=== PATIENT | female | born 1950 | race Caucasian/White ===

== ENCOUNTER 2018-11-08 13:06 | Inpatient (IN) | payer MEDICARE, BC ==
[~2018-11-08] VITALS: Ht 167.6 cm; Wt 84.8 kg
[2018-11-08] MEDS ORDERED: ZYPREXA2.5 MG ORAL (13:25)
[2018-11-08] MEDS ORDERED: IRON325 M1 PO (13:25)
[2018-11-08] MEDS ORDERED: ceftin PO (13:25)
[2018-11-08] MEDS ORDERED: FAMOTIDINE20 MG ORAL (13:25)
[2018-11-08] MEDS ORDERED: hydrocortisone PO (13:25)
[2018-11-08] MEDS ORDERED: NAMENDA5 MG ORAL (13:25)
[2018-11-08] MEDS ORDERED: ELIQUIS5 MG PO (13:25)
[2018-11-08] MEDS ORDERED: LEVOTHYROXINE75 MCG ORAL (13:25)
--- NOTE | 2018-11-08 13:36 | Emergency Room Report ---
History of Present Illness General Chief Complaint: Generalized Weakness Source: Patient, EMS Present Illness HPI Patient presents with reports of confusion and lightheadedness Patient herself is not able to provide any history paramedics reported the patient was contacted he is to the paramedics secondary to low blood pressure There was no reports of vomiting or diarrhea Patient reports recent hospitalization however is not able to provide the name Denies any fevers patient appears confused history of present illness is significantly limited Allergies: Coded Allergies: PENICILLINS (Verified Allergy, Unknown, 11/08/18) Patient History Past Medical History: see triage record Pertinent Family History: none Reviewed Nursing Documentation: PMH: Agreed; PSxH: Agreed Nursing Documentation-PMH Past Medical History: No History, Except For Hx Cancer: Yes - breast History Of Psychiatric Problem: Yes - Alzheimers anxiety depression Review of Systems All Other Systems: limited - Other than the ones mentioned in the history of present illness all others are reviewed however they do stay limited due to the patient's mental status Physical Exam Vital Signs Date Time Temp Pulse Resp B/P (MAP) Pulse Ox O2 Delivery O2 Flow Rate FiO2 11/08/18 12:58 98.1 88 18 105/68 93 Nasal Cannula 4.0 Sp02 EP Interpretation: reviewed, normal General Appearance: no apparent distress Head: normocephalic, atraumatic Eyes: bilateral eye PERRL, bilateral eye EOMI ENT: hearing grossly normal, TMs + canals normal, uvula midline, dry mucus membranes Neck: full range of motion, supple, no meningismus, no bony tend Respiratory: lungs clear, normal breath sounds, no rhonchi, no respiratory distress, no retraction, no accessory muscle use Cardiovascular #1: normal peripheral pulses, regular rate, rhythm, no edema, no gallop, no JVD, no murmur Gastrointestinal: normal bowel sounds, non tender, soft, no mass, no organomegaly, non-distended, no guarding, no hernia, no pulsatile mass, no rebound Genitourinary: no CVA tenderness Musculoskeletal: other - No obvious focal weakness Neurologic: responsive, motor strength/tone normal, sensory intact, other - Confused Psychiatric: mood/affect normal Skin: normal color, no rash, warm/dry, palpation normal Lymphatic: normal inspection, no adenopathy Medical Decision Making Diagnostic Impression: Primary Impression: Episode of generalized weakness Additional Impressions: UTI (urinary tract infection) Sepsis ER Course Patient is a fairly complex patient with multiple differential to consideration including but not limited to cardiac cardiopulmonary and vascular emergencies Also infectious pathology neurological ideology considered Patient's CBC shows a left fourth shift urine sample shows bacteria Patient initiated on IV hydration and antibiotics Sepsis reexamination Time: Reevaluation VS refer to nursing note cvs: RRR respiratory: improved respiration peripheral pulses: 2+radial cap refill:<2 seconds skin exam: warm, dry, not mottled Patient has not meet severe sepsis criteria Given her age and presentation CHF is attempted to be avoided and therefore patient does not reach full 30 mL/kg saline coverage however has improved significantly with blood pressure and admitted for further care Labs Test 11/08/18 13:45 White Blood Count 8.0 K/UL (4.8-10.8) Red Blood Count 3.88 M/UL (4.20-5.40) Hemoglobin 11.2 G/DL (12.0-16.0) Hematocrit 35.4 % (37.0-47.0) Mean Corpuscular Volume 91 FL (80-99) Mean Corpuscular Hemoglobin 28.9 PG (27.0-31.0) Mean Corpuscular Hemoglobin Concent 31.6 G/DL (32.0-36.0) Red Cell Distribution Width 13.6 % (11.6-14.8) Platelet Count 358 K/UL (150-450) Mean Platelet Volume 5.3 FL (6.5-10.1) Neutrophils (%) (Auto) % (45.0-75.0) Lymphocytes (%) (Auto) % (20.0-45.0) Monocytes (%) (Auto) % (1.0-10.0) Eosinophils (%) (Auto) % (0.0-3.0) Basophils (%) (Auto) % (0.0-2.0) Differential Total Cells Counted 100 Neutrophils % (Manual) 84 % (45-75) Lymphocytes % (Manual) 11 % (20-45) Monocytes % (Manual) 5 % (1-10) Eosinophils % (Manual) 0 % (0-3) Basophils % (Manual) 0 % (0-2) Band Neutrophils 0 % (0-8) Platelet Estimate Adequate Platelet Morphology Normal Red Blood Cell Morphology Normal Urine Color Yellow Urine Appearance Slightly cloudy Urine pH 5 (4.5-8.0) Urine Specific [place] 1.015 (1.005-1.035) Urine Protein 1+ (NEGATIVE) Urine Glucose (UA) Negative (NEGATIVE) Urine Ketones Negative (NEGATIVE) Urine Blood Negative (NEGATIVE) Urine Nitrite Negative (NEGATIVE) Urine Bilirubin Negative (NEGATIVE) Urine Urobilinogen Normal MG/DL (0.0-1.0) Urine Leukocyte Esterase 3+ (NEGATIVE) Urine RBC 0 /HPF (0 - 2) Urine WBC Tntc /HPF (0 - 2) Urine Squamous Epithelial Cells Occasional /LPF Urine Bacteria Few /HPF (NONE) Sodium Level 142 MMOL/L (136-145) Potassium Level 3.5 MMOL/L (3.5-5.1) Chloride Level 107 MMOL/L (98-107) Carbon Dioxide Level 27 MMOL/L (21-32) Anion Gap 8 mmol/L (5-15) Blood Urea Nitrogen 20 mg/dL (7-18) Creatinine 1.6 MG/DL (0.55-1.30) Estimat Glomerular Filtration Rate 32.0 mL/min (>60) Glucose Level 71 MG/DL (74-106) Lactic Acid Level 1.70 mmol/L (0.4-2.0) Calcium Level 8.6 MG/DL (8.5-10.1) Total Bilirubin 0.3 MG/DL (0.2-1.0) Aspartate Amino Transf (AST/SGOT) 24 U/L (15-37) Alanine Aminotransferase (ALT/SGPT) 13 U/L (12-78) Alkaline Phosphatase 99 U/L (46-116) Total Creatine Kinase 102 U/L (26-308) Creatine Kinase MB 3.5 NG/ML (0.0-3.6) Creatine Kinase MB Relative Index 3.4 Troponin I 0.000 ng/mL (0.000-0.056) Pro-B-Type Natriuretic Peptide 577 pg/mL (0-125) Total Protein 6.5 G/DL (6.4-8.2) Albumin 2.9 G/DL (3.4-5.0) Globulin 3.6 g/dL Albumin/Globulin Ratio 0.8 (1.0-2.7) Lipase 65 U/L (73-393) Rhythm Strip Diag. Results EP Interpretation: yes Rate: 65 Rhythm: NSR, no PVC's, no ectopy Chest X-Ray Diagnostic Results Chest X-Ray Diagnostic Results : Chest X-Ray Ordered: Yes # of Views/Limited/Complete: 1 View Indication: Chest Pain EP Interpretation: Yes Interpretation: no effusion, no pneumothorax, other - Bilateral atelectasis Impression: Other - Bilateral atelectasis Electronically Signed by: Jamison Moctezuma DO Last Vital Signs Date Time Temp Pulse Resp B/P (MAP) Pulse Ox O2 Delivery O2 Flow Rate FiO2 11/08/18 12:58 98.1 88 18 105/68 93 Nasal Cannula 4.0 Status: improved Disposition: ADMITTED INPATIENT Condition: Serious Jamison Moctezuma DO Nov 08, 2018 13:36
[2018-11-08] MEDS ORDERED: ACETAMINOPHEN325 M1 ORAL (13:39)
[2018-11-08] MEDS ORDERED: PHOS-NAK PACKE1 EAC1 PO (13:39)
[2018-11-08] MEDS ORDERED: VENLAFAXINE HC150 MG ORAL (13:39)
[2018-11-08] MEDS ORDERED: VITAMIN B-1100 MG ORAL (13:39)
[2018-11-08] MEDS ORDERED: OMEPRAZOLE20 M2 ORAL (13:39)
--- NOTE | 2018-11-08 14:09 | NUR ---
ED Nurse Note: Pt came from assisted living due to hypotension. A + O x3. Hx of dementia. Bolus fluids started. IV site noted on the right back on hand. Blood and urine collected. Redness noted on the sacrum.
[2018-11-08 14:10] VITALS: BP 111/69
[2018-11-08 14:29] LABS: APPEARANCE,URINE SLIGHTLY CLOUDY; BILIRUBIN, URINE NEGATIVE (NEGATIVE); GLUCOSE, URINE (UA) NEGATIVE (NEGATIVE); KETONES,URINE NEGATIVE (NEGATIVE); LEUKOCYTE ESTERASE ,URINE 3+ (NEGATIVE); NITRITE,URINE NEGATIVE (NEGATIVE); PH,URINE 5 (4.5-8.0); PROTEIN,URINE 1+ (NEGATIVE); UROBILINOGEN,URINE NORMAL MG/DL (0.0-1.0)
[2018-11-08 14:32] LABS: COLOR,URINE YELLOW; HEMATOCRIT 35.4 % (37.0-47.0); HEMOGLOBIN 11.2 G/DL (12.0-16.0); MEAN CORPUSCULAR VOLUME 91 FL (80-99); PLATELET COUNT 358 K/UL (150-450); RED BLOOD COUNT 3.88 M/UL (4.20-5.40); RED CELL DISTRIBUTION WIDTH 13.6 % (11.6-14.8)
[2018-11-08 14:34] LABS: ANION GAP 8 mmol/L (5-15); BLOOD UREA NITROGEN 20 mg/dL (7-18); CALCIUM 8.6 MG/DL (8.5-10.1); CARBON DIOXIDE 27 MMOL/L (21-32); CHLORIDE 107 MMOL/L (98-107); CREATININE 1.6 MG/DL (0.55-1.30); POTASSIUM 3.5 MMOL/L (3.5-5.1); SODIUM 142 MMOL/L (136-145)
[2018-11-08 14:48] LABS: ALANINE AMINOTRANSFERASE 13 U/L (12-78); ALBUMIN 2.9 G/DL (3.4-5.0); ALBUMIN/GLOBULIN RATIO 0.8 (1.0-2.7); ALKALINE PHOSPHATASE 99 U/L (46-116); ASPARTATE AMINO TRANSFERASE 24 U/L (15-37); BILIRUBIN,TOTAL 0.3 MG/DL (0.2-1.0); CKMB 3.5 NG/ML (0.0-3.6); CREATINE KINASE 102 U/L (26-308)
--- NOTE | 2018-11-08 14:48 | Diagnostic Imaging Report ---
EXAM: XR Chest, 1 View CLINICAL HISTORY: Chest pain TECHNIQUE: Frontal view of the chest. COMPARISON: No relevant prior studies available. FINDINGS: Lungs: Mild consolidation in the medial lung bases. Pleural space: Unremarkable. The costophrenic angles are sharp. No visible pneumothorax. Heart: Unremarkable. No cardiomegaly. Mediastinum: Unremarkable. Bones/joints: Unremarkable. Vasculature: Atherosclerotic calcifications are noted within the aortic arch. Mildly tortuous thoracic aorta. Tubes, lines and devices: EKG leads overlie the thorax. Right arm PICC with catheter tip in the region of the right atrium. IMPRESSION: Mild consolidation in the medial lung bases, which may represent subsegmental atelectasis versus infiltrates.
--- NOTE | 2018-11-08 16:32 | NUR ---
ED Nurse Note: Telephone report given to MEGHAN Molina.
--- NOTE | 2018-11-08 16:35 | NUR ---
NURSE NOTES: RECEIVED REPORT FROM JAY STATISTICAL MODELER. SBAR USED. BOLUS 2LNS GIVEN EKG IN CHART, CXR COMPLETE. PT GOING TO ROOM 244-2. AWAITNG PT ARRIVAL.
--- NOTE | 2018-11-08 16:49 | NUR ---
ED Nurse Note: Transferred pt to SDU w/ pulmonary function technologist. No acute distress or pain noted.
--- NOTE | 2018-11-08 17:00 | NUR ---
NURSE NOTES: PT ON GURNEY, LYING ON SIDE. C/O BEING COLD. ON CARDIAC TELE BOX, BP 144/90 RR13 HR 107 95% 02SAT , ON 2LNC, A/0X3. SPEECH DELAYED, PT APPEARS FATIGUED AND ANXIOUS, FORGETFUL AND CONFUSED. ABDOMEN NON TENDER, NO BM, PURE WICK PLACED. SKIN INTACT, 20G RT HAND AND 20G LT WRIST. FALL PRECAUTIONS IN PLACE. MD CALDWELL HERE TO SEE PT. WILL PLACE OWN ORDERS.
--- NOTE | 2018-11-08 17:12 | History & Physical ---
History and Physical History & Physicial HP dictated # [id number] Ilir Rios MD Nov 08, 2018 17:12
[2018-11-08] MEDS ORDERED: Miralax 17gm pkt ORAL PRN (17:30)
[2018-11-08] MEDS: Venlafaxine XR 150mg cap ORAL SCH (18:00)
[2018-11-08] MEDS: Memantine 5 MG TAB ORAL SCH (18:23)
[2018-11-08] MEDS: OLANZapine 2.5mg tab ORAL SCH (18:23)
[2018-11-08] MEDS: Thiamine 100mg tab ORAL SCH (18:25)
[2018-11-08 20:00] VITALS: BP 99/67
--- NOTE | 2018-11-08 20:03 | NUR ---
NURSE NOTES: Received report from MEGHAN Mack. Patient resting in bed. Caregiver at bedside. Hooked to waiter/waitress counter. On 2L NC. No apparent respiratory distress at moment. Regular diet in place. Purewick in place. Skin intact. 20G IV sites on left an right hand. running NS @ 75 cc/hr. Bed in lowest position. Bed alarm on. Will continue to monitor.
[2018-11-08] MEDS: Heparin 5000 units/ml inj SUBQ SCH (21:38)
[2018-11-08] MEDS ORDERED: Cefepime HCl 2 GM in D5W 55 ML IVPB SCH (23:00)
[2018-11-09] VITALS (22 sets, daily range): BP systolic 60–149; BP diastolic 40–105
[2018-11-09] MEDS ORDERED: Vancomycin 1250mg/D5W 250ml IVPB SCH
--- NOTE | 2018-11-09 00:45 | History and Physical Report ---
DATE OF ADMISSION: 11/08/2018 CHIEF COMPLAINT: The patient was found to have low blood pressure and generalized weakness. HISTORY OF PRESENT ILLNESS: This is a 68-year-old female, who is a resident of a [facility] facility. The patient was feeling weak. Paramedics were called. The patient was brought into the emergency room. She was diagnosed with urinary tract infection, also somewhat hypotensive with blood pressure in 90s and 100s systolic. The patient has history of Alzheimer disease and unable to provide any history. PAST MEDICAL HISTORY: Unobtainable at this point. The patient has history of breast cancer per records, also history of anxiety, depression, and Alzheimer disease. MEDICATIONS: Reviewed in the EMR. SOCIAL HISTORY: Unobtainable. ALLERGIES: Penicillin. REVIEW OF SYSTEMS: Unobtainable. PHYSICAL EXAMINATION: GENERAL: The patient is a 68-year-old female, in no acute distress. VITAL SIGNS: Blood pressure is 135/74, pulse 97, temperature 97.8, and respiratory rate is 13. HEENT: Somewhat pale conjunctivae. Anicteric sclerae. NECK: Supple. LUNGS: Clear to auscultation. HEART: S1, S2 without murmurs or rubs. ABDOMEN: Soft, nontender. EXTREMITIES: No cyanosis or edema. The patient has contractures in both upper as well as lower extremities. LABORATORY FINDINGS: The CBC shows WBC of 8000, hematocrit 35.4, hemoglobin is 11.2, and platelets 358,000. The chemistry panel shows serum sodium of , potassium 3.5, chloride 107, BUN is 20, creatinine 1.6, and glucose is 71. Troponin was negative. Lipase 65. Albumin 3.9. Lactic acid is 1.7. The UA shows 1+ protein, zero rbc, and too many to count wbc's per high-power field. ASSESSMENT: This is a 68-year-old female, who was admitted with weakness. She has confusion at baseline because of Alzheimer's disease. It is unclear if confusion is now worse because of her urinary tract infection. She has renal failure with serum creatinine of 1.6. She may have prerenal azotemia or she may have underlying CKD. Her baseline serum creatinine is not known at this point. Acute tubular necrosis is another possibility. PLAN: The patient will be hydrated with IV fluids. She is going to be on antibiotics. The patient was diagnosed with pneumonia from the ER that I looked at the chest x-ray and there may be some atelectasis only, however, I will get ID reporting consultant to help with antibiotics. Laboratories will be followed and further adjustment will be made in the patient's regimen. Ilir Rios M.D. DR: DUNG JOB#: [id number] CC: MATT
--- NOTE | 2018-11-09 07:34 | NUR ---
HAND-OFF: Report given to Kourtney Bowles RN. Patient sleeping.
--- NOTE | 2018-11-09 07:35 | NUR ---
NURSE NOTES: Received patient from MEGHAN Burk. Patient sleeping at this time. Patient reported to be alert to name only. Patient lethargic. Patient showing SR on the monitor. Patient on 2L NC at this time with stable saturation. Patient has a low BP during the night. Will notify MD. Patient on soft/easy chew at this time. Patient refused dinner last night. Patient on purewick at this time. Patient skin intact with scrape visible on the right knee at this time. Patient has a right hand 20G PIV ant left hand 20G PIV. Patient running NS at 75mL/hr at this time. PIV's both patent and asymptomatic at this time. Patient bed in low position with bed alarm on and call light in reach at this time. Caregiver at the bedside.
[2018-11-09] MEDS: Memantine 5 MG TAB ORAL SCH (08:33)
[2018-11-09] MEDS: OLANZapine 2.5mg tab ORAL SCH (08:33)
[2018-11-09] MEDS: Thiamine 100mg tab ORAL SCH (08:33)
[2018-11-09] MEDS: Venlafaxine XR 150mg cap ORAL SCH (08:33)
[2018-11-09] MEDS: Heparin 5000 units/ml inj SUBQ SCH ×2 (08:34→20:45)
--- NOTE | 2018-11-09 09:32 | General Progress Note ---
Assessment/Plan Problem List: (1) UTI (urinary tract infection) ICD Codes: N39.0 - Urinary tract infection, site not specified SNOMED: 97003732 (2) Sepsis ICD Codes: A41.9 - Sepsis, unspecified organism SNOMED: 87144338 (3) ARF (acute renal failure) ICD Codes: N17.9 - Acute kidney failure, unspecified SNOMED: 92314763 Assessment/Plan abxs IVF check cultures follow labs Subjective Allergies: Coded Allergies: PENICILLINS (Verified Allergy, Unknown, 11/08/18) Subjective In NAD Objective Last 24 Hour Vital Signs Date Time Temp Pulse Resp B/P (MAP) Pulse Ox O2 Delivery O2 Flow Rate FiO2 11/09/18 08:00 98.2 102 20 129/75 (93) 92 11/09/18 04:00 Nasal Cannula 2.0 11/09/18 04:00 94 11/09/18 04:00 97.9 96 20 87/42 (57) 94 11/09/18 00:00 101 11/09/18 00:00 Nasal Cannula 2.0 11/09/18 00:00 99.3 102 20 93/61 (72) 94 11/08/18 22:11 100.3 11/08/18 20:00 101.8 104 20 99/67 (78) 92 11/08/18 20:00 Nasal Cannula 2.0 11/08/18 20:00 106 11/08/18 18:40 Nasal Cannula 2.0 11/08/18 17:11 Nasal Cannula 2.0 11/08/18 16:50 97.8 97 13 135/74 100 Room Air 2.0 11/08/18 14:10 97.6 92 16 111/69 99 Room Air 2.0 11/08/18 14:10 92 16 Room Air 99 11/08/18 12:58 98.1 88 18 105/68 93 Nasal Cannula 4.0 Intake and Output 11/08/18 11/09/18 18:59 06:59 Intake Total 75 ml Balance 75 ml Intake IV Total 75 ml # Voids 1 Laboratory Tests 11/08/18 13:45: White Blood Count 8.0, Red Blood Count 3.88L, Hemoglobin 11.2L, Hematocrit 35.4L , Mean Corpuscular Volume 91, Mean Corpuscular Hemoglobin 28.9, Mean Corpuscular Hemoglobin Concent 31.6L, Red Cell Distribution Width 13.6, Platelet Count 358, Mean Platelet Volume 5.3L, Neutrophils (%) (Auto) , Lymphocytes (%) (Auto) , Monocytes (%) (Auto) , Eosinophils (%) (Auto) , Basophils (%) (Auto) , Differential Total Cells Counted 100, Neutrophils % ( Manual) 84H, Lymphocytes % (Manual) 11L, Monocytes % (Manual) 5, Eosinophils % ( Manual) 0, Basophils % (Manual) 0, Band Neutrophils 0, Platelet Estimate Adequate, Platelet Morphology Normal, Red Blood Cell Morphology Normal, Urine Color Yellow, Urine Appearance Slightly cloudy, Urine pH 5, Urine Specific [place] 1.015, Urine Protein 1+H, Urine Glucose (UA) Negative, Urine Ketones Negative, Urine Blood Negative, Urine Nitrite Negative, Urine Bilirubin Negative , Urine Urobilinogen Normal, Urine Leukocyte Esterase 3+H, Urine RBC 0, Urine WBC TntcH, Urine Squamous Epithelial Cells Occasional, Urine Bacteria Few, Sodium Level 142, Potassium Level 3.5, Chloride Level 107, Carbon Dioxide Level 27, Anion Gap 8, Blood Urea Nitrogen 20H, Creatinine 1.6H, Estimat Glomerular Filtration Rate 32.0, Glucose Level 71L, Lactic Acid Level 1.70, Calcium Level 8.6, Total Bilirubin 0.3, Aspartate Amino Transf (AST/SGOT) 24, Alanine Aminotransferase (ALT/SGPT) 13, Alkaline Phosphatase 99, Total Creatine Kinase 102, Creatine Kinase MB 3.5, Creatine Kinase MB Relative Index 3.4, Troponin I 0.000, Pro-B-Type Natriuretic Peptide 577H, Total Protein 6.5, Albumin 2.9L, Globulin 3.6, Albumin/Globulin Ratio 0.8L, Lipase 65L Height (Feet): 5 Height (Inches): 8.00 Weight (Pounds): 150 Cardiovascular: normal rate Respiratory/Chest: lungs clear Edema: 3+ Generalized Ilir Rios MD Nov 09, 2018 09:32
--- NOTE | 2018-11-09 10:53 | NUR ---
NURSE NOTES: Spoke with [facility] at this time. They called for an update. Notified them that patient will not be discharged today. No discharge planning noted in doctors note at this time.
[2018-11-09] MEDS ORDERED: Cefepime HCl 2 GM in D5W 55 ML IVPB SCH (11:00)
--- NOTE | 2018-11-09 14:11 | Cardiology Report ---
APPROVED REPORT EKG Measurement Heart [id number] ID [id number] Normal sinus rhythm Low voltage QRS Cannot rule out Anterior infarct, age undetermined Abnormal ECG
--- NOTE | 2018-11-09 14:43 | NUR ---
RESPIRATORY NOTE: Attempted sputum inducement with RN at bedside however patient refused. Patient alert and awake. RN aware.
--- NOTE | 2018-11-09 15:28 | NUR ---
NURSE NOTES: Patient refused to produce sputum for sputum culture. RT attempted to nasal suction patient, but patient refused to cooperate. Sputum cannot be collected at this time.
--- NOTE | 2018-11-09 15:46 | NUR ---
PT Note PT eval completed, treatment initiated. Patient is noted to have rigidity mostly on the RUE/LE and is severely retropulsive at the EOB. Patient needs skilled PT services to increase her muscle strength and balance to improve her functional mobility. Recommend for patient to be DC'd to a SNF to maximize her functional mobility. Addendum: 11/09/18 at 1546 by KAYLA WEBER PT Amended: Links added.
--- NOTE | 2018-11-09 16:52 | NUR ---
NURSE NOTES: Patient blood pressure low at this time. Patient also has a fever. Patient just given tylenol. Patient fever went from 101.3 to 100.3 at this time. blanket removed. Cooling measures performed. Patient bp is 76/44 at this time. paged at this time. Awaiting call back.
--- NOTE | 2018-11-09 17:45 | Consultation ---
DATE OF CONSULTATION: 11/09/2018 INFECTIOUS DISEASES CONSULTATION REFERRING PHYSICIAN: Ilir Rios M.D. REASON FOR CONSULTATION: Pneumonia and urinary tract infection. HISTORY OF PRESENTING ILLNESS: This is a 68-year-old lady with history of breast cancer, anxiety, depression, and dementia, who comes in with hypotension. She was found to have urinary tract infection and an Infectious Disease's consultation has been obtained for antibiotics. PAST MEDICAL HISTORY: 1. History of breast cancer. 2. Anxiety. 3. Depression. 4. Dementia. MEDICATIONS: As an inpatient, she is on IV vancomycin, cefepime, Tylenol, subcutaneous heparin, venlafaxine, MiraLax, famotidine, ferrous sulfate, levothyroxine, Namenda, olanzapine, thiamine. ALLERGIES: She is allergic to penicillin, but she is tolerating cephalosporins. SOCIAL HISTORY: Unknown. FAMILY HISTORY: Unknown. REVIEW OF SYSTEMS: RESPIRATORY: No fever, chills, cough, shortness of breath, or chest pain. CARDIAC: No chest pain. No palpitations. No dizziness. No syncope. GI: No nausea. No vomiting. No abdominal pain or diarrhea. PHYSICAL EXAMINATION: VITAL SIGNS: Temperature of 98.2 degrees, T-max of 101.8 degrees, pulse of 102, respiratory rate 20, blood pressure 129/75, O2 saturation of 92%. HEENT: Pupils equally reactive to light and accommodation. Mouth appears clean without thrush. NECK: Supple. No adenopathy. No JVD. CARDIOVASCULAR: Regular rate and rhythm. No murmurs. LUNGS: Clear to auscultation bilaterally. No crackles. No wheezes. ABDOMEN: Soft and nontender. No organomegaly. EXTREMITIES: No cyanosis, no clubbing, no edema. LABORATORY AND DIAGNOSTIC DATA: On 11/08/2018, white count of 8, hemoglobin 11.2, hematocrit 35.4, MCV 91, platelet count of 358,000, and neutrophils of 84%. Sodium 142, potassium 3.5, chloride 107, bicarb 27, BUN 20, creatinine 1.6, glucose 71, and calcium 8.6. Total bilirubin 0.3. AST 24, ALT 13, and alkaline phosphatase 99. CK of 102, CK-MB 3.5. Troponin 0. Beta-natriuretic peptide 577. Total protein 6.5. Albumin 2.9. Lipase of 65. UA showing too numerous to count white cells. Urine cultures are negative. Chest x-ray showing mild consolidation in the medial lung bases, which may represent atelectasis versus infiltrates. ASSESSMENT: This is a 68-year-old lady with history of dementia as well as breast cancer, who comes in with hypotension and is found to have: 1. Urinary tract infection. Cultures are negative so far. 2. She also probably has pneumonia. 3. Breast cancer. PLAN: 1. Continue IV vancomycin and cefepime. 2. We will order sputum for Gram stain and culture. 3. We will follow up cultures and adjust antibiotics accordingly. I would like to thank, Dr. Ilir Rios, for this consultation. Marcial Haque M.D. DR: Isa JOB#: [id number] CC: Ilir Rios M.D.; Fax#: [phone]
--- NOTE | 2018-11-09 18:39 | NUR ---
NURSE NOTES: Patient has been moved to ICU per MD request at this time. Patient started on Levophed drip at this time. Patient on 20mcg/kg/hr at this time. Patient VS unstable. Patient has temp 99.3 and BP 81/61 at this time. Patient's BP when moved to ICU was 60/40. Patient needs central line. Order is in and consent is signed. Patient's family (, step-daughter and daughter) have been notified regarding patient's condition at this time.
[2018-11-09] MEDS ORDERED: Miralax 17gm pkt ORAL PRN (19:00)
--- NOTE | 2018-11-09 20:10 | Emergency Room Report ---
History of Present Illness General Chief Complaint: Generalized Weakness Source: Significant Other, Medical Record Present Illness Allergies: Coded Allergies: PENICILLINS (Verified Allergy, Unknown, 11/08/18) Nursing Documentation-[facility] Past Medical History Deferred: Pt Cognitively Impaired Past Medical History: No History, Except For Hx Cardiac Problems: No Hx Cancer: Yes - breast Hx Gastrointestinal Problems: No History Of Psychiatric Problem: Yes - Alzheimers anxiety depression Hx Neurological Problems: Yes Hx Cerebrovascular Accident: No Hx Transient Ischemic Attacks: No Hx Dementia: Yes Hx Alzheimer's Disease: Yes Hx Parkinson's Disease: No Hx Meningitis: No Hx Encephalitis: No Hx Seizures: No Hx Epilepsy: No Hx Multiple Sclerosis: No Hx Cerebral Palsy: No Hx Amyotrophic Lat Sclerosis: No Hx Guillian-Butler Syndrome: No Hx Paralysis: No Hx Peripheral Neuropathy: No Hx Spinal Cord Injury: No Hx Head Trauma: No Hx Traumatic Brain Injury: No Hx Memory Loss: No Hx Concentration Difficulty: Yes Hx Speech Problem: No Hx Tremors: No Hx Vertigo: No Hx Dizziness: No Hx Syncope: No Hx Headaches: No Hx Aphasia: No Hx Dysphasia: No Hx Numbness: No Hx Weakness: Yes Hx Fatigue: Yes Hx Neurologic Surgery: No Hx Brain Shunt: No Physical Exam Vital Signs Date Time Temp Pulse Resp B/P (MAP) Pulse Ox O2 Delivery O2 Flow Rate FiO2 11/08/18 12:58 98.1 88 18 105/68 93 Nasal Cannula 4.0 11/08/18 14:10 99 Procedures Central Line Central Line : Consent: Written Central Line Lumen: triple Maximal Sterile Barrier Tech: yes cap, yes mask, yes sterile gown, yes sterile gloves, yes large sterile sheet, yes hand hygiene, yes chlorhexidine prep Central Line Postion: internal jugular (R) Anesthesia: local cc's of anesthesia: 8 Complications: none Central Line Post Position: sutured, good blood return Attempts: Other - three Patient Tolerated: Well Medical Decision Making Diagnostic Impression: Primary Impression: Episode of generalized weakness Additional Impressions: Sepsis UTI (urinary tract infection) Last Vital Signs Date Time Temp Pulse Resp B/P (MAP) Pulse Ox O2 Delivery O2 Flow Rate FiO2 11/09/18 19:04 85/65 11/09/18 16:55 103 11/09/18 16:19 100.3 11/09/18 16:00 Nasal Cannula 2.0 11/09/18 12:00 19 95 11/08/18 14:10 99 Disposition: ADMITTED INPATIENT Condition: Serious Referrals: NON PHYSICIAN (PCP) Haroon Truong MD Nov 09, 2018 20:10
--- NOTE | 2018-11-09 20:30 | NUR ---
HAND-OFF: Report given to MEGHAN Mccoy. Patient running levophed drip at 25 mcg/kg/min. Patient blood pressure not yet stable. temperature 99 at this time. ER doctor placed central line in right internal jugular at this time. Stat x-ray to be taken. Endorsed to follow up.
--- NOTE | 2018-11-09 20:40 | NUR ---
NURSE NOTES: PATIENT OPEN EYES, PT'S CAREGIVER AT BEDSIDE, TLC TO RIGHT IJ, INTACT, RESPIRATION REGULAR, ON O2 2LPM VIA NC, O2 SATURATION 98% NOTED, ABDOMEN SOFT, NO BOWEL MOVEMENT, PERIPHERAL LINE TO BOTH FORE ARM AND HAND, ONGOING LEVOPHED 25MCG/MIN AND NS AT 75ML/HR, WILL CONTINUE TO MONITOR.
--- NOTE | 2018-11-09 21:09 | NUR ---
NURSE NOTES: CALLED BACK FROM DR. GIVENS THAT OK TO USE CENTRAL LINE.
--- NOTE | 2018-11-09 22:29 | NUR ---
HAND-OFF: Report given to KIARA/RN.
--- NOTE | 2018-11-09 22:30 | NUR ---
NURSE NOTES: Endorsement received from MEGHAN Mccoy. Patient lethargic. on 2 liters oxygen per nasal cannula. No SOB. With external female catheter purewick connected to low suction. With right IJ TLC, left forearm g22, left hand g20, right hand g20. Ongoing levophed 23mcg/min and NS 75ml/hr. Bed locked and in low position. Daughter and caregiver at bedside.
[2018-11-09 22:34] LABS: HEMATOCRIT 35.1 % (37.0-47.0); HEMOGLOBIN 11.1 G/DL (12.0-16.0); MEAN CORPUSCULAR VOLUME 90 FL (80-99); PLATELET COUNT 302 K/UL (150-450); RED BLOOD COUNT 3.88 M/UL (4.20-5.40); RED CELL DISTRIBUTION WIDTH 13.6 % (11.6-14.8); WHITE BLOOD COUNT 13.6 K/UL (4.8-10.8)
[2018-11-09 22:36] LABS: BASOPHILS % (AUTO) 0.3 % (0.0-2.0); EOSINOPHILS % (AUTO) 2.2 % (0.0-3.0); LYMPHOCYTES % (AUTO) 8.7 % (20.0-45.0); MONOCYTES % (AUTO) 3.4 % (1.0-10.0); NEUTROPHILS % (AUTO) 85.4 % (45.0-75.0)
[2018-11-09] MEDS: Vancomycin 750mg/NS 250ml 250 ML IVPB SCH (23:57)
[2018-11-10] VITALS (48 sets, daily range): BP systolic 58–148; BP diastolic 41–112
[2018-11-10] MEDS ORDERED: Vancomycin 750mg/NS 250ml IVPB SCH
--- NOTE | 2018-11-10 | NUR ---
NURSE NOTES: Patient asleep. No shortness of breath. Afebrile. Bed alarm on. Personal sitter at bedside
--- NOTE | 2018-11-10 02:00 | NUR ---
NURSE NOTES: Patient with eyes closed, opens eyes by name. Levophed drip titrated accordingly.
--- NOTE | 2018-11-10 04:00 | NUR ---
NURSE NOTES: Patient passed large amount of soft brown stool. Bed bath, oral care, change of linens done.
--- NOTE | 2018-11-10 05:00 | NUR ---
NURSE NOTES: 12 L EKG done per Dr Mallory's order. shows sinus rhythm
[2018-11-10 05:43] LABS: BASOPHILS % (AUTO) 0.2 % (0.0-2.0); EOSINOPHILS % (AUTO) 2.7 % (0.0-3.0); HEMATOCRIT 29.5 % (37.0-47.0); HEMOGLOBIN 9.7 G/DL (12.0-16.0); LYMPHOCYTES % (AUTO) 11.2 % (20.0-45.0); MEAN CORPUSCULAR VOLUME 90 FL (80-99); MONOCYTES % (AUTO) 3.3 % (1.0-10.0); NEUTROPHILS % (AUTO) 82.6 % (45.0-75.0); PLATELET COUNT 258 K/UL (150-450); RED BLOOD COUNT 3.29 M/UL (4.20-5.40); RED CELL DISTRIBUTION WIDTH 13.3 % (11.6-14.8); WHITE BLOOD COUNT 10.4 K/UL (4.8-10.8)
[2018-11-10 06:06] LABS: ANION GAP 10 mmol/L (5-15); BLOOD UREA NITROGEN 17 mg/dL (7-18); CALCIUM 8.2 MG/DL (8.5-10.1); CARBON DIOXIDE 21 MMOL/L (21-32); CHLORIDE 108 MMOL/L (98-107); CREATININE 1.2 MG/DL (0.55-1.30); POTASSIUM 3.6 MMOL/L (3.5-5.1); SODIUM 139 MMOL/L (136-145)
--- NOTE | 2018-11-10 06:30 | NUR ---
NURSE NOTES: Blood sugar from the CMP is 63. Rechecked with bedside glucometer: 50mg/dl. Patient for swallow eval, D50 50 ml given and synthroid withheld.
--- NOTE | 2018-11-10 07:00 | NUR ---
HAND-OFF: Blood sugar rechecked: 65mg/dl. D50 25 ml given. Report given to MEGHAN Barrera
--- NOTE | 2018-11-10 08:33 | NUR ---
RADIOLOGY DEPT CHEST X-RAY DONE.-P.DYE
--- NOTE | 2018-11-10 08:40 | NUR ---
NURSE NOTES: DIET CHANGED TO PUREE NECTAR THICK
--- NOTE | 2018-11-10 08:50 | NUR ---
ST NOTE: BEDSIDE SWALLOW EVAL RECEIVED BEDSIDE SWALLOW EVAL ORDER CHART REVIEWED PRIOR THE EVALUATION. PT IS A 68-YEAR-OLD FEMALE WHO WAS ADMITTED DUE TO GENERALIZED WEAKNESS. DYSPHAGIA RISK FACTORS: ALZHEIMER'S DEMENTIA, SEPSIS AND UTI, ANXIETY AND BREAST CA. PER CXR: Mild consolidation in the medial lung bases, which may represent subsegmental atelectasis versus infiltrates. PLOF: PT RESIDES AT SNF. PER CG, PT WAS EATING REGULAR FOOD. NO POLST WAS NOTED IN THE CHART, ALSO REGARDING THE TUBE FEEDING IF NEEDED. CURRENT STATUS: PT SEEN AT BEDSIDE IN AM. AWAKE WITH MAX CUES. PT WITH NC(2L), PT'S CAREGIVER IS AT BEDSIDE. PER CG, PT REFUSED ALL THE MEALS SINCE ADMISSION. PT DID NOT FOLLOW ANY DIRECTIONS. GIVEN PO TRIALS: NECTAR THICK(TSP) ONLY. INITIAL IMPRESSION: PROBABLE MILD TO MODERATE OR WORSENED OROPHARYNGEAL DYSPHAGIA MILD INCREASED ORAL TRANSIT TIME AND OROPHARYNGEAL TRANSIT TIME FAIR LARYNGEAL ELEVATION, NO OVERT S/S OF ASPIRATION. NO FURTHER PO TRIAL WAS GIVEN AT THIS TIME DUE TO PT REDUCED ALERTNESS. DUE TO PT HAS H/O ALZHEIMER'S DEMENTIA, PT HAS HIGH RISK FOR (SILENT) ASPIRATION. RECOMMENDATIONS: 1. DUE TO PT REDUCED ALERTNESS AND HAS REFUSED PO INTAKE, TEMPORARILY NONORAL FEEDING MEANS(PLEASE USE THE SMALL BORE NGT-12 FR) IS RECOMMENDED TO MEET NUTRITION AND HYDRATION NEEDS IF PT'S FAMILY AGREES. 2. IF FAMILY REFUSES, PO SHOULD BE GIVEN FOR QUALITY OF LIFE, DIET IS RECOMMENDED LIQUIFIED PUREED, LIKE NECTAR THICK SOUP CONSISTENCY WITH NECTAR THICK LIQUIDS WITH STRICT ASPIRATION PRECAUTIONS WITH 1TO1 FEEDING. 3. VIDEOSWALLOW STUDY IF NEEDED POSTED NPO SIGN AND ASPIRATION PRECAUTIONS SIGN. D/W CAREGIVER AND RNORTIZ.
[2018-11-10] MEDS: Venlafaxine XR 150mg cap ORAL SCH (08:59)
[2018-11-10] MEDS: Thiamine 100mg tab ORAL SCH (08:59)
[2018-11-10] MEDS: Memantine 5 MG TAB ORAL SCH (08:59)
[2018-11-10] MEDS: OLANZapine 2.5mg tab ORAL SCH (08:59)
--- NOTE | 2018-11-10 09:01 | Nephrology Progress Note ---
Assessment/Plan Assessment/Plan A/P 1) Septic Shock- UTI/PNA - Abx per ID - levophed and IVFs - NS bolus 2) GABRIELLA- prerenal. Cr down to 1.2 3) Nutrition- NG and start TFs 4) Dementia- chronic Subjective Date patient seen: Nov 10, 2018 Time patient seen: 08:53 ROS Limited/Unobtainable: Yes Constitutional: Reports: weakness Allergies: Coded Allergies: PENICILLINS (Verified Allergy, Unknown, 11/08/18) Subjective Patient fatigued, nonverbal and has not eaten Objective Last 24 Hour Vital Signs Date Time Temp Pulse Resp B/P (MAP) Pulse Ox O2 Delivery O2 Flow Rate FiO2 11/10/18 07:00 84 17 107/57 (74) 97 11/10/18 06:30 84 17 111/49 (69) 97 11/10/18 06:00 98/69 11/10/18 06:00 84 17 98/69 (79) 97 11/10/18 05:45 83 17 107/81 (90) 97 11/10/18 05:30 84 17 101/75 (84) 95 11/10/18 05:15 83 16 94/60 (71) 95 11/10/18 05:00 82 16 92/61 (71) 95 11/10/18 05:00 92/61 11/10/18 04:45 85 20 125/95 (105) 95 11/10/18 04:30 87 17 130/112 (118) 95 11/10/18 04:15 81 13 113/85 (94) 96 11/10/18 04:00 79 11/10/18 04:00 107/83 11/10/18 04:00 Nasal Cannula 2.0 11/10/18 04:00 98.7 79 12 107/83 (91) 96 11/10/18 03:45 80 12 126/82 (97) 96 11/10/18 03:30 80 12 124/61 (82) 98 11/10/18 03:15 79 12 129/57 (81) 98 11/10/18 03:00 80 12 118/68 (85) 98 11/10/18 03:00 116/61 11/10/18 02:45 75 12 116/61 (79) 98 11/10/18 02:30 75 12 137/63 (87) 98 11/10/18 02:15 74 12 131/66 (87) 98 11/10/18 02:00 72 12 135/63 (87) 98 18 02:00 135/63 11/10/18 01:45 70 12 145/74 (97) 98 18 01:30 67 12 148/64 (92) 97 11/10/18 01:15 69 12 126/60 (82) 97 11/10/18 01:00 103/50 11/10/18 01:00 73 12 103/50 (67) 98 18 00:48 100/62 11/10/18 00:45 77 12 100/62 (75) 98 11/10/18 00:30 87 12 74/41 (52) 97 11/10/18 00:15 84 12 58/44 (49) 97 11/10/18 00:00 74 11/10/18 00:00 Nasal Cannula 2.0 11/10/18 00:00 98.7 70 12 135/61 (85) 99 11/10/18 00:00 135/61 18 23:45 71 12 115/61 (79) 99 18 23:30 73 12 121/92 (102) 93 11/09/18 23:15 73 12 140/75 (96) 99 18 23:00 146/65 18 23:00 69 12 146/65 (92) 99 18 22:45 68 12 149/62 (91) 99 18 22:30 71 12 136/63 (87) 99 18 22:00 78 16 135/67 (89) 98 18 22:00 135/67 18 21:30 88 16 74/47 (56) 97 11/09/18 21:00 81 12 134/58 (83) 98 18 21:00 134/58 11/09/18 20:30 74 19 148/48 (81) 99 11/09/18 20:00 99.0 82 18 143/105 (118) 97 11/09/18 20:00 Nasal Cannula 2.0 18 20:00 143/105 11/09/18 19:30 59 13 144/88 (106) 99 11/09/18 19:18 73 11/09/18 19:04 85/65 11/09/18 19:00 82 14 141/64 (89) 98 11/09/18 18:45 80 15 85/55 (65) 98 11/09/18 18:45 81/61 11/09/18 18:30 79 14 81/61 (68) 99 11/09/18 18:30 81/61 18 18:30 81/61 11/09/18 18:15 81 12 81/47 (58) 99 11/09/18 18:10 60/40 11/09/18 18:10 67/42 11/09/18 18:00 95 15 67/42 (50) 99 11/09/18 17:40 99.3 96 15 60/40 (47) 98 11/09/18 16:55 103 11/09/18 16:19 100.3 11/09/18 16:00 Nasal Cannula 2.0 11/09/18 12:00 102 11/09/18 12:00 100.7 109 19 102/49 (66) 95 11/09/18 11:53 Nasal Cannula 2.0 Intake and Output 11/09/18 11/10/18 18:59 06:59 Intake Total 905.60 ml 1832.230 ml Output Total 500 ml 600 ml Balance 405.60 ml 1232.230 ml Intake Oral 100 ml 0 ml IV Total 805.60 ml 1832.230 ml Output Urine Total 500 ml 600 ml # Bowel Movements 1 2 Laboratory Tests 11/09/18 21:33: Arterial Blood pH 7.384, Arterial Blood Partial Pressure CO2 31.8L, Arterial Blood Partial Pressure O2 103.2H, Arterial Blood HCO3 18.6L, Arterial Blood Oxygen Saturation 96.0, Arterial Blood Base Excess -5.6L, Leo Test Positive 11/09/18 22:10: White Blood Count 13.6#H, Red Blood Count 3.88L, Hemoglobin 11.1L, Hematocrit 35.1L, Mean Corpuscular Volume 90, Mean Corpuscular Hemoglobin 28.7, Mean Corpuscular Hemoglobin Concent 31.7L, Red Cell Distribution Width 13.6, Platelet Count 302, Mean Platelet Volume 5.2L, Neutrophils (%) (Auto) 85.4H, Lymphocytes (%) (Auto) 8.7L, Monocytes (%) (Auto) 3.4, Eosinophils (%) (Auto) 2.2, Basophils (%) (Auto) 0.3, D-Dimer 2.01H, Lactic Acid Level 1.20, Troponin I 0.007, Thyroid Stimulating Hormone (TSH) 0.086L, Cortisol [Pending] 11/10/18 04:50: White Blood Count 10.4, Red Blood Count 3.29L, Hemoglobin 9.7L, Hematocrit 29.5L , Mean Corpuscular Volume 90, Mean Corpuscular Hemoglobin 29.5, Mean Corpuscular Hemoglobin Concent 32.9, Red Cell Distribution Width 13.3, Platelet Count 258, Mean Platelet Volume 5.3L, Neutrophils (%) (Auto) 82.6H, Lymphocytes (%) (Auto) 11.2L, Monocytes (%) (Auto) 3.3, Eosinophils (%) (Auto) 2.7, Basophils (%) (Auto) 0.2, Sodium Level 139, Potassium Level 3.6, Chloride Level 108H, Carbon Dioxide Level 21, Anion Gap 10, Blood Urea Nitrogen 17, Creatinine 1.2, Estimat Glomerular Filtration Rate 44.5, Glucose Level 63L, Calcium Level 8.2L Height (Feet): 5 Height (Inches): 8.00 Weight (Pounds): 150 General Appearance: lethargic, confused Neck: normal alignment, supple Cardiovascular: normal rate, regular rhythm Respiratory/Chest: lungs clear, normal breath sounds Abdomen: non tender, soft Edema: no edema noted Arm (L), no edema noted Arm (R), no edema noted Leg (L), no edema noted Leg (R), no edema noted Pedal (L), no edema noted Pedal (R), no edema noted Generalized Boni Fournier MD Nov 10, 2018 09:01
[2018-11-10] MEDS: Heparin 5000 units/ml inj SUBQ SCH ×2 (09:06→20:31)
--- NOTE | 2018-11-10 09:13 | NUR ---
ST NOTE: DISCUSSED WITH RNLINK RE:PT'S CONDITIONS. PER RN, RN ATTEMPTED TO INSERT NG-TUBE YESTERDAY; AND PT REFUSED. NGT WAS UNABLE TO INSERT. DISCUSSED WITH MD, DR. DE LA CRUZ, APPROVED NECTAR THICK SOUP DIET. WILL FOLLOW UP.
--- NOTE | 2018-11-10 09:22 | Pulmonolgy Critical Care Note ---
Critical Care - Asmt/Plan Problems: (1) Hypoxemia (2) Elevated d-dimer (3) Dehydration (4) Sepsis (5) Episode of generalized weakness (6) UTI (urinary tract infection) (7) ARF (acute renal failure) Respiratory: adjust tidal volume, adjust FIO2, other - FU CT-A Cardiac: continue pressors - Titrate NE to keep MAP > 60, continue to monitor HR/BP, other - F/U TTE Renal: F/U I&O, keep IV fluid - per renal, check electrolytes Infectious Disease: check cultures, continue antibiotics - Vanco and Cefepime Gastrointestinal: start feedings - PO per COURT ADVOCATE with STRICT aspiration precautions Endocrine: monitor blood sugar Hematologic: other - Hep SQ for PPx, F/U DUPLEX and CT-A Neurologic: other - Monit MS Prophylaxis: Heparin, other - Pepcid Disposition: keep in ICU Time Spent (Minutes): 50 Notes Reviewed: nutrition partner, renal, ID Discussed with: nurses, consultants Critical Care - Objective Last 24 Hour Vital Signs Date Time Temp Pulse Resp B/P (MAP) Pulse Ox O2 Delivery O2 Flow Rate FiO2 11/10/18 07:00 84 17 107/57 (74) 97 11/10/18 06:30 84 17 111/49 (69) 97 11/10/18 06:00 98/69 11/10/18 06:00 84 17 98/69 (79) 97 11/10/18 05:45 83 17 107/81 (90) 97 11/10/18 05:30 84 17 101/75 (84) 95 11/10/18 05:15 83 16 94/60 (71) 95 11/10/18 05:00 82 16 92/61 (71) 95 11/10/18 05:00 92/61 11/10/18 04:45 85 20 125/95 (105) 95 11/10/18 04:30 87 17 130/112 (118) 95 11/10/18 04:15 81 13 113/85 (94) 96 11/10/18 04:00 79 11/10/18 04:00 107/83 11/10/18 04:00 Nasal Cannula 2.0 11/10/18 04:00 98.7 79 12 107/83 (91) 96 11/10/18 03:45 80 12 126/82 (97) 96 11/10/18 03:30 80 12 124/61 (82) 98 11/10/18 03:15 79 12 129/57 (81) 98 11/10/18 03:00 80 12 118/68 (85) 98 11/10/18 03:00 116/61 11/10/18 02:45 75 12 116/61 (79) 98 11/10/18 02:30 75 12 137/63 (87) 98 11/10/18 02:15 74 12 131/66 (87) 98 11/10/18 02:00 72 12 135/63 (87) 98 18 02:00 135/63 11/10/18 01:45 70 12 145/74 (97) 98 11/10/18 01:30 67 12 148/64 (92) 97 11/10/18 01:15 69 12 126/60 (82) 97 11/10/18 01:00 103/50 11/10/18 01:00 73 12 103/50 (67) 98 11/10/18 00:48 100/62 11/10/18 00:45 77 12 100/62 (75) 98 11/10/18 00:30 87 12 74/41 (52) 97 11/10/18 00:15 84 12 58/44 (49) 97 11/10/18 00:00 74 11/10/18 00:00 Nasal Cannula 2.0 11/10/18 00:00 98.7 70 12 135/61 (85) 99 11/10/18 00:00 135/61 18 23:45 71 12 115/61 (79) 99 11/09/18 23:30 73 12 121/92 (102) 93 11/09/18 23:15 73 12 140/75 (96) 99 18 23:00 146/65 18 23:00 69 12 146/65 (92) 99 18 22:45 68 12 149/62 (91) 99 18 22:30 71 12 136/63 (87) 99 18 22:00 78 16 135/67 (89) 98 18 22:00 135/67 11/09/18 21:30 88 16 74/47 (56) 97 11/09/18 21:00 81 12 134/58 (83) 98 18 21:00 134/58 11/09/18 20:30 74 19 148/48 (81) 99 11/09/18 20:00 99.0 82 18 143/105 (118) 97 11/09/18 20:00 Nasal Cannula 2.0 11/09/18 20:00 143/105 18 19:30 59 13 144/88 (106) 99 11/09/18 19:18 73 11/09/18 19:04 85/65 11/09/18 19:00 82 14 141/64 (89) 98 11/09/18 18:45 80 15 85/55 (65) 98 11/09/18 18:45 81/61 11/09/18 18:30 79 14 81/61 (68) 99 18 18:30 81/61 18 18:30 81/61 18 18:15 81 12 81/47 (58) 99 11/09/18 18:10 60/40 11/09/18 18:10 67/42 11/09/18 18:00 95 15 67/42 (50) 99 11/09/18 17:40 99.3 96 15 60/40 (47) 98 11/09/18 16:55 103 11/09/18 16:19 100.3 11/09/18 16:00 Nasal Cannula 2.0 11/09/18 12:00 102 11/09/18 12:00 100.7 109 19 102/49 (66) 95 11/09/18 11:53 Nasal Cannula 2.0 Status: awake, other - confused Condition: critical HEENT: atraumatic Neck: full ROM Lungs: clear Heart: HR/BP unstable Abdomen: soft Extremities: no C/C/E Micro: Microbiology Date/Time Source Procedure Growth Status 11/08/18 13:30 Blood Blood Culture - Preliminary NO GROWTH AFTER 24 HOURS Resulted 11/08/18 13:30 Blood Blood Culture - Preliminary NO GROWTH AFTER 24 HOURS Resulted 11/08/18 13:45 Urine,Clean Catch Urine Culture - Preliminary NO GROWTH Resulted Accucheck: 65 Blood Sugars: BS controlled Critical Care - Subjective ROS Limited/Unobtainable: Yes ICU Day: 2 Interval Events: Tx'd to the ICU with hyoTN Condition: critical IV Access: central - R IJ, peripheral EKG Rhythm: Sinus Rhythm FI02: 99 Sputum Amount: None Fluids: NS bolus 1L, then D5NS Drips: NE@14 I&O: Intake and Output 11/09/18 11/10/18 18:59 06:59 Intake Total 905.60 ml 1832.230 ml Output Total 500 ml 600 ml Balance 405.60 ml 1232.230 ml Intake Oral 100 ml 0 ml IV Total 805.60 ml 1832.230 ml Output Urine Total 500 ml 600 ml # Bowel Movements 1 2 Subjective: AVINASH given dementia CXR: Mild atx L base Labs: Laboratory Tests Test 11/09/18 21:33 11/09/18 22:10 11/10/18 04:50 Arterial Blood pH 7.384 (7.350-7.450) Arterial Blood Partial Pressure CO2 31.8 mmHg (35.0-45.0) L Arterial Blood Partial Pressure O2 103.2 mmHg (75.0-100.0) H Arterial Blood HCO3 18.6 mmol/L (22.0-26.0) L Arterial Blood Oxygen Saturation 96.0 % (95-100) Arterial Blood Base Excess -5.6 (-2-2) L Leo Test Positive White Blood Count 13.6 K/UL (4.8-10.8) #H 10.4 K/UL (4.8-10.8) Red Blood Count 3.88 M/UL (4.20-5.40) L 3.29 M/UL (4.20-5.40) L Hemoglobin 11.1 G/DL (12.0-16.0) L 9.7 G/DL (12.0-16.0) L Hematocrit 35.1 % (37.0-47.0) L 29.5 % (37.0-47.0) L Mean Corpuscular Volume 90 FL (80-99) 90 FL (80-99) Mean Corpuscular Hemoglobin 28.7 PG (27.0-31.0) 29.5 PG (27.0-31.0) Mean Corpuscular Hemoglobin Concent 31.7 G/DL (32.0-36.0) L 32.9 G/DL (32.0-36.0) Red Cell Distribution Width 13.6 % (11.6-14.8) 13.3 % (11.6-14.8) Platelet Count 302 K/UL (150-450) 258 K/UL (150-450) Mean Platelet Volume 5.2 FL (6.5-10.1) L 5.3 FL (6.5-10.1) L Neutrophils (%) (Auto) 85.4 % (45.0-75.0) H 82.6 % (45.0-75.0) H Lymphocytes (%) (Auto) 8.7 % (20.0-45.0) L 11.2 % (20.0-45.0) L Monocytes (%) (Auto) 3.4 % (1.0-10.0) 3.3 % (1.0-10.0) Eosinophils (%) (Auto) 2.2 % (0.0-3.0) 2.7 % (0.0-3.0) Basophils (%) (Auto) 0.3 % (0.0-2.0) 0.2 % (0.0-2.0) D-Dimer 2.01 mg/L FEU (0.00-0.49) H Lactic Acid Level 1.20 mmol/L (0.4-2.0) Troponin I 0.007 ng/mL (0.000-0.056) Thyroid Stimulating Hormone (TSH) 0.086 uiU/mL (0.358-3.740) Cortisol Pending Sodium Level 139 MMOL/L (136-145) Potassium Level 3.6 MMOL/L (3.5-5.1) Chloride Level 108 MMOL/L (98-107) H Carbon Dioxide Level 21 MMOL/L (21-32) Anion Gap 10 mmol/L (5-15) Blood Urea Nitrogen 17 mg/dL (7-18) Creatinine 1.2 MG/DL (0.55-1.30) Estimat Glomerular Filtration Rate 44.5 mL/min (>60) Glucose Level 63 MG/DL (74-106) L Calcium Level 8.2 MG/DL (8.5-10.1) L Ahmet Mallory MD Nov 10, 2018 09:22
--- NOTE | 2018-11-10 09:27 | NUR ---
REHAB MED PT NOTE PATIENT TRANSFERRED TO ICU FOR HIGHER LEVEL OF CARE. PATIENT NOT MEDICALLY APPROPRIATE FOR OOB ACTIVITY AT THIS TIME. PATIENT WILL BE DC FROM [facility].
[2018-11-10] MEDS: D5NS 1,000 ML IV SCH ×2 (09:28→20:30)
[2018-11-10] MEDS ORDERED: Isovue-370 150ml vial INJ PRN (09:30)
--- NOTE | 2018-11-10 09:30 | NUR ---
NURSE NOTES: Patient turned and repositioned.Kept clean , dry and comfortable.
--- NOTE | 2018-11-10 10:11 | NUR ---
NURSE NOTES: Patient asleep, turned and repositioned. Kept clean and dry. HOB elevated to prevent aspiration.Kept on close monitoring.
--- NOTE | 2018-11-10 10:32 | Diagnostic Imaging Report ---
Indication: Shortness of breath Technique: One view of the chest Comparison: 11/09/2018 Findings: Linear and hazy peripheral opacity and perihilar atelectasis persists on the left. Right lung is basically clear. Right jugular central venous catheter, right arm PICC remain. Impression: Unchanged, over one day, findings as above.
[2018-11-10] MEDS ORDERED: Tubing IV Secondary IV ONE (10:37)
[2018-11-10] MEDS ORDERED: D5 1/2NS 1000ml IV ONE (10:37)
--- NOTE | 2018-11-10 10:56 | NUR ---
CASE MANAGEMENT: REVIEW / BIBA FROM [facility] CC: GENERALIZED WEAKNESS SI: DEHYDRATION . HYPOTENSION T 98.1 HR 88 RR 18 BP 105/68 SAT 93% NC/4L H/H 11.2/35.4 IS: NS IVF BOLUS X1 LEVOFLOXACIN IV X1 CEFEPIME IV X1 VANCO IV X1 INTERQUAL CRITERIA MET: PATIENT ADMITTED TO ICU 11/08/2018 DCP: PATIENT IS FROM [facility] Addendum: 11/10/18 at 1126 by ERIBERTO CARTAGENA CASE MANAGEMENT: REVIEW SI: DEHYDRATION . HYPOTENSION T 98.7 HR 82 RR 14 BP 76/50 SAT 96% NC/2L H/H 9.7/29.5 IS: CEFEPIME IV Q24HR LEVOPHED IV Q24HR ICU STATUS DCP: PATIENT IS FROM [facility]
[2018-11-10] MEDS: Cefepime HCl 2 GM in D5W 55 ML IVPB SCH (11:31)
--- NOTE | 2018-11-10 12:30 | NUR ---
NURSE NOTES: Patient turned and repositioned.golf ball trimmer at bedside, slow eater, 1:1 feeding assist. Consumed 25% at lunch. Kept clean and dry.
--- NOTE | 2018-11-10 12:31 | NUR ---
Social Service Note SW spoke with patient's Amanda Aquino [phone] to obtain history. Patient is a resident of [facility]. Patient has been a resident for about 3 months. Placement at facility was due to patient's Alzheimer. also has hired caregivers to assist patient as needed. Patient has had previous stays at SNF's. is hoping that patient can return to [place] upon discharge. Patient is a full code and doesn't have an advance directive. Will monitor and assist as needed.
--- NOTE | 2018-11-10 13:02 | NUR ---
NURSE NOTES: Taken down for CT chest. Awaiting result Addendum: 11/10/18 at 1842 by Holly Galvan RN NOTED WITH REDNESS BUTTOCKS, PROTOCOL TREATMENT INITIATED.PICTURE TAKEN
--- NOTE | 2018-11-10 14:08 | Cardiology Report ---
APPROVED REPORT EKG Measurement Heart [id number] Normal sinus rhythm Low voltage QRS Possible Anterolateral infarct, age undetermined Abnormal ECG
--- NOTE | 2018-11-10 14:10 | NUR ---
NURSE NOTES: Patient turned and repositioned. kept clean and dry.Will continue to monitor
--- NOTE | 2018-11-10 16:13 | NUR ---
NURSE NOTES: Patient turned and repositioned, Dr Torres made aware CT chest result. Kept clean and dry.
--- NOTE | 2018-11-10 16:21 | Infectious Diseases Prog Note ---
Assessment/Plan Assessment/Plan antibiotics : vancomycin iv, cefepime A 1. Urinary tract infection. 2. She also probably has pneumonia. 3. Breast cancer P 1. continue vancomycin iv, cefepime 2. will follow up cultures Subjective Constitutional: Denies: fever, chills Respiratory: Reports: dry cough; Denies: shortness of breath Gastrointestinal/Abdominal: Denies: nausea, vomiting, diarrhea Musculoskeletal: Denies: pain Allergies: Coded Allergies: PENICILLINS (Verified Allergy, Unknown, 11/08/18) Objective Vital Signs Last 24 Hour Vital Signs Date Time Temp Pulse Resp B/P (MAP) Pulse Ox O2 Delivery O2 Flow Rate FiO2 11/10/18 13:40 95/59 11/10/18 13:00 68 13 118/62 (80) 99 11/10/18 12:00 Nasal Cannula 2.0 11/10/18 12:00 80 11/10/18 12:00 98.6 80 14 115/96 (102) 96 11/10/18 11:00 75 13 115/97 (103) 100 11/10/18 10:00 68 13 110/89 (96) 100 11/10/18 09:00 66 13 93/57 (69) 100 11/10/18 08:00 98.7 82 14 76/50 (59) 96 11/10/18 08:00 81 11/10/18 08:00 Nasal Cannula 2.0 11/10/18 07:00 84 17 107/57 (74) 97 11/10/18 06:30 84 17 111/49 (69) 97 11/10/18 06:00 98/69 11/10/18 06:00 84 17 98/69 (79) 97 11/10/18 05:45 83 17 107/81 (90) 97 11/10/18 05:30 84 17 101/75 (84) 95 11/10/18 05:15 83 16 94/60 (71) 95 11/10/18 05:00 82 16 92/61 (71) 95 11/10/18 05:00 92/61 11/10/18 04:45 85 20 125/95 (105) 95 11/10/18 04:30 87 17 130/112 (118) 95 11/10/18 04:15 81 13 113/85 (94) 96 11/10/18 04:00 79 11/10/18 04:00 107/83 11/10/18 04:00 Nasal Cannula 2.0 11/10/18 04:00 98.7 79 12 107/83 (91) 96 11/10/18 03:45 80 12 126/82 (97) 96 11/10/18 03:30 80 12 124/61 (82) 98 11/10/18 03:15 79 12 129/57 (81) 98 11/10/18 03:00 80 12 118/68 (85) 98 11/10/18 03:00 116/61 11/10/18 02:45 75 12 116/61 (79) 98 11/10/18 02:30 75 12 137/63 (87) 98 11/10/18 02:15 74 12 131/66 (87) 98 11/10/18 02:00 72 12 135/63 (87) 98 11/10/18 02:00 135/63 11/10/18 01:45 70 12 145/74 (97) 98 11/10/18 01:30 67 12 148/64 (92) 97 11/10/18 01:15 69 12 126/60 (82) 97 11/10/18 01:00 103/50 11/10/18 01:00 73 12 103/50 (67) 98 11/10/18 00:48 100/62 11/10/18 00:45 77 12 100/62 (75) 98 11/10/18 00:30 87 12 74/41 (52) 97 11/10/18 00:15 84 12 58/44 (49) 97 11/10/18 00:00 74 11/10/18 00:00 Nasal Cannula 2.0 11/10/18 00:00 98.7 70 12 135/61 (85) 99 18 00:00 135/61 18 23:45 71 12 115/61 (79) 99 18 23:30 73 12 121/92 (102) 93 11/09/18 23:15 73 12 140/75 (96) 99 11/09/18 23:00 146/65 18 23:00 69 12 146/65 (92) 99 18 22:45 68 12 149/62 (91) 99 12/23/18 22:30 71 12 136/63 (87) 99 11/09/18 22:00 78 16 135/67 (89) 98 18 22:00 135/67 11/09/18 21:30 88 16 74/47 (56) 97 11/09/18 21:00 81 12 134/58 (83) 98 11/09/18 21:00 134/58 11/09/18 20:30 74 19 148/48 (81) 99 11/09/18 20:00 99.0 82 18 143/105 (118) 97 11/09/18 20:00 Nasal Cannula 2.0 11/09/18 20:00 143/105 11/09/18 19:30 59 13 144/88 (106) 99 11/09/18 19:18 73 11/09/18 19:04 85/65 11/09/18 19:00 82 14 141/64 (89) 98 11/09/18 18:45 80 15 85/55 (65) 98 11/09/18 18:45 81/61 11/09/18 18:30 79 14 81/61 (68) 99 18 18:30 81/61 18 18:30 81/61 18 18:15 81 12 81/47 (58) 99 11/09/18 18:10 60/40 11/09/18 18:10 67/42 11/09/18 18:00 95 15 67/42 (50) 99 11/09/18 17:40 99.3 96 15 60/40 (47) 98 11/09/18 16:55 103 11/09/18 16:19 100.3 Height (Feet): 5 Height (Inches): 8.00 Weight (Pounds): 150 Respiratory/Chest: lungs clear Cardiovascular: normal rate, regular rhythm, no gallop/murmur Abdomen: soft, non tender Extremities: no edema, other - right IJ catheter Microbiology Date/Time Source Procedure Growth Status 11/08/18 13:30 Blood Blood Culture - Preliminary NO GROWTH AFTER 24 HOURS Resulted 11/08/18 13:30 Blood Blood Culture - Preliminary NO GROWTH AFTER 24 HOURS Resulted 11/08/18 13:40 Nasal Nares MRSA Culture - Final Staphylococcus Aureus - Mrsa Complete 11/08/18 13:45 Urine,Clean Catch Urine Culture - Preliminary NO GROWTH AFTER 24 HOURS Resulted 11/08/18 13:40 Rectum VRE Culture - Final Enterococcus Faecalis - Vre Complete 11/08/18 13:40 Rectum - Final NO CARBAPENEM-RESISTANT ENTEROBACTERI... Complete Laboratory Tests Test 11/09/18 21:33 11/09/18 22:10 11/10/18 04:50 Arterial Blood pH 7.384 (7.350-7.450) Arterial Blood Partial Pressure CO2 31.8 mmHg (35.0-45.0) L Arterial Blood Partial Pressure O2 103.2 mmHg (75.0-100.0) H Arterial Blood HCO3 18.6 mmol/L (22.0-26.0) L Arterial Blood Oxygen Saturation 96.0 % (95-100) Arterial Blood Base Excess -5.6 (-2-2) L Leo Test Positive White Blood Count 13.6 K/UL (4.8-10.8) #H 10.4 K/UL (4.8-10.8) Red Blood Count 3.88 M/UL (4.20-5.40) L 3.29 M/UL (4.20-5.40) L Hemoglobin 11.1 G/DL (12.0-16.0) L 9.7 G/DL (12.0-16.0) L Hematocrit 35.1 % (37.0-47.0) L 29.5 % (37.0-47.0) L Mean Corpuscular Volume 90 FL (80-99) 90 FL (80-99) Mean Corpuscular Hemoglobin 28.7 PG (27.0-31.0) 29.5 PG (27.0-31.0) Mean Corpuscular Hemoglobin Concent 31.7 G/DL (32.0-36.0) L 32.9 G/DL (32.0-36.0) Red Cell Distribution Width 13.6 % (11.6-14.8) 13.3 % (11.6-14.8) Platelet Count 302 K/UL (150-450) 258 K/UL (150-450) Mean Platelet Volume 5.2 FL (6.5-10.1) L 5.3 FL (6.5-10.1) L Neutrophils (%) (Auto) 85.4 % (45.0-75.0) H 82.6 % (45.0-75.0) H Lymphocytes (%) (Auto) 8.7 % (20.0-45.0) L 11.2 % (20.0-45.0) L Monocytes (%) (Auto) 3.4 % (1.0-10.0) 3.3 % (1.0-10.0) Eosinophils (%) (Auto) 2.2 % (0.0-3.0) 2.7 % (0.0-3.0) Basophils (%) (Auto) 0.3 % (0.0-2.0) 0.2 % (0.0-2.0) D-Dimer 2.01 mg/L FEU (0.00-0.49) H Lactic Acid Level 1.20 mmol/L (0.4-2.0) Troponin I 0.007 ng/mL (0.000-0.056) Thyroid Stimulating Hormone (TSH) 0.086 uiU/mL (0.358-3.740) Cortisol Pending Sodium Level 139 MMOL/L (136-145) Potassium Level 3.6 MMOL/L (3.5-5.1) Chloride Level 108 MMOL/L (98-107) H Carbon Dioxide Level 21 MMOL/L (21-32) Anion Gap 10 mmol/L (5-15) Blood Urea Nitrogen 17 mg/dL (7-18) Creatinine 1.2 MG/DL (0.55-1.30) Estimat Glomerular Filtration Rate 44.5 mL/min (>60) Glucose Level 63 MG/DL (74-106) L Calcium Level 8.2 MG/DL (8.5-10.1) L Current Medications Medications (Trade) Dose Ordered Sig/Inocente Route PRN Reason Start Time Stop Time Status Last Admin Dose Admin Acetaminophen (Tylenol) 650 mg Q4H PRN ORAL Mild Pain/Temp > 100.5 11/09/18 22:30 12/08/18 22:29 Cefepime HCl 2 gm/ Dextrose 55 ml @ 110 mls/hr Q24H IVPB 11/10/18 11:00 11/16/18 10:59 11/10/18 11:31 Dextrose (Dextrose 50%) 25 ml Q30M PRN IV Hypoglycemia 11/09/18 19:00 12/08/18 17:29 11/10/18 07:33 Dextrose (Dextrose 50%) 50 ml Q30M PRN IV Hypoglycemia 11/09/18 19:00 12/08/18 17:29 11/10/18 06:31 Dextrose/Sodium Chloride 1,000 ml @ 100 mls/hr Q10H IV 11/10/18 09:30 12/10/18 09:29 11/10/18 09:28 Famotidine (Pepcid) 20 mg DAILY ORAL 11/10/18 09:00 12/08/18 17:14 11/10/18 08:59 Ferrous Sulfate (Feosol) 325 mg DAILY ORAL 11/10/18 09:00 12/08/18 17:14 11/10/18 08:59 Heparin Sodium (Porcine) (Heparin 5000 units/ml) 5,000 units EVERY 12 HOURS SUBQ 11/09/18 21:00 12/08/18 20:59 11/10/18 09:06 Iopamidol (Isovue-370 150ml) 150 ml NOW PRN INJ Radiology Procedure 11/10/18 09:30 11/12/18 09:19 Levothyroxine Sodium (Synthroid) 75 mcg ACBREAKFAST ORAL 11/10/18 06:30 12/10/18 06:29 Memantine (Namenda) 5 mg DAILY ORAL 11/10/18 09:00 12/08/18 17:14 11/10/18 08:59 Norepinephrine Bitartrate 8 mg/ Dextrose 508 ml @ 0 mls/hr Q24H IV 11/09/18 19:00 12/09/18 18:59 11/10/18 13:40 Olanzapine (ZyPREXA) 2.5 mg DAILY ORAL 11/10/18 09:00 12/08/18 17:14 11/10/18 08:59 Polyethylene Glycol (Miralax) 17 gm DAILYPRN PRN ORAL Constipation 11/09/18 19:00 12/09/18 18:59 Thiamine HCl (Vitamin B1) 100 mg DAILY ORAL 11/10/18 09:00 12/08/18 17:14 11/10/18 08:59 Vancomycin HCl (Vanco rx to dose) 1 ea DAILY PRN MISC Per rx protocol 11/10/18 09:00 12/08/18 21:59 Vancomycin/Sodium Chloride 250 ml @ 166.667 mls/hr Q24H IVPB 11/10/18 00:00 11/15/18 00:00 11/09/18 23:57 Venlafaxine HCl (Effexor-XR) 150 mg DAILY ORAL 11/10/18 09:00 12/08/18 17:59 11/10/18 08:59 Marcial Haque MD Nov 10, 2018 16:21
--- NOTE | 2018-11-10 17:10 | Diagnostic Imaging Report ---
ndication: Chest pain Technique: IV administration nonionic contrast. Spiral acquisitions obtained from the lung bases to the lung apices. Multiplanar and 3-D reconstructions were generated. Total dose length product 1108.5 mGycm. CTDIvol(s) 34.76 mGy. Dose reduction achieved using automated exposure control Comparison: none Findings: Pulmonary arteries are well opacified. No intraluminal filling defects or other findings to suggest acute pulmonary embolus demonstrated. The ascending thoracic aorta is slightly ectatic, but no evidence of thoracic aortic aneurysm or dissection. There is common origin of the right brachiocephalic, left common carotid arteries, otherwise normal classic branching anatomy of the great neck vessels. Normal caliber pulmonary arteries. No evidence of isolated right ventricular dilatation. The heart is upper limits of normal in size. There are small bilateral pleural effusions. There is considerable atelectasis and consolidation of both lower lobes, more so on the left than on the right The heart is borderline enlarged. No pericardial effusion. No mediastinal or hilar mass or adenopathy. The esophagus is unremarkable. There is a right arm PICC in place. No axillary or chest wall mass or adenopathy. The thyroid is atrophic. There is a compression fracture deformity of the T8 vertebral body The included upper abdominal anatomy demonstrates fluid-filled colon. The gallbladder is distended. Impression: Negative for evidence of acute pulmonary embolus or other acute thoracic vascular pathology Considerable atelectasis and consolidation of both lower lobes, left greater than right Small bilateral pleural effusions Borderline cardiomegaly Age-indeterminate T8 vertebral body compression fracture. Consider MRI if this is considered clinically relevant Fluid-filled colon, nonspecific, incompletely visualized Other findings as noted, including atrophic thyroid, PICC The CT scanner at [facility] is accredited by the [employer] and the scans are performed using protocols designed to limit radiation exposure to as low as reasonably achievable to attain images of sufficient resolution adequate for diagnostic evaluation.
--- NOTE | 2018-11-10 17:35 | Diagnostic Imaging Report ---
Indication: Post line placement Technique: One view of the chest Comparison: 11/08/2018 Findings: Interim placement right jugular central venous catheter, tip which projects at the level of the right innominate vein. Right arm PICC remains. The heart size is normal. There is suboptimal inspiration with compressive atelectatic changes at both lung bases again demonstrated. No pneumothorax. Impression: Satisfactory right jugular central venous catheter placement, as described. No radiographically evident complication
--- NOTE | 2018-11-10 18:33 | NUR ---
NURSE NOTES: ADLS DONE, KEPT CLEAN AND DRY.TURNED AND REPOSITIONED.HOB ELEVATED TO PREVENT ASPIRATION
--- NOTE | 2018-11-10 19:40 | NUR ---
NURSE NOTES: PATIENT OPEN EYES, DISORIENTED, PT'S CAREGIVER AT BEDSIDE, TLC TO RIGHT IJ, INTACT, RESPIRATION REGULAR, ON O2 4LPM VIA NC, O2 SATURATION 98% NOTED, ABDOMEN SOFT, NO BOWEL MOVEMENT, PERIPHERAL LINE TO BOTH FORE ARM, ONGOING LEVOPHED 2MCG/MIN AND D5W NS AT 100ML/HR VIA TLC, MADE LOWER BED POSITION, WILL CONTINUE TO MONITOR.
--- NOTE | 2018-11-10 19:50 | NUR ---
HAND-OFF: Report given to TishaRN
--- NOTE | 2018-11-10 22:20 | NUR ---
NURSE NOTES: NO PAIN OR DISTRESS NOTED AT THIS TIME.
[2018-11-10] MEDS: Vancomycin 750mg/NS 250ml 250 ML IVPB SCH (23:51)
[2018-11-11] VITALS (26 sets, daily range): BP systolic 94–137; BP diastolic 30–104
--- NOTE | 2018-11-11 01:00 | NUR ---
NURSE NOTES: ASLEEP STATUS, PT'S CARE STAYED AT BEDSIDE.
--- NOTE | 2018-11-11 03:08 | NUR ---
NURSE NOTES: PATIENT AWOKE, TRIED TO REMOVE OXIMETER, PT'S CAREGIVER AT BEDSIDE, GIVEN ORIENTATION BUT DID NOT FOLLOWED COMMANDS, WILL CONTINUE TO MONITOR.
--- NOTE | 2018-11-11 05:00 | NUR ---
NURSE NOTES: MORNING CARE WAS DONE, NO BOWEL MOVEMENT.
[2018-11-11 05:15] LABS: BASOPHILS % (AUTO) 0.6 % (0.0-2.0); EOSINOPHILS % (AUTO) 5.2 % (0.0-3.0); HEMATOCRIT 29.5 % (37.0-47.0); HEMOGLOBIN 9.7 G/DL (12.0-16.0); LYMPHOCYTES % (AUTO) 17.9 % (20.0-45.0); MEAN CORPUSCULAR VOLUME 91 FL (80-99); MONOCYTES % (AUTO) 5.4 % (1.0-10.0); NEUTROPHILS % (AUTO) 70.9 % (45.0-75.0); PLATELET COUNT 211 K/UL (150-450); RED BLOOD COUNT 3.24 M/UL (4.20-5.40); WHITE BLOOD COUNT 6.9 K/UL (4.8-10.8)
[2018-11-11 05:42] LABS: ANION GAP 11 mmol/L (5-15); BLOOD UREA NITROGEN 9 mg/dL (7-18); CARBON DIOXIDE 20 MMOL/L (21-32); CHLORIDE 107 MMOL/L (98-107); CREATININE 0.9 MG/DL (0.55-1.30); POTASSIUM 3.6 MMOL/L (3.5-5.1); SODIUM 138 MMOL/L (136-145)
[2018-11-11] MEDS: D5NS 1,000 ML IV SCH ×2 (06:00→16:11)
--- NOTE | 2018-11-11 06:40 | NUR ---
NURSE NOTES: NO ACUTE DISTRESS NOTED AT THIS SHIFT.
--- NOTE | 2018-11-11 07:08 | NUR ---
HAND-OFF: Report given to HARSHIL/MEGHAN.
--- NOTE | 2018-11-11 08:00 | NUR ---
NURSE NOTES: RECEIVED PATIENT FROM MEGHAN BILLY. PATIENT OPEN EYES, DISORIENTED, PT'S CAREGIVER AT BEDSIDE, TLC TO RIGHT IJ, INTACT, RESPIRATION REGULAR, ON O2 4LPM VIA NC, O2 SATURATION 98% NOTED, ABDOMEN SOFT, NO BOWEL MOVEMENT, PERIPHERAL LINE TO BOTH FORE ARM, ONGOING LEVOPHED 2MCG/MIN AND D5W NS AT 100ML/HR VIA TLC, MADE LOWER BED POSITION, WILL CONTINUE TO MONITOR.
--- NOTE | 2018-11-11 08:26 | Nephrology Progress Note ---
Assessment/Plan Assessment/Plan A/P 1) Septic Shock- UTI/PNA - Abx per ID. Stable, w/u by pulmonary - IVFs 2) GABRIELLA- resolved 3) Nutrition- NG and start TFs if patient does not start to eat 4) Dementia- chronic Subjective Date patient seen: Nov 11, 2018 Time patient seen: 08:24 ROS Limited/Unobtainable: Yes Allergies: Coded Allergies: PENICILLINS (Verified Allergy, Unknown, 11/08/18) Subjective Patient with caregiver. In no distress and more awake and alert today Objective Last 24 Hour Vital Signs Date Time Temp Pulse Resp B/P (MAP) Pulse Ox O2 Delivery O2 Flow Rate FiO2 11/11/18 07:00 83 16 123/56 (78) 97 11/11/18 07:00 123/56 11/11/18 06:30 81 13 131/76 (94) 97 11/11/18 06:00 123/70 11/11/18 06:00 82 13 123/70 (87) 98 11/11/18 05:30 80 13 115/64 (81) 98 11/11/18 05:00 122/66 11/11/18 05:00 81 14 122/66 (84) 99 11/11/18 04:30 81 15 106/30 (55) 100 11/11/18 04:07 83 11/11/18 04:00 97.6 84 16 117/67 (84) 94 11/11/18 04:00 Nasal Cannula 4.0 11/11/18 03:30 83 15 124/70 (88) 91 11/11/18 03:00 83 17 125/81 (96) 92 11/11/18 03:00 126/97 11/11/18 02:30 83 18 105/59 (74) 96 11/11/18 02:00 118/63 11/11/18 02:00 83 16 118/63 (81) 96 11/11/18 01:30 87 17 112/89 (97) 97 11/11/18 01:00 112/89 11/11/18 01:00 83 14 113/73 (86) 100 11/11/18 00:30 83 14 108/62 (77) 100 11/11/18 00:00 Nasal Cannula 2.0 11/11/18 00:00 87 11/11/18 00:00 97.9 84 18 95/56 (69) 99 11/11/18 00:00 95/56 11/10/18 23:30 85 13 103/64 (77) 99 11/10/18 23:00 86 13 100/62 (75) 99 11/10/18 23:00 100/62 11/10/18 22:30 85 16 110/61 (77) 97 11/10/18 22:00 83 16 98/54 (69) 97 11/10/18 22:00 98/54 11/10/18 21:30 83 16 98/65 (76) 97 11/10/18 21:00 100/65 11/10/18 21:00 85 16 100/65 (77) 96 11/10/18 20:30 86 16 73/52 (59) 99 11/10/18 20:00 97.8 86 16 116/96 (103) 94 11/10/18 20:00 Nasal Cannula 2.0 11/10/18 20:00 116/96 11/10/18 20:00 116 11/10/18 19:30 82 16 116/96 (103) 97 11/10/18 19:00 84 18 133/106 (115) 94 11/10/18 18:00 81 14 84/46 (59) 99 11/10/18 17:00 82 14 121/69 (86) 99 11/10/18 16:00 98.4 76 14 97/77 (84) 100 11/10/18 16:00 Nasal Cannula 2.0 11/10/18 16:00 76 11/10/18 15:00 82 14 111/63 (79) 99 11/10/18 14:00 68 17 118/87 (97) 100 11/10/18 13:40 95/59 11/10/18 13:00 68 13 118/62 (80) 99 11/10/18 12:00 Nasal Cannula 2.0 11/10/18 12:00 80 11/10/18 12:00 98.6 80 14 115/96 (102) 96 11/10/18 11:00 75 13 115/97 (103) 100 11/10/18 10:00 68 13 110/89 (96) 100 11/10/18 09:00 66 13 93/57 (69) 100 Intake and Output 11/10/18 11/11/18 19:00 07:00 Intake Total 2796.48 ml 1591.44 ml Output Total 550 ml 320 ml Balance 2246.48 ml 1271.44 ml Intake Oral 238 ml 0 ml IV Total 2558.48 ml 1541.44 ml Other 50 ml Output Urine Total 550 ml 320 ml # Voids 1 # Bowel Movements 4 2 Laboratory Tests 11/11/18 04:15: White Blood Count 6.9, Red Blood Count 3.24L, Hemoglobin 9.7L, Hematocrit 29.5L , Mean Corpuscular Volume 91, Mean Corpuscular Hemoglobin 30.0, Mean Corpuscular Hemoglobin Concent 32.9, Red Cell Distribution Width 14.0, Platelet Count 211, Mean Platelet Volume 5.1L, Neutrophils (%) (Auto) 70.9, Lymphocytes ( %) (Auto) 17.9L, Monocytes (%) (Auto) 5.4, Eosinophils (%) (Auto) 5.2H, Basophils (%) (Auto) 0.6, Sodium Level 138, Potassium Level 3.6, Chloride Level 107, Carbon Dioxide Level 20L, Anion Gap 11, Blood Urea Nitrogen 9, Creatinine 0.9, Estimat Glomerular Filtration Rate > 60, Glucose Level 61L, Calcium Level 8.0L Height (Feet): 5 Height (Inches): 8.00 Weight (Pounds): 150 General Appearance: no apparent distress, alert EENT: normal ENT inspection Neck: normal alignment, supple Cardiovascular: normal rate, regular rhythm Respiratory/Chest: lungs clear, normal breath sounds Abdomen: non tender, soft Edema: no edema noted Arm (L), no edema noted Arm (R), no edema noted Leg (L), no edema noted Leg (R), no edema noted Pedal (L), no edema noted Pedal (R), no edema noted Generalized Boni Fournier MD Nov 11, 2018 08:26
[2018-11-11] MEDS: Thiamine 100mg tab ORAL SCH (09:00)
[2018-11-11] MEDS: Heparin 5000 units/ml inj SUBQ SCH ×2 (09:00→21:00)
[2018-11-11] MEDS: Venlafaxine XR 150mg cap ORAL SCH (09:00)
[2018-11-11] MEDS: OLANZapine 2.5mg tab ORAL SCH (09:00)
[2018-11-11] MEDS: Memantine 5 MG TAB ORAL SCH (09:00)
--- NOTE | 2018-11-11 09:58 | Infectious Diseases Prog Note ---
Assessment/Plan Assessment/Plan A 1. Sepsis 2. Atelectasis/ pneumonia. 3. 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 Acute renal failure improved P 1. discontinue vancomycin iv, continue cefepime 2. will follow up cultures Subjective ROS Limited/Unobtainable: Yes Respiratory: Reports: no symptoms Cardiovascular: Reports: no symptoms Gastrointestinal/Abdominal: Reports: no symptoms Genitourinary: Reports: no symptoms Allergies: Coded Allergies: PENICILLINS (Verified Allergy, Unknown, 11/08/18) Objective Vital Signs Last 24 Hour Vital Signs Date Time Temp Pulse Resp B/P (MAP) Pulse Ox O2 Delivery O2 Flow Rate FiO2 11/11/18 07:00 83 16 123/56 (78) 97 11/11/18 07:00 123/56 11/11/18 06:30 81 13 131/76 (94) 97 11/11/18 06:00 123/70 11/11/18 06:00 82 13 123/70 (87) 98 11/11/18 05:30 80 13 115/64 (81) 98 11/11/18 05:00 122/66 11/11/18 05:00 81 14 122/66 (84) 99 11/11/18 04:30 81 15 106/30 (55) 100 11/11/18 04:07 83 11/11/18 04:00 97.6 84 16 117/67 (84) 94 11/11/18 04:00 Nasal Cannula 4.0 11/11/18 03:30 83 15 124/70 (88) 91 11/11/18 03:00 83 17 125/81 (96) 92 11/11/18 03:00 126/97 11/11/18 02:30 83 18 105/59 (74) 96 11/11/18 02:00 118/63 11/11/18 02:00 83 16 118/63 (81) 96 11/11/18 01:30 87 17 112/89 (97) 97 11/11/18 01:00 112/89 11/11/18 01:00 83 14 113/73 (86) 100 11/11/18 00:30 83 14 108/62 (77) 100 11/11/18 00:00 Nasal Cannula 2.0 11/11/18 00:00 87 11/11/18 00:00 97.9 84 18 95/56 (69) 99 11/11/18 00:00 95/56 11/10/18 23:30 85 13 103/64 (77) 99 11/10/18 23:00 86 13 100/62 (75) 99 18 23:00 100/62 18 22:30 85 16 110/61 (77) 97 11/10/18 22:00 83 16 98/54 (69) 97 11/10/18 22:00 98/54 11/10/18 21:30 83 16 98/65 (76) 97 18 21:00 100/65 11/10/18 21:00 85 16 100/65 (77) 96 11/10/18 20:30 86 16 73/52 (59) 99 11/10/18 20:00 97.8 86 16 116/96 (103) 94 11/10/18 20:00 Nasal Cannula 2.0 11/10/18 20:00 116/96 11/10/18 20:00 116 11/10/18 19:30 82 16 116/96 (103) 97 11/10/18 19:00 84 18 133/106 (115) 94 11/10/18 18:00 81 14 84/46 (59) 99 11/10/18 17:00 82 14 121/69 (86) 99 11/10/18 16:00 98.4 76 14 97/77 (84) 100 11/10/18 16:00 Nasal Cannula 2.0 11/10/18 16:00 76 11/10/18 15:00 82 14 111/63 (79) 99 11/10/18 14:00 68 17 118/87 (97) 100 11/10/18 13:40 95/59 11/10/18 13:00 68 13 118/62 (80) 99 11/10/18 12:00 Nasal Cannula 2.0 11/10/18 12:00 80 11/10/18 12:00 98.6 80 14 115/96 (102) 96 11/10/18 11:00 75 13 115/97 (103) 100 11/10/18 10:00 68 13 110/89 (96) 100 Height (Feet): 5 Height (Inches): 8.00 Weight (Pounds): 150 General Appearance: no acute distress HEENT: mucous membranes moist Respiratory/Chest: lungs clear Cardiovascular: normal rate, other - RIJ central line Abdomen: soft, non tender Extremities: no edema Neurologic/Psychiatric: alert, responsive Microbiology Date/Time Source Procedure Growth Status 11/08/18 13:30 Blood Blood Culture - Preliminary NO GROWTH AFTER 48 HOURS Resulted 11/08/18 13:30 Blood Blood Culture - Preliminary NO GROWTH AFTER 48 HOURS Resulted 11/08/18 13:40 Nasal Nares MRSA Culture - Final Staphylococcus Aureus - Mrsa Complete 11/08/18 13:45 Urine,Clean Catch Urine Culture - Final NO GROWTH AFTER 48 HOURS Complete 11/08/18 13:40 Rectum VRE Culture - Final Enterococcus Faecalis - Vre Complete 11/08/18 13:40 Rectum - Final NO CARBAPENEM-RESISTANT ENTEROBACTERI... Complete Laboratory Tests Test 11/11/18 04:15 White Blood Count 6.9 K/UL (4.8-10.8) Red Blood Count 3.24 M/UL (4.20-5.40) L Hemoglobin 9.7 G/DL (12.0-16.0) L Hematocrit 29.5 % (37.0-47.0) L Mean Corpuscular Volume 91 FL (80-99) Mean Corpuscular Hemoglobin 30.0 PG (27.0-31.0) Mean Corpuscular Hemoglobin Concent 32.9 G/DL (32.0-36.0) Red Cell Distribution Width 14.0 % (11.6-14.8) Platelet Count 211 K/UL (150-450) Mean Platelet Volume 5.1 FL (6.5-10.1) L Neutrophils (%) (Auto) 70.9 % (45.0-75.0) Lymphocytes (%) (Auto) 17.9 % (20.0-45.0) L Monocytes (%) (Auto) 5.4 % (1.0-10.0) Eosinophils (%) (Auto) 5.2 % (0.0-3.0) H Basophils (%) (Auto) 0.6 % (0.0-2.0) Sodium Level 138 MMOL/L (136-145) Potassium Level 3.6 MMOL/L (3.5-5.1) Chloride Level 107 MMOL/L (98-107) Carbon Dioxide Level 20 MMOL/L (21-32) L Anion Gap 11 mmol/L (5-15) Blood Urea Nitrogen 9 mg/dL (7-18) Creatinine 0.9 MG/DL (0.55-1.30) Estimat Glomerular Filtration Rate > 60 mL/min (>60) Glucose Level 61 MG/DL (74-106) L Calcium Level 8.0 MG/DL (8.5-10.1) L Current Medications Medications (Trade) Dose Ordered Sig/Inocente Route PRN Reason Start Time Stop Time Status Last Admin Dose Admin Acetaminophen (Tylenol) 650 mg Q4H PRN ORAL Mild Pain/Temp > 100.5 11/09/18 22:30 12/08/18 22:29 Cefepime HCl 2 gm/ Dextrose 55 ml @ 110 mls/hr Q24H IVPB 11/10/18 11:00 11/16/18 10:59 11/10/18 11:31 Chlorhexidine Gluconate (Marga-Hex 2%) 1 applic DAILY@2000 TOPIC 11/11/18 20:00 12/11/18 19:59 Dextrose (Dextrose 50%) 25 ml Q30M PRN IV Hypoglycemia 11/09/18 19:00 12/08/18 17:29 11/10/18 07:33 Dextrose (Dextrose 50%) 50 ml Q30M PRN IV Hypoglycemia 11/09/18 19:00 12/08/18 17:29 11/10/18 06:31 Dextrose/Sodium Chloride 1,000 ml @ 100 mls/hr Q10H IV 11/10/18 09:30 12/10/18 09:29 11/11/18 06:00 Famotidine (Pepcid) 20 mg DAILY ORAL 11/10/18 09:00 12/08/18 17:14 11/11/18 09:00 Ferrous Sulfate (Feosol) 325 mg DAILY ORAL 11/10/18 09:00 12/08/18 17:14 11/11/18 09:00 Heparin Sodium (Porcine) (Heparin 5000 units/ml) 5,000 units EVERY 12 HOURS SUBQ 11/09/18 21:00 12/08/18 20:59 11/11/18 09:00 Iopamidol (Isovue-370 150ml) 150 ml NOW PRN INJ Radiology Procedure 11/10/18 09:30 12/26/18 09:19 Levothyroxine Sodium (Synthroid) 75 mcg ACBREAKFAST ORAL 11/10/18 06:30 12/10/18 06:29 11/11/18 05:59 Memantine (Namenda) 5 mg DAILY ORAL 11/10/18 09:00 12/08/18 17:14 11/11/18 09:00 Norepinephrine Bitartrate 8 mg/ Dextrose 508 ml @ 0 mls/hr Q24H IV 11/09/18 19:00 12/09/18 18:59 11/10/18 13:40 Olanzapine (ZyPREXA) 2.5 mg DAILY ORAL 11/10/18 09:00 12/08/18 17:14 11/11/18 09:00 Polyethylene Glycol (Miralax) 17 gm DAILYPRN PRN ORAL Constipation 11/09/18 19:00 12/09/18 18:59 Thiamine HCl (Vitamin B1) 100 mg DAILY ORAL 11/10/18 09:00 12/08/18 17:14 11/11/18 09:00 Vancomycin HCl (Vanco rx to dose) 1 ea DAILY PRN MISC Per rx protocol 11/10/18 09:00 12/08/18 21:59 Vancomycin/Sodium Chloride 250 ml @ 166.667 mls/hr Q24H IVPB 11/10/18 00:00 11/15/18 00:00 11/10/18 23:51 Venlafaxine HCl (Effexor-XR) 150 mg DAILY ORAL 11/10/18 09:00 12/08/18 17:59 11/11/18 09:00 Jimy Rios MD Nov 11, 2018 09:58
--- NOTE | 2018-11-11 10:00 | NUR ---
NURSE NOTES: Levo off since 829. VSS. primary care physician at bedside. will continue to monitor.
[2018-11-11] MEDS: Cefepime HCl 2 GM in D5W 55 ML IVPB SCH (11:12)
--- NOTE | 2018-11-11 12:00 | NUR ---
NURSE NOTES: Transfer order in, contacted mold cleaning and storage supervisor for room. will continue plan of care.
--- NOTE | 2018-11-11 12:10 | Pulmonolgy Critical Care Note ---
Critical Care - Asmt/Plan Problems: (1) Hypoxemia Assessment & Plan: RESOLVED, neg CT-A, BiB atx (2) Elevated d-dimer Assessment & Plan: S/P neg duplex and CT-A (3) Dehydration Assessment & Plan: Improved (4) Sepsis (5) Episode of generalized weakness (6) UTI (urinary tract infection) (7) ARF (acute renal failure) Assessment & Plan: RESOLVED Respiratory: monitor respiratory rate, adjust FIO2 Cardiac: stop pressors, continue to monitor HR/BP Renal: F/U I&O, keep IV fluid, check electrolytes Infectious Disease: check cultures, continue antibiotics - per ID Gastrointestinal: other - PO per COMMERCIAL PROPERTY MANAGER Endocrine: monitor blood sugar, oral thyroid meds Hematologic: monitor H/H Neurologic: keep patient comfortable Prophylaxis: Heparin Disposition: transfer to - [facility] Time Spent (Minutes): 30 Notes Reviewed: mold operator, renal, ID Discussed with: nurses, consultants Critical Care - Objective Last 24 Hour Vital Signs Date Time Temp Pulse Resp B/P (MAP) Pulse Ox O2 Delivery O2 Flow Rate FiO2 11/11/18 10:00 79 16 137/104 (115) 97 11/11/18 09:00 82 16 120/60 (80) 97 11/11/18 08:00 Nasal Cannula 2.0 11/11/18 08:00 79 11/11/18 08:00 98.2 84 16 115/67 (83) 95 11/11/18 07:30 80 16 119/62 (81) 98 11/11/18 07:00 83 16 123/56 (78) 97 11/11/18 07:00 123/56 11/11/18 06:30 81 13 131/76 (94) 97 11/11/18 06:00 123/70 11/11/18 06:00 82 13 123/70 (87) 98 11/11/18 05:30 80 13 115/64 (81) 98 11/11/18 05:00 122/66 11/11/18 05:00 81 14 122/66 (84) 99 11/11/18 04:30 81 15 106/30 (55) 100 11/11/18 04:07 83 11/11/18 04:00 97.6 84 16 117/67 (84) 94 11/11/18 04:00 Nasal Cannula 4.0 11/11/18 03:30 83 15 124/70 (88) 91 11/11/18 03:00 83 17 125/81 (96) 92 11/11/18 03:00 126/97 11/11/18 02:30 83 18 105/59 (74) 96 11/11/18 02:00 118/63 11/11/18 02:00 83 16 118/63 (81) 96 11/11/18 01:30 87 17 112/89 (97) 97 11/11/18 01:00 112/89 11/11/18 01:00 83 14 113/73 (86) 100 11/11/18 00:30 83 14 108/62 (77) 100 11/11/18 00:00 Nasal Cannula 2.0 11/11/18 00:00 87 11/11/18 00:00 97.9 84 18 95/56 (69) 99 11/11/18 00:00 95/56 11/10/18 23:30 85 13 103/64 (77) 99 11/10/18 23:00 86 13 100/62 (75) 99 11/10/18 23:00 100/62 11/10/18 22:30 85 16 110/61 (77) 97 11/10/18 22:00 83 16 98/54 (69) 97 11/10/18 22:00 98/54 11/10/18 21:30 83 16 98/65 (76) 97 11/10/18 21:00 100/65 11/10/18 21:00 85 16 100/65 (77) 96 11/10/18 20:30 86 16 73/52 (59) 99 11/10/18 20:00 97.8 86 16 116/96 (103) 94 11/10/18 20:00 Nasal Cannula 2.0 11/10/18 20:00 116/96 11/10/18 20:00 116 11/10/18 19:30 82 16 116/96 (103) 97 11/10/18 19:00 84 18 133/106 (115) 94 11/10/18 18:00 81 14 84/46 (59) 99 11/10/18 17:00 82 14 121/69 (86) 99 11/10/18 16:00 98.4 76 14 97/77 (84) 100 11/10/18 16:00 Nasal Cannula 2.0 11/10/18 16:00 76 11/10/18 15:00 82 14 111/63 (79) 99 11/10/18 14:00 68 17 118/87 (97) 100 11/10/18 13:40 95/59 11/10/18 13:00 68 13 118/62 (80) 99 Status: awake, other - confused Condition: improving HEENT: atraumatic Neck: full ROM, other - R EJ Lungs: clear Heart: HR/BP stable Abdomen: soft, non-tender, active bowel sounds Extremities: no C/C/E Micro: Microbiology Date/Time Source Procedure Growth Status 11/08/18 13:30 Blood Blood Culture - Preliminary NO GROWTH AFTER 48 HOURS Resulted 11/08/18 13:30 Blood Blood Culture - Preliminary NO GROWTH AFTER 48 HOURS Resulted 11/08/18 13:40 Nasal Nares MRSA Culture - Final Staphylococcus Aureus - Mrsa Complete 11/08/18 13:45 Urine,Clean Catch Urine Culture - Final NO GROWTH AFTER 48 HOURS Complete 11/08/18 13:40 Rectum VRE Culture - Final Enterococcus Faecalis - Vre Complete 11/08/18 13:40 Rectum - Final NO CARBAPENEM-RESISTANT ENTEROBACTERI... Complete Accucheck: 65 Blood Sugars: BS controlled Critical Care - Subjective ROS Limited/Unobtainable: Yes ICU Day: 3 Intubation Day: N/A Interval Events: Off pressors CT-A neg for PE + BIB atx + comp Fx AFVSS stable on 2L No cough, no SOB, no F/C, no CP Condition: improving IV Access: peripheral EKG Rhythm: Sinus Rhythm FI02: 99 Sputum Amount: None Fluids: D5NS@100 I&O: Intake and Output 11/10/18 11/11/18 19:00 07:00 Intake Total 2796.48 ml 1591.44 ml Output Total 550 ml 320 ml Balance 2246.48 ml 1271.44 ml Intake Oral 238 ml 0 ml IV Total 2558.48 ml 1541.44 ml Other 50 ml Output Urine Total 550 ml 320 ml # Voids 1 # Bowel Movements 4 2 Subjective: Denies F/C/CP/SOB/cough/wheezing/F/C Labs: Laboratory Tests Test 11/11/18 04:15 White Blood Count 6.9 K/UL (4.8-10.8) Red Blood Count 3.24 M/UL (4.20-5.40) L Hemoglobin 9.7 G/DL (12.0-16.0) L Hematocrit 29.5 % (37.0-47.0) L Mean Corpuscular Volume 91 FL (80-99) Mean Corpuscular Hemoglobin 30.0 PG (27.0-31.0) Mean Corpuscular Hemoglobin Concent 32.9 G/DL (32.0-36.0) Red Cell Distribution Width 14.0 % (11.6-14.8) Platelet Count 211 K/UL (150-450) Mean Platelet Volume 5.1 FL (6.5-10.1) L Neutrophils (%) (Auto) 70.9 % (45.0-75.0) Lymphocytes (%) (Auto) 17.9 % (20.0-45.0) L Monocytes (%) (Auto) 5.4 % (1.0-10.0) Eosinophils (%) (Auto) 5.2 % (0.0-3.0) H Basophils (%) (Auto) 0.6 % (0.0-2.0) Sodium Level 138 MMOL/L (136-145) Potassium Level 3.6 MMOL/L (3.5-5.1) Chloride Level 107 MMOL/L (98-107) Carbon Dioxide Level 20 MMOL/L (21-32) L Anion Gap 11 mmol/L (5-15) Blood Urea Nitrogen 9 mg/dL (7-18) Creatinine 0.9 MG/DL (0.55-1.30) Estimat Glomerular Filtration Rate > 60 mL/min (>60) Glucose Level 61 MG/DL (74-106) L Calcium Level 8.0 MG/DL (8.5-10.1) L Ahmet Mallory MD Nov 11, 2018 12:10
[2018-11-11] MEDS ORDERED: 1/2 NS 1000ml IV ONE (13:18)
[2018-11-11] MEDS ORDERED: D5NS 1000ml IV ONE (13:18)
--- NOTE | 2018-11-11 14:00 | NUR ---
NURSE NOTES: Cleaned and repositioned pt. order takers supervisor at bedside. VSS. will continue to monitor.
--- NOTE | 2018-11-11 15:30 | NUR ---
NURSE NOTES: Patient arrived to unit via hospital bed accompanied with RN. Patient is confused but verbally responsive. No s/s of pain at this time. IV site intact and patent. Receiving 4L of oxygen via N/C with no distress noted. Belongings checked with RN. Missing belongings noted. athletic monitor applied to the patient. Caregiver at bedside. Bed in lowest position. Call light within reach. Will continue to monitor.
--- NOTE | 2018-11-11 15:30 | NUR ---
HAND-OFF: Report given to MEGHAN Newell. VSS. Patient with health care marketing manager at bedside.
[2018-11-11] MEDS ORDERED: Miralax 17gm pkt ORAL PRN (15:48)
--- NOTE | 2018-11-11 19:14 | NUR ---
HAND-OFF: Report given to MEGHAN Bryant. Caregiver at bedside. Stable condition.
--- NOTE | 2018-11-11 19:15 | NUR ---
NURSE NOTES: Received bedside report from MEGHAN Newell.Patient stable,confused,forgetful,rn progressive care unit at bedside 10/06,tolerated N/C 2 L/min 98-99% BS active in all quadrants,suprapubic cath is in place,IV asymptomatic,intact,bed secured in a low safety position,call light within a reach,will continue to monitor and follow POC. Addendum: 11/11/18 at 1956 by Annette De La Garza RN disregard this note,wrong pt.
--- NOTE | 2018-11-11 19:58 | NUR ---
NURSE NOTES: pt confused,disoriented,SR on monitor,4 L/min N/c,saturated well,pure wick in place,skin intact,TLC on R IJ running with D5 NS @ 100 ml/hr
[2018-11-11] MEDS ORDERED: Dyna-Hex 2% Top Sol 2oz TOPIC SCH (20:00)
[2018-11-11] MEDS: Dyna-Hex 2% Top Sol 2oz TOPIC SCH (21:29)
[2018-11-12] VITALS: BP 118/72
[2018-11-12] MEDS: D5NS 1,000 ML IV SCH ×3 (02:00→20:19)
[2018-11-12 04:00] VITALS: BP 137/86
[2018-11-12 05:09] LABS: BASOPHILS % (AUTO) 0.7 % (0.0-2.0); EOSINOPHILS % (AUTO) 6.1 % (0.0-3.0); HEMATOCRIT 27.5 % (37.0-47.0); LYMPHOCYTES % (AUTO) 25.9 % (20.0-45.0); MEAN CORPUSCULAR VOLUME 89 FL (80-99); MONOCYTES % (AUTO) 7.1 % (1.0-10.0); NEUTROPHILS % (AUTO) 60.2 % (45.0-75.0); PLATELET COUNT 201 K/UL (150-450); RED BLOOD COUNT 3.09 M/UL (4.20-5.40); RED CELL DISTRIBUTION WIDTH 13.4 % (11.6-14.8); WHITE BLOOD COUNT 5.2 K/UL (4.8-10.8)
[2018-11-12 05:27] LABS: ANION GAP 8 mmol/L (5-15); BLOOD UREA NITROGEN 4 mg/dL (7-18); CALCIUM 7.7 MG/DL (8.5-10.1); CARBON DIOXIDE 24 MMOL/L (21-32); CHLORIDE 106 MMOL/L (98-107); CREATININE 0.8 MG/DL (0.55-1.30); SODIUM 138 MMOL/L (136-145)
--- NOTE | 2018-11-12 07:25 | NUR ---
HAND-OFF: Report given to MEGHAN Patel.Patient stable.
--- NOTE | 2018-11-12 07:30 | NUR ---
NURSE NOTES: Received patient from MEGHAN Bryant. Patient asleep in bed, easily arousable. on 4L O2 via NC. No acute distress noted. SR on desk monitor. Right IJ TLC intact and patent, running D5NS at 100ml/hr. Caregiver at bedside. Bed in lowest position, locked, side rails upx3. Call light within reach. will continue to monitor.
[2018-11-12 08:00] VITALS: BP 136/78
[2018-11-12] MEDS: Memantine 5 MG TAB ORAL SCH (08:42)
[2018-11-12] MEDS: OLANZapine 2.5mg tab ORAL SCH (08:43)
[2018-11-12] MEDS: Thiamine 100mg tab ORAL SCH (08:43)
[2018-11-12] MEDS: Venlafaxine XR 150mg cap ORAL SCH (08:44)
[2018-11-12] MEDS: Heparin 5000 units/ml inj SUBQ SCH ×2 (08:50→20:19)
[2018-11-12] MEDS ORDERED: Isovue-370 150ml vial INJ PRN (09:30)
--- NOTE | 2018-11-12 09:44 | NUR ---
CASE MANAGEMENT: REVIEW SI: DEHYDRATION . UTI T 97.7 HR 88 RR 20 BP 136/78 SAT 96% NC/4L H/H 9.0/27.5 K 3.0 IS: CEFEPIME IV Q24HR KCl 10mEq IVF @100ML/HR STEP DOWN UNIT STATUS DCP: PATIENT IS FROM [facility]
[2018-11-12] MEDS ORDERED: Cefepime HCl 2 GM in D5W 55 ML IVPB SCH (11:00)
[2018-11-12 12:00] VITALS: BP 126/76
--- NOTE | 2018-11-12 12:00 | NUR ---
NURSE NOTES: Patient is awake, confused, resting in bed. Patient on 3L O2 via NC, saturating 96%. No acute distress. Patient was kept clean and dry. caregiver at bedside.
--- NOTE | 2018-11-12 13:18 | General Progress Note ---
Assessment/Plan Problem List: (1) Elevated d-dimer ICD Codes: R79.89 - Other specified abnormal findings of blood chemistry SNOMED: 373467223 (2) Hypoxemia ICD Codes: R09.02 - Hypoxemia SNOMED: 715453862 (3) Dehydration ICD Codes: E86.0 - Dehydration SNOMED: 51610867 (4) ARF (acute renal failure) ICD Codes: N17.9 - Acute kidney failure, unspecified SNOMED: 13112513 (5) UTI (urinary tract infection) ICD Codes: N39.0 - Urinary tract infection, site not specified SNOMED: 45460848 (6) Episode of generalized weakness ICD Codes: R53.1 - Weakness SNOMED: 67585945 (7) Sepsis ICD Codes: A41.9 - Sepsis, unspecified organism SNOMED: 47494505 Assessment/Plan Optimize pulmonary hygiene/mobilize as tolerated Titrate down FiO2 to keep SaO2 > 90% Abx per ID Monitor volumes and renal function, mIVF Aspiration precautions DVT Px: Hep SQ Monitor MS FC Subjective Allergies: Coded Allergies: PENICILLINS (Verified Allergy, Unknown, 11/08/18) Subjective Tx'd to TU, AFVSS, on 4L, awake and confused, + cough denies SOB selin PO, no F/C Objective Last 24 Hour Vital Signs Date Time Temp Pulse Resp B/P (MAP) Pulse Ox O2 Delivery O2 Flow Rate FiO2 11/12/18 13:06 86 11/12/18 12:00 Nasal Cannula 4.0 11/12/18 12:00 97.3 77 18 126/76 (93) 96 11/12/18 08:21 78 11/12/18 08:00 97.7 80 16 136/78 (97) 99 11/12/18 08:00 Nasal Cannula 4.0 11/12/18 04:00 Nasal Cannula 4.0 11/12/18 04:00 97.7 79 18 137/86 (103) 96 11/12/18 03:24 75 11/12/18 00:00 97.8 88 20 118/72 (87) 98 11/12/18 00:00 Nasal Cannula 4.0 11/11/18 23:55 83 11/11/18 20:00 98.1 82 16 112/63 (79) 96 11/11/18 20:00 Nasal Cannula 4.0 11/11/18 19:07 84 11/11/18 18:00 84 11/11/18 16:00 98.4 92 19 94/59 (71) 95 11/11/18 16:00 Nasal Cannula 4.0 11/11/18 15:00 82 16 110/90 (97) 97 11/11/18 14:00 79 16 105/69 (81) 97 Intake and Output 11/11/18 11/12/18 19:00 07:00 Intake Total 1558.81 ml 1000 ml Output Total 0 ml 500 ml Balance 1558.81 ml 500 ml Intake Oral 400 ml 0 ml IV Total 1158.81 ml 1000 ml Output Urine Total 0 ml 500 ml # Voids 2 Laboratory Tests 11/12/18 03:30: White Blood Count 5.2, Red Blood Count 3.09L, Hemoglobin 9.0L, Hematocrit 27.5L , Mean Corpuscular Volume 89, Mean Corpuscular Hemoglobin 29.1, Mean Corpuscular Hemoglobin Concent 32.7, Red Cell Distribution Width 13.4, Platelet Count 201, Mean Platelet Volume 4.8L, Neutrophils (%) (Auto) 60.2, Lymphocytes ( %) (Auto) 25.9, Monocytes (%) (Auto) 7.1, Eosinophils (%) (Auto) 6.1H, Basophils (%) (Auto) 0.7, Sodium Level 138, Potassium Level 3.0L, Chloride Level 106, Carbon Dioxide Level 24, Anion Gap 8, Blood Urea Nitrogen 4L, Creatinine 0.8, Estimat Glomerular Filtration Rate > 60, Glucose Level 82, Calcium Level 7.7L Height (Feet): 5 Height (Inches): 8.00 Weight (Pounds): 173 General Appearance: no apparent distress, confused, cachetic EENT: PERRL/EOMI, normal ENT inspection, TMs normal Neck: non-tender, normal alignment, supple Cardiovascular: normal peripheral pulses, normal rate, regular rhythm Respiratory/Chest: chest wall non-tender, lungs clear, normal breath sounds, no respiratory distress, no accessory muscle use Abdomen: normal bowel sounds, non tender, soft, no organomegaly, no mass Edema: no edema noted Arm (L), no edema noted Arm (R), no edema noted Leg (L), no edema noted Leg (R), no edema noted Pedal (L), no edema noted Pedal (R), no edema noted Generalized Ahmet Mallory MD Nov 12, 2018 13:18
--- NOTE | 2018-11-12 13:47 | Infectious Diseases Prog Note ---
Assessment/Plan Assessment/Plan A 1. Sepsis 2. Atelectasis/ pneumonia. 3. 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 Acute renal failure improved P 1. continue cefepime 2. will follow up cultures Subjective ROS Limited/Unobtainable: Yes Constitutional: Reports: other - doing better, transferred out of ICU Allergies: Coded Allergies: PENICILLINS (Verified Allergy, Unknown, 11/08/18) Objective Vital Signs Last 24 Hour Vital Signs Date Time Temp Pulse Resp B/P (MAP) Pulse Ox O2 Delivery O2 Flow Rate FiO2 11/12/18 13:06 86 11/12/18 12:00 Nasal Cannula 4.0 11/12/18 12:00 97.3 77 18 126/76 (93) 96 11/12/18 08:21 78 11/12/18 08:00 97.7 80 16 136/78 (97) 99 11/12/18 08:00 Nasal Cannula 4.0 11/12/18 04:00 Nasal Cannula 4.0 11/12/18 04:00 97.7 79 18 137/86 (103) 96 11/12/18 03:24 75 11/12/18 00:00 97.8 88 20 118/72 (87) 98 11/12/18 00:00 Nasal Cannula 4.0 11/11/18 23:55 83 11/11/18 20:00 98.1 82 16 112/63 (79) 96 11/11/18 20:00 Nasal Cannula 4.0 11/11/18 19:07 84 11/11/18 18:00 84 11/11/18 16:00 98.4 92 19 94/59 (71) 95 11/11/18 16:00 Nasal Cannula 4.0 11/11/18 15:00 82 16 110/90 (97) 97 11/11/18 14:00 79 16 105/69 (81) 97 Height (Feet): 5 Height (Inches): 8.00 Weight (Pounds): 173 General Appearance: no acute distress HEENT: mucous membranes moist Respiratory/Chest: lungs clear Cardiovascular: normal rate, other - RIJ central line Abdomen: soft, non tender Extremities: no edema Neurologic/Psychiatric: other - sleeping Laboratory Tests Test 11/12/18 03:30 White Blood Count 5.2 K/UL (4.8-10.8) Red Blood Count 3.09 M/UL (4.20-5.40) L Hemoglobin 9.0 G/DL (12.0-16.0) L Hematocrit 27.5 % (37.0-47.0) L Mean Corpuscular Volume 89 FL (80-99) Mean Corpuscular Hemoglobin 29.1 PG (27.0-31.0) Mean Corpuscular Hemoglobin Concent 32.7 G/DL (32.0-36.0) Red Cell Distribution Width 13.4 % (11.6-14.8) Platelet Count 201 K/UL (150-450) Mean Platelet Volume 4.8 FL (6.5-10.1) L Neutrophils (%) (Auto) 60.2 % (45.0-75.0) Lymphocytes (%) (Auto) 25.9 % (20.0-45.0) Monocytes (%) (Auto) 7.1 % (1.0-10.0) Eosinophils (%) (Auto) 6.1 % (0.0-3.0) H Basophils (%) (Auto) 0.7 % (0.0-2.0) Sodium Level 138 MMOL/L (136-145) Potassium Level 3.0 MMOL/L (3.5-5.1) L Chloride Level 106 MMOL/L (98-107) Carbon Dioxide Level 24 MMOL/L (21-32) Anion Gap 8 mmol/L (5-15) Blood Urea Nitrogen 4 mg/dL (7-18) L Creatinine 0.8 MG/DL (0.55-1.30) Estimat Glomerular Filtration Rate > 60 mL/min (>60) Glucose Level 82 MG/DL (74-106) Calcium Level 7.7 MG/DL (8.5-10.1) L Current Medications Medications (Trade) Dose Ordered Sig/Inocente Route PRN Reason Start Time Stop Time Status Last Admin Dose Admin Acetaminophen (Tylenol) 650 mg Q4H PRN ORAL Mild Pain/Temp > 100.5 11/11/18 15:47 12/08/18 15:46 Cefepime HCl 2 gm/ Dextrose 55 ml @ 110 mls/hr Q12HR IVPB 11/12/18 21:00 11/16/18 23:59 Chlorhexidine Gluconate (Marga-Hex 2%) 1 applic DAILY@2000 TOPIC 12/25/18 20:00 12/11/18 19:59 11/11/18 21:29 Dextrose (Dextrose 50%) 25 ml Q30M PRN IV Hypoglycemia 11/11/18 15:47 12/08/18 15:46 Dextrose (Dextrose 50%) 50 ml Q30M PRN IV Hypoglycemia 11/11/18 16:00 12/08/18 17:29 Dextrose/Sodium Chloride 1,000 ml @ 100 mls/hr Q10H IV 11/11/18 15:47 12/10/18 15:46 11/12/18 12:20 Famotidine (Pepcid) 20 mg DAILY ORAL 11/12/18 09:00 12/08/18 17:14 11/12/18 08:42 Ferrous Sulfate (Feosol) 325 mg DAILY ORAL 11/12/18 09:00 12/08/18 17:14 Heparin Sodium (Porcine) (Heparin 5000 units/ml) 5,000 units EVERY 12 HOURS SUBQ 11/11/18 21:00 12/08/18 20:59 11/12/18 08:50 Levothyroxine Sodium (Synthroid) 75 mcg ACBREAKFAST ORAL 11/12/18 06:30 12/10/18 06:29 11/12/18 05:43 Memantine (Namenda) 5 mg DAILY ORAL 11/12/18 09:00 12/08/18 17:14 11/12/18 08:42 Olanzapine (ZyPREXA) 2.5 mg DAILY ORAL 11/12/18 09:00 12/08/18 17:14 11/12/18 08:43 Polyethylene Glycol (Miralax) 17 gm DAILYPRN PRN ORAL Constipation 11/11/18 15:48 12/09/18 15:47 Thiamine HCl (Vitamin B1) 100 mg DAILY ORAL 11/12/18 09:00 12/08/18 17:14 11/12/18 08:43 Venlafaxine HCl (Effexor-XR) 150 mg DAILY ORAL 11/12/18 09:00 12/08/18 17:59 11/12/18 08:44 Jimy Rios MD Nov 12, 2018 13:47
[2018-11-12] MEDS ORDERED: D5NS 1000ml IV ONE (14:37)
[2018-11-12 16:00] VITALS: BP 119/78
--- NOTE | 2018-11-12 16:15 | NUR ---
NURSE NOTES: Dr. Rios here to see the patient. Informed MD that patient's family reported that pt seemed to be more altered than her baseline. Neurologist to see the patient per PMD. PMD also made aware that patient had 10-15% of meals today and was unable to take ferrous sulfate. No new orders at this time.
--- NOTE | 2018-11-12 16:16 | General Progress Note ---
Assessment/Plan Problem List: (1) UTI (urinary tract infection) ICD Codes: N39.0 - Urinary tract infection, site not specified SNOMED: 98671318 (2) Sepsis ICD Codes: A41.9 - Sepsis, unspecified organism SNOMED: 82140308 (3) ARF (acute renal failure) ICD Codes: N17.9 - Acute kidney failure, unspecified SNOMED: 18601762 Assessment/Plan abxs IVF Discussed with RN follow labs transfer to floor if stable tomorrow Subjective Allergies: Coded Allergies: PENICILLINS (Verified Allergy, Unknown, 11/08/18) Subjective pt is more alert but family is concerned about patient's MS Objective Last 24 Hour Vital Signs Date Time Temp Pulse Resp B/P (MAP) Pulse Ox O2 Delivery O2 Flow Rate FiO2 11/12/18 16:00 Nasal Cannula 3.0 11/12/18 13:06 86 11/12/18 12:00 Nasal Cannula 3.0 11/12/18 12:00 97.3 77 18 126/76 (93) 96 11/12/18 08:21 78 11/12/18 08:00 97.7 80 16 136/78 (97) 99 11/12/18 08:00 Nasal Cannula 4.0 11/12/18 04:00 Nasal Cannula 4.0 11/12/18 04:00 97.7 79 18 137/86 (103) 96 11/12/18 03:24 75 11/12/18 00:00 97.8 88 20 118/72 (87) 98 11/12/18 00:00 Nasal Cannula 4.0 11/11/18 23:55 83 11/11/18 20:00 98.1 82 16 112/63 (79) 96 11/11/18 20:00 Nasal Cannula 4.0 11/11/18 19:07 84 11/11/18 18:00 84 Intake and Output 11/11/18 11/12/18 19:00 07:00 Intake Total 1558.81 ml 1000 ml Output Total 0 ml 500 ml Balance 1558.81 ml 500 ml Intake Oral 400 ml 0 ml IV Total 1158.81 ml 1000 ml Output Urine Total 0 ml 500 ml # Voids 2 Laboratory Tests 11/12/18 03:30: White Blood Count 5.2, Red Blood Count 3.09L, Hemoglobin 9.0L, Hematocrit 27.5L , Mean Corpuscular Volume 89, Mean Corpuscular Hemoglobin 29.1, Mean Corpuscular Hemoglobin Concent 32.7, Red Cell Distribution Width 13.4, Platelet Count 201, Mean Platelet Volume 4.8L, Neutrophils (%) (Auto) 60.2, Lymphocytes ( %) (Auto) 25.9, Monocytes (%) (Auto) 7.1, Eosinophils (%) (Auto) 6.1H, Basophils (%) (Auto) 0.7, Sodium Level 138, Potassium Level 3.0L, Chloride Level 106, Carbon Dioxide Level 24, Anion Gap 8, Blood Urea Nitrogen 4L, Creatinine 0.8, Estimat Glomerular Filtration Rate > 60, Glucose Level 82, Calcium Level 7.7L Height (Feet): 5 Height (Inches): 8.00 Weight (Pounds): 173 Cardiovascular: normal rate Respiratory/Chest: lungs clear Edema: no edema noted Generalized Ilir Rios MD Nov 12, 2018 16:16
--- NOTE | 2018-11-12 18:00 | NUR ---
NURSE NOTES: Changed right IJ TLC dressing. No signs of infection. Patient tolerated well.
--- NOTE | 2018-11-12 19:10 | NUR ---
HAND-OFF: Report given to MEGHAN Bryant. Patient in stable condition.
--- NOTE | 2018-11-12 19:11 | NUR ---
NURSE NOTES: Received bedside report from MEGHAN Patel.Patient stable,confused,forgetful,care navigator at bedside 10/06,no c/o pain,no respiratory distress noted,tolerated N/C 2 L/min 95-98%,BS active in all quadrants,IV asymptomatic,intact,TLC on R IJ inserted 11/09,dressing changed 11/12,D5 NS running @100 ml/hr,bed secured in a low safety position,call light within a reach,will continue to monitor and follow POC.
--- NOTE | 2018-11-12 19:54 | Consultation ---
Consult Note Consult Note NEUROLOGY CONSULTATION: Full note dictated #[id number] 68 y/o, CF of ?H who has a PH of AD, anxiety, depression, and breast cancer who lives in a NH. She was hospitalized for increased weakness and a change in behavior on 11/08/18. On being evaluated she had a UTI, hypotension and dehydration. ON EXAM: Severe aphasia making further MS testing impossible. No focal or lateralizing findings. Bilateral spasticity and ankle cord contractures. Brisk DTRs with flexor plantars. IMPRESSION: Advanced dementia with superimposed encephalopathy. REC: w/u for other treatable encephalopathy. Brain CT EEG Observe Harley Reeves M.D., M.S.P.H. Harley Reeves MD Nov 12, 2018 19:54
[2018-11-12 20:00] VITALS: BP 109/75
[2018-11-12] MEDS: Dyna-Hex 2% Top Sol 2oz TOPIC SCH (20:17)
[2018-11-12] MEDS: Cefepime HCl 2 GM in D5W 55 ML IVPB SCH (20:17)
--- NOTE | 2018-11-12 22:30 | Consultation ---
DATE OF CONSULTATION: 11/12/2018 NEUROLOGY CONSULTATION CONSULTING PHYSICIAN: Harley Reeves M.D. REQUESTING PHYSICIAN: Ilir Rios M.D. HISTORY: Ms. Stacy Aquino is a 68-year-old lady of unknown handedness, who does have a past history of breast cancer, anxiety, depression, and Alzheimer's disease for an unknown period of time. She apparently lives in the halfway. She was hospitalized on 11/08/2018 for increased weakness and change in behavior at her halfway. On being evaluated, she had urinary tract infection, hypotension, and possible dehydration. She has been treated for all these problems, but she continues to have significant alteration in her mental state and thus this consultation was requested. The patient herself is severely aphasic and cannot give any history. PAST MEDICAL HISTORY: Significant for Alzheimer disease, anxiety, depression, and breast cancer. FAMILY HISTORY: Unavailable. PERSONAL HISTORY: Home: She lives in a halfway. Work: She is unemployed at this point in time. Habits: None at this point in time. MEDICATIONS: Cefepime, Pepcid, ferrous sulfate, Namenda 5 mg daily, Zyprexa 2.5 mg daily, thiamin, Effexor 150 mg daily, Synthroid, heparin for DVT prophylaxis, MiraLAX, and Tylenol p.r.n. PHYSICAL EXAMINATION: GENERAL: She is a well-developed, relatively well-nourished lady, lying in bed, in no acute distress. VITAL SIGNS: Pulse 81 per minute, blood pressure 119/78 mmHg, respirations 18 per minute, and temperature 97.6 degrees Fahrenheit. HEAD: Normocephalic and atraumatic. EENT: Examination benign. NECK: No neck rigidity was observed. NEUROLOGIC EXAMINATION: MENTAL STATUS EXAMINATION: She was awake and alert. She was severely aphasic making further mental status testing impossible. SPEECH: She had no dysarthria. LANGUAGE: She had problems with comprehension, repetition, naming, and expression of language. She talked in a nonsensical manner. CRANIAL NERVE EXAMINATION: II: She blink to threat on both sides. III, IV & : External ocular movements were present on oculocephalic maneuvers. The pupils were 3 mm in diameter, equal, round, regular, and reactive sluggishly to light. V & VII: The corneal reflexes were equally brisk and she had no facial asymmetry. VIII: She did respond to sounds and had no nystagmus. IX: The palate moved symmetrically on phonation. X: She had no hoarseness of voice. XI: The sternocleidomastoids and trapezii functioned normally. XII: The tongue was in the midline without any fasciculations or atrophy. MOTOR SYSTEM: The tone was increased in all four extremities with a significant degree of spasticity. Examination of muscle mass revealed bilateral ankle cord contractures. Examination of power was impossible to perform on individual muscle groups. She however moved all four extremities relatively well on applying deep painful stimuli and in addition had fair hand channel manager bilaterally. SENSORY EXAMINATION: She responded appropriately to deep pain. She was unable to cooperate for other sensory modalities. REFLEXES: 2++ and bilaterally symmetrical at the biceps, triceps, brachioradialis, and knees, 0 at both ankles. The plantar responses were flexor bilaterally. COORDINATION, STANCE & GAIT: Could not be tested. DIAGNOSTIC IMPRESSION: 1. Ms. Stacy Aquino is a 68-year-old lady of unknown handedness, who does have a past history of anxiety, depression, breast cancer, and Alzheimer's disease. She was hospitalized on 11/08/2018 for increased weakness and change in behavior. She was discovered to have urinary tract infection, dehydration, and hypotension all of which have been treated, but she continues to have an altered mental state, which her family feels is worse than her baseline. 2. On neurological examination at this time, she does demonstrate significant problems with communication due to a significant aphasia. She however does not demonstrate any focal or lateralizing neurological findings. She does have bilateral ankle cord contractures and spasticity. 3. Laboratory data obtained thus far have revealed that she is anemic with a hemoglobin of 9.0 G. Her blood gases revealed that her pCO2 was down to 31.8 and her pO2 was 103.2. Her chemistry panel on admission revealed her BUN was elevated to 20 and creatinine was elevated at 1.6. Her BNP was elevated to 577, her albumin was low at 2.9, her TSH was low at 0.086. The urinalysis on admission revealed 3+ leukocyte esterase, too numerous to count white blood cells, but 0 red blood cells per high power field. 4. The patient's history and neurological examination are most compatible with an advanced dementia with a superimposed encephalopathy most probably related to her recent urinary tract infection, hypotension, and fluid and electrolyte imbalance. RECOMMENDATIONS: 1. Agree with management thus far. 2. The patient will be worked up thoroughly for other treatable causes of encephalopathy. 3. An EEG will be obtained to evaluate the patient for the degree and type of encephalopathy. 4. The CT scan of the brain without contrast will be ordered to evaluate the patient for acute intracranial pathology. 5. The patient will be observed closely and depending on how she fares over the next day or so, further recommendations will be given. Thank you for entrusting me with the care of this patient. I shall follow her with you. Harley Reeves M.D., M.S.P.H. DR: CHELLY JOB#: [id number] MTDD
[2018-11-13] VITALS (10 sets, daily range): BP systolic 45–136; BP diastolic 31–87
[2018-11-13 05:17] LABS: BASOPHILS % (AUTO) 0.9 % (0.0-2.0); EOSINOPHILS % (AUTO) 5.2 % (0.0-3.0); LYMPHOCYTES % (AUTO) 28.2 % (20.0-45.0); MEAN CORPUSCULAR VOLUME 89 FL (80-99); MONOCYTES % (AUTO) 9.4 % (1.0-10.0); NEUTROPHILS % (AUTO) 56.2 % (45.0-75.0); PLATELET COUNT 209 K/UL (150-450); RED BLOOD COUNT 3.02 M/UL (4.20-5.40); RED CELL DISTRIBUTION WIDTH 13.3 % (11.6-14.8); WHITE BLOOD COUNT 5.1 K/UL (4.8-10.8)
[2018-11-13 05:29] LABS: ANION GAP 8 mmol/L (5-15); BLOOD UREA NITROGEN 2 mg/dL (7-18); CALCIUM 7.8 MG/DL (8.5-10.1); CARBON DIOXIDE 24 MMOL/L (21-32); CHLORIDE 105 MMOL/L (98-107); CREATININE 0.8 MG/DL (0.55-1.30); POTASSIUM 3.1 MMOL/L (3.5-5.1); SODIUM 137 MMOL/L (136-145)
[2018-11-13] MEDS: D5NS 1,000 ML IV SCH (06:05)
--- NOTE | 2018-11-13 06:41 | NUR ---
NURSE NOTES: Called and left massage regarding K level 3.1.Will endorse to the next shift.
--- NOTE | 2018-11-13 07:05 | NUR ---
HAND-OFF: Report given to MEGHAN Patel.Patient stable.
--- NOTE | 2018-11-13 07:15 | NUR ---
NURSE NOTES: Received patient from MEGHAN Bryant. Patient asleep in bed, easily arousable. on 2L O2 via NC. No acute distress noted. No s/sx of pain at this time. SR on conveyor monitor. Right IJ TLC intact and patent, running D5NS at 100ml/hr, dressing i/c/d. Bed in lowest position, locked, side rails upx3. Call light within reach. will continue to monitor.
[2018-11-13] MEDS: OLANZapine 2.5mg tab ORAL SCH (08:20)
[2018-11-13] MEDS: Cefepime HCl 2 GM in D5W 55 ML IVPB SCH ×2 (08:20→20:18)
[2018-11-13] MEDS: Venlafaxine XR 150mg cap ORAL SCH (08:21)
[2018-11-13] MEDS: Thiamine 100mg tab ORAL SCH (08:21)
[2018-11-13] MEDS: Memantine 5 MG TAB ORAL SCH (08:21)
[2018-11-13] MEDS: Heparin 5000 units/ml inj SUBQ SCH ×2 (08:29→20:20)
--- NOTE | 2018-11-13 09:40 | NUR ---
NURSE NOTES: Patient back to the room from CT. Patient tolerated well.
--- NOTE | 2018-11-13 09:56 | Pulmonology Progress Note ---
Assessment/Plan Problems: (1) Elevated d-dimer (2) Hypoxemia (3) Dehydration (4) ARF (acute renal failure) (5) UTI (urinary tract infection) (6) Episode of generalized weakness (7) Sepsis Assessment/Plan Optimize pulmonary hygiene/mobilize as tolerated Titrate down FiO2 to keep SaO2 > 90% Abx per ID Monitor volumes and renal function, mIVF Aspiration precautions DVT Px: Hep SQ Monitor MS, neuro w/u underway FC Subjective Allergies: Coded Allergies: PENICILLINS (Verified Allergy, Unknown, 11/08/18) Subjective Stable in TU AFVSS on 2L Neuro w/u underway Less cough denies SOB Confused Objective Last 24 Hour Vital Signs Date Time Temp Pulse Resp B/P (MAP) Pulse Ox O2 Delivery O2 Flow Rate FiO2 11/13/18 08:00 97.2 82 18 131/87 (102) 94 11/13/18 08:00 Nasal Cannula 1.0 11/13/18 04:00 98.2 89 16 110/58 (75) 98 11/13/18 04:00 Nasal Cannula 2.0 11/13/18 03:32 78 11/13/18 00:00 97.5 83 16 119/64 (82) 98 11/13/18 00:00 Nasal Cannula 2.0 11/12/18 23:47 80 11/12/18 20:39 73 11/12/18 20:00 97.7 79 20 109/75 (86) 97 11/12/18 20:00 Nasal Cannula 2.0 11/12/18 16:00 97.6 81 18 119/78 (92) 96 11/12/18 16:00 82 11/12/18 16:00 Nasal Cannula 2.0 11/12/18 13:06 86 11/12/18 12:00 Nasal Cannula 3.0 11/12/18 12:00 97.3 77 18 126/76 (93) 96 Intake and Output 11/12/18 11/13/18 19:00 07:00 Intake Total 1575 ml 1123.3 ml Output Total 500 ml 650 ml Balance 1075 ml 473.3 ml Intake Oral 220 ml IV Total 1355 ml 1123.3 ml Output Urine Total 500 ml 650 ml # Bowel Movements 2 General Appearance: no acute distress, cachetic HEENT: normocephalic, atraumatic, anicteric, mucous membranes moist Respiratory/Chest: chest wall non-tender, lungs clear, normal breath sounds, no respiratory distress, no accessory muscle use Cardiovascular: normal peripheral pulses, normal rate, regular rhythm Abdomen: normal bowel sounds, soft, non tender, no organomegaly, non distended , no mass Extremities: no cyanosis, no clubbing, no edema Laboratory Tests 11/13/18 03:40: White Blood Count 5.1, Red Blood Count 3.02L, Hemoglobin 9.0L, Hematocrit 27.0L , Mean Corpuscular Volume 89, Mean Corpuscular Hemoglobin 29.7, Mean Corpuscular Hemoglobin Concent 33.3, Red Cell Distribution Width 13.3, Platelet Count 209, Mean Platelet Volume 4.6L, Neutrophils (%) (Auto) 56.2, Lymphocytes ( %) (Auto) 28.2, Monocytes (%) (Auto) 9.4, Eosinophils (%) (Auto) 5.2H, Basophils (%) (Auto) 0.9, Sodium Level 137, Potassium Level 3.1L, Chloride Level 105, Carbon Dioxide Level 24, Anion Gap 8, Blood Urea Nitrogen 2L, Creatinine 0.8, Estimat Glomerular Filtration Rate > 60, Glucose Level 77, Calcium Level 7.8L Current Medications Medications (Trade) Dose Ordered Sig/Inocente Route PRN Reason Start Time Stop Time Status Last Admin Dose Admin Acetaminophen (Tylenol) 650 mg Q4H PRN ORAL Mild Pain/Temp > 100.5 11/11/18 15:47 12/08/18 15:46 Cefepime HCl 2 gm/ Dextrose 55 ml @ 110 mls/hr Q12HR IVPB 11/12/18 21:00 11/16/18 23:59 11/13/18 08:20 Chlorhexidine Gluconate (Marga-Hex 2%) 1 applic DAILY@2000 TOPIC 11/11/18 20:00 12/11/18 19:59 11/12/18 20:17 Dextrose (Dextrose 50%) 25 ml Q30M PRN IV Hypoglycemia 11/11/18 15:47 12/08/18 15:46 Dextrose (Dextrose 50%) 50 ml Q30M PRN IV Hypoglycemia 11/11/18 16:00 12/08/18 17:29 Dextrose/Sodium Chloride 1,000 ml @ 100 mls/hr Q10H IV 11/11/18 15:47 12/10/18 15:46 11/13/18 06:05 Famotidine (Pepcid) 20 mg DAILY ORAL 11/12/18 09:00 12/08/18 17:14 11/13/18 08:21 Ferrous Sulfate (Feosol) 325 mg DAILY ORAL 11/12/18 09:00 12/08/18 17:14 Heparin Sodium (Porcine) (Heparin 5000 units/ml) 5,000 units EVERY 12 HOURS SUBQ 11/11/18 21:00 12/08/18 20:59 11/13/18 08:29 Levothyroxine Sodium (Synthroid) 75 mcg ACBREAKFAST ORAL 11/12/18 06:30 12/10/18 06:29 11/13/18 06:05 Memantine (Namenda) 5 mg DAILY ORAL 11/12/18 09:00 12/08/18 17:14 11/13/18 08:21 Olanzapine (ZyPREXA) 2.5 mg DAILY ORAL 11/12/18 09:00 12/08/18 17:14 11/13/18 08:20 Polyethylene Glycol (Miralax) 17 gm DAILYPRN PRN ORAL Constipation 11/11/18 15:48 12/09/18 15:47 Thiamine HCl (Vitamin B1) 100 mg DAILY ORAL 11/12/18 09:00 12/08/18 17:14 11/13/18 08:21 Venlafaxine HCl (Effexor-XR) 150 mg DAILY ORAL 11/12/18 09:00 12/08/18 17:59 11/13/18 08:21 Ahmet Mallory MD Nov 13, 2018 09:56
--- NOTE | 2018-11-13 10:58 | Diagnostic Imaging Report ---
Indication: Altered mental status Technique: Contiguous 5 mm thick transaxial imaging of the head obtained in a Siemens Sensation [address] scanner. Soft tissue and bone windows generated. Automatic Exposure Control was utilized. Total Dose length Product (DLP): [address] Dose Index Volume (CTDIvol): 0.15, 70.38 mGy Comparison: none Findings: There is evidence of mild generalized atrophy of the brain with prominence of the sulci ventricles and basal cisterns. The ventricles appear disproportionately enlarged suggesting possibility of communicating hydrocephalus. Correlate clinically. Periventricular patchy low-attenuation noted. There is no evidence of acute hemorrhage, mass effect or midline shift. There is evidence of radical sinus surgery with resection of bilateral nasal turbinates as well as portions of the [place] of the maxillary sinuses and frontal and lateral aspects of the sphenoid sinus. There is severe mucosal thickening/opacification of the remaining ethmoid air cells. There is mucosal thickening versus polyp partially visualized adjacent to the remaining aspects of the left maxillary sinus (series 3 image #2). Imaged mastoid air cells appear clear. No acute calvarial fracture identified. IMPRESSION: No acute intracranial hemorrhage, mass effect or midline shift. Disproportionate ventriculomegaly to the degree of atrophy raising question for possible normal pressure hydrocephalus or communicating hydrocephalus. Nonspecific periventricular hypoattenuation which may be related to chronic small vessel ischemia. Evidence of radical sinus surgery as above with severe sinus disease involving the residual ethmoid air cells. Small probable polyp involving the residual aspects of the left maxillary sinus, partially visualized. Correlation with surgical history is recommended. The CT scanner at [facility] is accredited by the [employer] and the scans are performed using dose optimization techniques as appropriate to a performed exam including Automatic Exposure control.
--- NOTE | 2018-11-13 11:51 | Infectious Diseases Prog Note ---
Assessment/Plan Assessment/Plan A 1. Sepsis resolving 2. Atelectasis/ pneumonia. 3. 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 Acute renal failure improved P 1. continue cefepime 2. will follow up cultures Subjective ROS Limited/Unobtainable: Yes Constitutional: Reports: no symptoms Allergies: Coded Allergies: PENICILLINS (Verified Allergy, Unknown, 11/08/18) Objective Vital Signs Last 24 Hour Vital Signs Date Time Temp Pulse Resp B/P (MAP) Pulse Ox O2 Delivery O2 Flow Rate FiO2 11/13/18 08:00 79 11/13/18 08:00 97.2 82 18 131/87 (102) 94 11/13/18 08:00 Nasal Cannula 1.0 11/13/18 04:00 98.2 89 16 110/58 (75) 98 11/13/18 04:00 Nasal Cannula 2.0 11/13/18 03:32 78 11/13/18 00:00 97.5 83 16 119/64 (82) 98 11/13/18 00:00 Nasal Cannula 2.0 11/12/18 23:47 80 11/12/18 20:39 73 11/12/18 20:00 97.7 79 20 109/75 (86) 97 11/12/18 20:00 Nasal Cannula 2.0 11/12/18 16:00 97.6 81 18 119/78 (92) 96 11/12/18 16:00 82 11/12/18 16:00 Nasal Cannula 2.0 11/12/18 13:06 86 11/12/18 12:00 Nasal Cannula 3.0 11/12/18 12:00 97.3 77 18 126/76 (93) 96 Height (Feet): 5 Height (Inches): 8.00 Weight (Pounds): 173 General Appearance: no acute distress HEENT: mucous membranes moist Respiratory/Chest: lungs clear Cardiovascular: normal rate Abdomen: soft, non tender Extremities: no edema Neurologic/Psychiatric: alert, responsive Laboratory Tests Test 11/13/18 03:40 White Blood Count 5.1 K/UL (4.8-10.8) Red Blood Count 3.02 M/UL (4.20-5.40) L Hemoglobin 9.0 G/DL (12.0-16.0) L Hematocrit 27.0 % (37.0-47.0) L Mean Corpuscular Volume 89 FL (80-99) Mean Corpuscular Hemoglobin 29.7 PG (27.0-31.0) Mean Corpuscular Hemoglobin Concent 33.3 G/DL (32.0-36.0) Red Cell Distribution Width 13.3 % (11.6-14.8) Platelet Count 209 K/UL (150-450) Mean Platelet Volume 4.6 FL (6.5-10.1) L Neutrophils (%) (Auto) 56.2 % (45.0-75.0) Lymphocytes (%) (Auto) 28.2 % (20.0-45.0) Monocytes (%) (Auto) 9.4 % (1.0-10.0) Eosinophils (%) (Auto) 5.2 % (0.0-3.0) H Basophils (%) (Auto) 0.9 % (0.0-2.0) Sodium Level 137 MMOL/L (136-145) Potassium Level 3.1 MMOL/L (3.5-5.1) L Chloride Level 105 MMOL/L (98-107) Carbon Dioxide Level 24 MMOL/L (21-32) Anion Gap 8 mmol/L (5-15) Blood Urea Nitrogen 2 mg/dL (7-18) L Creatinine 0.8 MG/DL (0.55-1.30) Estimat Glomerular Filtration Rate > 60 mL/min (>60) Glucose Level 77 MG/DL (74-106) Calcium Level 7.8 MG/DL (8.5-10.1) L Current Medications Medications (Trade) Dose Ordered Sig/Inocente Route PRN Reason Start Time Stop Time Status Last Admin Dose Admin Acetaminophen (Tylenol) 650 mg Q4H PRN ORAL Mild Pain/Temp > 100.5 11/11/18 15:47 12/08/18 15:46 Cefepime HCl 2 gm/ Dextrose 55 ml @ 110 mls/hr Q12HR IVPB 11/12/18 21:00 11/16/18 23:59 11/13/18 08:20 Chlorhexidine Gluconate (Marga-Hex 2%) 1 applic DAILY@2000 TOPIC 11/11/18 20:00 12/11/18 19:59 11/12/18 20:17 Dextrose (Dextrose 50%) 25 ml Q30M PRN IV Hypoglycemia 12/25/18 15:47 12/08/18 15:46 Dextrose (Dextrose 50%) 50 ml Q30M PRN IV Hypoglycemia 11/11/18 16:00 12/08/18 17:29 Dextrose/Sodium Chloride 1,000 ml @ 100 mls/hr Q10H IV 11/11/18 15:47 12/10/18 15:46 11/13/18 06:05 Famotidine (Pepcid) 20 mg DAILY ORAL 11/12/18 09:00 12/08/18 17:14 11/13/18 08:21 Ferrous Sulfate (Feosol) 325 mg DAILY ORAL 11/12/18 09:00 12/08/18 17:14 Heparin Sodium (Porcine) (Heparin 5000 units/ml) 5,000 units EVERY 12 HOURS SUBQ 11/11/18 21:00 12/08/18 20:59 11/13/18 08:29 Levothyroxine Sodium (Synthroid) 75 mcg ACBREAKFAST ORAL 11/12/18 06:30 12/10/18 06:29 11/13/18 06:05 Memantine (Namenda) 5 mg DAILY ORAL 11/12/18 09:00 12/08/18 17:14 11/13/18 08:21 Olanzapine (ZyPREXA) 2.5 mg DAILY ORAL 11/12/18 09:00 12/08/18 17:14 11/13/18 08:20 Polyethylene Glycol (Miralax) 17 gm DAILYPRN PRN ORAL Constipation 11/11/18 15:48 12/09/18 15:47 Thiamine HCl (Vitamin B1) 100 mg DAILY ORAL 11/12/18 09:00 12/08/18 17:14 11/13/18 08:21 Venlafaxine HCl (Effexor-XR) 150 mg DAILY ORAL 11/12/18 09:00 12/08/18 17:59 11/13/18 08:21 Jimy Rios MD Nov 13, 2018 11:51
--- NOTE | 2018-11-13 12:46 | General Progress Note ---
Assessment/Plan Problem List: (1) UTI (urinary tract infection) ICD Codes: N39.0 - Urinary tract infection, site not specified SNOMED: 34262035 (2) Sepsis ICD Codes: A41.9 - Sepsis, unspecified organism SNOMED: 74851221 (3) ARF (acute renal failure) Assessment & Plan: better ICD Codes: N17.9 - Acute kidney failure, unspecified SNOMED: 61971265 (4) Encephalopathy acute ICD Codes: G93.40 - Encephalopathy, unspecified SNOMED: 71058478, 647864849 Assessment/Plan abxs DC IVF Discussed with transfer pumper to floor DC in AM if cleared by Dr Reeves Subjective Allergies: Coded Allergies: PENICILLINS (Verified Allergy, Unknown, 11/08/18) Subjective alert In NAD Objective Last 24 Hour Vital Signs Date Time Temp Pulse Resp B/P (MAP) Pulse Ox O2 Delivery O2 Flow Rate FiO2 11/13/18 12:00 97.7 79 18 136/86 (103) 97 11/13/18 12:00 Nasal Cannula 1.0 11/13/18 08:00 79 11/13/18 08:00 97.2 82 18 131/87 (102) 94 11/13/18 08:00 Nasal Cannula 1.0 11/13/18 04:00 98.2 89 16 110/58 (75) 98 11/13/18 04:00 Nasal Cannula 2.0 11/13/18 03:32 78 11/13/18 00:00 97.5 83 16 119/64 (82) 98 11/13/18 00:00 Nasal Cannula 2.0 11/12/18 23:47 80 11/12/18 20:39 73 11/12/18 20:00 97.7 79 20 109/75 (86) 97 11/12/18 20:00 Nasal Cannula 2.0 11/12/18 16:00 97.6 81 18 119/78 (92) 96 11/12/18 16:00 82 11/12/18 16:00 Nasal Cannula 2.0 11/12/18 13:06 86 Intake and Output 11/12/18 11/13/18 19:00 07:00 Intake Total 1575 ml 1123.3 ml Output Total 500 ml 650 ml Balance 1075 ml 473.3 ml Intake Oral 220 ml IV Total 1355 ml 1123.3 ml Output Urine Total 500 ml 650 ml # Bowel Movements 2 Laboratory Tests 11/13/18 03:40: White Blood Count 5.1, Red Blood Count 3.02L, Hemoglobin 9.0L, Hematocrit 27.0L , Mean Corpuscular Volume 89, Mean Corpuscular Hemoglobin 29.7, Mean Corpuscular Hemoglobin Concent 33.3, Red Cell Distribution Width 13.3, Platelet Count 209, Mean Platelet Volume 4.6L, Neutrophils (%) (Auto) 56.2, Lymphocytes ( %) (Auto) 28.2, Monocytes (%) (Auto) 9.4, Eosinophils (%) (Auto) 5.2H, Basophils (%) (Auto) 0.9, Sodium Level 137, Potassium Level 3.1L, Chloride Level 105, Carbon Dioxide Level 24, Anion Gap 8, Blood Urea Nitrogen 2L, Creatinine 0.8, Estimat Glomerular Filtration Rate > 60, Glucose Level 77, Calcium Level 7.8L Height (Feet): 5 Height (Inches): 8.00 Weight (Pounds): 173 Cardiovascular: normal rate Respiratory/Chest: lungs clear Edema: 2+ Generalized Ilir Rios MD Nov 13, 2018 12:46
--- NOTE | 2018-11-13 13:00 | NUR ---
NURSE NOTES: Dr. Rios at bedside to assess the patient. updated him on pt's status. okay to transfer to Med surg and DC planning for tomorrow per PMD.
--- NOTE | 2018-11-13 14:29 | NUR ---
CASE MANAGEMENT: REVIEW SI: DEHYDRATION . UTI T 97.2 HR 82 RR 16 BP 110/58 SAT 94% NC/2L H/H 9.0/27.0 K 3.1 IS: CEFEPIME IV Q12HR PEPCID PO QD STEP DOWN UNIT STATUS DCP: PATIENT IS FROM [facility]
--- NOTE | 2018-11-13 16:00 | NUR ---
NURSE NOTES: Patient was repositioned q2hrs. pt kept clean and dry. VSS. on room air. Denies SOB. No acute distress noted.
[2018-11-13] MEDS ORDERED: D5NS 1000ml IV ONE (16:09)
--- NOTE | 2018-11-13 17:07 | Diagnostic Imaging Report ---
APPROVED REPORT CPT Code: 35621 Present Symptoms Shortness of breath BILATERAL: Imaging reveals a patent deep venous system bilaterally. There is no evidence of thrombus within the femoral, popliteal or tibial segments. The greater saphenous veins are also within normal limits. Doppler indicates normal spontaneous flow within these segments.
--- NOTE | 2018-11-13 19:15 | NUR ---
NURSE NOTES: Received report from Nehal Canchola RN, pt. in bed asleep. caregiver at bedside, no sign or symptoms of acute cardiac or respiratory distress noted, bed in lowest position and call light within easy reach, bed alarm on, side rails up x's3- safety brakes engaged, cardiac monitoring on, pt. is sating well on room air at 96%- no respiratory distress noted Pure wick intact, pt. is clean and dry, Rt. IJ TLC intact and patent, pt. appears to be resting comfortably, safety measures continued, will continue with plan of care. Addendum: 11/13/18 at 213 by DHARMESH STEIN RN RN correction to message above- pt. not on cardiac rehabilitation program director.
--- NOTE | 2018-11-13 19:17 | Neurology Progress Note ---
Interim History Interim History Interim History Ms. Aquino looks about the same. She is still severely aphasic. She is unable to express herself. She continues to be able to follow a few simple commands. She is cognitively impoverished. She is motorically challenged. Review of Systems Neuro Review of Systems Unable to obtain. Objective Physical Exam Last Vital Signs Date Time Temp Pulse Resp B/P (MAP) Pulse Ox O2 Delivery O2 Flow Rate FiO2 11/13/18 16:00 97.9 80 16 125/56 (79) 94 11/13/18 16:00 Room Air 11/08/18 14:10 99 Laboratory Tests Test 11/13/18 03:40 White Blood Count 5.1 K/UL (4.8-10.8) Red Blood Count 3.02 M/UL (4.20-5.40) L Hemoglobin 9.0 G/DL (12.0-16.0) L Hematocrit 27.0 % (37.0-47.0) L Mean Corpuscular Volume 89 FL (80-99) Mean Corpuscular Hemoglobin 29.7 PG (27.0-31.0) Mean Corpuscular Hemoglobin Concent 33.3 G/DL (32.0-36.0) Red Cell Distribution Width 13.3 % (11.6-14.8) Platelet Count 209 K/UL (150-450) Mean Platelet Volume 4.6 FL (6.5-10.1) L Neutrophils (%) (Auto) 56.2 % (45.0-75.0) Lymphocytes (%) (Auto) 28.2 % (20.0-45.0) Monocytes (%) (Auto) 9.4 % (1.0-10.0) Eosinophils (%) (Auto) 5.2 % (0.0-3.0) H Basophils (%) (Auto) 0.9 % (0.0-2.0) Sodium Level 137 MMOL/L (136-145) Potassium Level 3.1 MMOL/L (3.5-5.1) L Chloride Level 105 MMOL/L (98-107) Carbon Dioxide Level 24 MMOL/L (21-32) Anion Gap 8 mmol/L (5-15) Blood Urea Nitrogen 2 mg/dL (7-18) L Creatinine 0.8 MG/DL (0.55-1.30) Estimat Glomerular Filtration Rate > 60 mL/min (>60) Glucose Level 77 MG/DL (74-106) Calcium Level 7.8 MG/DL (8.5-10.1) L Neurologic Exam Objective PHYSICAL EXAMINATION: GENERAL: She is a well-developed, relatively well-nourished lady, lying in bed, in no acute distress. HEAD: Normocephalic and atraumatic. EENT: Examination benign. NECK: No neck rigidity was observed. NEUROLOGIC EXAMINATION: MENTAL STATUS EXAMINATION: She was awake and alert. She was severely aphasic making further mental status testing impossible. SPEECH: She had no dysarthria. LANGUAGE: She had problems with comprehension, repetition,naming, and expression of language. She talked in a nonsensical manner. CRANIAL NERVE EXAMINATION: II: She blink to threat on both sides. III, IV & : External ocular movements were present on oculocephalic maneuvers. The pupils were 3 mm in diameter, equal, round, regular, and reactive sluggishly to light. V & VII: The corneal reflexes were equally brisk and she had no facial asymmetry. VIII: She did respond to sounds and had no nystagmus. IX: The palate moved symmetrically on phonation. X: She had no hoarseness of voice. XI: The sternocleidomastoids and trapezii functioned normally. XII: The tongue was in the midline without any fasciculations or atrophy. MOTOR SYSTEM: The tone was increased in all four extremities with a significant degree of spasticity. Examination of muscle mass revealed bilateral ankle cord contractures. Examination of power was impossible to perform on individual muscle groups. She however moved all four extremities relatively well on applying deep painful stimuli and in addition had fair hand fishing worker bilaterally. SENSORY EXAMINATION: She responded appropriately to deep pain. She was unable to cooperate for other sensory modalities. REFLEXES: 2++ and bilaterally symmetrical at the biceps, triceps, brachioradialis, and knees, 0 at both ankles. The plantar responses were flexor bilaterally. COORDINATION, STANCE & GAIT: Could not be tested. Impression/Recommendations Diagnostic Impression 1. Ms. Stacy Aquino is a 68-year-old lady of unknown handedness, who does have a past history of anxiety, depression, breast cancer, and Alzheimer's disease. She was hospitalized on 11/08/2018 for increased weakness and change in behavior. She was discovered to have urinary tract infection, dehydration, and hypotension all of which have been treated, but she continues to have an altered mental state, which her family feels is worse than her baseline. 2. She looks about the same. She is still severely aphasic. She is unable to express herself. She continues to be able to follow a few simple commands. She is cognitively impoverished. She is motorically challenged. 3. On neurological examination at this time, she does demonstrate significant problems with communication due to a significant aphasia. She however does not demonstrate any focal or lateralizing neurological findings. She does have bilateral ankle cord contractures and spasticity. 4. Laboratory data obtained thus far have revealed that she is anemic with a hemoglobin of 9.0 G. Her blood gases revealed that her pCO2 was down to 31.8 and her pO2 was 103.2. Her chemistry panel on admission revealed her BUN was elevated to 20 and creatinine was elevated at 1.6. Her BNP was elevated to 577, her albumin was low at 2.9, her TSH was low at 0.086. The urinalysis on admission revealed 3+ leukocyte esterase, too numerous to count white blood cells, but 0 red blood cells per high power field. 5. The CT of the brain done on 11/12/18 revealed atrophy and hydrocephalus ex- vacuo. 6. The patient's history, neurological examination and imaging are most compatible with an advanced dementia with a superimposed encephalopathy most probably related to her recent urinary tract infection, hypotension, and fluid and electrolyte imbalance. Recommendations 1. Agree with management thus far. 2. Await EEG to evaluate the patient for the degree and type of encephalopathy. 3. Observe closely. Harley Reeves M.D., M.S.P.H. Harley Reeves MD Nov 13, 2018 19:17
--- NOTE | 2018-11-13 19:18 | NUR ---
HAND-OFF: Report given to MEGHAN French. Patient in stable condition. Caregiver at bedside.
[2018-11-13] MEDS: Dyna-Hex 2% Top Sol 2oz TOPIC SCH (20:18)
--- NOTE | 2018-11-13 20:29 | NUR ---
NURSE NOTES: Left msg for DR. Viviana Tejada- regarding pts b/p of - pt. is very lethargic and hard to arouse- waiting for call back from doctor.
--- NOTE | 2018-11-13 20:30 | NUR ---
NURSE NOTES: pt. placed in reverse Trendelenburg- will continue to monitor patient.
--- NOTE | 2018-11-13 20:42 | NUR ---
NURSE NOTES: EEG not done due to patient being unstable- charge nurse aware.
--- NOTE | 2018-11-13 20:48 | NUR ---
NURSE NOTES: Left msg to call back for Doctor again regarding pts decreased b/p- waiting for call back from doctor.
--- NOTE | 2018-11-13 21:00 | NUR ---
NURSE NOTES: pts b/p after placed in reverse Trendelenburg is 114/69- waiting for call back from doctor.
--- NOTE | 2018-11-13 21:24 | NUR ---
NURSE NOTES: notified DR. Mallory- regarding pts b/p at 1999 was 48/31- msg left for DR. Michelle- no answer after couple of messages left. Doctor aware pts b/p is now 114/69 after placing patient in reverse Trendelenburg. Per. DR. Mallory to keep pt. in [facility] and not transfer pt. to [facility]. Also notified doctor pt. is eating 10-20% of food and maintenance fluids d/c- per doctor to continue to monitor pts b/p and no new orders given.
--- NOTE | 2018-11-13 21:39 | NUR ---
NURSE NOTES: pt. placed on panel monitor. Will continue to monitor patient.
--- NOTE | 2018-11-13 23:15 | NUR ---
NURSE NOTES: left msg for DR. Mallory, regarding pts. b/p now 60/42- waiting for call back from doctor.n pt. placed in reverse Trendelenburg- will continue to monitor pts b/p.
--- NOTE | 2018-11-13 23:52 | NUR ---
NURSE NOTES: pt.s b/p now 106/60 after placing in reverse Trendelenburg- will continue to monitor pts. b/p and with plan of care.
[2018-11-14 04:00] VITALS: BP 113/64
[2018-11-14 05:39] VITALS: BP 124/76
--- NOTE | 2018-11-14 07:09 | NUR ---
HAND-OFF: Report given to Wilbur RN, pt. stable and no signs and symptoms of distress noted- aware to f/u with doctor regarding decreased b/p and EEG.
--- NOTE | 2018-11-14 07:10 | NUR ---
NURSE NOTES: received patient from MEGHAN French. Patient blood pressure systolic is 140 at this time. Patient had episodes of low blood pressure during the night. Patient's legs are elevated at this time. Doctor has been notified regarding blood pressure changes during the night. Patient showing SR on the laboratory monitor at this time. Patient on RA with saturation of 98% at this time. patient consuming about 10-15% of meals at this time with no IV fluids running. Patient has a low glucose level this morning. Patient has a purewick that is patent and draining with good urine output at this time. Patient has sacral redness at this time that is suspected to be fungus. Patient skin otherwise intact at this time. patient has a R IJ with dressing change completed on 11/12. Will change dressing again later today as the dressing is no longer intact on all sides. Patient bed in low position with bed alarm on and call light in reach at this time. Will call doctor regarding lab values this morning.
[2018-11-14 07:16] LABS: ANION GAP 12 mmol/L (5-15); BLOOD UREA NITROGEN 4 mg/dL (7-18); CARBON DIOXIDE 20 MMOL/L (21-32); CHLORIDE 107 MMOL/L (98-107); POTASSIUM 3.3 MMOL/L (3.5-5.1); SODIUM 139 MMOL/L (136-145)
--- NOTE | 2018-11-14 07:48 | NUR ---
NURSE NOTES: Left message for Dr Ilir Rios regarding abnormal lab values - K 3.3, Mg 1.1, and glucose 62. Awaiting call back at this time.
[2018-11-14 08:00] VITALS: BP 134/71
[2018-11-14] MEDS: Cefepime HCl 2 GM in D5W 55 ML IVPB SCH (08:44)
[2018-11-14] MEDS: Thiamine 100mg tab ORAL SCH (08:45)
[2018-11-14] MEDS: Magnesium Oxide 400mg tab ORAL SCH ×3 (08:45→18:21)
[2018-11-14] MEDS: OLANZapine 2.5mg tab ORAL SCH (08:45)
[2018-11-14] MEDS: Venlafaxine XR 150mg cap ORAL SCH (08:47)
[2018-11-14] MEDS: Memantine 5 MG TAB ORAL SCH (08:48)
[2018-11-14] MEDS: Heparin 5000 units/ml inj SUBQ SCH ×2 (08:51→20:16)
--- NOTE | 2018-11-14 10:46 | NUR ---
NURSE NOTES: Patient had low glucose this morning. Patient blood sugar checked at this time. Patient blood sugar is 71 at this time.
--- NOTE | 2018-11-14 10:54 | NUR ---
RD ASSESSMENT & RECOMMENDATIONS SEE CARE ACTIVITY FOR COMPLETE ASSESSMENT DAILY ESTIMATED NEEDS: Needs based on Sepsis 60.5kg adj 25-30 kcals/kg 1453-1480 total kcals 1-2 g protein/kg 61-121 g total protein 25-30 mL/kg 3661-0833 total fluid mLs NUTRITION DIAGNOSIS: 1) Swallowing difficulty r/t dysphagia, ams as evidenced by pt sen by PAGE TECHNICIAN recs for liquify puree/ nectar thickened texture. 2) Altered nutrition related lab values r/t clinical status as evidenced by low K (3.3), low Mg (1.1), and hypoglycemia (62 77) CURRENT DIET: Regular liquify puree NTL PO DIET RECOMMENDATIONS: Sigel Regular diet (texture per PAGE TECHNICIAN) ENTERAL NUTRITION RECOMMENDATIONS: CONSULT RD IF NON ORAL FEEDS ARE PART OF POC W/ POOR PO to provide ADDITIONAL RECOMMENDATIONS: 1) Check lytes daily/ replete as needed 2) RE-calibrate bed scale for accurate CBW 3) Consider non oral feeds w/ con't poor po intake 4) TWIN BID to maintain skin integrity 5) Monitor for hypoglycemia- rec D5 6) Add ENSURE TID w/ all meals
[2018-11-14 12:00] VITALS: BP 138/86
--- NOTE | 2018-11-14 13:46 | Infectious Diseases Prog Note ---
Assessment/Plan Assessment/Plan A 1. Sepsis resolving 2. Atelectasis/ pneumonia. 3. 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 Acute renal failure improved 6. Alzheimer dementia P 1. Discontinue cefepime 2. Agree with discharge Subjective ROS Limited/Unobtainable: Yes Constitutional: Reports: other - poor appetite Allergies: Coded Allergies: PENICILLINS (Verified Allergy, Unknown, 11/08/18) Objective Vital Signs Last 24 Hour Vital Signs Date Time Temp Pulse Resp B/P (MAP) Pulse Ox O2 Delivery O2 Flow Rate FiO2 11/14/18 12:00 96 11/14/18 12:00 98.2 91 16 138/86 (103) 96 11/14/18 08:00 Nasal Cannula 2.0 11/14/18 08:00 85 11/14/18 08:00 97.3 84 16 134/71 (92) 95 11/14/18 05:39 90 16 124/76 (92) 96 11/14/18 04:00 98.0 75 16 113/64 (80) 99 11/14/18 04:00 Room Air 11/14/18 04:00 84 11/14/18 00:00 Room Air 11/14/18 00:00 89 11/13/18 23:54 98.2 81 16 106/60 (75) 98 11/13/18 23:15 60/42 (48) 11/13/18 22:00 96 11/13/18 21:13 98.0 86 16 116/69 (85) 98 11/13/18 21:01 114/69 (84) 11/13/18 20:00 Room Air 11/13/18 20:00 98.1 84 16 45/31 (36) 89 11/13/18 16:00 97.9 80 16 125/56 (79) 94 11/13/18 16:00 Room Air Height (Feet): 5 Height (Inches): 8.00 Weight (Pounds): 173 General Appearance: no acute distress HEENT: mucous membranes moist Respiratory/Chest: lungs clear Cardiovascular: normal rate, other - RIJ central line Abdomen: soft, non tender Extremities: no edema Neurologic/Psychiatric: other - sleeping Laboratory Tests Test 11/14/18 04:00 Sodium Level 139 MMOL/L (136-145) Potassium Level 3.3 MMOL/L (3.5-5.1) L Chloride Level 107 MMOL/L (98-107) Carbon Dioxide Level 20 MMOL/L (21-32) L Anion Gap 12 mmol/L (5-15) Blood Urea Nitrogen 4 mg/dL (7-18) L Creatinine 1.0 MG/DL (0.55-1.30) Estimat Glomerular Filtration Rate 55.0 mL/min (>60) Glucose Level 62 MG/DL (74-106) L Calcium Level 8.0 MG/DL (8.5-10.1) L Magnesium Level 1.1 MG/DL (1.8-2.4) L Current Medications Medications (Trade) Dose Ordered Sig/Inocente Route PRN Reason Start Time Stop Time Status Last Admin Dose Admin Acetaminophen (Tylenol) 650 mg Q4H PRN ORAL Mild Pain/Temp > 100.5 11/11/18 15:47 12/08/18 15:46 Cefepime HCl 2 gm/ Dextrose 55 ml @ 110 mls/hr Q12HR IVPB 11/12/18 21:00 11/16/18 23:59 11/14/18 08:44 Chlorhexidine Gluconate (Marga-Hex 2%) 1 applic DAILY@2000 TOPIC 11/11/18 20:00 12/11/18 19:59 11/13/18 20:18 Dextrose (Dextrose 50%) 25 ml Q30M PRN IV Hypoglycemia 11/11/18 15:47 12/08/18 15:46 Dextrose (Dextrose 50%) 50 ml Q30M PRN IV Hypoglycemia 11/11/18 16:00 12/08/18 17:29 Famotidine (Pepcid) 20 mg DAILY ORAL 11/12/18 09:00 12/08/18 17:14 11/14/18 08:45 Ferrous Sulfate (Feosol) 325 mg DAILY ORAL 11/12/18 09:00 12/08/18 17:14 11/14/18 08:47 Heparin Sodium (Porcine) (Heparin 5000 units/ml) 5,000 units EVERY 12 HOURS SUBQ 11/11/18 21:00 12/08/18 20:59 11/14/18 08:51 Levothyroxine Sodium (Synthroid) 75 mcg ACBREAKFAST ORAL 11/12/18 06:30 12/10/18 06:29 11/14/18 05:48 Magnesium Oxide (Mag-Ox 400mg) 400 mg THREE TIMES A DAY ORAL 11/14/18 09:00 12/14/18 08:59 11/14/18 12:52 Magnesium Sulfate 100 ml @ 100 mls/hr Q1H IVPB 11/14/18 09:00 11/14/18 13:59 11/14/18 12:52 Memantine (Namenda) 5 mg DAILY ORAL 11/12/18 09:00 12/08/18 17:14 11/14/18 08:48 Olanzapine (ZyPREXA) 2.5 mg DAILY ORAL 11/12/18 09:00 12/08/18 17:14 11/14/18 08:45 Polyethylene Glycol (Miralax) 17 gm DAILYPRN PRN ORAL Constipation 11/11/18 15:48 12/09/18 15:47 Thiamine HCl (Vitamin B1) 100 mg DAILY ORAL 11/12/18 09:00 12/08/18 17:14 11/14/18 08:45 Venlafaxine HCl (Effexor-XR) 150 mg DAILY ORAL 11/12/18 09:00 12/08/18 17:59 11/14/18 08:47 Jimy Rios MD Nov 14, 2018 13:46
--- NOTE | 2018-11-14 15:09 | General Progress Note ---
Assessment/Plan Problem List: (1) UTI (urinary tract infection) ICD Codes: N39.0 - Urinary tract infection, site not specified SNOMED: 39849862 (2) Sepsis ICD Codes: A41.9 - Sepsis, unspecified organism SNOMED: 40375345 (3) ARF (acute renal failure) Assessment & Plan: better ICD Codes: N17.9 - Acute kidney failure, unspecified SNOMED: 08902678 (4) Encephalopathy acute ICD Codes: G93.40 - Encephalopathy, unspecified SNOMED: 71785576, 742120349 Assessment/Plan abxs Discussed with taxonomist to floor DC when cleared by Dr Reeves Subjective Allergies: Coded Allergies: PENICILLINS (Verified Allergy, Unknown, 11/08/18) Subjective alert In NAD Objective Last 24 Hour Vital Signs Date Time Temp Pulse Resp B/P (MAP) Pulse Ox O2 Delivery O2 Flow Rate FiO2 11/14/18 12:00 96 11/14/18 12:00 98.2 91 16 138/86 (103) 96 11/14/18 08:00 Nasal Cannula 2.0 11/14/18 08:00 85 11/14/18 08:00 97.3 84 16 134/71 (92) 95 11/14/18 05:39 90 16 124/76 (92) 96 11/14/18 04:00 98.0 75 16 113/64 (80) 99 11/14/18 04:00 Room Air 11/14/18 04:00 84 11/14/18 00:00 Room Air 11/14/18 00:00 89 11/13/18 23:54 98.2 81 16 106/60 (75) 98 11/13/18 23:15 60/42 (48) 11/13/18 22:00 96 11/13/18 21:13 98.0 86 16 116/69 (85) 98 11/13/18 21:01 114/69 (84) 11/13/18 20:00 Room Air 11/13/18 20:00 98.1 84 16 45/31 (36) 89 11/13/18 16:00 97.9 80 16 125/56 (79) 94 11/13/18 16:00 Room Air Intake and Output 11/13/18 11/14/18 19:00 07:00 Intake Total 735 ml 55 ml Output Total 700 ml 600 ml Balance 35 ml -545 ml Intake Oral 80 ml IV Total 655 ml 55 ml Output Urine Total 700 ml 600 ml # Voids 1 # Bowel Movements 2 Laboratory Tests 11/14/18 04:00: Sodium Level 139, Potassium Level 3.3L, Chloride Level 107, Carbon Dioxide Level 20L, Anion Gap 12, Blood Urea Nitrogen 4L, Creatinine 1.0, Estimat Glomerular Filtration Rate 55.0, Glucose Level 62L, Calcium Level 8.0L, Magnesium Level 1.1L Height (Feet): 5 Height (Inches): 8.00 Weight (Pounds): 173 Cardiovascular: normal rate Respiratory/Chest: lungs clear Edema: 2+ Generalized Ilir Rios MD Nov 14, 2018 15:09
--- NOTE | 2018-11-14 15:11 | Neurology Progress Note ---
Interim History Interim History Interim History Ms. Aquino is non-verbal today. She is awake but not alert. She is poorly responsive. She is unable to follow any commands. She had a period where she was hypotensive last night. Her blood pressures are better today. Review of Systems Neuro Review of Systems Unable to obtain. Objective Physical Exam Last Vital Signs Date Time Temp Pulse Resp B/P (MAP) Pulse Ox O2 Delivery O2 Flow Rate FiO2 11/14/18 12:00 96 11/14/18 12:00 98.2 16 138/86 (103) 96 11/14/18 08:00 Nasal Cannula 2.0 11/08/18 14:10 99 Laboratory Tests Test 11/14/18 04:00 Sodium Level 139 MMOL/L (136-145) Potassium Level 3.3 MMOL/L (3.5-5.1) L Chloride Level 107 MMOL/L (98-107) Carbon Dioxide Level 20 MMOL/L (21-32) L Anion Gap 12 mmol/L (5-15) Blood Urea Nitrogen 4 mg/dL (7-18) L Creatinine 1.0 MG/DL (0.55-1.30) Estimat Glomerular Filtration Rate 55.0 mL/min (>60) Glucose Level 62 MG/DL (74-106) L Calcium Level 8.0 MG/DL (8.5-10.1) L Magnesium Level 1.1 MG/DL (1.8-2.4) L Neurologic Exam Objective PHYSICAL EXAMINATION: GENERAL: She is a well-developed, relatively well-nourished lady, lying in bed, in no acute distress. HEAD: Normocephalic and atraumatic. EENT: Examination benign. NECK: No neck rigidity was observed. NEUROLOGIC EXAMINATION: MENTAL STATUS EXAMINATION: She was awake but not alert. She was non-verbal. She did not follow any commands. She was significantly more encephalopathic. SPEECH: She was mute. LANGUAGE: She was unable to comprehend or express herself and was mute. CRANIAL NERVE EXAMINATION: II: She blinked to threat on both sides. III, IV & : External ocular movements were present on oculocephalic maneuvers. The pupils were 3 mm in diameter, equal, round, regular, and reactive sluggishly to light. V & VII: The corneal reflexes were equally brisk and she had no facial asymmetry. VIII: She did respond to sounds and had no nystagmus. IX-X: The gag reflex was diminished. XI: The sternocleidomastoids and trapezii functioned minimally. XII: The tongue was in the midline without any fasciculations or atrophy. MOTOR SYSTEM: The tone was increased in all four extremities with a significant degree of spasticity. Examination of muscle mass revealed bilateral ankle cord contractures. Examination of power was impossible to perform on individual muscle groups. She however moved all four extremities minimally on applying deep painful stimuli. Her hand count team member were poor bilaterally. SENSORY EXAMINATION: She responded appropriately to deep pain. She was unable to cooperate for other sensory modalities. REFLEXES: 2++ and bilaterally symmetrical at the biceps, triceps, brachioradialis, and knees, 0 at both ankles. The plantar responses were flexor bilaterally. COORDINATION, STANCE & GAIT: Could not be tested. Impression/Recommendations Diagnostic Impression 1. Ms. Stacy Aquino is a 68-year-old lady of unknown handedness, who does have a past history of anxiety, depression, breast cancer, and Alzheimer's disease. She was hospitalized on 11/08/2018 for increased weakness and change in behavior. She was discovered to have urinary tract infection, dehydration, and hypotension all of which have been treated, but she continues to have an altered mental state, which her family feels is worse than her baseline. 2. She is non-verbal today. She is awake but not alert. She is poorly responsive. She is unable to follow any commands. She had a period where she was hypotensive last night. 3. On neurological examination at this time, she is mute and does not follow any commands. She however does not demonstrate any focal or lateralizing neurological findings. She is generally weak, has bilateral ankle cord contractures and exhibits spasticity. 4. Laboratory data obtained thus far have revealed that she is anemic with a hemoglobin of 9.0 G. Her blood gases revealed that her pCO2 was down to 31.8 and her pO2 was 103.2. Her chemistry panel on admission revealed her BUN was elevated to 20 and creatinine was elevated at 1.6. Her BNP was elevated to 577, her albumin was low at 2.9, her TSH was low at 0.086. The urinalysis on admission revealed 3+ leukocyte esterase, too numerous to count white blood cells, but 0 red blood cells per high power field. 5. Further laboratory tests have revealed a low T3 at 0.8 and a low T4 at 0.68. The B12 is normal but the folate is low at 7.2. 6. The CT of the brain done on 11/12/18 revealed atrophy and hydrocephalus ex- vacuo. 7. The patient's history, neurological examination and imaging are most compatible with an advanced dementia with a superimposed encephalopathy most probably related to her recent urinary tract infection, hypotension, and fluid and electrolyte imbalance. The episode of hypotension yesterday could have compounded the problem. Recommendations 1. Agree with management thus far. 2. Await EEG to evaluate the patient for the degree and type of encephalopathy. 3. Try to keep BP > 110 at all times. 4. Treatment of hypothyroidism. 5. Folic acid 1 mg PO daily. 6. Observe closely. Harley Reeves M.D., M.S.P.[facility]. Harley Reeves MD Nov 14, 2018 15:11
[2018-11-14 16:00] VITALS: BP 122/66
--- NOTE | 2018-11-14 16:09 | Pulmonology Progress Note ---
Assessment/Plan Problems: (1) Elevated d-dimer (2) Hypoxemia (3) Dehydration (4) ARF (acute renal failure) (5) UTI (urinary tract infection) (6) Episode of generalized weakness (7) Sepsis Assessment/Plan Optimize pulmonary hygiene/mobilize as tolerated PRN O2 Observe off Abx per ID Monitor volumes and renal function Aspiration precautions DVT Px: Hep SQ Monitor MS, F/U neuro recs and w/u FC Subjective Allergies: Coded Allergies: PENICILLINS (Verified Allergy, Unknown, 11/08/18) Subjective Stable in TU AFVSS on RA-2L Less verbal today Neuro w/u and CT noted No sig cough denies SOB Objective Last 24 Hour Vital Signs Date Time Temp Pulse Resp B/P (MAP) Pulse Ox O2 Delivery O2 Flow Rate FiO2 11/14/18 12:00 96 11/14/18 12:00 98.2 91 16 138/86 (103) 96 11/14/18 08:00 Nasal Cannula 2.0 11/14/18 08:00 85 11/14/18 08:00 97.3 84 16 134/71 (92) 95 11/14/18 05:39 90 16 124/76 (92) 96 11/14/18 04:00 98.0 75 16 113/64 (80) 99 11/14/18 04:00 Room Air 11/14/18 04:00 84 11/14/18 00:00 Room Air 11/14/18 00:00 89 11/13/18 23:54 98.2 81 16 106/60 (75) 98 11/13/18 23:15 60/42 (48) 11/13/18 22:00 96 11/13/18 21:13 98.0 86 16 116/69 (85) 98 11/13/18 21:01 114/69 (84) 11/13/18 20:00 Room Air 11/13/18 20:00 98.1 84 16 45/31 (36) 89 Intake and Output 11/13/18 11/14/18 19:00 07:00 Intake Total 735 ml 55 ml Output Total 700 ml 600 ml Balance 35 ml -545 ml Intake Oral 80 ml IV Total 655 ml 55 ml Output Urine Total 700 ml 600 ml # Voids 1 # Bowel Movements 2 General Appearance: no acute distress, other - minimally verbal HEENT: normocephalic, atraumatic, anicteric, mucous membranes moist Respiratory/Chest: rhonchi Cardiovascular: normal peripheral pulses, normal rate, regular rhythm Abdomen: normal bowel sounds, soft, non tender, no organomegaly, non distended , no mass Extremities: no cyanosis, no clubbing, no edema Laboratory Tests 11/14/18 04:00: Sodium Level 139, Potassium Level 3.3L, Chloride Level 107, Carbon Dioxide Level 20L, Anion Gap 12, Blood Urea Nitrogen 4L, Creatinine 1.0, Estimat Glomerular Filtration Rate 55.0, Glucose Level 62L, Calcium Level 8.0L, Magnesium Level 1.1L Current Medications Medications (Trade) Dose Ordered Sig/Inocente Route PRN Reason Start Time Stop Time Status Last Admin Dose Admin Acetaminophen (Tylenol) 650 mg Q4H PRN ORAL Mild Pain/Temp > 100.5 11/11/18 15:47 12/08/18 15:46 Chlorhexidine Gluconate (Marga-Hex 2%) 1 applic DAILY@2000 TOPIC 11/11/18 20:00 12/11/18 19:59 11/13/18 20:18 Dextrose (Dextrose 50%) 25 ml Q30M PRN IV Hypoglycemia 11/11/18 15:47 12/08/18 15:46 Dextrose (Dextrose 50%) 50 ml Q30M PRN IV Hypoglycemia 11/11/18 16:00 12/08/18 17:29 Famotidine (Pepcid) 20 mg DAILY ORAL 11/12/18 09:00 12/08/18 17:14 11/14/18 08:45 Ferrous Sulfate (Feosol) 325 mg DAILY ORAL 11/12/18 09:00 12/08/18 17:14 11/14/18 08:47 Folic Acid (Folate) 1 mg DAILY ORAL 11/14/18 15:16 12/14/18 15:15 Heparin Sodium (Porcine) (Heparin 5000 units/ml) 5,000 units EVERY 12 HOURS SUBQ 11/11/18 21:00 12/08/18 20:59 11/14/18 08:51 Levothyroxine Sodium (Synthroid) 75 mcg ACBREAKFAST ORAL 11/12/18 06:30 12/10/18 06:29 11/14/18 05:48 Magnesium Oxide (Mag-Ox 400mg) 400 mg THREE TIMES A DAY ORAL 11/14/18 09:00 12/14/18 08:59 11/14/18 12:52 Memantine (Namenda) 5 mg DAILY ORAL 11/12/18 09:00 12/08/18 17:14 11/14/18 08:48 Olanzapine (ZyPREXA) 2.5 mg DAILY ORAL 11/12/18 09:00 12/08/18 17:14 11/14/18 08:45 Polyethylene Glycol (Miralax) 17 gm DAILYPRN PRN ORAL Constipation 11/11/18 15:48 12/09/18 15:47 Thiamine HCl (Vitamin B1) 100 mg DAILY ORAL 11/12/18 09:00 12/08/18 17:14 11/14/18 08:45 Venlafaxine HCl (Effexor-XR) 150 mg DAILY ORAL 11/12/18 09:00 12/08/18 17:59 11/14/18 08:47 Ahmet Mallory MD Nov 14, 2018 16:09
--- NOTE | 2018-11-14 16:33 | NUR ---
CASE MANAGEMENT: REVIEW SI: DEHYDRATION . UTI T 97.3 HR 84 RR 16 BP 138/86 SAT 96% NC/2L MAG 1.1 IS: MAG OS 400 MG PO TID HEPARIN SQ Q12HR STEP DOWN UNIT STATUS DCP: PATIENT IS FROM [facility]
--- NOTE | 2018-11-14 18:13 | NUR ---
NURSE NOTES: Patient's central line dressing changed at this time.
--- NOTE | 2018-11-14 19:09 | NUR ---
HAND-OFF: Report given to MEGHAN French. Patient VS stable at this time with no sign of acute distress. patient to have EEG tonight. Endorsed to follow up.
--- NOTE | 2018-11-14 19:10 | NUR ---
NURSE NOTES: Received report from Wilbur RN, pt. in bed awake. caregiver at bedside, no signs or symptoms of acute cardiac or respiratory distress noted, bed in lowest position and call light within easy reach, bed alarm on, side rails up x's3- safety brakes engaged, cardiac monitoring on, pt. is sating well on room air at8%- no respiratory distress noted Pure wick intact and set to suction, pt. is clean and dry, Rt. IJ TLC intact and patent, pt. appears to be resting comfortably, safety measures continued, will continue with plan of care.
[2018-11-14 20:00] VITALS: BP 125/70
[2018-11-14] MEDS: Dyna-Hex 2% Top Sol 2oz TOPIC SCH (20:15)
[2018-11-15] VITALS (7 sets, daily range): BP systolic 98–123; BP diastolic 56–77
--- NOTE | 2018-11-15 07:05 | NUR ---
HAND-OFF: Report given to Aleta RN, pt. remains stable and no signs and symptoms of distress noted.
--- NOTE | 2018-11-15 07:06 | NUR ---
NURSE NOTES: Received patient from MEGHAN French. Patient VS stable at this time with no sign of acute distress. Patient on 2L NC at this time with oxygen saturation of 98% at this time. Patient sleeping at this time. Patient opens eyes to name but does not respond at this time. Patient has a purewick that is patent and draining at this time. Patient has Addendum: 11/15/18 at 0829 by Aleta Bowles RN Bilateral lower legs tight and contracted at this time. Patient has a right IJ TLC that is patent, asymptomatic, intact with dressing change done yesterday. Patient bed in low position with bed alarm on and call light in reach at this time. Patient showing no sign of acute distress at this time.
[2018-11-15] MEDS: Memantine 5 MG TAB ORAL SCH (09:27)
[2018-11-15] MEDS: OLANZapine 2.5mg tab ORAL SCH (09:27)
[2018-11-15] MEDS: Magnesium Oxide 400mg tab ORAL SCH ×5 (09:27→18:00)
[2018-11-15] MEDS: Thiamine 100mg tab ORAL SCH (09:27)
[2018-11-15] MEDS: Venlafaxine XR 150mg cap ORAL SCH (09:27)
[2018-11-15] MEDS: Heparin 5000 units/ml inj SUBQ SCH ×2 (09:29→20:55)
[2018-11-15] MEDS ORDERED: NS 275ml ONE (10:04)
[2018-11-15] MEDS ORDERED: Tubing IV Secondary IV ONE (10:04)
--- NOTE | 2018-11-15 10:04 | NUR ---
NURSE NOTES: Patient no longer taking PO medication at this time. Patient previously has been taking small bites of applesauce with her medications mixed in. At this time, the medications were mixed in a small amount of applesauce, but the patient only took about half of the medication. At this time the patient is taking the applesauce mixed with medication in her mouth but not swallowing. Patient was told many times to swallow the medication but she does not seem to understand. She swallowed about half of the medication in applesauce but is unable to swallow the rest of it at this time. Patient is just letting the medication sit in here mouth. The applesauce/medication mixture that remained in the patient's mouth has been removed via suction and oral care at this time to prevent aspiration.
--- NOTE | 2018-11-15 10:24 | NUR ---
NURSE NOTES: Notified Dr Rios regarding patient's inability to take PO medications at this time. Awaiting call back. Continuing with transfer at this time.
--- NOTE | 2018-11-15 10:59 | NUR ---
HAND-OFF: Report given to MEGHAN Kapoor in [facility]. Patient VS stable at this time with no sign of acute distress. Patient unable to take oral medications at this time. MD made aware. Endorsed to follow up. Family notifed of transfer at this time.
[2018-11-15] MEDS ORDERED: Miralax 17gm pkt ORAL PRN (11:00)
--- NOTE | 2018-11-15 11:00 | NUR ---
HAND-OFF: Report received from MEGHAN River. Pt transfered from [facility]. Pt in bed, nonverbal, awake, no apparent distress, bed in lowest position, call light within reach. Vitals obtain, see flowsheet. Pt transfered with all belongings, documentation done. Caregiver at bedside.
--- NOTE | 2018-11-15 11:55 | Neurology Progress Note ---
Interim History Interim History Interim History Ms. Aquino continues to be non-verbal. She is awake but not alert. She is poorly responsive. She is unable to follow any commands. She has had no further episodes of hypotension. Her blood pressures have been reasonable. Review of Systems Neuro Review of Systems Unable to obtain. Objective Physical Exam Last Vital Signs Date Time Temp Pulse Resp B/P (MAP) Pulse Ox O2 Delivery O2 Flow Rate FiO2 11/15/18 11:10 97.7 106 20 114/77 (89) 100 106 11/15/18 04:00 Nasal Cannula 2.0 11/08/18 14:10 99 Neurologic Exam Objective PHYSICAL EXAMINATION: GENERAL: She is a well-developed, relatively well-nourished lady, lying in bed, in no acute distress, in a position. HEAD: Normocephalic and atraumatic. EENT: Examination benign. NECK: No neck rigidity was observed. NEUROLOGIC EXAMINATION: MENTAL STATUS EXAMINATION: She was awake but not alert. She was non-verbal. She did not follow any commands. She was significantly encephalopathic. SPEECH: She was mute. LANGUAGE: She was unable to comprehend or express herself and was mute. CRANIAL NERVE EXAMINATION: II: She blinked to threat on both sides. III, IV & : External ocular movements were present on oculocephalic maneuvers. The pupils were 3 mm in diameter, equal, round, regular, and reactive sluggishly to light. V & VII: The corneal reflexes were equally brisk and she had no facial asymmetry. VIII: She did respond to sounds and had no nystagmus. IX-X: The gag reflex was not tested. XI: The sternocleidomastoids and trapezii functioned minimally. XII: The tongue was in the midline without any fasciculations or atrophy. MOTOR SYSTEM: The tone was increased in all four extremities with a significant degree of spasticity. Examination of muscle mass revealed bilateral knee and ankle cord contractures. Examination of power was impossible to perform on individual muscle groups. She however moved all four extremities minimally on applying deep painful stimuli. Her hand slumber room attendant were poor bilaterally. SENSORY EXAMINATION: She responded appropriately to deep pain. She was unable to cooperate for other sensory modalities. REFLEXES: 2++ and bilaterally symmetrical at the biceps, triceps, brachioradialis, and knees, 0 at both ankles. The plantar responses were flexor bilaterally. COORDINATION, STANCE & GAIT: Could not be tested. Impression/Recommendations Diagnostic Impression 1. Ms. Stacy Aquino is a 68-year-old lady of unknown handedness, who does have a past history of anxiety, depression, breast cancer, and Alzheimer's disease. She was hospitalized on 11/08/2018 for increased weakness and change in behavior. She was discovered to have urinary tract infection, dehydration, and hypotension all of which have been treated, but she continues to have an altered mental state, which her family feels is worse than her baseline. 2. She continues to be non-verbal. She is awake but not alert. She is poorly responsive. She is unable to follow any commands. She has had no further episodes of hypotension. Her blood pressures have been reasonable. 3. On neurological examination at this time, she is mute and does not follow any commands. She however does not demonstrate any focal or lateralizing neurological findings. She is generally weak, has bilateral ankle cord contractures and exhibits spasticity. 4. Laboratory data obtained thus far have revealed that she is anemic with a hemoglobin of 9.0 G. Her blood gases revealed that her pCO2 was down to 31.8 and her pO2 was 103.2. Her chemistry panel on admission revealed her BUN was elevated to 20 and creatinine was elevated at 1.6. Her BNP was elevated to 577, her albumin was low at 2.9, her TSH was low at 0.086. The urinalysis on admission revealed 3+ leukocyte esterase, too numerous to count white blood cells, but 0 red blood cells per high power field. 5. Further laboratory tests have revealed a low T3 at 0.8 and a low T4 at 0.68. The B12 is normal but the folate is low at 7.2. 6. The CT of the brain done on 11/12/18 revealed atrophy and hydrocephalus ex- vacuo. 7. The EEG done on 11/14/18 revealed a moderately severe metabolic encephalopathy. In addition T3 and T4 sharp discharges were seen which could be indicative of either brain irritability or inter-ictal discharges. 8. The patient's history, neurological examination and imaging are most compatible with an advanced dementia with a superimposed encephalopathy most probably related to her recent urinary tract infection, hypotension, and fluid and electrolyte imbalance. 9. The episode of hypotension on 11/13/18 could have worsened the encephalopathy. Recommendations 1. Continue present management. 2. Try to keep BP > 110 at all times. 3. Treatment of hypothyroidism. 4. Folic acid 1 mg PO daily. 5. Check ammonia level and repeat ABG. 6. Keppra 1 G now and then 500 q 12 H IV. 7. Observe closely. Harley Reeves M.D., M.S.P.H. Harley Reeves MD Nov 15, 2018 11:55
[2018-11-15] MEDS ORDERED: levETIRAcetam 1,000mg/NS100ml 100 ML IVPB ONE (12:30)
--- NOTE | 2018-11-15 12:45 | Electroencephalogram ---
DATE OF TRACIN11/14/2018. REQUESTING PHYSICIAN: Ilir Rios M.D. HISTORY: This EEG was performed on a 68-year-old lady with a history of Alzheimer's disease, breast cancer, and a relatively sudden decline in both cognitive and motor function related to a urinary tract infection and hypotension. The patient then had another episode of significant hypotension and has had a significant further decline in her mental state. The purpose of this EEG was to evaluate the patient for the degree and type of cerebral dysfunction. TECHNICAL NOTE: This EEG was performed on a [employer] with electrodes placed on the scalp according to the International 10-20 system. Aelip-ed-fcjda and tdccl-[id number] montages were used. The EEG was technically satisfactory and was performed while the patient was in the awake, but poorly responsive state. OBSERVATIONS: In the awake, but poorly responsive state, the background activity consisted of 4-5 Hz theta with intermixed delta frequencies. Abundant triphasic waveforms with an anterior to posterior gradient were seen. In addition, interspersed T3 and T4 sharp discharges were also noted. IMPRESSION: This is an abnormal EEG characterized by: 1. Slowing of the background in the 4-5 Hz theta range with intermixed delta frequencies. 2. The presence of abundant triphasic waveforms seen throughout the tracing. 3. Interspersed T3 and T4 sharp discharges. COMMENT: This study is consistent with: 1. An encephalopathy of a moderately severe degree, most probably with a toxic metabolic component as evidenced by the triphasic waveforms. 2. The T3 and T4 sharp discharges may either be indicative of brain irritability or may indicate interictal phenomena. Harley Reeves M.D., M.S.P.H. DR: STEPHANIE JOB#: [id number] MATT
--- NOTE | 2018-11-15 15:02 | General Progress Note ---
Assessment/Plan Problem List: (1) UTI (urinary tract infection) ICD Codes: N39.0 - Urinary tract infection, site not specified SNOMED: 92183533 (2) Sepsis ICD Codes: A41.9 - Sepsis, unspecified organism SNOMED: 28170309 (3) ARF (acute renal failure) Assessment & Plan: better ICD Codes: N17.9 - Acute kidney failure, unspecified SNOMED: 46794472 (4) Encephalopathy acute ICD Codes: G93.40 - Encephalopathy, unspecified SNOMED: 39926805, 446942820 Assessment/Plan abxs Discussed with field identification specialist to floor started on Depakote for seizures Discussed with dr Reeves Subjective Allergies: Coded Allergies: PENICILLINS (Verified Allergy, Unknown, 11/08/18) Subjective lethargic Objective Last 24 Hour Vital Signs Date Time Temp Pulse Resp B/P (MAP) Pulse Ox O2 Delivery O2 Flow Rate FiO2 11/15/18 12:14 98.1 94 20 110/67 (81) 96 11/15/18 11:10 97.7 106 20 114/77 (89) 100 106 11/15/18 08:00 95 11/15/18 08:00 98.2 94 22 98/67 (77) 93 11/15/18 08:00 Nasal Cannula 2.0 11/15/18 04:00 Nasal Cannula 2.0 11/15/18 04:00 98.2 85 20 106/56 (73) 94 11/15/18 04:00 95 11/15/18 00:00 98.2 100 18 122/73 (89) 100 11/15/18 00:00 99 11/15/18 00:00 Nasal Cannula 2.0 11/14/18 20:00 Nasal Cannula 2.0 11/14/18 20:00 98.1 99 16 125/70 (88) 95 11/14/18 20:00 100 11/14/18 16:00 98.1 99 16 122/66 (84) 96 11/14/18 16:00 Nasal Cannula 2.0 11/14/18 16:00 90 Intake and Output 11/14/18 11/15/18 19:00 07:00 Intake Total 740 ml Output Total 700 ml 475 ml Balance 40 ml -475 ml Intake Oral 240 ml IV Total 500 ml Output Urine Total 700 ml 475 ml # Bowel Movements 1 3 Laboratory Tests 11/15/18 12:17: Ammonia 19 11/15/18 12:40: Arterial Blood pH 7.464H, Arterial Blood Partial Pressure CO2 29.1L, Arterial Blood Partial Pressure O2 87.5, Arterial Blood HCO3 20.4L, Arterial Blood Oxygen Saturation 95.7, Arterial Blood Base Excess -2.4L, Leo Test Positive Height (Feet): 5 Height (Inches): 8.00 Weight (Pounds): 173 Cardiovascular: normal rate Respiratory/Chest: lungs clear Ilir Rios MD Nov 15, 2018 15:02
--- NOTE | 2018-11-15 15:11 | NUR ---
NURSE NOTES: Left message for Dr. Terrell Rios, asking for IV fluids, if sputum specimen can be induced as pt is unable to follow commands and if speech eval is needed in anyway.
--- NOTE | 2018-11-15 15:24 | NUR ---
NURSE NOTES: Called Dr. Reeves regarding him speaking to pt's , Dr. Reeves stated he will call Ruben 11/16 and has the number. Notified Ruben () that Dr. Reeves will call 11/16 to discuss pt status and EEG results
--- NOTE | 2018-11-15 16:08 | NUR ---
NURSE NOTES: Left message for Dr. Fuller regarding pending sputum culture specimen. Pt is unable to cough and does not allow for oral suctioning and is too dry. Asked for induced sputum
--- NOTE | 2018-11-15 17:04 | Diagnostic Imaging Report ---
EXAM: XR Abdomen, 1 View CLINICAL HISTORY: NGT TECHNIQUE: Frontal supine view of the abdomen/pelvis. COMPARISON: No relevant prior studies available. FINDINGS: Gastrointestinal tract: Nonspecific bowel gas pattern. Bones/joints: No acute fracture. Tubes, lines and devices: Enteric tube coiled in the distal esophagus. IMPRESSION: Enteric tube coiled in the distal esophagus. Critical Value Communications 11/15/18 17:23 Verify Receipt with Nurse Verified receipt with MEGHAN Harris on 11/15 17:22 (-08:00)
--- NOTE | 2018-11-15 19:02 | Diagnostic Imaging Report ---
EXAM: XR Abdomen, 2 Views CLINICAL HISTORY: NGT TECHNIQUE: Frontal view of the abdomen/pelvis with upright view of the abdomen. COMPARISON: No relevant prior studies available. FINDINGS: Intraperitoneal space: No free air. Gastrointestinal tract: Dilated small and large bowel loops could represent ileus or obstruction in the proper clinical context. Bones/joints: Osteopenia. Tubes, lines and devices: Placement of nasogastric tube with proximal side port and tip in the gastric body and fundus respectively. Tube position appropriate. IMPRESSION: 1. Placement of nasogastric tube with proximal side port and tip in the gastric body and fundus respectively. Tube position appropriate. 2. Dilated small and large bowel loops could represent ileus or obstruction in the proper clinical context.
--- NOTE | 2018-11-15 19:20 | NUR ---
NURSE NOTES: Received a report from MEGHAN Kapoor. Pt is in stable condition. Nonverbal. Uses nasal cannula 3L/min. No pain/discomfort noted. She has NGT. Still waiting for the result of the abdominal xray. R IJ 3 lumen intact and patent. Caregiver at the bedside. Bed in lowest position. Bed alarm is on. Call light within reach. Will continue to monitor.
--- NOTE | 2018-11-15 19:25 | NUR ---
HAND-OFF: Report given to MEGHAN Calvin.
--- NOTE | 2018-11-15 20:02 | Pulmonology Progress Note ---
Assessment/Plan Assessment/Plan (1) Elevated d-dimer (2) Hypoxemia (3) Dehydration (4) ARF (5) UTI (6) Episode of generalized weakness (7) Sepsis Assessment/Plan Optimize pulmonary hygiene/mobilize as tolerated PRN O2 Observe off Abx per ID Monitor volumes and renal function IVF for now Aspiration precautions DVT Px: Hep SQ Monitor MS, F/U neuro recs and w/u FC CXR saturday prn abg GT feeds Subjective ROS Limited/Unobtainable: Yes Allergies: Coded Allergies: PENICILLINS (Verified Allergy, Unknown, 11/08/18) Subjective lethargic to start GT feeds no cp nv or bleeding does nto get oob on o2 Objective Last 24 Hour Vital Signs Date Time Temp Pulse Resp B/P (MAP) Pulse Ox O2 Delivery O2 Flow Rate FiO2 11/15/18 16:15 98.1 107 20 121/60 (80) 92 11/15/18 12:14 98.1 94 20 110/67 (81) 96 11/15/18 11:10 97.7 106 20 114/77 (89) 100 106 11/15/18 10:45 Nasal Cannula 2.0 11/15/18 08:00 95 11/15/18 08:00 98.2 94 22 98/67 (77) 93 11/15/18 08:00 Nasal Cannula 2.0 11/15/18 04:00 Nasal Cannula 2.0 11/15/18 04:00 98.2 85 20 106/56 (73) 94 11/15/18 04:00 95 11/15/18 00:00 98.2 100 18 122/73 (89) 100 11/15/18 00:00 99 11/15/18 00:00 Nasal Cannula 2.0 Intake and Output 11/14/18 11/15/18 19:00 07:00 Intake Total 740 ml Output Total 700 ml 475 ml Balance 40 ml -475 ml Intake Oral 240 ml IV Total 500 ml Output Urine Total 700 ml 475 ml # Bowel Movements 1 3 General Appearance: cachetic Respiratory/Chest: rhonchi Cardiovascular: normal rate, edema Abdomen: soft, non tender Neurologic/Psychiatric: disoriented Laboratory Tests 11/15/18 12:17: Ammonia 19 11/15/18 12:40: Arterial Blood pH 7.464H, Arterial Blood Partial Pressure CO2 29.1L, Arterial Blood Partial Pressure O2 87.5, Arterial Blood HCO3 20.4L, Arterial Blood Oxygen Saturation 95.7, Arterial Blood Base Excess -2.4L, Leo Test Positive Current Medications Medications (Trade) Dose Ordered Sig/Inocente Route PRN Reason Start Time Stop Time Status Last Admin Dose Admin Acetaminophen (Tylenol) 650 mg Q4H PRN ORAL Mild Pain/Temp > 100.5 11/15/18 12:00 12/08/18 15:46 Chlorhexidine Gluconate (Marga-Hex 2%) 1 applic DAILY@2000 TOPIC 11/15/18 20:00 12/11/18 19:59 Dextrose (Dextrose 50%) 25 ml Q30M PRN IV Hypoglycemia 11/15/18 11:00 12/08/18 15:46 Dextrose (Dextrose 50%) 50 ml Q30M PRN IV Hypoglycemia 11/15/18 11:00 12/08/18 17:29 Famotidine (Pepcid) 20 mg DAILY ORAL 11/16/18 09:00 12/08/18 17:14 Ferrous Sulfate (Feosol) 325 mg DAILY ORAL 11/16/18 09:00 12/08/18 17:14 Folic Acid (Folate) 1 mg DAILY ORAL 11/16/18 09:00 12/14/18 15:15 Heparin Sodium (Porcine) (Heparin 5000 units/ml) 5,000 units EVERY 12 HOURS SUBQ 11/15/18 21:00 12/08/18 20:59 Levetiracetam 100 ml @ 400 mls/hr Q12HR IVPB 11/15/18 21:00 12/15/18 20:59 Levothyroxine Sodium (Synthroid) 75 mcg ACBREAKFAST ORAL 11/16/18 06:30 12/10/18 06:29 Magnesium Oxide (Mag-Ox 400mg) 400 mg THREE TIMES A DAY ORAL 11/15/18 13:00 12/14/18 08:59 Memantine (Namenda) 5 mg DAILY ORAL 11/16/18 09:00 12/08/18 17:14 Olanzapine (ZyPREXA) 2.5 mg DAILY ORAL 11/16/18 09:00 12/08/18 17:14 Polyethylene Glycol (Miralax) 17 gm DAILYPRN PRN ORAL Constipation 11/15/18 11:00 12/09/18 10:59 Thiamine HCl (Vitamin B1) 100 mg DAILY ORAL 11/16/18 09:00 12/08/18 17:14 Venlafaxine HCl (Effexor-XR) 150 mg DAILY ORAL 11/16/18 09:00 12/08/18 17:59 Magdalena Summers DO Nov 15, 2018 20:02
[2018-11-15] MEDS: Dyna-Hex 2% Top Sol 2oz TOPIC SCH (20:53)
[2018-11-15] MEDS: levETIRAcetam 500mg/NS100ml 100 ML IVPB SCH (20:54)
[2018-11-16] VITALS: BP 112/77
[2018-11-16 04:00] VITALS: BP 122/84
--- NOTE | 2018-11-16 06:30 | NUR ---
NURSE NOTES: NGT roque is at 53cm and not at 60cm anymore. Charge Nurse Britni is aware. Will call Dr. Ilir Rios for an order of abdominal xray to verify the placement.
--- NOTE | 2018-11-16 06:32 | NUR ---
NURSE NOTES: Pt's residual is over 100cc. Charge Nurse Britni is aware. Will call Dr. Rios to inform him.
--- NOTE | 2018-11-16 07:05 | NUR ---
HAND-OFF: Report given to MEGHAN Kapoor. Called Dr. Ilir Rios for an order of abdominal xray to confirm the placement of NGT. Still waiting for the response. MEGHAN Kapoor, will follow up with Dr. Rios about the order.
--- NOTE | 2018-11-16 07:06 | NUR ---
NURSE NOTES: Endorsed to MEGHAN Kapoor to follow up and contact Dr. Rios for an abdominal xray to confirm the placement of NGT and residual of over 100cc.
--- NOTE | 2018-11-16 07:11 | NUR ---
HAND-OFF: Report received from MEGHAN Calvin. Pt in bed, asleep, respiration unlabored, NGT not at 60 cm placement, advanced from 53cm to 60cm and re-taped for securement. MEGHAN Calvin will order abdominal xray to verify placement. Bed in lowest position, call light within reach.
--- NOTE | 2018-11-16 07:35 | NUR ---
NURSE NOTES: MEGHAN Calvin endorsed that she left a message from Dr. Terrell Rios to asked for Abdominal xray order to verify placement of NGT at 60 cm
--- NOTE | 2018-11-16 07:54 | NUR ---
NURSE NOTES: 0750: Spoke with Dr. Terrell Rios, ordered abdominal xray to verify placement of NGT. Notified Dr. Rios of residuals more than 100ml and that feeds were stopped. No new orders given regarding residuals. Entered abdominal xray order and call radiology.
[2018-11-16 08:00] VITALS: BP 116/97
[2018-11-16] MEDS ORDERED: Tubing IV Secondary IV ONE (08:57)
[2018-11-16] MEDS: Venlafaxine XR 150mg cap ORAL SCH (09:00)
[2018-11-16 09:10] LABS: ANION GAP 11 mmol/L (5-15); BLOOD UREA NITROGEN 11 mg/dL (7-18); CALCIUM 8.6 MG/DL (8.5-10.1); CARBON DIOXIDE 22 MMOL/L (21-32); CHLORIDE 106 MMOL/L (98-107); CREATININE 1.3 MG/DL (0.55-1.30); PHOSPHORUS 4.5 MG/DL (2.5-4.9); POTASSIUM 4.8 MMOL/L (3.5-5.1); SODIUM 139 MMOL/L (136-145)
--- NOTE | 2018-11-16 09:50 | Diagnostic Imaging Report ---
EXAM: XR Abdomen, 1 View CLINICAL HISTORY: NGT TECHNIQUE: Frontal supine view of the abdomen/pelvis. COMPARISON: No relevant prior studies available. FINDINGS: Gastrointestinal tract: Nonspecific bowel gas pattern. Bones/joints: No acute fracture. Tubes, lines and devices: Enteric tube in the stomach. IMPRESSION: Enteric tube in the stomach.
[2018-11-16] MEDS: OLANZapine 2.5mg tab ORAL SCH (10:10)
[2018-11-16] MEDS: Memantine 5 MG TAB ORAL SCH (10:10)
[2018-11-16] MEDS: Thiamine 100mg tab ORAL SCH (10:10)
[2018-11-16] MEDS: Magnesium Oxide 400mg tab ORAL SCH ×3 (10:10→17:46)
[2018-11-16] MEDS: levETIRAcetam 500mg/NS100ml 100 ML IVPB SCH ×2 (10:11→20:03)
[2018-11-16] MEDS: Heparin 5000 units/ml inj SUBQ SCH ×2 (10:12→20:10)
[2018-11-16 12:00] VITALS: BP 136/74
--- NOTE | 2018-11-16 12:00 | NUR ---
NURSE NOTES: non-admin Effexor XR as medication cannot be crushed. Notified Dr. Terrell Rios. Dr. Rios said to "talk to Dr. Wells about it." I notified him that Dr. Wells is not on the case. Dr. Rios messaged Dr. Wells to see pt and notified her about Effexor XR medication, not administered because it cannot be crushed. No new orders given
--- NOTE | 2018-11-16 12:43 | Infectious Diseases Prog Note ---
Assessment/Plan Assessment/Plan A 1. Sepsis resolving 2. Atelectasis/ pneumonia. 3. 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 Acute renal failure improved 6. Alzheimer dementia P 1. Observe off antibiotic Subjective ROS Limited/Unobtainable: Yes Constitutional: Reports: no symptoms Allergies: Coded Allergies: PENICILLINS (Verified Allergy, Unknown, 11/08/18) Objective Vital Signs Last 24 Hour Vital Signs Date Time Temp Pulse Resp B/P (MAP) Pulse Ox O2 Delivery O2 Flow Rate FiO2 11/16/18 09:00 Nasal Cannula 3.0 11/16/18 08:00 97.0 93 17 116/97 (103) 91 11/16/18 04:00 97.9 100 18 122/84 (97) 96 11/16/18 00:00 98.0 100 19 112/77 (89) 96 100 11/15/18 21:00 Nasal Cannula 3.0 11/15/18 20:00 97.7 88 19 123/74 (90) 98 88 11/15/18 16:15 98.1 107 20 121/60 (80) 92 Height (Feet): 5 Height (Inches): 8.00 Weight (Pounds): 173 General Appearance: no acute distress HEENT: mucous membranes moist Respiratory/Chest: lungs clear Cardiovascular: normal rate Abdomen: soft, non tender, other - NG tube feeding Extremities: no edema Neurologic/Psychiatric: other - sleeping Laboratory Tests Test 11/16/18 05:00 Sodium Level 139 MMOL/L (136-145) Potassium Level 4.8 MMOL/L (3.5-5.1) Chloride Level 106 MMOL/L (98-107) Carbon Dioxide Level 22 MMOL/L (21-32) Anion Gap 11 mmol/L (5-15) Blood Urea Nitrogen 11 mg/dL (7-18) Creatinine 1.3 MG/DL (0.55-1.30) Estimat Glomerular Filtration Rate 40.6 mL/min (>60) Glucose Level 72 MG/DL (74-106) L Calcium Level 8.6 MG/DL (8.5-10.1) Phosphorus Level 4.5 MG/DL (2.5-4.9) Magnesium Level 2.1 MG/DL (1.8-2.4) Current Medications Medications (Trade) Dose Ordered Sig/Inocente Route PRN Reason Start Time Stop Time Status Last Admin Dose Admin Acetaminophen (Tylenol) 650 mg Q4H PRN ORAL Mild Pain/Temp > 100.5 11/15/18 12:00 12/08/18 15:46 Chlorhexidine Gluconate (Marga-Hex 2%) 1 applic DAILY@2000 TOPIC 11/15/18 20:00 12/11/18 19:59 11/15/18 20:53 Dextrose (Dextrose 50%) 25 ml Q30M PRN IV Hypoglycemia 11/15/18 11:00 12/08/18 15:46 Dextrose (Dextrose 50%) 50 ml Q30M PRN IV Hypoglycemia 11/15/18 11:00 12/08/18 17:29 Famotidine (Pepcid) 20 mg DAILY ORAL 11/16/18 09:00 12/08/18 17:14 11/16/18 09:00 Ferrous Sulfate (Feosol) 325 mg DAILY ORAL 11/16/18 09:00 12/08/18 17:14 11/16/18 10:10 Folic Acid (Folate) 1 mg DAILY ORAL 11/16/18 09:00 12/14/18 15:15 11/16/18 10:10 Heparin Sodium (Porcine) (Heparin 5000 units/ml) 5,000 units EVERY 12 HOURS SUBQ 11/15/18 21:00 12/08/18 20:59 11/16/18 10:12 Levetiracetam 100 ml @ 400 mls/hr Q12HR IVPB 11/15/18 21:00 12/15/18 20:59 11/16/18 10:11 Levothyroxine Sodium (Synthroid) 75 mcg ACBREAKFAST ORAL 11/16/18 06:30 12/10/18 06:29 11/16/18 05:56 Magnesium Oxide (Mag-Ox 400mg) 400 mg THREE TIMES A DAY ORAL 11/15/18 13:00 12/14/18 08:59 11/16/18 10:10 Memantine (Namenda) 5 mg DAILY ORAL 11/16/18 09:00 12/08/18 17:14 11/16/18 10:10 Olanzapine (ZyPREXA) 2.5 mg DAILY ORAL 11/16/18 09:00 12/08/18 17:14 11/16/18 10:10 Polyethylene Glycol (Miralax) 17 gm DAILYPRN PRN ORAL Constipation 11/15/18 11:00 12/09/18 10:59 Thiamine HCl (Vitamin B1) 100 mg DAILY ORAL 11/16/18 09:00 12/08/18 17:14 11/16/18 10:10 Venlafaxine HCl (Effexor-XR) 150 mg DAILY ORAL 11/16/18 09:00 12/08/18 17:59 Jimy Rios MD Nov 16, 2018 12:43
--- NOTE | 2018-11-16 13:01 | General Progress Note ---
Assessment/Plan Problem List: (1) UTI (urinary tract infection) ICD Codes: N39.0 - Urinary tract infection, site not specified SNOMED: 61501546 (2) Sepsis ICD Codes: A41.9 - Sepsis, unspecified organism SNOMED: 47497405 (3) ARF (acute renal failure) Assessment & Plan: better ICD Codes: N17.9 - Acute kidney failure, unspecified SNOMED: 40058053 (4) Encephalopathy acute ICD Codes: G93.40 - Encephalopathy, unspecified SNOMED: 19669393, 091818060 Assessment/Plan abxs TF follow labs Subjective Allergies: Coded Allergies: PENICILLINS (Verified Allergy, Unknown, 11/08/18) Subjective lethargic Objective Last 24 Hour Vital Signs Date Time Temp Pulse Resp B/P (MAP) Pulse Ox O2 Delivery O2 Flow Rate FiO2 11/16/18 09:00 Nasal Cannula 3.0 11/16/18 08:00 97.0 93 17 116/97 (103) 91 11/16/18 04:00 97.9 100 18 122/84 (97) 96 11/16/18 00:00 98.0 100 19 112/77 (89) 96 100 11/15/18 21:00 Nasal Cannula 3.0 11/15/18 20:00 97.7 88 19 123/74 (90) 98 88 11/15/18 16:15 98.1 107 20 121/60 (80) 92 Intake and Output 11/15/18 11/16/18 19:00 07:00 Intake Total 660 ml Output Total 200 ml 400 ml Balance -200 ml 260 ml Free Water 260 ml IV Total 100 ml Tube Feeding 300 ml Output Urine Total 200 ml 400 ml # Bowel Movements 1 Laboratory Tests 11/16/18 05:00: Sodium Level 139, Potassium Level 4.8, Chloride Level 106, Carbon Dioxide Level 22, Anion Gap 11, Blood Urea Nitrogen 11, Creatinine 1.3, Estimat Glomerular Filtration Rate 40.6, Glucose Level 72L, Calcium Level 8.6, Phosphorus Level 4.5 , Magnesium Level 2.1 Height (Feet): 5 Height (Inches): 8.00 Weight (Pounds): 173 Cardiovascular: normal rate Respiratory/Chest: lungs clear Edema: no edema noted Generalized Ilir Rios MD Nov 16, 2018 13:01
--- NOTE | 2018-11-16 13:11 | Neurology Progress Note ---
Interim History Interim History Interim History Ms. Aquino is mumbling today and exhibits some automatic speech. When aroused, she is still awake but not alert. She is poorly responsive. She is unable to follow any commands. She has had no further episodes of hypotension. Her blood pressures have been reasonable. Review of Systems Neuro Review of Systems Unable to obtain. Objective Physical Exam Last Vital Signs Date Time Temp Pulse Resp B/P (MAP) Pulse Ox O2 Delivery O2 Flow Rate FiO2 11/16/18 12:00 97.7 98 18 136/74 (94) 94 11/16/18 09:00 Nasal Cannula 3.0 11/08/18 14:10 99 Laboratory Tests Test 11/16/18 05:00 Sodium Level 139 MMOL/L (136-145) Potassium Level 4.8 MMOL/L (3.5-5.1) Chloride Level 106 MMOL/L (98-107) Carbon Dioxide Level 22 MMOL/L (21-32) Anion Gap 11 mmol/L (5-15) Blood Urea Nitrogen 11 mg/dL (7-18) Creatinine 1.3 MG/DL (0.55-1.30) Estimat Glomerular Filtration Rate 40.6 mL/min (>60) Glucose Level 72 MG/DL (74-106) L Calcium Level 8.6 MG/DL (8.5-10.1) Phosphorus Level 4.5 MG/DL (2.5-4.9) Magnesium Level 2.1 MG/DL (1.8-2.4) Neurologic Exam Objective PHYSICAL EXAMINATION: GENERAL: She is a well-developed, relatively well-nourished lady, lying in bed, in no acute distress, in a position. HEAD: Normocephalic and atraumatic. EENT: Examination benign. NECK: No neck rigidity was observed. NEUROLOGIC EXAMINATION: MENTAL STATUS EXAMINATION: When aroused, she was awake but not alert. She was mumbling and exhibited some automatic speech. She did not follow any commands. She was significantly encephalopathic. SPEECH: She was mumbling. LANGUAGE: She was unable to comprehend or express herself except for some automatic speech. CRANIAL NERVE EXAMINATION: II: She blinked to threat on both sides. III, IV & : External ocular movements were present on oculocephalic maneuvers. The pupils were 3 mm in diameter, equal, round, regular, and reactive sluggishly to light. V & VII: The corneal reflexes were equally brisk and she had no facial asymmetry. VIII: She did respond to sounds and had no nystagmus. IX-X: The gag reflex was not tested. XI: The sternocleidomastoids and trapezii functioned minimally. XII: The tongue was in the midline without any fasciculations or atrophy. MOTOR SYSTEM: The tone was increased in all four extremities with a significant degree of spasticity. Examination of muscle mass revealed bilateral knee and ankle cord contractures. Examination of power was impossible to perform on individual muscle groups. She however moved all four extremities minimally on applying deep painful stimuli. 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 SENSORY EXAMINATION: She responded appropriately to deep pain. She was unable to cooperate for other sensory modalities. REFLEXES: 2++ and bilaterally symmetrical at the biceps, triceps, brachioradialis, and knees, 0 at both ankles. The plantar responses were flexor bilaterally. COORDINATION, STANCE & GAIT: Could not be tested. Impression/Recommendations Diagnostic Impression 1. Ms. Stacy Aquino is a 68-year-old lady of unknown handedness, who does have a past history of anxiety, depression, breast cancer, and Alzheimer's disease. She was hospitalized on 11/08/2018 for increased weakness and change in behavior. She was discovered to have urinary tract infection, dehydration, and hypotension all of which have been treated, but she continues to have an altered mental state, which her family feels is worse than her baseline. 2. She is mumbling today and exhibits some automatic speech. When aroused, she is still awake but not alert. She is poorly responsive. She is unable to follow any commands. She has had no further episodes of hypotension. Her blood pressures have been reasonable. 3. On neurological examination at this time, when aroused she is awake but not alert. She is mumbling and exhibits some automatic speech. She does not follow any commands. She is significantly encephalopathic. She however does not demonstrate any focal or lateralizing neurological findings. She is generally weak, has bilateral ankle cord contractures and exhibits spasticity. 4. Laboratory data obtained thus far have revealed that she is anemic with a hemoglobin of 9.0 G. Her blood gases revealed that her pCO2 was down to 31.8 and her pO2 was 103.2. Her chemistry panel on admission revealed her BUN was elevated to 20 and creatinine was elevated at 1.6. Her BNP was elevated to 577, her albumin was low at 2.9, her TSH was low at 0.086. The urinalysis on admission revealed 3+ leukocyte esterase, too numerous to count white blood cells, but 0 red blood cells per high power field. 5. Further laboratory tests have revealed a low T3 at 0.8 and a low T4 at 0.68. The B12 is normal but the folate is low at 7.2. 6. The CT of the brain done on 11/12/18 revealed atrophy and hydrocephalus ex- vacuo. 7. The EEG done on 11/14/18 revealed a moderately severe metabolic encephalopathy. In addition T3 and T4 sharp discharges were seen which could be indicative of either brain irritability or inter-ictal discharges. 8. The patient's history, neurological examination and imaging are most compatible with an advanced dementia with a superimposed encephalopathy most probably related to her recent urinary tract infection, hypotension, and fluid and electrolyte imbalance. 9. The episode of hypotension on 11/13/18 could have worsened the encephalopathy. Recommendations 1. Continue present management. 2. Try to keep BP > 110 at all times. 3. Treatment of hypothyroidism. 4. Folic acid 1 mg PO daily. 5. Continue Keppra 500 q 12 H IV. 6. Observe closely. Spoke with . Harley Reeves M.D., M.S.P.H. Harley Reeves MD Nov 16, 2018 13:11
--- NOTE | 2018-11-16 15:09 | NUR ---
NURSE NOTES: Spoke to pt's , Rubne [phone], updated Ruben on Stacy's status, tolerating NGT feeds, able to give medications, still nonverbal, not responsive. Ruben asked if Dr. Rios could call him and discuss Stacy's case and wants to have her transfered to [facility]. Left message for Dr. Rios, provided Ruben's number.
[2018-11-16 16:00] VITALS: BP 111/78
--- NOTE | 2018-11-16 18:10 | Pulmonology Progress Note ---
Assessment/Plan Assessment/Plan (1) Elevated d-dimer (2) Hypoxemia (3) Dehydration (4) ARF (5) UTI (6) Episode of generalized weakness (7) Sepsis Assessment/Plan Optimize pulmonary hygiene/mobilize as tolerated PRN O2 Observe off Abx per ID Monitor volumes and renal function IVF for now Aspiration precautions DVT Px: Hep SQ Monitor MS, F/U neuro recs and w/u FC CXR saturday prn abg GT feeds Subjective ROS Limited/Unobtainable: Yes Allergies: Coded Allergies: PENICILLINS (Verified Allergy, Unknown, 11/08/18) Subjective remains lethargic tolerating GT feeds no cp nv or bleeding does nto get oob on o2 wounds noted Objective Last 24 Hour Vital Signs Date Time Temp Pulse Resp B/P (MAP) Pulse Ox O2 Delivery O2 Flow Rate FiO2 11/16/18 16:00 96.4 92 18 111/78 (89) 94 11/16/18 12:00 97.7 98 18 136/74 (94) 94 11/16/18 09:00 Nasal Cannula 3.0 11/16/18 08:00 97.0 93 17 116/97 (103) 91 11/16/18 04:00 97.9 100 18 122/84 (97) 96 11/16/18 00:00 98.0 100 19 112/77 (89) 96 100 11/15/18 21:00 Nasal Cannula 3.0 11/15/18 20:00 97.7 88 19 123/74 (90) 98 88 Intake and Output 11/15/18 11/16/18 19:00 07:00 Intake Total 660 ml Output Total 200 ml 400 ml Balance -200 ml 260 ml Free Water 260 ml IV Total 100 ml Tube Feeding 300 ml Output Urine Total 200 ml 400 ml # Bowel Movements 1 General Appearance: cachetic HEENT: atraumatic, anicteric Respiratory/Chest: rhonchi Cardiovascular: normal rate, regular rhythm, edema Abdomen: soft, non tender, no organomegaly Skin: lesions Neurologic/Psychiatric: disoriented no new cxr Laboratory Tests 11/16/18 05:00: Sodium Level 139, Potassium Level 4.8, Chloride Level 106, Carbon Dioxide Level 22, Anion Gap 11, Blood Urea Nitrogen 11, Creatinine 1.3, Estimat Glomerular Filtration Rate 40.6, Glucose Level 72L, Calcium Level 8.6, Phosphorus Level 4.5 , Magnesium Level 2.1 Current Medications Medications (Trade) Dose Ordered Sig/Inocente Route PRN Reason Start Time Stop Time Status Last Admin Dose Admin Acetaminophen (Tylenol) 650 mg Q4H PRN ORAL Mild Pain/Temp > 100.5 11/15/18 12:00 12/08/18 15:46 Chlorhexidine Gluconate (Mraga-Hex 2%) 1 applic DAILY@2000 TOPIC 11/15/18 20:00 12/11/18 19:59 11/15/18 20:53 Dextrose (Dextrose 50%) 25 ml Q30M PRN IV Hypoglycemia 11/15/18 11:00 12/08/18 15:46 Dextrose (Dextrose 50%) 50 ml Q30M PRN IV Hypoglycemia 11/15/18 11:00 12/08/18 17:29 Famotidine (Pepcid) 20 mg DAILY ORAL 11/16/18 09:00 12/08/18 17:14 11/16/18 09:00 Ferrous Sulfate (Feosol) 325 mg DAILY ORAL 11/16/18 09:00 12/08/18 17:14 11/16/18 10:10 Folic Acid (Folate) 1 mg DAILY ORAL 11/16/18 09:00 12/14/18 15:15 11/16/18 10:10 Heparin Sodium (Porcine) (Heparin 5000 units/ml) 5,000 units EVERY 12 HOURS SUBQ 11/15/18 21:00 12/08/18 20:59 11/16/18 10:12 Levetiracetam 100 ml @ 400 mls/hr Q12HR IVPB 11/15/18 21:00 12/15/18 20:59 11/16/18 10:11 Levothyroxine Sodium (Synthroid) 75 mcg ACBREAKFAST ORAL 11/16/18 06:30 12/10/18 06:29 11/16/18 05:56 Magnesium Oxide (Mag-Ox 400mg) 400 mg THREE TIMES A DAY ORAL 11/15/18 13:00 12/14/18 08:59 11/16/18 17:46 Memantine (Namenda) 5 mg DAILY ORAL 11/16/18 09:00 12/08/18 17:14 11/16/18 10:10 Olanzapine (ZyPREXA) 2.5 mg DAILY ORAL 11/16/18 09:00 12/08/18 17:14 11/16/18 10:10 Polyethylene Glycol (Miralax) 17 gm DAILYPRN PRN ORAL Constipation 11/15/18 11:00 12/09/18 10:59 Thiamine HCl (Vitamin B1) 100 mg DAILY ORAL 11/16/18 09:00 12/08/18 17:14 11/16/18 10:10 Venlafaxine HCl (Effexor-XR) 150 mg DAILY ORAL 11/16/18 09:00 12/08/18 17:59 Magdalena Summers DO Nov 16, 2018 18:10
--- NOTE | 2018-11-16 19:32 | NUR ---
HAND-OFF: Report given to MEGHAN Payton.
--- NOTE | 2018-11-16 19:40 | NUR ---
NURSE NOTES: Patient received in bed, asleep, NGT intact secured at 60cm, tolerating feeding at this time. Caregiver at bedside. Rjugular TLC intact. Will continue to monitor.
[2018-11-16 20:00] VITALS: BP 114/73
[2018-11-16] MEDS: Dyna-Hex 2% Top Sol 2oz TOPIC SCH (20:03)
[2018-11-17] VITALS: BP 117/77
[2018-11-17 04:00] VITALS: BP 129/73
--- NOTE | 2018-11-17 07:07 | NUR ---
HAND-OFF: Report given to Emelia CHRISTIANSON.
--- NOTE | 2018-11-17 07:15 | NUR ---
NURSE NOTES: Report received from MEGHAN Payton. Pt in bed, nonverbal, respiration unlabored on 2L O2 NC, Osmolite 1.2 running at 30cc/hr, caregiver at bedside, bed in lowest position, call light within reach.
[2018-11-17 08:00] VITALS: BP 112/72
[2018-11-17] MEDS: Venlafaxine XR 150mg cap ORAL SCH (09:00)
[2018-11-17] MEDS: Thiamine 100mg tab ORAL SCH (09:32)
[2018-11-17] MEDS: Magnesium Oxide 400mg tab ORAL SCH ×3 (09:32→18:16)
[2018-11-17] MEDS: Memantine 5 MG TAB ORAL SCH (09:32)
[2018-11-17] MEDS: OLANZapine 2.5mg tab ORAL SCH (09:32)
[2018-11-17] MEDS: Heparin 5000 units/ml inj SUBQ SCH ×2 (09:33→20:52)
[2018-11-17] MEDS: levETIRAcetam 500mg/NS100ml 100 ML IVPB SCH ×2 (09:33→20:43)
--- NOTE | 2018-11-17 10:55 | Diagnostic Imaging Report ---
Indication: Cough Technique: One view of the chest Comparison: 11/10/2018 Findings: Tube and line positions are stable. Previously demonstrated left basilar opacities have largely cleared, with only minimal residual atelectasis and/or infiltrate. There is minimal right infrahilar atelectasis still present. No new infiltrates. Heart size is normal Impression: Improved parenchymal disease in the left lung, as described, with minimal residual left basilar atelectasis and possibly consolidation Other stable findings as described
--- NOTE | 2018-11-17 11:40 | Pulmonology Progress Note ---
Assessment/Plan Assessment/Plan Pulmonary Progress Note Assessment/Plan Assessment/Plan (1) Elevated d-dimer (2) Hypoxemia (3) Dehydration (4) ARF (5) UTI (6) Episode of generalized weakness (7) Sepsis Assessment/Plan Optimize pulmonary hygiene/mobilize as tolerated PRN O2 Observe off Abx per ID Monitor volumes and renal function IVF for now Aspiration precautions DVT Px: Hep SQ Monitor MS, F/U neuro recs and w/u FC CXR saturday prn abg GT feeds Subjective ROS Limited/Unobtainable: Yes Allergies: Coded Allergies: PENICILLINS (Verified Allergy, Unknown, 11/08/18) Subjective remains lethargic tolerating GT feeds no cp nv or bleeding does nto get oob on o2 wounds noted Objective Vital Signs Noted General Appearance: cachetic HEENT: atraumatic, anicteric Respiratory/Chest: rhonchi Cardiovascular: normal rate, regular rhythm, edema Abdomen: soft, non tender, no organomegaly Skin: lesions Neurologic/Psychiatric: disoriented no new cxr Laboratory Tests 11/16/18 05:00: Sodium Level 139, Potassium Level 4.8, Chloride Level 106, Carbon Dioxide Level 22, Anion Gap 11, Blood Urea Nitrogen 11, Creatinine 1.3, Estimat Glomerular Filtration Rate 40.6, Glucose Level 72L, Calcium Level 8.6, Phosphorus Level 4.5 , Magnesium Level 2.1 Current Medications Medications (Trade) Dose Ordered Sig/Inocente Route PRN Reason Start Time Stop Time Status Last Admin Dose Admin Acetaminophen (Tylenol) 650 mg Q4H PRN ORAL Mild Pain/Temp > 100.5 11/15/18 12:00 12/08/18 15:46 Chlorhexidine Gluconate (Marga-Hex 2%) 1 applic DAILY@1999 TOPIC 11/15/18 20:00 12/11/18 19:59 11/15/18 20:53 Dextrose (Dextrose 50%) 25 ml Q30M PRN IV Hypoglycemia 11/15/18 11:00 12/08/18 15:46 Dextrose (Dextrose 50%) 50 ml Q30M PRN IV Hypoglycemia 11/15/18 11:00 12/08/18 17:29 Famotidine (Pepcid) 20 mg DAILY ORAL 11/16/18 09:00 12/08/18 17:14 11/16/18 09:00 Ferrous Sulfate (Feosol) 325 mg DAILY ORAL 11/16/18 09:00 12/08/18 17:14 11/16/18 10:10 Folic Acid (Folate) 1 mg DAILY ORAL 11/16/18 09:00 12/14/18 15:15 11/16/18 10:10 Heparin Sodium (Porcine) (Heparin 5000 units/ml) 5,000 units EVERY 12 HOURS SUBQ 11/15/18 21:00 12/08/18 20:59 11/16/18 10:12 Levetiracetam 100 ml @ 400 mls/hr Q12HR IVPB 11/15/18 21:00 12/15/18 20:59 11/16/18 10:11 Levothyroxine Sodium (Synthroid) 75 mcg ACBREAKFAST ORAL 11/16/18 06:30 12/10/18 06:29 11/16/18 05:56 Magnesium Oxide (Mag-Ox 400mg) 400 mg THREE TIMES A DAY ORAL 11/15/18 13:00 12/14/18 08:59 11/16/18 17:46 Memantine (Namenda) 5 mg DAILY ORAL 11/16/18 09:00 12/08/18 17:14 11/16/18 10:10 Olanzapine (ZyPREXA) 2.5 mg DAILY ORAL 11/16/18 09:00 12/08/18 17:14 11/16/18 10:10 Polyethylene Glycol (Miralax) 17 gm DAILYPRN PRN ORAL Constipation 11/15/18 11:00 12/09/18 10:59 Thiamine HCl (Vitamin B1) 100 mg DAILY ORAL 11/16/18 09:00 12/08/18 17:14 11/16/18 10:10 Venlafaxine HCl (Effexor-XR) 150 mg DAILY ORAL 11/16/18 09:00 12/08/18 17:59 Subjective ROS Limited/Unobtainable: No Allergies: Coded Allergies: PENICILLINS (Verified Allergy, Unknown, 11/08/18) Objective Last 24 Hour Vital Signs Date Time Temp Pulse Resp B/P (MAP) Pulse Ox O2 Delivery O2 Flow Rate FiO2 11/17/18 09:00 Nasal Cannula 3.0 11/17/18 08:00 98.1 96 16 112/72 (85) 96 11/17/18 04:00 97.7 100 18 129/73 (91) 95 11/17/18 00:00 97.7 95 17 117/77 (90) 94 11/16/18 21:00 Nasal Cannula 3.0 11/16/18 20:00 97.9 101 16 114/73 (87) 92 11/16/18 16:00 96.4 92 18 111/78 (89) 94 11/16/18 12:00 97.7 98 18 136/74 (94) 94 Intake and Output 11/16/18 11/17/18 18:59 06:59 Intake Total 830 ml 830 ml Output Total 300 ml Balance 530 ml 830 ml Free Water 400 ml 400 ml IV Total 400 ml 100 ml Tube Feeding 30 ml 330 ml Output Urine Total 300 ml # Voids 4 1 # Bowel Movements 3 1 Current Medications Medications (Trade) Dose Ordered Sig/Inocente Route PRN Reason Start Time Stop Time Status Last Admin Dose Admin Acetaminophen (Tylenol) 650 mg Q4H PRN ORAL Mild Pain/Temp > 100.5 11/15/18 12:00 12/08/18 15:46 Chlorhexidine Gluconate (Marga-Hex 2%) 1 applic DAILY@2000 TOPIC 11/15/18 20:00 12/11/18 19:59 11/16/18 20:03 Dextrose (Dextrose 50%) 25 ml Q30M PRN IV Hypoglycemia 11/15/18 11:00 12/08/18 15:46 Dextrose (Dextrose 50%) 50 ml Q30M PRN IV Hypoglycemia 11/15/18 11:00 12/08/18 17:29 Famotidine (Pepcid) 20 mg DAILY ORAL 11/16/18 09:00 12/08/18 17:14 11/17/18 09:32 Ferrous Sulfate (Feosol) 325 mg DAILY ORAL 11/16/18 09:00 12/08/18 17:14 11/17/18 09:32 Folic Acid (Folate) 1 mg DAILY ORAL 11/16/18 09:00 12/14/18 15:15 11/17/18 09:32 Heparin Sodium (Porcine) (Heparin 5000 units/ml) 5,000 units EVERY 12 HOURS SUBQ 11/15/18 21:00 12/08/18 20:59 11/17/18 09:33 Levetiracetam 100 ml @ 400 mls/hr Q12HR IVPB 12/29/18 21:00 12/15/18 20:59 11/17/18 09:33 Levothyroxine Sodium (Synthroid) 75 mcg ACBREAKFAST ORAL 11/16/18 06:30 12/10/18 06:29 11/17/18 05:28 Magnesium Oxide (Mag-Ox 400mg) 400 mg THREE TIMES A DAY ORAL 11/15/18 13:00 12/14/18 08:59 11/17/18 09:32 Memantine (Namenda) 5 mg DAILY ORAL 11/16/18 09:00 12/08/18 17:14 11/17/18 09:32 Olanzapine (ZyPREXA) 2.5 mg DAILY ORAL 11/16/18 09:00 12/08/18 17:14 11/17/18 09:32 Polyethylene Glycol (Miralax) 17 gm DAILYPRN PRN ORAL Constipation 11/15/18 11:00 12/09/18 10:59 Thiamine HCl (Vitamin B1) 100 mg DAILY ORAL 11/16/18 09:00 12/08/18 17:14 11/17/18 09:32 Venlafaxine HCl (Effexor-XR) 150 mg DAILY ORAL 11/16/18 09:00 12/08/18 17:59 Cornelius Quintana MD Nov 17, 2018 11:40
[2018-11-17 12:00] VITALS: BP 121/75
--- NOTE | 2018-11-17 13:45 | Infectious Diseases Prog Note ---
Assessment/Plan Assessment/Plan A 1. Sepsis resolving 2. Atelectasis/ pneumonia. 3. 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 Acute renal failure improved 6. Alzheimer dementia P 1. Observe off antibiotic Subjective ROS Limited/Unobtainable: Yes Neurologic: Reports: other - drowsy Musculoskeletal: Reports: other Allergies: Coded Allergies: PENICILLINS (Verified Allergy, Unknown, 11/08/18) Objective Vital Signs Last 24 Hour Vital Signs Date Time Temp Pulse Resp B/P (MAP) Pulse Ox O2 Delivery O2 Flow Rate FiO2 11/17/18 09:00 Nasal Cannula 3.0 11/17/18 08:00 98.1 96 16 112/72 (85) 96 11/17/18 04:00 97.7 100 18 129/73 (91) 95 11/17/18 00:00 97.7 95 17 117/77 (90) 94 11/16/18 21:00 Nasal Cannula 3.0 11/16/18 20:00 97.9 101 16 114/73 (87) 92 11/16/18 16:00 96.4 92 18 111/78 (89) 94 Height (Feet): 5 Height (Inches): 8.00 Weight (Pounds): 173 General Appearance: no acute distress HEENT: mucous membranes moist Respiratory/Chest: lungs clear Cardiovascular: normal rate Abdomen: soft, non tender Extremities: no edema Neurologic/Psychiatric: unresponsiveness Microbiology Date/Time Source Procedure Growth Status 11/16/18 16:00 Sputum Induced Gram Stain - Final Resulted 11/16/18 16:00 Sputum Induced Sputum Culture Pending Resulted Current Medications Medications (Trade) Dose Ordered Sig/Inocente Route PRN Reason Start Time Stop Time Status Last Admin Dose Admin Acetaminophen (Tylenol) 650 mg Q4H PRN ORAL Mild Pain/Temp > 100.5 11/15/18 12:00 12/08/18 15:46 Chlorhexidine Gluconate (Marga-Hex 2%) 1 applic DAILY@1999 TOPIC 11/15/18 20:00 12/11/18 19:59 11/16/18 20:03 Dextrose (Dextrose 50%) 25 ml Q30M PRN IV Hypoglycemia 11/15/18 11:00 12/08/18 15:46 Dextrose (Dextrose 50%) 50 ml Q30M PRN IV Hypoglycemia 11/15/18 11:00 12/08/18 17:29 Famotidine (Pepcid) 20 mg DAILY ORAL 11/16/18 09:00 12/08/18 17:14 11/17/18 09:32 Ferrous Sulfate (Feosol) 325 mg DAILY ORAL 11/16/18 09:00 12/08/18 17:14 11/17/18 09:32 Folic Acid (Folate) 1 mg DAILY ORAL 11/16/18 09:00 12/14/18 15:15 11/17/18 09:32 Heparin Sodium (Porcine) (Heparin 5000 units/ml) 5,000 units EVERY 12 HOURS SUBQ 11/15/18 21:00 12/08/18 20:59 11/17/18 09:33 Levetiracetam 100 ml @ 400 mls/hr Q12HR IVPB 11/15/18 21:00 12/15/18 20:59 11/17/18 09:33 Levothyroxine Sodium (Synthroid) 75 mcg ACBREAKFAST ORAL 11/16/18 06:30 12/10/18 06:29 11/17/18 05:28 Magnesium Oxide (Mag-Ox 400mg) 400 mg THREE TIMES A DAY ORAL 11/15/18 13:00 12/14/18 08:59 11/17/18 13:31 Memantine (Namenda) 5 mg DAILY ORAL 11/16/18 09:00 12/08/18 17:14 11/17/18 09:32 Olanzapine (ZyPREXA) 2.5 mg DAILY ORAL 11/16/18 09:00 12/08/18 17:14 11/17/18 09:32 Polyethylene Glycol (Miralax) 17 gm DAILYPRN PRN ORAL Constipation 11/15/18 11:00 12/09/18 10:59 Thiamine HCl (Vitamin B1) 100 mg DAILY ORAL 11/16/18 09:00 12/08/18 17:14 11/17/18 09:32 Venlafaxine HCl (Effexor-XR) 150 mg DAILY ORAL 11/16/18 09:00 12/08/18 17:59 Jimy Rios MD Nov 17, 2018 13:45
--- NOTE | 2018-11-17 14:15 | General Progress Note ---
Assessment/Plan Problem List: (1) UTI (urinary tract infection) ICD Codes: N39.0 - Urinary tract infection, site not specified SNOMED: 50876016 (2) Sepsis ICD Codes: A41.9 - Sepsis, unspecified organism SNOMED: 08467647 (3) ARF (acute renal failure) Assessment & Plan: better ICD Codes: N17.9 - Acute kidney failure, unspecified SNOMED: 80691797 (4) Encephalopathy acute ICD Codes: G93.40 - Encephalopathy, unspecified SNOMED: 00871387, 985317427 Assessment/Plan off abxs TF follow labs Discussed with dr Reeves and family Subjective Allergies: Coded Allergies: PENICILLINS (Verified Allergy, Unknown, 11/08/18) Subjective lethargic Objective Last 24 Hour Vital Signs Date Time Temp Pulse Resp B/P (MAP) Pulse Ox O2 Delivery O2 Flow Rate FiO2 11/17/18 12:00 97.8 91 16 121/75 (90) 95 11/17/18 09:00 Nasal Cannula 3.0 11/17/18 08:00 98.1 96 16 112/72 (85) 96 11/17/18 04:00 97.7 100 18 129/73 (91) 95 11/17/18 00:00 97.7 95 17 117/77 (90) 94 11/16/18 21:00 Nasal Cannula 3.0 11/16/18 20:00 97.9 101 16 114/73 (87) 92 11/16/18 16:00 96.4 92 18 111/78 (89) 94 Intake and Output 11/16/18 11/17/18 19:00 07:00 Intake Total 860 ml 800 ml Output Total 300 ml Balance 560 ml 800 ml Free Water 400 ml 400 ml IV Total 400 ml 100 ml Tube Feeding 60 ml 300 ml Output Urine Total 300 ml # Voids 4 1 # Bowel Movements 3 1 Height (Feet): 5 Height (Inches): 8.00 Weight (Pounds): 173 Cardiovascular: normal rate Respiratory/Chest: lungs clear Edema: no edema noted Generalized Ilir Rios MD Nov 17, 2018 14:15
[2018-11-17 16:00] VITALS: BP 151/89
--- NOTE | 2018-11-17 16:24 | Neurology Progress Note ---
Interim History Interim History Interim History Ms. Aquino can be aroused minimally on deep pain. She is unable to maintain arousal. She is poorly responsive. She is unable to follow any commands. She has had no further episodes of hypotension. Her blood pressures have been reasonable. Review of Systems Neuro Review of Systems Unable to obtain. Objective Physical Exam Last Vital Signs Date Time Temp Pulse Resp B/P (MAP) Pulse Ox O2 Delivery O2 Flow Rate FiO2 11/17/18 12:00 97.8 91 16 121/75 (90) 95 11/17/18 09:00 Nasal Cannula 3.0 11/08/18 14:10 99 Neurologic Exam Objective PHYSICAL EXAMINATION: GENERAL: She is a well-developed, relatively well-nourished lady, lying in bed, in no acute distress. HEAD: Normocephalic and atraumatic. EENT: Examination benign. NECK: No neck rigidity was observed. NEUROLOGIC EXAMINATION: MENTAL STATUS EXAMINATION: She could only be aroused briefly on deep pain. She only mumbled when aroused. She did not follow any commands. She was significantly encephalopathic. SPEECH: She was mumbling. LANGUAGE: She was unable to comprehend or express herself except for some automatic speech. CRANIAL NERVE EXAMINATION: II: She blinked to threat on both sides. III, IV & : External ocular movements were present on oculocephalic maneuvers. The pupils were 3 mm in diameter, equal, round, regular, and reactive sluggishly to light. V & VII: The corneal reflexes were equally brisk and she had no facial asymmetry. VIII: She did respond to sounds and had no nystagmus. IX-X: The gag reflex was not tested. XI: The sternocleidomastoids and trapezii functioned minimally. XII: The tongue was in the midline without any fasciculations or atrophy. MOTOR SYSTEM: The tone was increased in all four extremities with a significant degree of spasticity. Examination of muscle mass revealed bilateral knee and ankle cord contractures. Examination of power was impossible to perform on individual muscle groups. She however moved all four extremities minimally on applying deep painful stimuli. SENSORY EXAMINATION: She responded appropriately to deep pain. She was unable to cooperate for other sensory modalities. REFLEXES: 2++ and bilaterally symmetrical at the biceps, triceps, brachioradialis, and knees, 0 at both ankles. The plantar responses were flexor bilaterally. COORDINATION, STANCE & GAIT: Could not be tested. Impression/Recommendations Diagnostic Impression 1. Ms. Stacy Aquino is a 68-year-old lady of unknown handedness, who does have a past history of anxiety, depression, breast cancer, and Alzheimer's disease. She was hospitalized on 11/08/2018 for increased weakness and change in behavior. She was discovered to have urinary tract infection, dehydration, and hypotension all of which have been treated, but she continues to have an altered mental state, which her family feels is worse than her baseline. 2. She can be aroused minimally on deep pain. She is unable to maintain arousal. She is poorly responsive. She is unable to follow any commands. She has had no further episodes of hypotension. Her blood pressures have been reasonable. 3. On neurological examination at this time, can be aroused minimally on deep pain. She only mumbles when aroused. She does not follow any commands. She is significantly encephalopathic. She however does not demonstrate any focal or lateralizing neurological findings. She is generally weak, has bilateral ankle cord contractures and exhibits spasticity. 4. Laboratory data obtained thus far have revealed that she is anemic with a hemoglobin of 9.0 G. Her blood gases revealed that her pCO2 was down to 31.8 and her pO2 was 103.2. Her chemistry panel on admission revealed her BUN was elevated to 20 and creatinine was elevated at 1.6. Her BNP was elevated to 577, her albumin was low at 2.9, her TSH was low at 0.086. The urinalysis on admission revealed 3+ leukocyte esterase, too numerous to count white blood cells, but 0 red blood cells per high power field. 5. Further laboratory tests have revealed a low T3 at 0.8 and a low T4 at 0.68. The B12 is normal but the folate is low at 7.2. 6. The CT of the brain done on 11/12/18 revealed atrophy and hydrocephalus ex- vacuo. 7. The EEG done on 11/14/18 revealed a moderately severe metabolic encephalopathy. In addition T3 and T4 sharp discharges were seen which could be indicative of either brain irritability or inter-ictal discharges. 8. The patient's history, neurological examination and imaging are most compatible with an advanced dementia with a superimposed encephalopathy most probably related to her recent urinary tract infection, hypotension, and fluid and electrolyte imbalance. 9. The episode of hypotension on 11/13/18 could have worsened the encephalopathy. Recommendations 1. Continue present management. 2. Try to keep BP > 110 at all times. 3. Treatment of hypothyroidism. 4. Folic acid 1 mg PO daily. 5. Continue Keppra 500 q 12 H IV. 6. MRI of brain without contrast as patient is not improving - to exclude acute infarct. 7. Observe closely. Discussed with Dr. Rios. Harley Reeves M.D., M.S.P.H. Harley Reeves MD Nov 17, 2018 16:24
--- NOTE | 2018-11-17 19:17 | NUR ---
HAND-OFF: Report given to MEGHAN Dunham.
[2018-11-17 20:00] VITALS: BP 127/72
--- NOTE | 2018-11-17 20:00 | NUR ---
NURSE NOTES: Patient in bed, asleep, nonverbal, responsive to painful stimuli. Caregiver at bedside. NG tube in place, no residuals noted, running tube feeding. Right side triple lumen IJ in place, patent. Bed in lowest position, call light within reach, bed alarm on. No s/s distress or pain noted. Will continue to monitor.
[2018-11-17] MEDS: Dyna-Hex 2% Top Sol 2oz TOPIC SCH (20:43)
[2018-11-18] VITALS: BP 140/81
[2018-11-18 04:00] VITALS: BP 109/77
--- NOTE | 2018-11-18 05:00 | NUR ---
NURSE NOTES: Patient tube feeding off before Synthroid administration, no distress noted.
--- NOTE | 2018-11-18 07:20 | NUR ---
HAND-OFF: Report given to ISAIAS EMMANUEL RN.
[2018-11-18] MEDS: Heparin 5000 units/ml inj SUBQ SCH ×2 (08:32→20:46)
[2018-11-18] MEDS: Magnesium Oxide 400mg tab ORAL SCH ×3 (08:36→17:09)
[2018-11-18] MEDS: Thiamine 100mg tab ORAL SCH (08:36)
[2018-11-18] MEDS: Memantine 5 MG TAB ORAL SCH (08:36)
[2018-11-18] MEDS: levETIRAcetam 500mg/NS100ml 100 ML IVPB SCH ×2 (08:36→20:40)
[2018-11-18] MEDS: OLANZapine 2.5mg tab ORAL SCH (08:36)
[2018-11-18 08:37] VITALS: BP 131/72
[2018-11-18] MEDS: Venlafaxine XR 150mg cap ORAL SCH (08:37)
--- NOTE | 2018-11-18 11:00 | NUR ---
NURSE NOTES: pt asleep, arousable to voice and tactile (shaking) stimulation. mostly nonverbal. no s/s distress. tlc on right ij is intact. ngt is intact. caregiver at bedside. will monitor. hob elevated gtf running.
--- NOTE | 2018-11-18 11:42 | Infectious Diseases Prog Note ---
Assessment/Plan Assessment/Plan A 1. Sepsis resolving 2. Atelectasis/ pneumonia. 3. 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 Acute renal failure improved 6. Alzheimer dementia P 1. Observe off antibiotic Subjective ROS Limited/Unobtainable: Yes Neurologic: Reports: other - more alert Allergies: Coded Allergies: PENICILLINS (Verified Allergy, Unknown, 11/08/18) Objective Vital Signs Last 24 Hour Vital Signs Date Time Temp Pulse Resp B/P (MAP) Pulse Ox O2 Delivery O2 Flow Rate FiO2 11/18/18 10:50 Nasal Cannula 3.0 11/18/18 08:37 97.3 91 18 131/72 (91) 97 11/18/18 04:00 98.9 91 18 109/77 (88) 94 11/18/18 00:00 98.7 95 18 140/81 (100) 96 11/17/18 21:47 Nasal Cannula 3.0 11/17/18 20:00 99.0 93 18 127/72 (90) 98 11/17/18 16:00 97.9 92 16 151/89 (109) 97 11/17/18 12:00 97.8 91 16 121/75 (90) 95 Height (Feet): 5 Height (Inches): 8.00 Weight (Pounds): 173 General Appearance: no acute distress HEENT: mucous membranes moist Respiratory/Chest: lungs clear Cardiovascular: normal rate Abdomen: soft, non tender, other - NG tube feeding Extremities: no edema Neurologic/Psychiatric: other - opens eyes Microbiology Date/Time Source Procedure Growth Status 11/16/18 16:00 Sputum Induced Gram Stain - Final Resulted 11/16/18 16:00 Sputum Induced Sputum Culture - Preliminary Resulted Current Medications Medications (Trade) Dose Ordered Sig/Inocente Route PRN Reason Start Time Stop Time Status Last Admin Dose Admin Acetaminophen (Tylenol) 650 mg Q4H PRN ORAL Mild Pain/Temp > 100.5 11/15/18 12:00 12/08/18 15:46 Chlorhexidine Gluconate (Marga-Hex 2%) 1 applic DAILY@1999 TOPIC 11/15/18 20:00 12/11/18 19:59 11/17/18 20:43 Dextrose (Dextrose 50%) 25 ml Q30M PRN IV Hypoglycemia 11/15/18 11:00 12/08/18 15:46 Dextrose (Dextrose 50%) 50 ml Q30M PRN IV Hypoglycemia 11/15/18 11:00 12/08/18 17:29 Famotidine (Pepcid) 20 mg DAILY ORAL 11/16/18 09:00 12/08/18 17:14 11/18/18 08:37 Ferrous Sulfate (Feosol) 325 mg DAILY ORAL 11/16/18 09:00 12/08/18 17:14 11/18/18 08:36 Folic Acid (Folate) 1 mg DAILY ORAL 11/16/18 09:00 12/14/18 15:15 11/18/18 08:37 Heparin Sodium (Porcine) (Heparin 5000 units/ml) 5,000 units EVERY 12 HOURS SUBQ 11/15/18 21:00 12/08/18 20:59 11/18/18 08:32 Levetiracetam 100 ml @ 400 mls/hr Q12HR IVPB 11/15/18 21:00 12/15/18 20:59 11/18/18 08:36 Levothyroxine Sodium (Synthroid) 75 mcg ACBREAKFAST ORAL 11/16/18 06:30 12/10/18 06:29 11/18/18 06:06 Magnesium Oxide (Mag-Ox 400mg) 400 mg THREE TIMES A DAY ORAL 11/15/18 13:00 12/14/18 08:59 11/18/18 08:36 Memantine (Namenda) 5 mg DAILY ORAL 11/16/18 09:00 12/08/18 17:14 11/18/18 08:36 Olanzapine (ZyPREXA) 2.5 mg DAILY ORAL 11/16/18 09:00 12/08/18 17:14 11/18/18 08:36 Polyethylene Glycol (Miralax) 17 gm DAILYPRN PRN ORAL Constipation 11/15/18 11:00 12/09/18 10:59 Thiamine HCl (Vitamin B1) 100 mg DAILY ORAL 11/16/18 09:00 12/08/18 17:14 11/18/18 08:36 Venlafaxine HCl (Effexor-XR) 150 mg DAILY ORAL 11/16/18 09:00 12/08/18 17:59 11/18/18 08:37 Jimy Rios MD Nov 18, 2018 11:42
[2018-11-18 12:00] VITALS: BP 138/82
--- NOTE | 2018-11-18 12:17 | Neurology Progress Note ---
Interim History Interim History Interim History Ms. Aquino can be aroused minimally on loud vocal and painful stimuli. When asked how she felt she said "shitty." She is unable to communicate further. She is able to maintain arousal for a few minutes. She is poorly responsive. She is unable to follow any commands. She has had no further episodes of hypotension. Her blood pressures have been reasonable. Review of Systems Neuro Review of Systems Unable to obtain. Objective Physical Exam Last Vital Signs Date Time Temp Pulse Resp B/P (MAP) Pulse Ox O2 Delivery O2 Flow Rate FiO2 11/18/18 10:50 Nasal Cannula 3.0 11/18/18 08:37 97.3 91 18 131/72 (91) 97 Neurologic Exam Objective PHYSICAL EXAMINATION: GENERAL: She is a well-developed, relatively well-nourished lady, lying in bed, in no acute distress. HEAD: Normocephalic and atraumatic. EENT: Examination benign. NECK: No neck rigidity was observed. NEUROLOGIC EXAMINATION: MENTAL STATUS EXAMINATION: She could only be aroused briefly on deep pain. She said a single word. She did not follow any commands. She was significantly encephalopathic. SPEECH: She was mumbling. LANGUAGE: She was unable to comprehend or express herself except for some automatic speech. CRANIAL NERVE EXAMINATION: II: She blinked to threat on both sides. III, IV & : External ocular movements were present on oculocephalic maneuvers. The pupils were 3 mm in diameter, equal, round, regular, and reactive sluggishly to light. V & VII: The corneal reflexes were equally brisk and she had no facial asymmetry. VIII: She did respond to sounds and had no nystagmus. IX-X: The gag reflex was not tested. XI: The sternocleidomastoids and trapezii functioned minimally. XII: The tongue was in the midline without any fasciculations or atrophy. MOTOR SYSTEM: The tone was increased in all four extremities with a significant degree of spasticity. Examination of muscle mass revealed bilateral knee and ankle cord contractures. Examination of power was impossible to perform on individual muscle groups. She however moved all four extremities minimally on applying deep painful stimuli. SENSORY EXAMINATION: She responded appropriately to deep pain. She was unable to cooperate for other sensory modalities. REFLEXES: 2++ and bilaterally symmetrical at the biceps, triceps, brachioradialis, and knees, 0 at both ankles. The plantar responses were flexor bilaterally. COORDINATION, STANCE & GAIT: Could not be tested. Impression/Recommendations Diagnostic Impression 1. Ms. Stacy Aquino is a 68-year-old lady of unknown handedness, who does have a past history of anxiety, depression, breast cancer, and Alzheimer's disease. She was hospitalized on 11/08/2018 for increased weakness and change in behavior. She was discovered to have urinary tract infection, dehydration, and hypotension all of which have been treated, but she continues to have an altered mental state, which her family feels is worse than her baseline. 2. She can be aroused minimally on loud vocal and painful stimuli. When asked how she felt she said "shitty." She is unable to communicate further. She is able to maintain arousal for a few minutes. She is poorly responsive. She is unable to follow any commands. She has had no further episodes of hypotension. Her blood pressures have been reasonable. 3. On neurological examination at this time, can be aroused minimally on deep pain. She only mumbles when aroused. She does not follow any commands. She is significantly encephalopathic. She however does not demonstrate any focal or lateralizing neurological findings. She is generally weak, has bilateral ankle cord contractures and exhibits spasticity. 4. Laboratory data obtained thus far have revealed that she is anemic with a hemoglobin of 9.0 G. Her blood gases revealed that her pCO2 was down to 31.8 and her pO2 was 103.2. Her chemistry panel on admission revealed her BUN was elevated to 20 and creatinine was elevated at 1.6. Her BNP was elevated to 577, her albumin was low at 2.9, her TSH was low at 0.086. The urinalysis on admission revealed 3+ leukocyte esterase, too numerous to count white blood cells, but 0 red blood cells per high power field. 5. Further laboratory tests have revealed a low T3 at 0.8 and a low T4 at 0.68. The B12 is normal but the folate is low at 7.2. 6. The CT of the brain done on 11/12/18 revealed atrophy and hydrocephalus ex- vacuo. 7. The EEG done on 11/14/18 revealed a moderately severe metabolic encephalopathy. In addition T3 and T4 sharp discharges were seen which could be indicative of either brain irritability or inter-ictal discharges. 8. The patient's history, neurological examination and imaging are most compatible with an advanced dementia with a superimposed encephalopathy most probably related to her recent urinary tract infection, hypotension, and fluid and electrolyte imbalance. 9. The episode of hypotension on 11/13/18 could have worsened the encephalopathy. Recommendations 1. Continue present management. 2. Try to keep BP > 110 at all times. 3. Treatment of hypothyroidism. 4. Folic acid 1 mg PO daily. 5. Continue Keppra 500 q 12 H IV. 6. MRI of brain without contrast as patient is not improving - to exclude acute infarct - still pending. 7. Observe closely. Harley Reeves M.D., M.S.P.[facility]. Harley Reeves MD Nov 18, 2018 12:17
--- NOTE | 2018-11-18 12:59 | General Progress Note ---
Assessment/Plan Problem List: (1) UTI (urinary tract infection) ICD Codes: N39.0 - Urinary tract infection, site not specified SNOMED: 22261077 (2) Sepsis ICD Codes: A41.9 - Sepsis, unspecified organism SNOMED: 63073116 (3) ARF (acute renal failure) Assessment & Plan: better ICD Codes: N17.9 - Acute kidney failure, unspecified SNOMED: 16490421 (4) Encephalopathy acute ICD Codes: G93.40 - Encephalopathy, unspecified SNOMED: 37380384, 610008731 Assessment/Plan TF follow labs Discussed with dr Reeves MRI of brain Subjective Allergies: Coded Allergies: PENICILLINS (Verified Allergy, Unknown, 11/08/18) Subjective lethargic Objective Last 24 Hour Vital Signs Date Time Temp Pulse Resp B/P (MAP) Pulse Ox O2 Delivery O2 Flow Rate FiO2 11/18/18 12:00 97.5 89 18 138/82 (100) 97 11/18/18 10:50 Nasal Cannula 3.0 11/18/18 08:37 97.3 91 18 131/72 (91) 97 11/18/18 04:00 98.9 91 18 109/77 (88) 94 11/18/18 00:00 98.7 95 18 140/81 (100) 96 11/17/18 21:47 Nasal Cannula 3.0 11/17/18 20:00 99.0 93 18 127/72 (90) 98 11/17/18 16:00 97.9 92 16 151/89 (109) 97 Intake and Output 11/17/18 11/18/18 18:59 06:59 Intake Total 630 ml 600 ml Balance 630 ml 600 ml Free Water 600 ml 200 ml IV Total 100 ml Tube Feeding 30 ml 300 ml # Voids 4 1 # Bowel Movements 1 Height (Feet): 5 Height (Inches): 8.00 Weight (Pounds): 173 Cardiovascular: normal rate Respiratory/Chest: lungs clear Edema: no edema noted Ilir Ji MD Nov 18, 2018 12:59
[2018-11-18 16:00] VITALS: BP 114/72
--- NOTE | 2018-11-18 17:37 | Pulmonology Progress Note ---
Assessment/Plan Assessment/Plan Pulmonary Progress Note Assessment/Plan Assessment/Plan (1) Elevated d-dimer (2) Hypoxemia (3) Dehydration (4) ARF (5) UTI (6) Episode of generalized weakness (7) Sepsis Assessment/Plan Optimize pulmonary hygiene/mobilize as tolerated PRN O2 Abx per ID if indicated Monitor volumes and renal function IVF for now Aspiration precautions DVT Px: Hep SQ Monitor MS, F/U neuro recs and w/u FC prn abg GT feeds Subjective ROS Limited/Unobtainable: Yes Allergies: Coded Allergies: PENICILLINS (Verified Allergy, Unknown, 11/08/18) Subjective remains lethargic tolerating GT feeds no cp nv or bleeding does nto get oob on o2 wounds noted Objective Vital Signs Noted General Appearance: cachetic HEENT: atraumatic, anicteric Respiratory/Chest: rhonchi Cardiovascular: normal rate, regular rhythm, edema Abdomen: soft, non tender, no organomegaly Skin: lesions Neurologic/Psychiatric: disoriented no new cxr Laboratory Tests 11/16/18 05:00: Sodium Level 139, Potassium Level 4.8, Chloride Level 106, Carbon Dioxide Level 22, Anion Gap 11, Blood Urea Nitrogen 11, Creatinine 1.3, Estimat Glomerular Filtration Rate 40.6, Glucose Level 72L, Calcium Level 8.6, Phosphorus Level 4.5 , Magnesium Level 2.1 Current Medications Medications (Trade) Dose Ordered Sig/Inocente Route PRN Reason Start Time Stop Time Status Last Admin Dose Admin Acetaminophen (Tylenol) 650 mg Q4H PRN ORAL Mild Pain/Temp > 100.5 11/15/18 12:00 12/08/18 15:46 Chlorhexidine Gluconate (Marga-Hex 2%) 1 applic DAILY@1999 TOPIC 11/15/18 20:00 12/11/18 19:59 11/15/18 20:53 Dextrose (Dextrose 50%) 25 ml Q30M PRN IV Hypoglycemia 11/15/18 11:00 12/08/18 15:46 Dextrose (Dextrose 50%) 50 ml Q30M PRN IV Hypoglycemia 11/15/18 11:00 12/08/18 17:29 Famotidine (Pepcid) 20 mg DAILY ORAL 11/16/18 09:00 12/08/18 17:14 11/16/18 09:00 Ferrous Sulfate (Feosol) 325 mg DAILY ORAL 11/16/18 09:00 12/08/18 17:14 11/16/18 10:10 Folic Acid (Folate) 1 mg DAILY ORAL 11/16/18 09:00 12/14/18 15:15 11/16/18 10:10 Heparin Sodium (Porcine) (Heparin 5000 units/ml) 5,000 units EVERY 12 HOURS SUBQ 11/15/18 21:00 12/08/18 20:59 11/16/18 10:12 Levetiracetam 100 ml @ 400 mls/hr Q12HR IVPB 11/15/18 21:00 12/15/18 20:59 11/16/18 10:11 Levothyroxine Sodium (Synthroid) 75 mcg ACBREAKFAST ORAL 11/16/18 06:30 12/10/18 06:29 11/16/18 05:56 Magnesium Oxide (Mag-Ox 400mg) 400 mg THREE TIMES A DAY ORAL 11/15/18 13:00 12/14/18 08:59 11/16/18 17:46 Memantine (Namenda) 5 mg DAILY ORAL 11/16/18 09:00 12/08/18 17:14 11/16/18 10:10 Olanzapine (ZyPREXA) 2.5 mg DAILY ORAL 11/16/18 09:00 12/08/18 17:14 11/16/18 10:10 Polyethylene Glycol (Miralax) 17 gm DAILYPRN PRN ORAL Constipation 11/15/18 11:00 12/09/18 10:59 Thiamine HCl (Vitamin B1) 100 mg DAILY ORAL 11/16/18 09:00 12/08/18 17:14 11/16/18 10:10 Venlafaxine HCl (Effexor-XR) 150 mg DAILY ORAL 11/16/18 09:00 12/08/18 17:59 Subjective ROS Limited/Unobtainable: No Allergies: Coded Allergies: PENICILLINS (Verified Allergy, Unknown, 11/08/18) Objective Last 24 Hour Vital Signs Date Time Temp Pulse Resp B/P (MAP) Pulse Ox O2 Delivery O2 Flow Rate FiO2 11/18/18 12:00 97.5 89 18 138/82 (100) 97 11/18/18 10:50 Nasal Cannula 3.0 11/18/18 08:37 97.3 91 18 131/72 (91) 97 11/18/18 04:00 98.9 91 18 109/77 (88) 94 11/18/18 00:00 98.7 95 18 140/81 (100) 96 11/17/18 21:47 Nasal Cannula 3.0 11/17/18 20:00 99.0 93 18 127/72 (90) 98 Intake and Output 11/17/18 11/18/18 19:00 07:00 Intake Total 660 ml 570 ml Balance 660 ml 570 ml Free Water 600 ml 200 ml IV Total 100 ml Tube Feeding 60 ml 270 ml # Voids 4 1 # Bowel Movements 1 1 Microbiology Date/Time Source Procedure Growth Status 11/16/18 16:00 Sputum Induced Gram Stain - Final Resulted 11/16/18 16:00 Sputum Induced Sputum Culture - Preliminary Resulted Current Medications Medications (Trade) Dose Ordered Sig/Inocente Route PRN Reason Start Time Stop Time Status Last Admin Dose Admin Acetaminophen (Tylenol) 650 mg Q4H PRN ORAL Mild Pain/Temp > 100.5 11/15/18 12:00 12/08/18 15:46 Chlorhexidine Gluconate (Marga-Hex 2%) 1 applic DAILY@2000 TOPIC 11/15/18 20:00 12/11/18 19:59 11/17/18 20:43 Dextrose (Dextrose 50%) 25 ml Q30M PRN IV Hypoglycemia 11/15/18 11:00 12/08/18 15:46 Dextrose (Dextrose 50%) 50 ml Q30M PRN IV Hypoglycemia 11/15/18 11:00 12/08/18 17:29 Famotidine (Pepcid) 20 mg DAILY ORAL 11/16/18 09:00 12/08/18 17:14 11/18/18 08:37 Ferrous Sulfate (Feosol) 325 mg DAILY ORAL 11/16/18 09:00 12/08/18 17:14 11/18/18 08:36 Folic Acid (Folate) 1 mg DAILY ORAL 11/16/18 09:00 12/14/18 15:15 11/18/18 08:37 Heparin Sodium (Porcine) (Heparin 5000 units/ml) 5,000 units EVERY 12 HOURS SUBQ 11/15/18 21:00 12/08/18 20:59 11/18/18 08:32 Levetiracetam 100 ml @ 400 mls/hr Q12HR IVPB 12/29/18 21:00 12/15/18 20:59 11/18/18 08:36 Levothyroxine Sodium (Synthroid) 75 mcg ACBREAKFAST ORAL 11/16/18 06:30 12/10/18 06:29 11/18/18 06:06 Magnesium Oxide (Mag-Ox 400mg) 400 mg THREE TIMES A DAY ORAL 11/15/18 13:00 12/14/18 08:59 11/18/18 17:09 Memantine (Namenda) 5 mg DAILY ORAL 11/16/18 09:00 12/08/18 17:14 11/18/18 08:36 Olanzapine (ZyPREXA) 2.5 mg DAILY ORAL 11/16/18 09:00 12/08/18 17:14 11/18/18 08:36 Polyethylene Glycol (Miralax) 17 gm DAILYPRN PRN ORAL Constipation 11/15/18 11:00 12/09/18 10:59 Thiamine HCl (Vitamin B1) 100 mg DAILY ORAL 11/16/18 09:00 12/08/18 17:14 11/18/18 08:36 Venlafaxine HCl (Effexor-XR) 150 mg DAILY ORAL 11/16/18 09:00 12/08/18 17:59 11/18/18 08:37 Cornelius Quintana MD Nov 18, 2018 17:36
[2018-11-18] MEDS ORDERED: Sterile Water Irrig 1000ml IRRIG ONE (17:38)
[2018-11-18] MEDS ORDERED: NS 500ML ONE (17:38)
--- NOTE | 2018-11-18 19:10 | NUR ---
HAND-OFF: Report given to JEFFREY CHRISTIANSON.
[2018-11-18 20:00] VITALS: BP 118/75
--- NOTE | 2018-11-18 20:00 | NUR ---
NURSE NOTES: Patient in bed, asleep, responsive to painful stimuli. Caregiver at bedside. NG tube in place, no residuals noted, running tube feeding. Right side triple lumen IJ in place, patent. Bed in lowest position, call light within reach, bed alarm on. No s/s distress or pain noted. Will continue to monitor.
[2018-11-18] MEDS: Dyna-Hex 2% Top Sol 2oz TOPIC SCH (20:40)
[2018-11-19] VITALS: BP 117/72
[2018-11-19 04:39] VITALS: BP 139/72
--- NOTE | 2018-11-19 05:00 | NUR ---
NURSE NOTES: Tube feeding off 1 hour before Synthroid medication.
[2018-11-19 06:38] LABS: EOSINOPHILS % (AUTO) 6.9 % (0.0-3.0); HEMATOCRIT 29.8 % (37.0-47.0); HEMOGLOBIN 9.7 G/DL (12.0-16.0); LYMPHOCYTES % (AUTO) 21.3 % (20.0-45.0); MEAN CORPUSCULAR VOLUME 90 FL (80-99); MONOCYTES % (AUTO) 8.2 % (1.0-10.0); NEUTROPHILS % (AUTO) 62.6 % (45.0-75.0); PLATELET COUNT 377 K/UL (150-450); RED BLOOD COUNT 3.31 M/UL (4.20-5.40); RED CELL DISTRIBUTION WIDTH 13.7 % (11.6-14.8); WHITE BLOOD COUNT 8.2 K/UL (4.8-10.8)
[2018-11-19 06:54] LABS: ANION GAP 7 mmol/L (5-15); BLOOD UREA NITROGEN 13 mg/dL (7-18); CALCIUM 8.7 MG/DL (8.5-10.1); CARBON DIOXIDE 27 MMOL/L (21-32); CHLORIDE 104 MMOL/L (98-107); CREATININE 0.9 MG/DL (0.55-1.30); POTASSIUM 3.9 MMOL/L (3.5-5.1); SODIUM 138 MMOL/L (136-145)
--- NOTE | 2018-11-19 07:19 | NUR ---
HAND-OFF: Report given to Terrell KIRBY RN.
[2018-11-19 08:00] VITALS: BP 135/85
--- NOTE | 2018-11-19 08:22 | NUR ---
CONCERNING MRI...PT UNABLE TO PERFORM MRI EXAM DUE TO THE SEVERE CONTRACTION OF HER HEAD, WHICH MAKES LAYING HER HEAD FLAT IMPOSSIBLE. HER LEGS ARE ALSO CONTRACTED AND WILL POSE AN ADDITIONAL POSITIONING ISSUE WHEN TRYING TO FIT HER THROUGH THE SCANNER BORE. CERTIFIED MORTICIAN KURT JO HAS BEEN INFORMED. ANAM
--- NOTE | 2018-11-19 09:02 | NUR ---
NURSE NOTES:WOUND CARE NOTES:Pt presents with Intertriginous dermatitis present on admission. Bilat groin,perineum and buttocks. Non-blanchable erythema with partial thickness opening gluteal cleft (L)6cm x (W)5cm. scattered satellite lesions mons-pubis. Serous blister noted to medial R heel (L)(L)5cm x(W)4cm. L heel boggy with non-blanchable erythema . Non-blanchable erythema noted to R hallux(L)2.5cm x (W)1.5cm.Pt has contractures . Soft pillow placed between knees for protection. Both heels off-loaded with pillow. Support surface mattress on bed. Tx.Plan:Apply Triad paste to Dermatitis perineal areas and buttocks . Optifoam drsg to Sacrum. Change every 3 days and prn. Cavilon Skin Barrier to R heel .Change every 7 days and prn. Cavilon Skin Barrier to Both heels. Cover with Optifoam drsg .Change every 7 days and prn.Off-load heels with Pillow. Air fluidized mattress. Pillow between knees. Reposition at least every 2hours or as tolerated.
[2018-11-19] MEDS: Thiamine 100mg tab ORAL SCH (09:20)
[2018-11-19] MEDS: levETIRAcetam 500mg/NS100ml 100 ML IVPB SCH ×2 (09:20→20:49)
[2018-11-19] MEDS: OLANZapine 2.5mg tab ORAL SCH (09:20)
[2018-11-19] MEDS: Memantine 5 MG TAB ORAL SCH (09:20)
[2018-11-19] MEDS: Magnesium Oxide 400mg tab ORAL SCH ×3 (09:20→17:40)
[2018-11-19] MEDS: Venlafaxine XR 150mg cap ORAL SCH (09:20)
[2018-11-19] MEDS: Heparin 5000 units/ml inj SUBQ SCH ×2 (09:21→20:49)
--- NOTE | 2018-11-19 09:29 | Pulmonology Progress Note ---
Assessment/Plan Problems: (1) Elevated d-dimer (2) Hypoxemia (3) Dehydration (4) ARF (acute renal failure) (5) UTI (urinary tract infection) (6) Episode of generalized weakness (7) Sepsis Assessment/Plan Optimize pulmonary hygiene/mobilize as tolerated PRN O2 Observe off Abx per ID Monitor volumes and renal function Aspiration precautions DVT Px: Hep SQ Monitor MS, F/U neuro recs and w/u, unable to do MRI Continue NGTF's, CLINICAL INFORMATICS PHYSICIAN therapy, ? GT FC Subjective Allergies: Coded Allergies: PENICILLINS (Verified Allergy, Unknown, 11/08/18) Subjective Events reviewed AFVSS O2 needs stable CXR noted MRI brain not done 2/2 contractures Per CG not speaking, selin TF's No distress, no cough, no SOB Objective Last 24 Hour Vital Signs Date Time Temp Pulse Resp B/P (MAP) Pulse Ox O2 Delivery O2 Flow Rate FiO2 11/19/18 08:00 97.2 94 18 135/85 (102) 96 11/19/18 04:39 97.2 70 18 139/72 (94) 96 11/19/18 00:00 97.5 87 18 117/72 (87) 97 11/18/18 22:15 Nasal Cannula 3.0 11/18/18 20:00 97.3 87 17 118/75 (89) 95 11/18/18 16:00 97.7 88 18 114/72 (86) 97 11/18/18 12:00 97.5 89 18 138/82 (100) 97 11/18/18 10:50 Nasal Cannula 3.0 Intake and Output 11/18/18 11/19/18 19:00 07:00 Intake Total 960 ml 570 ml Balance 960 ml 570 ml Free Water 200 ml 200 ml IV Total 400 ml 100 ml Tube Feeding 360 ml 270 ml # Voids 3 2 General Appearance: cachetic, other - non verbal HEENT: normocephalic, atraumatic, other - NGT Respiratory/Chest: chest wall non-tender, lungs clear, normal breath sounds, no respiratory distress, no accessory muscle use Cardiovascular: normal peripheral pulses, normal rate, regular rhythm Abdomen: normal bowel sounds, soft, non tender, no organomegaly, non distended , no mass Extremities: no cyanosis, no clubbing, no edema, other - contracted Microbiology Date/Time Source Procedure Growth Status 11/16/18 16:00 Sputum Induced Gram Stain - Final Resulted 11/16/18 16:00 Sputum Culture - Preliminary Staphylococcus Aureus Usual Respiratory Faina Resulted Laboratory Tests 11/19/18 05:27: White Blood Count 8.2, Red Blood Count 3.31L, Hemoglobin 9.7L, Hematocrit 29.8L , Mean Corpuscular Volume 90, Mean Corpuscular Hemoglobin 29.3, Mean Corpuscular Hemoglobin Concent 32.5, Red Cell Distribution Width 13.7, Platelet Count 377, Mean Platelet Volume 4.4L, Neutrophils (%) (Auto) 62.6, Lymphocytes ( %) (Auto) 21.3, Monocytes (%) (Auto) 8.2, Eosinophils (%) (Auto) 6.9H, Basophils (%) (Auto) 1.0, Sodium Level 138, Potassium Level 3.9, Chloride Level 104, Carbon Dioxide Level 27, Anion Gap 7, Blood Urea Nitrogen 13, Creatinine 0.9, Estimat Glomerular Filtration Rate > 60, Glucose Level 91, Calcium Level 8.7 Current Medications Medications (Trade) Dose Ordered Sig/Inocente Route PRN Reason Start Time Stop Time Status Last Admin Dose Admin Acetaminophen (Tylenol) 650 mg Q4H PRN ORAL Mild Pain/Temp > 100.5 11/15/18 12:00 12/08/18 15:46 Chlorhexidine Gluconate (Marga-Hex 2%) 1 applic DAILY@1999 TOPIC 11/15/18 20:00 12/11/18 19:59 11/18/18 20:40 Dextrose (Dextrose 50%) 25 ml Q30M PRN IV Hypoglycemia 11/15/18 11:00 12/08/18 15:46 Dextrose (Dextrose 50%) 50 ml Q30M PRN IV Hypoglycemia 11/15/18 11:00 12/08/18 17:29 Famotidine (Pepcid) 20 mg DAILY ORAL 11/16/18 09:00 12/08/18 17:14 11/19/18 09:20 Ferrous Sulfate (Feosol) 325 mg DAILY ORAL 11/16/18 09:00 12/08/18 17:14 11/19/18 09:20 Folic Acid (Folate) 1 mg DAILY ORAL 11/16/18 09:00 12/14/18 15:15 11/19/18 09:20 Heparin Sodium (Porcine) (Heparin 5000 units/ml) 5,000 units EVERY 12 HOURS SUBQ 11/15/18 21:00 12/08/18 20:59 11/19/18 09:21 Levetiracetam 100 ml @ 400 mls/hr Q12HR IVPB 11/15/18 21:00 12/15/18 20:59 11/19/18 09:20 Levothyroxine Sodium (Synthroid) 75 mcg ACBREAKFAST ORAL 11/16/18 06:30 12/10/18 06:29 11/19/18 06:08 Magnesium Oxide (Mag-Ox 400mg) 400 mg THREE TIMES A DAY ORAL 11/15/18 13:00 12/14/18 08:59 11/19/18 09:20 Memantine (Namenda) 5 mg DAILY ORAL 11/16/18 09:00 12/08/18 17:14 11/19/18 09:20 Olanzapine (ZyPREXA) 2.5 mg DAILY ORAL 11/16/18 09:00 12/08/18 17:14 11/19/18 09:20 Polyethylene Glycol (Miralax) 17 gm DAILYPRN PRN ORAL Constipation 11/15/18 11:00 12/09/18 10:59 Thiamine HCl (Vitamin B1) 100 mg DAILY ORAL 11/16/18 09:00 12/08/18 17:14 11/19/18 09:20 Venlafaxine HCl (Effexor-XR) 150 mg DAILY ORAL 11/16/18 09:00 12/08/18 17:59 11/19/18 09:20 Ahmet Mallory MD Nov 19, 2018 09:29
--- NOTE | 2018-11-19 11:39 | NUR ---
ST NOTE: ST WEEKLY AND SWALLOW STATUS ST WEEKLY: PT DID NOT MEET PO INTAKE GOALS. NURSING STAFF MET ASPIRATION PRECAUTIONS. CONTINUE SKILLED ST SERVICE. CURRENT STATUS: PER MD, DR. CONDE, TO RE-ASSESS PT'S SWALLOWING FUNCTION. NGT WAS INSERTED DUE TO PT CHANGED MENTAL STATUS. PT SEEN AT BEDSIDE IN AM. OPENED EYES BUT REDUCED AWAKE WITH MAX CUES. CAREGIVER IS ALSO AT BEDSIDE. PT IS LESS RESPONSIVE. PT WITH NC(3L). PT'S HEAD TENDED TO TILT TO L-SIDED AND UNABLE TO RE-POSITION IN THE MID-LINE. COMPLETED ORAL CARE. GIVEN MOIST SPONGE TO CLEAN PT'S TEETH, PT CLINGED HER TEETH AND DID NOT OPEN HER MOUTH EVEN GIVEN MAX CUES. UNABLE TO GIVE PO TRIAL AT THIS TIME. RECOMMENDATIONS: 1.DUE TO PT IS COGNITIVELY DECLINED, PT IS UNABLE TO RECEIVE ENOUGH NUTRITION AND HYDRATION NEEDS WITHOUT ARTIFICIAL FEEDINGS AT THIS TIME. LONG-TERM NONORAL FEEDING SHOULD BE CONSIDERED TO MEET NUTRITION AND HYDRATION NEEDS IF PT'S FAMILY AGREES. 2. CONTINUE NGT FEEDING. D/W RN, DEYSI. SPOKE TO PT'S AT BEDSIDE RE:PT'S CONDITIONS. PER PT'S FAMILY, REQUEST TO TRANSFER PT TO [facility].
[2018-11-19 12:00] VITALS: BP 129/75
--- NOTE | 2018-11-19 12:15 | NUR ---
RD ASSESSMENT & RECOMMENDATIONS SEE CARE ACTIVITY FOR COMPLETE ASSESSMENT DAILY ESTIMATED NEEDS: Needs based on Sepsis 60.5kg adj 25-30 kcals/kg 9969-8253 total kcals 1-2 g protein/kg 61-121 g total protein 25-30 mL/kg 8965-7328 total fluid mLs NUTRITION DIAGNOSIS: 1) Swallowing difficulty r/t dysphagia, ams as evidenced by pt seen by COMPUTER PROCESSING SCHEDULER recs for non oral feeds, pt currently on NGT feeds. 2) Altered nutrition related lab values r/t clinical status as evidenced by low K (3.3-> wnl), low Mg (1.1), and hypoglycemia (72) CURRENT TF: Osmolite 1.2 @30ml/hr x22 hrs PO DIET RECOMMENDATIONS: [place] Regular diet (texture per COMPUTER PROCESSING SCHEDULER) ENTERAL NUTRITION RECOMMENDATIONS: Osmolite 1.5 @50ml /hr x22 hrs to provide 1100ml, 1650 kcal, 69g prot, 838ml free H2O ---REC TF CHANGE TO BETTER MEET EST NEEDS--- - Start OSMOLITE 1.5 @20ml/hr x6 hrs. Advance as tolerated 10ml every 4-6 hrs to goal. - Flush per MD. HOB over 30 degrees - HOLD TF 1 hr before and after synthroid meds ADDITIONAL RECOMMENDATIONS: 1) Check lytes daily/ replete as needed 2) RE-calibrate bed scale for accurate CBW 3) Consider non oral feeds w/ con't poor po intake- TF recs as above 4) TWIN BID to maintain skin integrity 5) Monitor for hypoglycemia- rec D5 .
--- NOTE | 2018-11-19 12:37 | NUR ---
MAINTENANCE TECHNICIANCOOKIE MIXER HELPER SI: DEHYDRATION, HYPOTENSION T. 97.2 HR 90 RR 18 B/P 129/75 3L NC IS: HEPARIN SUBC KEPPRA ZYPREXA NGT SWALLOW EVAL MED/SURG STATUS
--- NOTE | 2018-11-19 12:37 | Infectious Diseases Prog Note ---
Assessment/Plan Assessment/Plan A 1. Sepsis resolving 2. Atelectasis/ pneumonia. 3. 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 Acute renal failure improved 6. Alzheimer dementia P 1. Observe off antibiotic Subjective ROS Limited/Unobtainable: Yes Constitutional: Reports: no symptoms Allergies: Coded Allergies: PENICILLINS (Verified Allergy, Unknown, 11/08/18) Objective Vital Signs Last 24 Hour Vital Signs Date Time Temp Pulse Resp B/P (MAP) Pulse Ox O2 Delivery O2 Flow Rate FiO2 11/19/18 12:00 97.2 90 18 129/75 (93) 96 11/19/18 09:00 Nasal Cannula 3.0 11/19/18 08:00 97.2 94 18 135/85 (102) 96 11/19/18 04:39 97.2 70 18 139/72 (94) 96 11/19/18 00:00 97.5 87 18 117/72 (87) 97 11/18/18 22:15 Nasal Cannula 3.0 11/18/18 20:00 97.3 87 17 118/75 (89) 95 11/18/18 16:00 97.7 88 18 114/72 (86) 97 Height (Feet): 5 Height (Inches): 8.00 Weight (Pounds): 167 General Appearance: no acute distress HEENT: mucous membranes moist Respiratory/Chest: lungs clear Cardiovascular: normal rate Abdomen: soft, non tender, other - NG tube feeding Extremities: no edema Neurologic/Psychiatric: unresponsiveness Microbiology Date/Time Source Procedure Growth Status 11/16/18 16:00 Sputum Induced Gram Stain - Final Resulted 11/16/18 16:00 Sputum Culture - Preliminary Staphylococcus Aureus Usual Respiratory Faina Resulted Laboratory Tests Test 11/19/18 05:27 White Blood Count 8.2 K/UL (4.8-10.8) Red Blood Count 3.31 M/UL (4.20-5.40) L Hemoglobin 9.7 G/DL (12.0-16.0) L Hematocrit 29.8 % (37.0-47.0) L Mean Corpuscular Volume 90 FL (80-99) Mean Corpuscular Hemoglobin 29.3 PG (27.0-31.0) Mean Corpuscular Hemoglobin Concent 32.5 G/DL (32.0-36.0) Red Cell Distribution Width 13.7 % (11.6-14.8) Platelet Count 377 K/UL (150-450) Mean Platelet Volume 4.4 FL (6.5-10.1) L Neutrophils (%) (Auto) 62.6 % (45.0-75.0) Lymphocytes (%) (Auto) 21.3 % (20.0-45.0) Monocytes (%) (Auto) 8.2 % (1.0-10.0) Eosinophils (%) (Auto) 6.9 % (0.0-3.0) H Basophils (%) (Auto) 1.0 % (0.0-2.0) Sodium Level 138 MMOL/L (136-145) Potassium Level 3.9 MMOL/L (3.5-5.1) Chloride Level 104 MMOL/L (98-107) Carbon Dioxide Level 27 MMOL/L (21-32) Anion Gap 7 mmol/L (5-15) Blood Urea Nitrogen 13 mg/dL (7-18) Creatinine 0.9 MG/DL (0.55-1.30) Estimat Glomerular Filtration Rate > 60 mL/min (>60) Glucose Level 91 MG/DL (74-106) Calcium Level 8.7 MG/DL (8.5-10.1) Current Medications Medications (Trade) Dose Ordered Sig/Inocente Route PRN Reason Start Time Stop Time Status Last Admin Dose Admin Acetaminophen (Tylenol) 650 mg Q4H PRN ORAL Mild Pain/Temp > 100.5 11/15/18 12:00 12/08/18 15:46 Chlorhexidine Gluconate (Marga-Hex 2%) 1 applic DAILY@1999 TOPIC 11/15/18 20:00 12/11/18 19:59 11/18/18 20:40 Dextrose (Dextrose 50%) 25 ml Q30M PRN IV Hypoglycemia 11/15/18 11:00 12/08/18 15:46 Dextrose (Dextrose 50%) 50 ml Q30M PRN IV Hypoglycemia 11/15/18 11:00 12/08/18 17:29 Famotidine (Pepcid) 20 mg DAILY ORAL 11/16/18 09:00 12/08/18 17:14 11/19/18 09:20 Ferrous Sulfate (Feosol) 325 mg DAILY ORAL 11/16/18 09:00 12/08/18 17:14 11/19/18 09:20 Folic Acid (Folate) 1 mg DAILY ORAL 11/16/18 09:00 12/14/18 15:15 11/19/18 09:20 Heparin Sodium (Porcine) (Heparin 5000 units/ml) 5,000 units EVERY 12 HOURS SUBQ 11/15/18 21:00 12/08/18 20:59 11/19/18 09:21 Levetiracetam 100 ml @ 400 mls/hr Q12HR IVPB 11/15/18 21:00 12/15/18 20:59 11/19/18 09:20 Levothyroxine Sodium (Synthroid) 75 mcg ACBREAKFAST ORAL 11/16/18 06:30 12/10/18 06:29 11/19/18 06:08 Magnesium Oxide (Mag-Ox 400mg) 400 mg THREE TIMES A DAY ORAL 11/15/18 13:00 12/14/18 08:59 11/19/18 09:20 Memantine (Namenda) 5 mg DAILY ORAL 11/16/18 09:00 12/08/18 17:14 11/19/18 09:20 Olanzapine (ZyPREXA) 2.5 mg DAILY ORAL 11/16/18 09:00 12/08/18 17:14 11/19/18 09:20 Polyethylene Glycol (Miralax) 17 gm DAILYPRN PRN ORAL Constipation 11/15/18 11:00 12/09/18 10:59 Thiamine HCl (Vitamin B1) 100 mg DAILY ORAL 11/16/18 09:00 12/08/18 17:14 11/19/18 09:20 Venlafaxine HCl (Effexor-XR) 150 mg DAILY ORAL 11/16/18 09:00 12/08/18 17:59 11/19/18 09:20 Jimy Rios MD Nov 19, 2018 12:37
--- NOTE | 2018-11-19 12:40 | NUR ---
COCKTAIL WAITRESS NOTES SPOKE WITH PT'S ANIYA AND DAUGHTER, FAMILY IS IN AGREEMENT WITH PEG PLACEMENT AT THIS TIME. ALSO WANTS PT TO BE REFERRED TO [facility] FOR PLACEMENT.ENCOURAGED FAMILY TO SPEAK WITH MD REGARDING PLAN OF CARE.
--- NOTE | 2018-11-19 15:55 | General Progress Note ---
Assessment/Plan Problem List: (1) UTI (urinary tract infection) ICD Codes: N39.0 - Urinary tract infection, site not specified SNOMED: 44733028 (2) Sepsis ICD Codes: A41.9 - Sepsis, unspecified organism SNOMED: 01270651 (3) ARF (acute renal failure) Assessment & Plan: better ICD Codes: N17.9 - Acute kidney failure, unspecified SNOMED: 35341410 (4) Encephalopathy acute ICD Codes: G93.40 - Encephalopathy, unspecified SNOMED: 21242518, 574858203 Assessment/Plan TF follow labs Discussed with dr Reeves MRI could not be done Dr crowell called for GT Discussed with Subjective Allergies: Coded Allergies: PENICILLINS (Verified Allergy, Unknown, 11/08/18) Subjective lethargic Objective Last 24 Hour Vital Signs Date Time Temp Pulse Resp B/P (MAP) Pulse Ox O2 Delivery O2 Flow Rate FiO2 11/19/18 12:00 97.2 90 18 129/75 (93) 96 11/19/18 09:00 Nasal Cannula 3.0 11/19/18 08:00 97.2 94 18 135/85 (102) 96 11/19/18 04:39 97.2 70 18 139/72 (94) 96 11/19/18 00:00 97.5 87 18 117/72 (87) 97 11/18/18 22:15 Nasal Cannula 3.0 11/18/18 20:00 97.3 87 17 118/75 (89) 95 11/18/18 16:00 97.7 88 18 114/72 (86) 97 Intake and Output 11/18/18 11/19/18 18:59 06:59 Intake Total 930 ml 600 ml Balance 930 ml 600 ml Free Water 200 ml 200 ml IV Total 400 ml 100 ml Tube Feeding 330 ml 300 ml # Voids 3 2 # Bowel Movements 1 Laboratory Tests 11/19/18 05:27: White Blood Count 8.2, Red Blood Count 3.31L, Hemoglobin 9.7L, Hematocrit 29.8L , Mean Corpuscular Volume 90, Mean Corpuscular Hemoglobin 29.3, Mean Corpuscular Hemoglobin Concent 32.5, Red Cell Distribution Width 13.7, Platelet Count 377, Mean Platelet Volume 4.4L, Neutrophils (%) (Auto) 62.6, Lymphocytes ( %) (Auto) 21.3, Monocytes (%) (Auto) 8.2, Eosinophils (%) (Auto) 6.9H, Basophils (%) (Auto) 1.0, Sodium Level 138, Potassium Level 3.9, Chloride Level 104, Carbon Dioxide Level 27, Anion Gap 7, Blood Urea Nitrogen 13, Creatinine 0.9, Estimat Glomerular Filtration Rate > 60, Glucose Level 91, Calcium Level 8.7 Height (Feet): 5 Height (Inches): 8.00 Weight (Pounds): 167 Cardiovascular: normal rate Respiratory/Chest: lungs clear Edema: no edema noted Generalized Ilir Rios MD Nov 19, 2018 15:55
[2018-11-19 16:00] VITALS: BP 123/83
--- NOTE | 2018-11-19 16:58 | Neurology Progress Note ---
Interim History Interim History Interim History Ms. Aquino can be aroused minimally on loud vocal and painful stimuli. She is mumbling but what she is saying cannot be understood. She is unable to communicate further. She is able to maintain arousal for a few minutes. She is poorly responsive. She is unable to follow any commands. She has had no further episodes of hypotension. Her blood pressures have been reasonable. As per the a and p technician the MRI could not be done as she was impossible to position in the scanner. Review of Systems Neuro Review of Systems Unable to obtain. Objective Physical Exam Last Vital Signs Date Time Temp Pulse Resp B/P (MAP) Pulse Ox O2 Delivery O2 Flow Rate FiO2 11/19/18 12:00 97.2 90 18 129/75 (93) 96 11/19/18 09:00 Nasal Cannula 3.0 Laboratory Tests Test 11/19/18 05:27 White Blood Count 8.2 K/UL (4.8-10.8) Red Blood Count 3.31 M/UL (4.20-5.40) L Hemoglobin 9.7 G/DL (12.0-16.0) L Hematocrit 29.8 % (37.0-47.0) L Mean Corpuscular Volume 90 FL (80-99) Mean Corpuscular Hemoglobin 29.3 PG (27.0-31.0) Mean Corpuscular Hemoglobin Concent 32.5 G/DL (32.0-36.0) Red Cell Distribution Width 13.7 % (11.6-14.8) Platelet Count 377 K/UL (150-450) Mean Platelet Volume 4.4 FL (6.5-10.1) L Neutrophils (%) (Auto) 62.6 % (45.0-75.0) Lymphocytes (%) (Auto) 21.3 % (20.0-45.0) Monocytes (%) (Auto) 8.2 % (1.0-10.0) Eosinophils (%) (Auto) 6.9 % (0.0-3.0) H Basophils (%) (Auto) 1.0 % (0.0-2.0) Sodium Level 138 MMOL/L (136-145) Potassium Level 3.9 MMOL/L (3.5-5.1) Chloride Level 104 MMOL/L (98-107) Carbon Dioxide Level 27 MMOL/L (21-32) Anion Gap 7 mmol/L (5-15) Blood Urea Nitrogen 13 mg/dL (7-18) Creatinine 0.9 MG/DL (0.55-1.30) Estimat Glomerular Filtration Rate > 60 mL/min (>60) Glucose Level 91 MG/DL (74-106) Calcium Level 8.7 MG/DL (8.5-10.1) Neurologic Exam Objective PHYSICAL EXAMINATION: GENERAL: She is a well-developed, relatively well-nourished lady, lying in bed, in no acute distress. HEAD: Normocephalic and atraumatic. EENT: Examination benign. NECK: No neck rigidity was observed. NEUROLOGIC EXAMINATION: MENTAL STATUS EXAMINATION: She could only be aroused briefly on deep pain. She was mumbling but what she was saying could not be understood. She did not follow any commands. She was significantly encephalopathic. SPEECH: She was mumbling. LANGUAGE: She was unable to comprehend or express herself. CRANIAL NERVE EXAMINATION: II: She blinked to threat on both sides. III, IV & : External ocular movements were present on oculocephalic maneuvers. The pupils were 3 mm in diameter, equal, round, regular, and reactive sluggishly to light. V & VII: The corneal reflexes were equally brisk and she had no facial asymmetry. VIII: She did respond to sounds and had no nystagmus. IX-X: The gag reflex was not tested. XI: The sternocleidomastoids and trapezii functioned minimally. XII: The tongue was in the midline without any fasciculations or atrophy. MOTOR SYSTEM: The tone was increased in all four extremities with a significant degree of spasticity. Examination of muscle mass revealed bilateral knee and ankle cord contractures. Examination of power was impossible to perform on individual muscle groups. She however moved all four extremities minimally on applying deep painful stimuli. SENSORY EXAMINATION: She responded appropriately to deep pain. She was unable to cooperate for other sensory modalities. REFLEXES: 2++ and bilaterally symmetrical at the biceps, triceps, brachioradialis, and knees, 0 at both ankles. The plantar responses were flexor bilaterally. COORDINATION, STANCE & GAIT: Could not be tested. Impression/Recommendations Diagnostic Impression 1. Ms. Stacy Aquino is a 68-year-old lady of unknown handedness, who does have a past history of anxiety, depression, breast cancer, and Alzheimer's disease. She was hospitalized on 11/08/2018 for increased weakness and change in behavior. She was discovered to have urinary tract infection, dehydration, and hypotension all of which have been treated, but she continues to have an altered mental state, which her family feels is worse than her baseline. 2. She can be aroused minimally on loud vocal and painful stimuli. She is mumbling but what she is saying cannot be understood. She is unable to communicate further. She is able to maintain arousal for a few minutes. She is poorly responsive. She is unable to follow any commands. She has had no further episodes of hypotension. Her blood pressures have been reasonable. As per the a and p technician the MRI could not be done as she was impossible to position in the scanner. 3. On neurological examination at this time, can be aroused minimally on deep pain. She only mumbles when aroused. She does not follow any commands. She is significantly encephalopathic. She however does not demonstrate any focal or lateralizing neurological findings. She is generally weak, has bilateral ankle cord contractures and exhibits spasticity. 4. Laboratory data obtained thus far have revealed that she is anemic with a hemoglobin of 9.0 G. Her blood gases revealed that her pCO2 was down to 31.8 and her pO2 was 103.2. Her chemistry panel on admission revealed her BUN was elevated to 20 and creatinine was elevated at 1.6. Her BNP was elevated to 577, her albumin was low at 2.9, her TSH was low at 0.086. The urinalysis on admission revealed 3+ leukocyte esterase, too numerous to count white blood cells, but 0 red blood cells per high power field. 5. Further laboratory tests have revealed a low T3 at 0.8 and a low T4 at 0.68. The B12 is normal but the folate is low at 7.2. 6. The CT of the brain done on 11/12/18 revealed atrophy and hydrocephalus ex- vacuo. 7. The EEG done on 11/14/18 revealed a moderately severe metabolic encephalopathy. In addition T3 and T4 sharp discharges were seen which could be indicative of either brain irritability or inter-ictal discharges. 8. A brain MRI could not be done as she could not be positioned in the scanner due to her contractures. 9. The patient's history, neurological examination and imaging are most compatible with an advanced dementia with a superimposed encephalopathy most probably related to her recent urinary tract infection, hypotension, and fluid and electrolyte imbalance. 10. The episode of hypotension on 11/13/18 could have worsened the encephalopathy. Recommendations 1. Continue present management. 2. Try to keep BP > 110 at all times. 3. Treatment of hypothyroidism. 4. Folic acid 1 mg PO daily. 5. Continue Keppra 500 q 12 H IV. 6. Observe. Harley Reeves M.D., M.S.P.H. Harley Reeves MD Nov 19, 2018 16:58
--- NOTE | 2018-11-19 17:17 | NUR ---
NURSE NOTES: 0800 Received patient in bed, responsive. non verbal at this time. with no sob. NGT intact, Osmolite feed running at 30cc/hr. Right IJ double lumen intact. Caregiver at bedside. Bed in lowest position. For MRI, apparently unable to be done, d/t contracture. Leandro Marti aware
--- NOTE | 2018-11-19 17:19 | NUR ---
NURSE NOTES: Dr. Rios seen patient. with GI consult with Dr. Hood order for PEG placement. agreed, aware. Dr. Colón notified.
--- NOTE | 2018-11-19 19:28 | NUR ---
HAND-OFF: Report given to MEGHAN Duval.
--- NOTE | 2018-11-19 19:30 | NUR ---
NURSE NOTES: Received patient on bed awake but non verbal, no s/s of any distress, Right IJ triple lumen patent and intact, NG tube patent and intact, Bed in low position and locked, will continue to monitor.
[2018-11-19 20:00] VITALS: BP 131/74
[2018-11-19] MEDS: Dyna-Hex 2% Top Sol 2oz TOPIC SCH (20:49)
--- NOTE | 2018-11-19 21:41 | General Progress Note ---
Assessment/Plan Assessment/Plan GI consult Dictated Will place PEG in am Thank you P MD Sana Subjective Allergies: Coded Allergies: PENICILLINS (Verified Allergy, Unknown, 11/08/18) Objective Last 24 Hour Vital Signs Date Time Temp Pulse Resp B/P (MAP) Pulse Ox O2 Delivery O2 Flow Rate FiO2 11/19/18 16:00 97.9 89 18 123/83 (96) 96 11/19/18 12:00 97.2 90 18 129/75 (93) 96 11/19/18 09:00 Nasal Cannula 3.0 11/19/18 08:00 97.2 94 18 135/85 (102) 96 11/19/18 04:39 97.2 70 18 139/72 (94) 96 11/19/18 00:00 97.5 87 18 117/72 (87) 97 11/18/18 22:15 Nasal Cannula 3.0 Intake and Output 11/18/18 11/19/18 19:00 07:00 Intake Total 960 ml 570 ml Balance 960 ml 570 ml Free Water 200 ml 200 ml IV Total 400 ml 100 ml Tube Feeding 360 ml 270 ml # Voids 3 2 Laboratory Tests 11/19/18 05:27: White Blood Count 8.2, Red Blood Count 3.31L, Hemoglobin 9.7L, Hematocrit 29.8L , Mean Corpuscular Volume 90, Mean Corpuscular Hemoglobin 29.3, Mean Corpuscular Hemoglobin Concent 32.5, Red Cell Distribution Width 13.7, Platelet Count 377, Mean Platelet Volume 4.4L, Neutrophils (%) (Auto) 62.6, Lymphocytes ( %) (Auto) 21.3, Monocytes (%) (Auto) 8.2, Eosinophils (%) (Auto) 6.9H, Basophils (%) (Auto) 1.0, Sodium Level 138, Potassium Level 3.9, Chloride Level 104, Carbon Dioxide Level 27, Anion Gap 7, Blood Urea Nitrogen 13, Creatinine 0.9, Estimat Glomerular Filtration Rate > 60, Glucose Level 91, Calcium Level 8.7 Height (Feet): 5 Height (Inches): 8.00 Weight (Pounds): 167 Darryl Hood MD Nov 19, 2018 21:40
[2018-11-19] MEDS: D5 1/2NS 1,000 ML IV SCH (22:28)
[2018-11-20] VITALS (19 sets, daily range): BP systolic 94–151; BP diastolic 51–78
[2018-11-20] MEDS ORDERED: Vancomycin 500 MG in D5W 110 ML IVPB SCH (06:00)
--- NOTE | 2018-11-20 07:25 | NUR ---
HAND-OFF: Report given to Nat CHRISTIANSON.
[2018-11-20] MEDS ORDERED: DiphenhydrAMINE 50mg/ml Inj IVP PRN (07:45)
[2018-11-20] MEDS ORDERED: Midazolam 2mg/2ml Inj IVP PRN (07:45)
[2018-11-20] MEDS ORDERED: Atropine Inj 1mg/10ml Syr IV PRN (07:45)
[2018-11-20] MEDS ORDERED: fentaNYL 100 mcg/2 mL IV PRN (07:45)
--- NOTE | 2018-11-20 07:46 | Anethesia Preoperative Eval ---
Anesthesia Pre-op PMH/ROS General Date of Evaluation: Nov 20, 2018 Time of Evaluation: 07:36 Anesthesiologist: francoise ASA Score: ASA 3 Mallampati Score Class I : Soft palate, uvula, fauces, pillars visible Class II: Soft palate, uvula, fauces visible Class III: Soft palate, base of uvula visible Class IV: Only hard plate visible Mallampati Classification: Class II Surgeon: mervat Diagnosis: dysphagia Surgical Procedure: peg Anesthesia History: none Social History: smoking - former smoker Family History: no anesthesia problems Allergies: Coded Allergies: PENICILLINS (Verified Allergy, Unknown, 11/08/18) Medications: see eMAR Patient NPO?: Yes Past Medical History Neurologic/Psychiatric: Reports: dementia - alzheimer disease, depression/ anxiety, other - weakness Hematology/Immune: Reports: other - breast cancer Other: obesity Anesthesia Pre-op Phys. Exam Physician Exam Last Vital Signs Date Time Temp Pulse Resp B/P (MAP) Pulse Ox O2 Delivery O2 Flow Rate FiO2 11/20/18 04:00 97.6 92 20 100/65 (77) 96 11/19/18 21:00 Nasal Cannula 3.0 Constitutional: NAD Neurologic: CN 2-12 intact Cardiovascular: RRR Respiratory: CTA Gastrointestinal: S/NT/ND Airway Exam Mallampati Score: Class II MO: limited Neck: flexible right ij line TMD: 2fb ROM: limited Anesthesia Pre-op A/P Labs Labs Test 11/19/18 05:27 White Blood Count 8.2 K/UL (4.8-10.8) Red Blood Count 3.31 M/UL (4.20-5.40) Hemoglobin 9.7 G/DL (12.0-16.0) Hematocrit 29.8 % (37.0-47.0) Mean Corpuscular Volume 90 FL (80-99) Mean Corpuscular Hemoglobin 29.3 PG (27.0-31.0) Mean Corpuscular Hemoglobin Concent 32.5 G/DL (32.0-36.0) Red Cell Distribution Width 13.7 % (11.6-14.8) Platelet Count 377 K/UL (150-450) Mean Platelet Volume 4.4 FL (6.5-10.1) Neutrophils (%) (Auto) 62.6 % (45.0-75.0) Lymphocytes (%) (Auto) 21.3 % (20.0-45.0) Monocytes (%) (Auto) 8.2 % (1.0-10.0) Eosinophils (%) (Auto) 6.9 % (0.0-3.0) Basophils (%) (Auto) 1.0 % (0.0-2.0) Sodium Level 138 MMOL/L (136-145) Potassium Level 3.9 MMOL/L (3.5-5.1) Chloride Level 104 MMOL/L (98-107) Carbon Dioxide Level 27 MMOL/L (21-32) Anion Gap 7 mmol/L (5-15) Blood Urea Nitrogen 13 mg/dL (7-18) Creatinine 0.9 MG/DL (0.55-1.30) Estimat Glomerular Filtration Rate > 60 mL/min (>60) Glucose Level 91 MG/DL (74-106) Calcium Level 8.7 MG/DL (8.5-10.1) Risk Assessment & Plan Assessment: asa3 Plan: mac Status Change Before Surgery: No Pre-Antibiotics Drug: Taylor Parks MD Nov 20, 2018 07:46
[2018-11-20] MEDS ORDERED: Propofol 200mg/20ml IV ONE (08:00)
[2018-11-20] MEDS ORDERED: Lidocaine 1% MPF 10mg/ml 5ml ONE (08:00)
--- NOTE | 2018-11-20 08:00 | NUR ---
NURSE NOTES: Pt in bed a/o x O, pt in nonverbal, in no apparent distress. VS stable. Patent triple lumen to Right IJ, patent, dressing D/C/I. NG tube in place, feeding off. WIC with suction at bedside. Pt on 2L NC. Pt left in bed in low position, bed locked, alarm on, HOB at 30 degrees, caregiver at bedside.
[2018-11-20] MEDS ORDERED: NS 500ML IVPB ONE (08:26)
--- NOTE | 2018-11-20 08:33 | General Progress Note ---
Assessment/Plan Assessment/Plan Assessment - OBS - dysphagia - anemia - UTI Recommendations - Abx completed - Elevate HOB - Check Iron panel - EGD with PEG today Subjective Allergies: Coded Allergies: PENICILLINS (Verified Allergy, Unknown, 11/08/18) Subjective seen in GI lab non verbal NPO for PEG Objective Last 24 Hour Vital Signs Date Time Temp Pulse Resp B/P (MAP) Pulse Ox O2 Delivery O2 Flow Rate FiO2 11/20/18 04:00 97.6 92 20 100/65 (77) 96 11/20/18 00:00 97.8 96 20 114/60 (78) 95 11/19/18 21:00 Nasal Cannula 3.0 11/19/18 20:00 97.5 95 20 131/74 (93) 97 11/19/18 16:00 97.9 89 18 123/83 (96) 96 11/19/18 12:00 97.2 90 18 129/75 (93) 96 11/19/18 09:00 Nasal Cannula 3.0 Intake and Output 11/19/18 11/20/18 19:00 07:00 Intake Total 730 ml 950 ml Balance 730 ml 950 ml Free Water 400 ml 200 ml IV Total 600 ml Tube Feeding 330 ml 150 ml # Voids 2 Height (Feet): 5 Height (Inches): 6.00 Weight (Pounds): 202 Objective Elderly WW NCAT supple CTA RR Soft NT ND no edema, contracted OBS Darryl Hood MD Nov 20, 2018 08:33
--- NOTE | 2018-11-20 08:33 | Pre-Procedure Note/Attestation ---
Pre-Procedure Note/Attestation Complete Prior to Procedure Planned Procedure: not applicable Procedure Narrative: EGD/PEG Indications for Procedure Pre-Operative Diagnosis: Dysphagia Attestation I attest that I discussed the nature of the procedure; its benefits; risks and complications; and alternatives (and the risks and benefits of such alternatives ), prior to the procedure, with the patient (or the patient's legal branch sales and service representative). I attest that, if there was a reasonable possibility of needing a blood transfusion, the patient (or the patient's legal branch sales and service representative) was given the [facility] standardized written summary, pursuant to the [place] Trey Blood Safety Act ([place] Health and Safety Code # 1645, as amended). I attest that I re-evaluated the patient just prior to the surgery and that there has been no change in the patient's H&P, except as documented below: Darryl Hood MD Nov 20, 2018 08:33
[2018-11-20 08:38] LABS: BASOPHILS % (AUTO) 0.9 % (0.0-2.0); EOSINOPHILS % (AUTO) 7.2 % (0.0-3.0); HEMATOCRIT 28.4 % (37.0-47.0); HEMOGLOBIN 9.2 G/DL (12.0-16.0); LYMPHOCYTES % (AUTO) 17.6 % (20.0-45.0); MEAN CORPUSCULAR VOLUME 88 FL (80-99); MONOCYTES % (AUTO) 7.8 % (1.0-10.0); NEUTROPHILS % (AUTO) 66.5 % (45.0-75.0); PLATELET COUNT 392 K/UL (150-450); RED BLOOD COUNT 3.21 M/UL (4.20-5.40); RED CELL DISTRIBUTION WIDTH 13.4 % (11.6-14.8); WHITE BLOOD COUNT 8.9 K/UL (4.8-10.8)
--- NOTE | 2018-11-20 08:48 | NUR ---
NURSE NOTES: Pt down for procedure at 0815 in no acute distress VS stable Blood draw samples taken to lab at 0814
--- NOTE | 2018-11-20 09:31 | Immediate Post-Op Evaluation ---
Immediate Post-Op Evalulation Immediate Post-Op Evalulation Procedure: egd/peg Date of Evaluation: Nov 20, 2018 Time of Evaluation: 09:18 IV Fluids: 75ml 0.9ns Blood Products: none Estimated Blood Loss: negligible Blood Pressure Systolic: 101 Blood Pressure Diastolic: 54 Pulse Rate: 80 Respiratory Rate: 18 O2 Sat by Pulse Oximetry: 93 Temperature (Fahrenheit): 97.0 Pain Score (1-10): 0 Nausea: No Vomiting: No Complications none Patient Status: awake, reacts, patent Hydration Status: adequate Drug: Taylor Parks MD Nov 20, 2018 09:31
--- NOTE | 2018-11-20 09:32 | 48 Hour Post Anesthesia Eval ---
Post Anesthesia Evaluation Procedure: egd/peg Date of Evaluation: Nov 20, 2018 Time of Evaluation: 09:20 Blood Pressure Systolic: 98 0: 55 Pulse Rate: 79 Respiratory Rate: 18 Temperature (Fahrenheit): 97.0 O2 Sat by Pulse Oximetry: 97 Airway: patent Nausea: No Vomiting: No Pain Intensity: 0 Hydration Status: adequate Cardiopulmonary Status: stable Mental Status/LOC: patient returned to baseline Post-Anesthesia Complications: none Follow-up care needed: N/A Taylor John MD Nov 20, 2018 09:32
[2018-11-20 09:40] LABS: ANION GAP 6 mmol/L (5-15); BLOOD UREA NITROGEN 10 mg/dL (7-18); CALCIUM 8.2 MG/DL (8.5-10.1); CARBON DIOXIDE 28 MMOL/L (21-32); CHLORIDE 104 MMOL/L (98-107); CREATININE 0.9 MG/DL (0.55-1.30); POTASSIUM 3.6 MMOL/L (3.5-5.1); SODIUM 138 MMOL/L (136-145)
--- NOTE | 2018-11-20 09:50 | NUR ---
Pt returned form PEG placement at 0950, pt in no acute distress. VS stable. Upper midline dressign D/C/I. Will continue to monitor
--- NOTE | 2018-11-20 10:14 | Endoscopy Procedure Note ---
Endoscopy Procedure Note General Indication for Procedure: dysphagia Procedures Performed: EGD, PEG Operative Findings/Diagnosis: mild erosive gastritis, biopsied, PEG placed - post marking at 5-6 cm Specimen: yes Pt Tolerated Procedure Well: Yes Estimated Blood Loss: none Anesthesia Anesthesiologist: Pardeep mcmahon Anesthesia: MAC Medications Medication Given: see anesthesia record Inserted Devices Implant(s) used?: No GI Core Measures 50 yrs or older w/o bx or poly: Not Applicable 10yrs. F/U not recommended: Not Applicable If not recommended, why?: Darryl Hood MD Nov 20, 2018 10:13
--- NOTE | 2018-11-20 10:15 | Brief Operative Note ---
Immediate Post Operative Note Operative Note Chief Complaint: dysphagia Pre-op Diagnosis: Dysphagia Procedure: esophagogastroduodenoscopy bx, PEG Post-op Diagnosis: mild erosive gastritis Surgeon: mervat Anesthesiologist: rema reid Anesthesia: MAC Specimen: yes Complications: none Condition: stable Fluids: recorded Estimated Blood Loss: none Drains: none Implant(s) used?: No Darryl Hood MD Nov 20, 2018 10:15
[2018-11-20] MEDS ORDERED: Miralax 17gm pkt GT PRN (10:30)
--- NOTE | 2018-11-20 10:38 | NUR ---
DISCHARGE PLANNING ADMISSION CLINICALS HAVE BEEN FAXED TO: KAREEM BLAKE P:[phone] F:[phone] Addendum: 11/20/18 at 1423 by HARPREET AUGUSTE CM SPOKE WITH BEL[facility] OLGUIN THEY ARE HAVING STAFFING ISSUES AND ARE UNABLE TO ADMIT ANY PATIENTS.
[2018-11-20] MEDS ORDERED: Memantine 5 MG TAB PEG SCH (11:00)
[2018-11-20] MEDS ORDERED: OLANZapine 2.5mg tab GT SCH (11:00)
[2018-11-20] MEDS ORDERED: Thiamine 100mg tab GT SCH (11:00)
[2018-11-20] MEDS ORDERED: Venlafaxine HCl 37.5mg Tab GT SCH ×2 (11:15→18:00)
[2018-11-20] MEDS: levETIRAcetam 500mg/NS100ml 100 ML IVPB SCH ×2 (11:41→22:06)
--- NOTE | 2018-11-20 11:41 | NUR ---
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 97.8 HR 83 RR 16 B/P 110/68 IS: ZYPREXA PO EFFEXOR PO IVF D5NS@ 75ML/HR MED/SURG STATUS
[2018-11-20] MEDS: Heparin 5000 units/ml inj SUBQ SCH ×2 (11:46→21:00)
[2018-11-20] MEDS: D5 1/2NS 1,000 ML IV SCH (11:47)
--- NOTE | 2018-11-20 12:28 | Pulmonology Progress Note ---
Assessment/Plan Problems: (1) Elevated d-dimer (2) Hypoxemia (3) Dehydration (4) ARF (acute renal failure) (5) UTI (urinary tract infection) (6) Episode of generalized weakness (7) Sepsis (8) PEG (percutaneous endoscopic gastrostomy) status Assessment/Plan Optimize pulmonary hygiene/mobilize as tolerated PRN O2 Observe off Abx per ID Monitor volumes and renal function Aspiration precautions DVT Px: Hep SQ Monitor MS, F/U neuro recs and w/u, unable to do MRI Start GT feeds when ok with GI F/U CT AP FC Subjective Allergies: Coded Allergies: PENICILLINS (Verified Allergy, Unknown, 11/08/18) Subjective Events reviewed AFVSS O2 needs stable S/P PEG S/p CT AP Per CG not speaking, selin TF's No distress, no cough, no SOB Objective Last 24 Hour Vital Signs Date Time Temp Pulse Resp B/P (MAP) Pulse Ox O2 Delivery O2 Flow Rate FiO2 11/20/18 09:50 97.8 85 16 110/68 (82) 94 11/20/18 09:38 97.8 78 13 103/61 99 Nasal Cannula 3 11/20/18 09:32 79 18 97 11/20/18 09:31 80 18 93 11/20/18 09:25 77 16 107/60 98 Nasal Cannula 3 11/20/18 09:15 78 14 103/55 98 Nasal Cannula 3 11/20/18 09:10 79 15 98/55 97 Nasal Cannula 3 11/20/18 09:06 97.0 80 18 101/54 93 Nasal Cannula 3 11/20/18 09:00 Nasal Cannula 3.0 11/20/18 08:00 97.6 85 19 133/76 (95) 96 11/20/18 04:00 97.6 92 20 100/65 (77) 96 11/20/18 00:00 97.8 96 20 114/60 (78) 95 11/19/18 21:00 Nasal Cannula 3.0 11/19/18 20:00 97.5 95 20 131/74 (93) 97 11/19/18 16:00 97.9 89 18 123/83 (96) 96 Intake and Output 11/19/18 11/20/18 19:00 07:00 Intake Total 730 ml 950 ml Balance 730 ml 950 ml Free Water 400 ml 200 ml IV Total 600 ml Tube Feeding 330 ml 150 ml # Voids 2 General Appearance: no acute distress, cachetic, other - non verbal HEENT: normocephalic, atraumatic, anicteric, mucous membranes moist Respiratory/Chest: chest wall non-tender, lungs clear, normal breath sounds, no respiratory distress, no accessory muscle use Cardiovascular: normal peripheral pulses, normal rate, regular rhythm Abdomen: normal bowel sounds, soft, non tender, no organomegaly, non distended , no mass, other - GT Extremities: no cyanosis, no clubbing, no edema Laboratory Tests 11/20/18 08:15: White Blood Count 8.9, Red Blood Count 3.21L, Hemoglobin 9.2L, Hematocrit 28.4L , Mean Corpuscular Volume 88, Mean Corpuscular Hemoglobin 28.8, Mean Corpuscular Hemoglobin Concent 32.5, Red Cell Distribution Width 13.4, Platelet Count 392, Mean Platelet Volume 4.4L, Neutrophils (%) (Auto) 66.5, Lymphocytes ( %) (Auto) 17.6L, Monocytes (%) (Auto) 7.8, Eosinophils (%) (Auto) 7.2H, Basophils (%) (Auto) 0.9, Prothrombin Time 10.5, Prothromb Time International Ratio 1.0, Activated Partial Thromboplast Time 36H, Sodium Level 138, Potassium Level 3.6, Chloride Level 104, Carbon Dioxide Level 28, Anion Gap 6, Blood Urea Nitrogen 10, Creatinine 0.9, Estimat Glomerular Filtration Rate > 60, Glucose Level 86, Calcium Level 8.2L Current Medications Medications (Trade) Dose Ordered Sig/Inocente Route PRN Reason Start Time Stop Time Status Last Admin Dose Admin Acetaminophen (Tylenol) 650 mg Q4H PRN ORAL Mild Pain/Temp > 100.5 11/15/18 12:00 12/08/18 15:46 Chlorhexidine Gluconate (Marga-Hex 2%) 1 applic DAILY@1999 TOPIC 11/15/18 20:00 12/11/18 19:59 11/19/18 20:49 Dextrose (Dextrose 50%) 25 ml Q30M PRN IV Hypoglycemia 11/15/18 11:00 12/08/18 15:46 Dextrose (Dextrose 50%) 50 ml Q30M PRN IV Hypoglycemia 11/15/18 11:00 12/08/18 17:29 Dextrose/Sodium Chloride 1,000 ml @ 75 mls/hr [id number] IV 11/19/18 21:45 12/19/18 21:44 11/20/18 11:47 Famotidine (Pepcid) 20 mg DAILY GT 11/20/18 11:00 12/20/18 10:59 11/20/18 11:41 Folic Acid (Folate) 1 mg DAILY PEG 11/20/18 11:00 12/20/18 10:59 11/20/18 11:41 Heparin Sodium (Porcine) (Heparin 5000 units/ml) 5,000 units EVERY 12 HOURS SUBQ 11/15/18 21:00 12/08/18 20:59 11/20/18 11:46 Levetiracetam 100 ml @ 400 mls/hr Q12HR IVPB 11/15/18 21:00 12/15/18 20:59 11/20/18 11:41 Levothyroxine Sodium (Synthroid) 75 mcg ACBREAKFAST ORAL 11/16/18 06:30 12/10/18 06:29 11/20/18 06:05 Magnesium Oxide (Mag-Ox 400mg) 400 mg THREE TIMES A DAY PEG 11/20/18 13:00 12/14/18 08:59 Memantine (Namenda) 5 mg DAILY PEG 11/20/18 11:00 12/20/18 10:59 11/20/18 11:40 Olanzapine (ZyPREXA) 2.5 mg DAILY GT 11/20/18 11:00 12/20/18 10:59 11/20/18 11:41 Polyethylene Glycol (Miralax) 17 gm DAILYPRN PRN GT Constipation 11/20/18 10:30 12/09/18 10:59 Thiamine HCl (Vitamin B1) 100 mg DAILY GT 11/20/18 11:00 12/20/18 10:59 11/20/18 11:41 Venlafaxine HCl (Effexor) 75 mg TWICE A DAY GT 11/20/18 18:00 12/20/18 17:59 Ahmet Mallory MD Nov 20, 2018 12:28
[2018-11-20] MEDS: Magnesium Oxide 400mg tab PEG SCH ×2 (12:36→17:19)
--- NOTE | 2018-11-20 12:57 | Diagnostic Imaging Report ---
Indication: Abdominal pain Technique: Continuous helical transaxial imaging of the abdomen was obtained from the lung bases to the iliac crests. No IV contrast given. Coronal 2-D reformats were also obtained. Study obtained in a Siemens sensation [address] Automatic Exposure Control was utilized. Total Dose length Product (DLP): 999.[address] Dose Index Volume (CTDIvol): 18.6 mGy Comparison: None Findings: Gastrostomy tube is in good position within the lumen of the stomach. There is contrast in the stomach. There is no evidence of extra luminal contrast material. Posterior basal consolidation with air bronchograms noted. Consider pneumonia. Gallbladder is distended. There is no hydronephrosis. Aorta is moderately calcified. IMPRESSION: Gastrostomy in good position. No extravasation. Posterior basilar consolidation. Consider pneumonia. Other incidental findings as above The CT scanner at [facility] is accredited by the [employer] and the scans are performed using dose optimization techniques as appropriate to a performed exam including Automatic Exposure control.
--- NOTE | 2018-11-20 13:30 | NUR ---
NURSE NOTES: Per Dr. Rios, all medications now via GT. Please refer to EMAR for changes
--- NOTE | 2018-11-20 13:49 | Infectious Diseases Prog Note ---
Assessment/Plan Assessment/Plan A 1. Sepsis resolved 2. Atelectasis/ pneumonia. 3. 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 Acute renal failure improved 6. Alzheimer dementia 7. Gastrostomy status P 1. Observe off antibiotic Subjective ROS Limited/Unobtainable: Yes Gastrointestinal/Abdominal: Reports: other - had GT placement Allergies: Coded Allergies: PENICILLINS (Verified Allergy, Unknown, 11/08/18) Objective Vital Signs Last 24 Hour Vital Signs Date Time Temp Pulse Resp B/P (MAP) Pulse Ox O2 Delivery O2 Flow Rate FiO2 11/20/18 09:50 97.8 85 16 110/68 (82) 94 11/20/18 09:38 97.8 78 13 103/61 99 Nasal Cannula 3 11/20/18 09:32 79 18 97 11/20/18 09:31 80 18 93 11/20/18 09:25 77 16 107/60 98 Nasal Cannula 3 11/20/18 09:15 78 14 103/55 98 Nasal Cannula 3 11/20/18 09:10 79 15 98/55 97 Nasal Cannula 3 11/20/18 09:06 97.0 80 18 101/54 93 Nasal Cannula 3 11/20/18 09:00 Nasal Cannula 3.0 11/20/18 08:00 97.6 85 19 133/76 (95) 96 11/20/18 04:00 97.6 92 20 100/65 (77) 96 11/20/18 00:00 97.8 96 20 114/60 (78) 95 11/19/18 21:00 Nasal Cannula 3.0 11/19/18 20:00 97.5 95 20 131/74 (93) 97 11/19/18 16:00 97.9 89 18 123/83 (96) 96 Height (Feet): 5 Height (Inches): 6.00 Weight (Pounds): 202 General Appearance: no acute distress HEENT: mucous membranes moist Respiratory/Chest: normal breath sounds Cardiovascular: normal rate Abdomen: soft, non tender, other - GT inplace Extremities: no edema Neurologic/Psychiatric: unresponsiveness Laboratory Tests Test 11/20/18 08:15 White Blood Count 8.9 K/UL (4.8-10.8) Red Blood Count 3.21 M/UL (4.20-5.40) L Hemoglobin 9.2 G/DL (12.0-16.0) L Hematocrit 28.4 % (37.0-47.0) L Mean Corpuscular Volume 88 FL (80-99) Mean Corpuscular Hemoglobin 28.8 PG (27.0-31.0) Mean Corpuscular Hemoglobin Concent 32.5 G/DL (32.0-36.0) Red Cell Distribution Width 13.4 % (11.6-14.8) Platelet Count 392 K/UL (150-450) Mean Platelet Volume 4.4 FL (6.5-10.1) L Neutrophils (%) (Auto) 66.5 % (45.0-75.0) Lymphocytes (%) (Auto) 17.6 % (20.0-45.0) L Monocytes (%) (Auto) 7.8 % (1.0-10.0) Eosinophils (%) (Auto) 7.2 % (0.0-3.0) H Basophils (%) (Auto) 0.9 % (0.0-2.0) Prothrombin Time 10.5 SEC (9.30-11.50) Prothromb Time International Ratio 1.0 (0.9-1.1) Activated Partial Thromboplast Time 36 SEC (23-33) H Sodium Level 138 MMOL/L (136-145) Potassium Level 3.6 MMOL/L (3.5-5.1) Chloride Level 104 MMOL/L (98-107) Carbon Dioxide Level 28 MMOL/L (21-32) Anion Gap 6 mmol/L (5-15) Blood Urea Nitrogen 10 mg/dL (7-18) Creatinine 0.9 MG/DL (0.55-1.30) Estimat Glomerular Filtration Rate > 60 mL/min (>60) Glucose Level 86 MG/DL (74-106) Calcium Level 8.2 MG/DL (8.5-10.1) L Current Medications Medications (Trade) Dose Ordered Sig/Inocente Route PRN Reason Start Time Stop Time Status Last Admin Dose Admin Acetaminophen (Tylenol) 650 mg Q4H PRN ORAL Mild Pain/Temp > 100.5 11/15/18 12:00 12/08/18 15:46 Chlorhexidine Gluconate (Marga-Hex 2%) 1 applic DAILY@1999 TOPIC 11/15/18 20:00 12/11/18 19:59 11/19/18 20:49 Dextrose (Dextrose 50%) 25 ml Q30M PRN IV Hypoglycemia 11/15/18 11:00 12/08/18 15:46 Dextrose (Dextrose 50%) 50 ml Q30M PRN IV Hypoglycemia 11/15/18 11:00 12/08/18 17:29 Dextrose/Sodium Chloride 1,000 ml @ 75 mls/hr [id number] IV 11/19/18 21:45 12/19/18 21:44 11/20/18 11:47 Famotidine (Pepcid) 20 mg DAILY GT 11/20/18 11:00 12/20/18 10:59 11/20/18 11:41 Folic Acid (Folate) 1 mg DAILY PEG 11/20/18 11:00 12/20/18 10:59 11/20/18 11:41 Heparin Sodium (Porcine) (Heparin 5000 units/ml) 5,000 units EVERY 12 HOURS SUBQ 11/15/18 21:00 12/08/18 20:59 11/20/18 11:46 Levetiracetam 100 ml @ 400 mls/hr Q12HR IVPB 11/15/18 21:00 12/15/18 20:59 11/20/18 11:41 Levothyroxine Sodium (Synthroid) 75 mcg ACBREAKFAST ORAL 11/16/18 06:30 12/10/18 06:29 11/20/18 06:05 Magnesium Oxide (Mag-Ox 400mg) 400 mg THREE TIMES A DAY PEG 11/20/18 13:00 12/14/18 08:59 11/20/18 12:36 Memantine (Namenda) 5 mg DAILY PEG 11/20/18 11:00 12/20/18 10:59 11/20/18 11:40 Olanzapine (ZyPREXA) 2.5 mg DAILY GT 11/20/18 11:00 12/20/18 10:59 11/20/18 11:41 Polyethylene Glycol (Miralax) 17 gm DAILYPRN PRN GT Constipation 11/20/18 10:30 12/09/18 10:59 Thiamine HCl (Vitamin B1) 100 mg DAILY GT 11/20/18 11:00 12/20/18 10:59 11/20/18 11:41 Venlafaxine HCl (Effexor) 75 mg TWICE A DAY GT 11/20/18 18:00 12/20/18 17:59 Jimy Rios MD Nov 20, 2018 13:49
[2018-11-20] MEDS ORDERED: Acetaminophen 650mg/20.3ml GT PRN (14:30)
--- NOTE | 2018-11-20 14:48 | General Progress Note ---
Assessment/Plan Problem List: (1) UTI (urinary tract infection) ICD Codes: N39.0 - Urinary tract infection, site not specified SNOMED: 43683498 (2) Sepsis ICD Codes: A41.9 - Sepsis, unspecified organism SNOMED: 47238622 (3) ARF (acute renal failure) Assessment & Plan: better ICD Codes: N17.9 - Acute kidney failure, unspecified SNOMED: 70592679 (4) Encephalopathy acute ICD Codes: G93.40 - Encephalopathy, unspecified SNOMED: 51637855, 682264073 Assessment/Plan DC IVF TF follow labs Discussed with Dr Wells Subjective Allergies: Coded Allergies: PENICILLINS (Verified Allergy, Unknown, 11/08/18) Subjective eyes open nonverbal Objective Last 24 Hour Vital Signs Date Time Temp Pulse Resp B/P (MAP) Pulse Ox O2 Delivery O2 Flow Rate FiO2 11/20/18 14:08 104 20 134/75 (94) 95 11/20/18 12:00 97.7 99 18 151/78 (102) 94 11/20/18 09:50 97.8 85 16 110/68 (82) 94 11/20/18 09:38 97.8 78 13 103/61 99 Nasal Cannula 3 11/20/18 09:32 79 18 97 11/20/18 09:31 80 18 93 11/20/18 09:25 77 16 107/60 98 Nasal Cannula 3 11/20/18 09:15 78 14 103/55 98 Nasal Cannula 3 11/20/18 09:10 79 15 98/55 97 Nasal Cannula 3 11/20/18 09:06 97.0 80 18 101/54 93 Nasal Cannula 3 11/20/18 09:00 Nasal Cannula 3.0 11/20/18 08:00 97.6 85 19 133/76 (95) 96 11/20/18 04:00 97.6 92 20 100/65 (77) 96 11/20/18 00:00 97.8 96 20 114/60 (78) 95 11/19/18 21:00 Nasal Cannula 3.0 11/19/18 20:00 97.5 95 20 131/74 (93) 97 11/19/18 16:00 97.9 89 18 123/83 (96) 96 Intake and Output 11/19/18 11/20/18 19:00 07:00 Intake Total 730 ml 950 ml Balance 730 ml 950 ml Free Water 400 ml 200 ml IV Total 600 ml Tube Feeding 330 ml 150 ml # Voids 2 Laboratory Tests 11/20/18 08:15: White Blood Count 8.9, Red Blood Count 3.21L, Hemoglobin 9.2L, Hematocrit 28.4L , Mean Corpuscular Volume 88, Mean Corpuscular Hemoglobin 28.8, Mean Corpuscular Hemoglobin Concent 32.5, Red Cell Distribution Width 13.4, Platelet Count 392, Mean Platelet Volume 4.4L, Neutrophils (%) (Auto) 66.5, Lymphocytes ( %) (Auto) 17.6L, Monocytes (%) (Auto) 7.8, Eosinophils (%) (Auto) 7.2H, Basophils (%) (Auto) 0.9, Prothrombin Time 10.5, Prothromb Time International Ratio 1.0, Activated Partial Thromboplast Time 36H, Sodium Level 138, Potassium Level 3.6, Chloride Level 104, Carbon Dioxide Level 28, Anion Gap 6, Blood Urea Nitrogen 10, Creatinine 0.9, Estimat Glomerular Filtration Rate > 60, Glucose Level 86, Calcium Level 8.2L Height (Feet): 5 Height (Inches): 6.00 Weight (Pounds): 202 Cardiovascular: normal rate Respiratory/Chest: lungs clear Edema: 3+ Generalized Ilir Rios MD Nov 20, 2018 14:48
--- NOTE | 2018-11-20 16:05 | NUR ---
Came in to assess pt, 02 SAT 91%, HR 115, RR 24. Lung sounds expiratory rhonchi, assessed body, no signs of active bleeding. Peg tube dressing C/I, small brown drainage noted. CR <3 seconds, repositioned the pt. Notified hot metal charger. Per abd ct consider PNA. Pt placed on non rebreather mask at 15L. With non rebreather pt o2 sat 100%, HR 108. Charge nurse Constance CHRISTIANSON notified and asked if we can perform CXR. Awaiting new orders. Will continue to monitor. Pt in room with caregiver at bedside. Addendum: 11/20/18 at 1645 by Nat Francois RN Received orders for STAT CXR and Lasix, Lasix administered. Pt on non rebreather satting at 100% HR 106. Pending CXR. Caregiver at bedside. Will continue to monitor. Addendum: 11/20/18 at 1719 by Nat Francois RN Contacted Dr. Mallory and informed of VS above and orders from Dr. Rios. Per no new orders, assess response to Lasix, monitor off abx. Will continue to monitor. Pt VS O2 SAT 100% on non rebreather mask, HR 102, Will continue to monitor
--- NOTE | 2018-11-20 18:59 | NUR ---
NURSE NOTES: Pt left in bed in low position, with sitter at bedside. Pt remains non verbal, does not obery commands. Open eyes to pain. VS stable, RR 20, O2 SAT 97%, HR 96. Pt remains on non rebreather mask and continous o2 monitoring. Pt left in bed in low position, call light within reach, bed armed, suction at bedside.
--- NOTE | 2018-11-20 19:30 | NUR ---
NURSE NOTES: Patient in bed, on non rebreather mask saturating 100%, no signs of pain. With PEG on upper quadrant. With triple lumen cath on right IJ, saline lock. Legs on pillows. Caregiver at bedside. Instructed the use of call light. Call light in reach. Bed in lowest position, lock engaged and alarm on. Will continue to monitor.
[2018-11-20] MEDS: Dyna-Hex 2% Top Sol 2oz TOPIC SCH (20:00)
--- NOTE | 2018-11-20 20:00 | NUR ---
HAND-OFF: Report given to Ray CHRISTIANSON. Pt left in stable condition. Patent RIJ 3 LUMEN, on non rebreather satting 100% HR 96. Cargegiver at bedside, bed alarm on, on special air fluidized mattress, pillow between legs.
[2018-11-20] MEDS ORDERED: D5 1/2NS 1,000 ML IV SCH (21:15)
[2018-11-20] MEDS ORDERED: D5NS IV SCH ×2 (21:45)
--- NOTE | 2018-11-20 22:23 | Neurology Progress Note ---
Interim History Interim History Interim History Ms. Aquino became severely hypotensive and became poorly responsive earlier. She was given a NS bolus and her pressure improved. However he BP is 85/48 now. She can be aroused on loud vocal and painful stimuli. She is mumbling but what she is saying cannot be understood. She is unable to communicate further. She is able to maintain arousal for a few minutes. She is able to follow a few simple commands. Plans are to move her to the ICU now. Review of Systems Neuro Review of Systems Unable to obtain. Objective Physical Exam Last Vital Signs Date Time Temp Pulse Resp B/P (MAP) Pulse Ox O2 Delivery O2 Flow Rate FiO2 11/20/18 20:20 Non-Rebreather 15.0 100 11/20/18 20:20 100 11/20/18 16:20 97.7 11/20/18 16:00 113 24 128/72 (90) Laboratory Tests Test 11/20/18 08:15 White Blood Count 8.9 K/UL (4.8-10.8) Red Blood Count 3.21 M/UL (4.20-5.40) L Hemoglobin 9.2 G/DL (12.0-16.0) L Hematocrit 28.4 % (37.0-47.0) L Mean Corpuscular Volume 88 FL (80-99) Mean Corpuscular Hemoglobin 28.8 PG (27.0-31.0) Mean Corpuscular Hemoglobin Concent 32.5 G/DL (32.0-36.0) Red Cell Distribution Width 13.4 % (11.6-14.8) Platelet Count 392 K/UL (150-450) Mean Platelet Volume 4.4 FL (6.5-10.1) L Neutrophils (%) (Auto) 66.5 % (45.0-75.0) Lymphocytes (%) (Auto) 17.6 % (20.0-45.0) L Monocytes (%) (Auto) 7.8 % (1.0-10.0) Eosinophils (%) (Auto) 7.2 % (0.0-3.0) H Basophils (%) (Auto) 0.9 % (0.0-2.0) Prothrombin Time 10.5 SEC (9.30-11.50) Prothromb Time International Ratio 1.0 (0.9-1.1) Activated Partial Thromboplast Time 36 SEC (23-33) H Sodium Level 138 MMOL/L (136-145) Potassium Level 3.6 MMOL/L (3.5-5.1) Chloride Level 104 MMOL/L (98-107) Carbon Dioxide Level 28 MMOL/L (21-32) Anion Gap 6 mmol/L (5-15) Blood Urea Nitrogen 10 mg/dL (7-18) Creatinine 0.9 MG/DL (0.55-1.30) Estimat Glomerular Filtration Rate > 60 mL/min (>60) Glucose Level 86 MG/DL (74-106) Calcium Level 8.2 MG/DL (8.5-10.1) L Neurologic Exam Objective PHYSICAL EXAMINATION: GENERAL: She is a well-developed, relatively well-nourished lady, lying in bed, in no acute distress. HEAD: Normocephalic and atraumatic. EENT: Examination benign. NECK: No neck rigidity was observed. NEUROLOGIC EXAMINATION: MENTAL STATUS EXAMINATION: She could only be aroused with loud vocal and painful stimuli. She was mumbling but what she was saying could not be understood. She did follow a few simple commands. She was less encephalopathic than yesterday. SPEECH: She was mumbling. LANGUAGE: She was unable to comprehend or express herself. CRANIAL NERVE EXAMINATION: II: She blinked to threat on both sides. III, IV & : External ocular movements were present on oculocephalic maneuvers. The pupils were 3 mm in diameter, equal, round, regular, and reactive sluggishly to light. V & VII: The corneal reflexes were equally brisk and she had no facial asymmetry. VIII: She did respond to sounds and had no nystagmus. IX-X: The gag reflex was not tested. XI: The sternocleidomastoids and trapezii functioned minimally. XII: The tongue was in the midline without any fasciculations or atrophy. MOTOR SYSTEM: The tone was increased in all four extremities with a significant degree of spasticity. Examination of muscle mass revealed bilateral knee and ankle cord contractures. Examination of power was impossible to perform on individual muscle groups. She however moved all four extremities minimally on applying deep painful stimuli. She also gave me good hand data analysis assistant. SENSORY EXAMINATION: She responded appropriately to deep pain. She was unable to cooperate for other sensory modalities. REFLEXES: 2++ and bilaterally symmetrical at the biceps, triceps, brachioradialis, and knees, 0 at both ankles. The plantar responses were flexor bilaterally. COORDINATION, STANCE & GAIT: Could not be tested. Impression/Recommendations Diagnostic Impression 1. Ms. Stacy Aquino is a 68-year-old lady of unknown handedness, who does have a past history of anxiety, depression, breast cancer, and Alzheimer's disease. She was hospitalized on 11/08/2018 for increased weakness and change in behavior. She was discovered to have urinary tract infection, dehydration, and hypotension all of which have been treated, but she continues to have an altered mental state, which her family feels is worse than her baseline. 2. She became severely hypotensive and became poorly responsive earlier. She was given a NS bolus and her pressure improved. However he BP is 85/48 now. She can be aroused on loud vocal and painful stimuli. She is mumbling but what she is saying cannot be understood. She is unable to communicate further. She is able to maintain arousal for a few minutes. She is able to follow a few simple commands. Plans are to move her to the ICU now. 3. On neurological examination at this time, can be aroused with loud verbal and deep painful stimuli. She only mumbles when aroused. She does follow a few simple commands. She is minimally less encephalopathic than yesterday. She does not demonstrate any focal or lateralizing neurological findings. She is generally weak, has bilateral ankle cord contractures and exhibits spasticity. 4. Laboratory data obtained thus far have revealed that she is anemic with a hemoglobin of 9.0 G. Her blood gases revealed that her pCO2 was down to 31.8 and her pO2 was 103.2. Her chemistry panel on admission revealed her BUN was elevated to 20 and creatinine was elevated at 1.6. Her BNP was elevated to 577, her albumin was low at 2.9, her TSH was low at 0.086. The urinalysis on admission revealed 3+ leukocyte esterase, too numerous to count white blood cells, but 0 red blood cells per high power field. 5. Further laboratory tests have revealed a low T3 at 0.8 and a low T4 at 0.68. The B12 is normal but the folate is low at 7.2. 6. The CT of the brain done on 11/12/18 revealed atrophy and hydrocephalus ex- vacuo. 7. The EEG done on 11/14/18 revealed a moderately severe metabolic encephalopathy. In addition T3 and T4 sharp discharges were seen which could be indicative of either brain irritability or inter-ictal discharges. 8. A brain MRI could not be done as she could not be positioned in the scanner due to her contractures. 9. The patient's history, neurological examination and imaging are most compatible with an advanced dementia with a superimposed encephalopathy most probably related to her recent urinary tract infection, hypotension, and fluid and electrolyte imbalance. 10. The episode of hypotension on 11/13/18 could have worsened the encephalopathy. 11. She continues to have hypotensive episodes. Recommendations 1. Continue present management. 2. Agree with transfer to ICU. 3. Try to keep BP > 110 at all times. 4. Treatment of hypothyroidism. 5. Folic acid 1 mg PO daily. 6. Continue Keppra 500 q 12 H IV. 7. Observe. Harley Reeves M.D., M.S.P.H. Harley Reeves MD Nov 20, 2018 22:23
--- NOTE | 2018-11-20 22:25 | NUR ---
NURSE NOTES: Received report from Ray CHRISTIANSON. pt transferred from [address] [place] [address]. Patient lethargic, bp 105/54 after 10 min bp 94/51. TANGLED YARN WORKER was called at [facility] due to low bp 64/46 Blood glucose 64mg/dl, bolus given NS 250cc and D50% 25ml given blood glucose increase to 272mg/dl.On nonrebreather 100% satting 100%. Patient skin pale, cold and clammy. S/P peg placement today, NPO. Incontinent. Caregiver at bedside. No s/s of cardiac and acute distress noted. Right IJ triple lumen intact. Bed alarm on. Bed locked and in low position. Will continue plan of care.
--- NOTE | 2018-11-20 22:30 | NUR ---
NURSE NOTES: At the time of vital signs monitoring for 1999, 911 OPERATOR called RN to inform pt's low BP. Rapid response team was called. BP was between 64/46 to 77/37. Blood sugar was 64. HR 96, RR 16, Temp 97.7. Dextrose 50% 25ml and 250cc of NS bolus was given. Called Dr. Terrell Rios twice, no response. Dr. Hood made aware and obtained order to continue IVF D5 1/2 NS @75cc/hr. Patient's vital signs after the rapid response was BP 116/76 HR 92 100% O2 sat, blood sugar was 272. BP was checked after 30mins, patient had BP of 80/46 on leg and 82/[address] Hood made aware and obtained order of D5NS 250 bolus and transfer to [facility]. After bolus, bp was 85/48. Spoke to [facility] staff and they said they can't have the patient because of unstable BP. Spoke to Dr. Terrell Rios on the phone, called back and made aware of the situation. Got an order of transfer patient to ICU. Dr. Reeves saw pt before transfer. Nutrition Professor and charge nurse were notified from the start and kept updated. Pt belongings checked. Caregiver went with patient. Report given to Davida ICU nurse.
[2018-11-20] MEDS ORDERED: D5NS 1,000 ML IV SCH (22:45)
[2018-11-20] MEDS: D5NS 1,000 ML IV SCH (23:00)
--- NOTE | 2018-11-20 23:23 | NUR ---
NURSE NOTES: Called Dr. Ilir Rios regarding pt blood pressure 105/54 after 10 min 94/51 MD gave order Levophed keep SBP above 90 noted and carried out. Charge nurse aware. Amanda Aquino made aware of pt change of conditions. Pt verbalizes appreciation of notification. Will continue to monitor pt.
[2018-11-21] VITALS (31 sets, daily range): BP systolic 92–123; BP diastolic 41–65
--- NOTE | 2018-11-21 00:42 | Procedure Note ---
DATE OF PROCEDURE: 11/20/2018 PROCEDURE: Upper gastrointestinal endoscopy with biopsy as well as gastrostomy tube placement. SURGEON: Darryl Hood M.D. ANESTHESIA: Please see the separate anesthesiologist notes for details. PRE-ENDOSCOPIC DIAGNOSIS: Dysphagia. POST-ENDOSCOPIC DIAGNOSES: 1. Mild erosive gastritis in the antrum status post biopsy. 2. Status post gastrostomy tube placement. PROCEDURE: The procedure, its risks, indications, alternatives, and possible complications including, but not limited to bleeding, perforation, , and anesthesia complications were explained to the patient's and informed consent was obtained. The patient was then sedated in the supine position. A diagnostic upper endoscope was introduced through the oropharynx and advanced to the duodenum without difficulty. The endoscope was then gradually withdrawn and the mucosa examined carefully. Examination of the upper gastrointestinal mucosa revealed mild erosive gastritis in the antrum, which was biopsied. Thereafter, location for placement of the gastrostomy tube was identified by palpation and transillumination techniques. The outside skin was sterilely prepared, anesthetized and the trocar needle was used to place the gastrostomy tube using a pull technique. The position of the gastrostomy tip was verified endoscopically. The markings of the gastrostomy tube were approximately 5 to 6 centimeters on the outside. Dressings were applied. The patient was sent to recovery in good condition. COMPLICATIONS: None. ASSESSMENT: This patient has mild erosive gastritis and she can be treated for this. Helicobacter pylori can also be treated if positive. The outside marking of the gastrostomy tube was above 5 to [address] scan will be done to verify the appropriate gastrostomy placement. RECOMMENDATIONS: 1. A CT scan of the abdomen with gastrostomy tube contrast to verify position. 2. Observe overnight. 3. Begin tube feedings tomorrow. 4. Continue IV fluids today. Darryl Hood M.D. DR: Tim JOB#: [id number] CC:
--- NOTE | 2018-11-21 01:30 | NUR ---
NURSE NOTES: Bed bath given. Body assessment done. BP 97/51. No fever. No s/s of acute distress noted.
[2018-11-21] MEDS ORDERED: Acetaminophen 650mg/20.3ml GT PRN ×3 (02:30→18:30)
--- NOTE | 2018-11-21 03:30 | NUR ---
NURSE NOTES: Patient opens eyes spontaneously, with slurred speech. On 3L oxygen via N/C satting 100%. BP 106/61 HR 80. No s/s of acute distress noted. No moaning no facial grimaces. swollen upper and lower extremities elevated with pillow. Repositioned for comfort. Frequent visual checks continued. GT intact no residual.
--- NOTE | 2018-11-21 05:30 | NUR ---
NURSE NOTES: Patient in bed awake,alert able to answer simple question. Skin pale and cool to touch. No s/s of hypo/hyperglycemia. Repositioned for comfort.
--- NOTE | 2018-11-21 06:22 | NUR ---
NURSE NOTES: patient with x1 episode of med black pasty stool, collected stool and send to lab. Charge nurse aware.
[2018-11-21 07:03] LABS: ANION GAP 6 mmol/L (5-15); BLOOD UREA NITROGEN 13 mg/dL (7-18); CARBON DIOXIDE 27 MMOL/L (21-32); CHLORIDE 106 MMOL/L (98-107); CREATININE 1.1 MG/DL (0.55-1.30); POTASSIUM 3.8 MMOL/L (3.5-5.1); SODIUM 139 MMOL/L (136-145)
[2018-11-21 07:10] LABS: BASOPHILS % (AUTO) 0.3 % (0.0-2.0); EOSINOPHILS % (AUTO) 3.7 % (0.0-3.0); HEMATOCRIT 28.4 % (37.0-47.0); HEMOGLOBIN 9.2 G/DL (12.0-16.0); LYMPHOCYTES % (AUTO) 8.7 % (20.0-45.0); MEAN CORPUSCULAR VOLUME 89 FL (80-99); MONOCYTES % (AUTO) 4.8 % (1.0-10.0); NEUTROPHILS % (AUTO) 82.5 % (45.0-75.0); PLATELET COUNT 380 K/UL (150-450); RED BLOOD COUNT 3.19 M/UL (4.20-5.40); RED CELL DISTRIBUTION WIDTH 13.1 % (11.6-14.8); WHITE BLOOD COUNT 13.8 K/UL (4.8-10.8)
--- NOTE | 2018-11-21 07:26 | NUR ---
HAND-OFF: Report given to Fausto CHRISTIANSON.
--- NOTE | 2018-11-21 07:30 | NUR ---
NURSE NOTES: Received report from Davida CHRISTIANSON. Patient non verbal, opens eyes spontaneously. transferred from [facility] due to low BP bolus given NS 250cc. on 3LNC. Patient skin pale,slightly jaundice. S/P peg placement yesterday, dressing dry and intact, NPO. Incontinent. at bedside. 1 BM green. No s/s of cardiac and acute distress noted. Right IJ triple lumen intact. Bed alarm on. Bed locked and in low position. Will continue plan of care.
--- NOTE | 2018-11-21 08:21 | NUR ---
ST NOTE: D/C SUMMARY: PT TRANSFERRED TO HIGHER LEVEL OF CARE. D/C FROM SKILLED ST SERVICE. PLEASE RE-ORDER ST EVAL IF NEEDED.
[2018-11-21] MEDS ORDERED: OLANZapine 2.5mg tab GT SCH (09:00)
[2018-11-21] MEDS ORDERED: Heparin 5000 units/ml inj SUBQ SCH ×2 (09:00→21:00)
[2018-11-21] MEDS ORDERED: Memantine 5 MG TAB PEG SCH (09:00)
[2018-11-21] MEDS ORDERED: levETIRAcetam 500mg/NS100ml 100 ML IVPB SCH ×2 (09:00→21:00)
[2018-11-21] MEDS ORDERED: Thiamine 100mg tab GT SCH (09:00)
[2018-11-21] MEDS ORDERED: Venlafaxine HCl 37.5mg Tab GT SCH ×2 (09:00→18:00)
--- NOTE | 2018-11-21 09:35 | NUR ---
NURSE NOTES: AT BEDSIDE, WAS UPDATED ON LAST NIGHTS EVENTS AND STATUS. WOULD LIKE TO SPEAK WITH MD CALDWELL WHEN HE GETS THE CHANCE. WANTS TO KNOW IF THIS WILL BE A PATIENT WITH BP AND PULP GRINDER TREATMENT OPTIONS. MD WILL BE MADE AWARE.
[2018-11-21] MEDS: Magnesium Oxide 400mg tab PEG SCH ×3 (09:46→18:00)
[2018-11-21] MEDS: D5NS 1,000 ML IV SCH ×2 (09:50→16:30)
[2018-11-21] MEDS ORDERED: Miralax 17gm pkt GT PRN (10:30)
--- NOTE | 2018-11-21 11:08 | NUR ---
RD ASSESSMENT & RECOMMENDATIONS SEE CARE ACTIVITY FOR COMPLETE ASSESSMENT DAILY ESTIMATED NEEDS: Needs based on Sepsis 60.5kg adj 25-30 kcals/kg 1809-1314 total kcals 1-2 g protein/kg 61-121 g total protein 25-30 mL/kg 5915-2800 total fluid mLs NUTRITION DIAGNOSIS: 1) Swallowing difficulty r/t dysphagia, ams as evidenced by pt seen by EXPERIMENTAL PLASTICS FABRICATOR recs for non oral feeds, pt currently on NGT feeds. 2) Altered nutrition related lab values r/t clinical status as evidenced by low K (3.3-> wnl), low Mg (1.1), and hypoglycemia (72) CURRENT TF: Osmolite 1.2 @30ml/hr x22 hrs PO DIET RECOMMENDATIONS: Finley Regular diet (texture per EXPERIMENTAL PLASTICS FABRICATOR) ENTERAL NUTRITION RECOMMENDATIONS: Osmolite 1.5 @50ml /hr x22 hrs to provide 1100ml, 1650 kcal, 69g prot, 838ml free H2O - REC TF CHANGE TO BETTER MEET EST NEEDS - As medically able, start OSMOLITE 1.5 @20ml/hr x6 hrs. Advance as tolerated 10ml every 4-6 hrs to goal. - Flush per MD. HOB over 30 degrees - HOLD TF 1 hr before and after synthroid meds ADDITIONAL RECOMMENDATIONS: 1) Check lytes daily/ replete as needed 2) RE-calibrate bed scale for accurate CBW 3) TF recs as above 4) TWIN BID FOR SKIN INTEGRITY 5) Monitor for hypoglycemia- rec D5 6) TROPHIC feeds w/ HYPOTENSION/ PRESSOR SUPPORT of 5-10ml/hr to maintain gut integrity
--- NOTE | 2018-11-21 11:37 | NUR ---
DISCHARGE PLANNING PATIENT WAS REFERRED TO: [facility] P:[phone] F:[phone] SPOKE TO DEWAYNE AND SHE STATED THAT THE DON HAS BEEN OUT SICK BUT IS WORKING FROM HOME. THEY DO NOT HAVE ANY BED AVAILABLE RIGHT NOW.
--- NOTE | 2018-11-21 11:39 | NUR ---
DISCHARGE PLANNING PATIENT HAS BEEN REFERRED TO: [facility] P:[phone] F:[phone] & [facility] P:[phone] F:[phone]
--- NOTE | 2018-11-21 12:30 | Infectious Diseases Prog Note ---
Assessment/Plan Assessment/Plan A 1. Sepsis 2. Atelectasis/ pneumonia. 3. 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 Acute renal failure improved 6. Alzheimer dementia 7. Gastrostomy status P 1. start on IV Cefepime Subjective ROS Limited/Unobtainable: Yes Constitutional: Reports: other - transferred to ICU because of Hypotension Allergies: Coded Allergies: PENICILLINS (Verified Allergy, Unknown, 11/08/18) Objective Vital Signs Last 24 Hour Vital Signs Date Time Temp Pulse Resp B/P (MAP) Pulse Ox O2 Delivery O2 Flow Rate FiO2 11/21/18 12:00 83 11 108/62 (77) 100 11/21/18 11:00 82 11 117/63 (81) 100 11/21/18 10:00 86 17 117/54 (75) 100 11/21/18 09:00 86 20 113/52 (72) 100 11/21/18 08:00 85 11/21/18 08:00 98.7 85 13 116/57 (76) 100 11/21/18 07:15 84 14 106/54 (71) 100 11/21/18 07:00 84 15 114/64 (81) 100 11/21/18 06:30 84 14 109/57 (74) 100 11/21/18 06:15 82 16 106/58 (74) 99 11/21/18 06:00 86 19 96/41 (59) 93 11/21/18 05:45 82 18 122/65 (84) 98 11/21/18 05:30 81 14 112/58 (76) 99 11/21/18 05:15 81 16 113/61 (78) 100 11/21/18 05:00 81 12 116/61 (79) 100 11/21/18 04:45 78 12 113/59 (77) 100 11/21/18 04:30 79 11 102/54 (70) 100 11/21/18 04:00 98.0 80 12 104/56 (72) 100 11/21/18 04:00 Nasal Cannula 3.0 11/21/18 03:45 78 12 106/61 (76) 100 11/21/18 03:30 79 11 102/57 (72) 100 11/21/18 03:00 79 11 100/54 (69) 100 11/21/18 02:30 79 11 101/53 (69) 100 11/21/18 02:00 80 10 100/55 (70) 100 11/21/18 01:30 81 13 100/52 (68) 100 11/21/18 01:10 Nasal Cannula 3.0 11/21/18 01:00 81 12 94/47 (63) 100 11/21/18 00:45 84 12 92/47 (62) 99 11/21/18 00:30 83 20 100 11/21/18 00:15 80 13 115/53 (73) 100 11/21/18 00:00 97.8 81 13 118/54 (75) 100 11/20/18 23:50 82 12 109/57 (74) 99 11/20/18 23:45 83 14 102/58 (73) 100 11/20/18 23:30 84 14 108/55 (72) 99 11/20/18 23:15 84 12 107/55 (72) 100 11/20/18 23:00 83 11 103/59 (74) 100 11/20/18 22:45 82 12 101/51 (68) 100 11/20/18 22:30 97.7 82 11 94/51 (65) 100 11/20/18 21:00 Nasal Cannula 3.0 11/20/18 20:20 Non-Rebreather 15.0 100 11/20/18 20:20 100 Non-Rebreather 15.0 100 11/20/18 16:20 97.7 11/20/18 16:00 97.1 113 24 128/72 (90) 92 11/20/18 14:08 104 20 134/75 (94) 95 Height (Feet): 5 Height (Inches): 6.00 Weight (Pounds): 180 HEENT: mucous membranes moist Respiratory/Chest: lungs clear Cardiovascular: normal rate Abdomen: soft, non tender, other - GT in place Extremities: no edema Neurologic/Psychiatric: aphasia, other - opens eyes Laboratory Tests Test 11/21/18 05:00 11/21/18 06:00 White Blood Count 13.8 K/UL (4.8-10.8) #H Red Blood Count 3.19 M/UL (4.20-5.40) L Hemoglobin 9.2 G/DL (12.0-16.0) L Hematocrit 28.4 % (37.0-47.0) L Mean Corpuscular Volume 89 FL (80-99) Mean Corpuscular Hemoglobin 28.9 PG (27.0-31.0) Mean Corpuscular Hemoglobin Concent 32.5 G/DL (32.0-36.0) Red Cell Distribution Width 13.1 % (11.6-14.8) Platelet Count 380 K/UL (150-450) Mean Platelet Volume 4.3 FL (6.5-10.1) L Neutrophils (%) (Auto) 82.5 % (45.0-75.0) H Lymphocytes (%) (Auto) 8.7 % (20.0-45.0) L Monocytes (%) (Auto) 4.8 % (1.0-10.0) Eosinophils (%) (Auto) 3.7 % (0.0-3.0) H Basophils (%) (Auto) 0.3 % (0.0-2.0) Sodium Level 139 MMOL/L (136-145) Potassium Level 3.8 MMOL/L (3.5-5.1) Chloride Level 106 MMOL/L (98-107) Carbon Dioxide Level 27 MMOL/L (21-32) Anion Gap 6 mmol/L (5-15) Blood Urea Nitrogen 13 mg/dL (7-18) Creatinine 1.1 MG/DL (0.55-1.30) Estimat Glomerular Filtration Rate 49.3 mL/min (>60) Glucose Level 87 MG/DL (74-106) Calcium Level 8.0 MG/DL (8.5-10.1) L Stool Occult Blood Negative (NEGATIVE) Current Medications Medications (Trade) Dose Ordered Sig/Inocente Route PRN Reason Start Time Stop Time Status Last Admin Dose Admin Acetaminophen (Tylenol) 650 mg Q4H PRN GT Mild Pain/Temp > 100.5 11/21/18 02:30 12/20/18 14:29 Chlorhexidine Gluconate (Marga-Hex 2%) 1 applic DAILY@1999 TOPIC 11/21/18 20:00 12/11/18 19:59 Dextrose (Dextrose 50%) 25 ml Q30M PRN IV Hypoglycemia 11/20/18 23:00 12/08/18 15:46 Dextrose (Dextrose 50%) 50 ml Q30M PRN IV Hypoglycemia 11/20/18 23:00 12/08/18 17:29 Dextrose/Sodium Chloride 1,000 ml @ 100 mls/hr Q10H IV 11/20/18 23:00 12/20/18 22:44 11/21/18 09:50 Famotidine (Pepcid) 20 mg DAILY GT 11/21/18 09:00 12/20/18 10:59 11/21/18 09:00 Folic Acid (Folate) 1 mg DAILY PEG 11/21/18 09:00 12/20/18 10:59 11/21/18 09:05 Heparin Sodium (Porcine) (Heparin 5000 units/ml) 5,000 units EVERY 12 HOURS SUBQ 11/21/18 09:00 12/08/18 20:59 11/21/18 09:50 Levetiracetam 100 ml @ 400 mls/hr Q12HR IVPB 11/21/18 09:00 12/15/18 20:59 11/21/18 09:41 Levothyroxine Sodium (Synthroid) 75 mcg ACBREAKFAST GT 11/21/18 06:30 12/10/18 06:29 11/21/18 05:51 Magnesium Oxide (Mag-Ox 400mg) 400 mg THREE TIMES A DAY PEG 11/21/18 09:00 12/14/18 08:59 11/21/18 09:46 Memantine (Namenda) 5 mg DAILY PEG 11/21/18 09:00 12/20/18 10:59 11/21/18 09:00 Norepinephrine Bitartrate 4 mg/ Dextrose 250 ml @ 0 mls/hr Q24H PRN IV For hypotension 11/20/18 23:30 12/20/18 23:29 Olanzapine (ZyPREXA) 2.5 mg DAILY GT 11/21/18 09:00 12/20/18 10:59 11/21/18 09:01 Polyethylene Glycol (Miralax) 17 gm DAILYPRN PRN GT Constipation 11/21/18 10:30 12/09/18 10:59 Thiamine HCl (Vitamin B1) 100 mg DAILY GT 11/21/18 09:00 12/20/18 10:59 11/21/18 09:00 Venlafaxine HCl (Effexor) 75 mg TWICE A DAY GT 11/21/18 09:00 12/20/18 17:59 11/21/18 09:01 Jimy Rios MD Nov 21, 2018 12:30
--- NOTE | 2018-11-21 12:59 | NUR ---
NURSE NOTES: SPOKE WITH MD CALDWELL WILL GIVE CONTACT INFO. RECEIVED ORDER TO INPUT TRANSFER TO [facility] AND RESTART T.F SAME PARAMETER.
[2018-11-21] MEDS ORDERED: Cefepime HCl 1 GM in D5W 55 ML IVPB SCH (14:00)
--- NOTE | 2018-11-21 14:05 | NUR ---
NURSE NOTES: Patient in bed awake,alert able to answer simple question. Skin pale and cool to touch. No s/s of hypo/hyperglycemia. Repositioned for comfort.
[2018-11-21] MEDS ORDERED: NS 275ml ONE (14:56)
[2018-11-21] MEDS ORDERED: D5NS 1000ml IV ONE (14:56)
--- NOTE | 2018-11-21 15:03 | General Progress Note ---
Assessment/Plan Problem List: (1) UTI (urinary tract infection) ICD Codes: N39.0 - Urinary tract infection, site not specified SNOMED: 40605822 (2) Sepsis ICD Codes: A41.9 - Sepsis, unspecified organism SNOMED: 31717210 (3) ARF (acute renal failure) Assessment & Plan: better ICD Codes: N17.9 - Acute kidney failure, unspecified SNOMED: 02361675 (4) Encephalopathy acute ICD Codes: G93.40 - Encephalopathy, unspecified SNOMED: 80985627, 328856537 Assessment/Plan Abxs TF follow labs Discussed with Dr Emiliano Rios and RN to [facility] today Subjective Allergies: Coded Allergies: PENICILLINS (Verified Allergy, Unknown, 11/08/18) Subjective eyes open nonverbal was transferred to ICU for hypotension Objective Last 24 Hour Vital Signs Date Time Temp Pulse Resp B/P (MAP) Pulse Ox O2 Delivery O2 Flow Rate FiO2 11/21/18 14:00 83 13 111/59 (76) 98 11/21/18 13:00 99.0 82 11 111/54 (73) 98 11/21/18 12:00 83 11 108/62 (77) 100 11/21/18 12:00 83 11/21/18 11:00 82 11 117/63 (81) 100 11/21/18 10:00 86 17 117/54 (75) 100 11/21/18 09:00 Nasal Cannula 3.0 11/21/18 09:00 86 20 113/52 (72) 100 11/21/18 08:00 85 11/21/18 08:00 98.7 85 13 116/57 (76) 100 11/21/18 07:15 84 14 106/54 (71) 100 11/21/18 07:00 84 15 114/64 (81) 100 11/21/18 06:30 84 14 109/57 (74) 100 11/21/18 06:15 82 16 106/58 (74) 99 11/21/18 06:00 86 19 96/41 (59) 93 11/21/18 05:45 82 18 122/65 (84) 98 11/21/18 05:30 81 14 112/58 (76) 99 11/21/18 05:15 81 16 113/61 (78) 100 11/21/18 05:00 81 12 116/61 (79) 100 11/21/18 04:45 78 12 113/59 (77) 100 11/21/18 04:30 79 11 102/54 (70) 100 11/21/18 04:00 98.0 80 12 104/56 (72) 100 11/21/18 04:00 Nasal Cannula 3.0 11/21/18 03:45 78 12 106/61 (76) 100 11/21/18 03:30 79 11 102/57 (72) 100 11/21/18 03:00 79 11 100/54 (69) 100 11/21/18 02:30 79 11 101/53 (69) 100 11/21/18 02:00 80 10 100/55 (70) 100 11/21/18 01:30 81 13 100/52 (68) 100 11/21/18 01:10 Nasal Cannula 3.0 11/21/18 01:00 81 12 94/47 (63) 100 11/21/18 00:45 84 12 92/47 (62) 99 11/21/18 00:30 83 20 100 11/21/18 00:15 80 13 115/53 (73) 100 11/21/18 00:00 97.8 81 13 118/54 (75) 100 11/20/18 23:50 82 12 109/57 (74) 99 11/20/18 23:45 83 14 102/58 (73) 100 11/20/18 23:30 84 14 108/55 (72) 99 11/20/18 23:15 84 12 107/55 (72) 100 11/20/18 23:00 83 11 103/59 (74) 100 11/20/18 22:45 82 12 101/51 (68) 100 11/20/18 22:30 97.7 82 11 94/51 (65) 100 11/20/18 21:00 Nasal Cannula 3.0 11/20/18 20:20 Non-Rebreather 15.0 100 11/20/18 20:20 100 Non-Rebreather 15.0 100 11/20/18 16:20 97.7 11/20/18 16:00 97.1 113 24 128/72 (90) 92 Intake and Output 11/20/18 11/21/18 19:00 07:00 Intake Total 650 ml 800 ml Output Total 100 ml 335 ml Balance 550 ml 465 ml IV Total 650 ml 800 ml Output Urine Total 100 ml 335 ml # Bowel Movements 2 Laboratory Tests 11/21/18 05:00: White Blood Count 13.8#H, Red Blood Count 3.19L, Hemoglobin 9.2L, Hematocrit 28.4L, Mean Corpuscular Volume 89, Mean Corpuscular Hemoglobin 28.9, Mean Corpuscular Hemoglobin Concent 32.5, Red Cell Distribution Width 13.1, Platelet Count 380, Mean Platelet Volume 4.3L, Neutrophils (%) (Auto) 82.5H, Lymphocytes (%) (Auto) 8.7L, Monocytes (%) (Auto) 4.8, Eosinophils (%) (Auto) 3.7H, Basophils (%) (Auto) 0.3, Sodium Level 139, Potassium Level 3.8, Chloride Level 106, Carbon Dioxide Level 27, Anion Gap 6, Blood Urea Nitrogen 13, Creatinine 1.1, Estimat Glomerular Filtration Rate 49.3, Glucose Level 87, Calcium Level 8.0L 11/21/18 06:00: Stool Occult Blood Negative Height (Feet): 5 Height (Inches): 6.00 Weight (Pounds): 180 Respiratory/Chest: lungs clear Abdomen: non tender Edema: 2+ Generalized Ilir Rios MD Nov 21, 2018 15:03
--- NOTE | 2018-11-21 15:20 | NUR ---
TRANSFER TO FLOOR: Patient transferred to [facility], per . Report given to tammi. Belongings and medications given to tammi . Family and or S/O informed of transfer yes.
[2018-11-21] MEDS ORDERED: D5NS 1,000 ML IV SCH (16:00)
--- NOTE | 2018-11-21 16:12 | Neurology Progress Note ---
Interim History Interim History Interim History Ms. Aquino was moved in and then out of the ICU since I saw her yesterday Her BPs have been better controlled. She can be aroused on loud vocal and painful stimuli. She is mumbling but what she is saying cannot be understood. She is unable to communicate further. She is able to maintain arousal for as long as she is kept occupied. She is able to follow a few simple commands. Review of Systems Neuro Review of Systems Unable to obtain. Objective Physical Exam Last Vital Signs Date Time Temp Pulse Resp B/P (MAP) Pulse Ox O2 Delivery O2 Flow Rate FiO2 11/21/18 15:00 84 12 123/62 (82) 96 11/21/18 13:00 99.0 11/21/18 09:00 Nasal Cannula 3.0 11/20/18 20:20 100 Laboratory Tests Test 11/21/18 05:00 11/21/18 06:00 White Blood Count 13.8 K/UL (4.8-10.8) #H Red Blood Count 3.19 M/UL (4.20-5.40) L Hemoglobin 9.2 G/DL (12.0-16.0) L Hematocrit 28.4 % (37.0-47.0) L Mean Corpuscular Volume 89 FL (80-99) Mean Corpuscular Hemoglobin 28.9 PG (27.0-31.0) Mean Corpuscular Hemoglobin Concent 32.5 G/DL (32.0-36.0) Red Cell Distribution Width 13.1 % (11.6-14.8) Platelet Count 380 K/UL (150-450) Mean Platelet Volume 4.3 FL (6.5-10.1) L Neutrophils (%) (Auto) 82.5 % (45.0-75.0) H Lymphocytes (%) (Auto) 8.7 % (20.0-45.0) L Monocytes (%) (Auto) 4.8 % (1.0-10.0) Eosinophils (%) (Auto) 3.7 % (0.0-3.0) H Basophils (%) (Auto) 0.3 % (0.0-2.0) Sodium Level 139 MMOL/L (136-145) Potassium Level 3.8 MMOL/L (3.5-5.1) Chloride Level 106 MMOL/L (98-107) Carbon Dioxide Level 27 MMOL/L (21-32) Anion Gap 6 mmol/L (5-15) Blood Urea Nitrogen 13 mg/dL (7-18) Creatinine 1.1 MG/DL (0.55-1.30) Estimat Glomerular Filtration Rate 49.3 mL/min (>60) Glucose Level 87 MG/DL (74-106) Calcium Level 8.0 MG/DL (8.5-10.1) L Stool Occult Blood Negative (NEGATIVE) Neurologic Exam Objective PHYSICAL EXAMINATION: GENERAL: She is a well-developed, relatively well-nourished lady, lying in bed, in no acute distress. HEAD: Normocephalic and atraumatic. EENT: Examination benign. NECK: No neck rigidity was observed. NEUROLOGIC EXAMINATION: MENTAL STATUS EXAMINATION: She could be aroused with loud vocal and painful stimuli. She was mumbling but what she was saying could not be understood. She did follow a few simple commands. She was less encephalopathic than yesterday. SPEECH: She was mumbling. LANGUAGE: She was unable to comprehend or express herself. CRANIAL NERVE EXAMINATION: II: She blinked to threat on both sides. III, IV & : External ocular movements were present on oculocephalic maneuvers. The pupils were 3 mm in diameter, equal, round, regular, and reactive sluggishly to light. V & VII: The corneal reflexes were equally brisk and she had no facial asymmetry. VIII: She did respond to sounds and had no nystagmus. IX-X: The gag reflex was not tested. XI: The sternocleidomastoids and trapezii functioned minimally. XII: The tongue was in the midline without any fasciculations or atrophy. MOTOR SYSTEM: The tone was increased in all four extremities with a significant degree of spasticity. Examination of muscle mass revealed bilateral knee and ankle cord contractures. Examination of power was impossible to perform on individual muscle groups. She however moved all four extremities minimally on applying deep painful stimuli. 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 SENSORY EXAMINATION: She responded appropriately to deep pain. She was unable to cooperate for other sensory modalities. REFLEXES: 2++ and bilaterally symmetrical at the biceps, triceps, brachioradialis, and knees, 0 at both ankles. The plantar responses were flexor bilaterally. COORDINATION, STANCE & GAIT: Could not be tested. Impression/Recommendations Diagnostic Impression 1. Ms. Stacy Aquino is a 68-year-old lady of unknown handedness, who does have a past history of anxiety, depression, breast cancer, and Alzheimer's disease. She was hospitalized on 11/08/2018 for increased weakness and change in behavior. She was discovered to have urinary tract infection, dehydration, and hypotension all of which have been treated, but she continues to have an altered mental state, which her family feels is worse than her baseline. 2. She was moved in and then out of the ICU since I saw her yesterday. Her BPs have been better controlled. She can be aroused on loud vocal and painful stimuli. She is mumbling but what she is saying cannot be understood. She is unable to communicate further. She is able to maintain arousal for as long as she is kept occupied. She is able to follow a few simple commands. 3. On neurological examination at this time, can be aroused with loud verbal and deep painful stimuli. She only mumbles when aroused. She does follow a few simple commands. She is minimally less encephalopathic than yesterday. She does not demonstrate any focal or lateralizing neurological findings. She is generally weak, has bilateral ankle cord contractures and exhibits spasticity. 4. Laboratory data obtained thus far have revealed that she is anemic with a hemoglobin of 9.0 G. Her blood gases revealed that her pCO2 was down to 31.8 and her pO2 was 103.2. Her chemistry panel on admission revealed her BUN was elevated to 20 and creatinine was elevated at 1.6. Her BNP was elevated to 577, her albumin was low at 2.9, her TSH was low at 0.086. The urinalysis on admission revealed 3+ leukocyte esterase, too numerous to count white blood cells, but 0 red blood cells per high power field. 5. Further laboratory tests have revealed a low T3 at 0.8 and a low T4 at 0.68. The B12 is normal but the folate is low at 7.2. 6. The CT of the brain done on 11/12/18 revealed atrophy and hydrocephalus ex- vacuo. 7. The EEG done on 11/14/18 revealed a moderately severe metabolic encephalopathy. In addition T3 and T4 sharp discharges were seen which could be indicative of either brain irritability or inter-ictal discharges. 8. A brain MRI could not be done as she could not be positioned in the scanner due to her contractures. 9. The patient's history, neurological examination and imaging are most compatible with an advanced dementia with a superimposed encephalopathy most probably related to her recent urinary tract infection, hypotension, and fluid and electrolyte imbalance. 10. The episode of hypotension on 11/13/18 could have worsened the encephalopathy. 11. She continues to have hypotensive episodes with the last one on 11/20/18. Recommendations 1. Continue present management. 2. Try to keep BP > 110 at all times. 3. Treatment of hypothyroidism. 4. Folic acid 1 mg PO daily. 5. Continue Keppra 500 q 12 H IV. 6. Observe. Harley Reeves M.D., M.S.P.H. Harley Reeves MD Nov 21, 2018 16:12
--- NOTE | 2018-11-21 16:56 | NUR ---
CASE MANAGEMENT: REVIEW SI: ACUTE ENCEPHALOPATHY . ARF T 99.0 HR 83 RR 11 BP 111/54 SAT 96% NC/3L WBC 13.8 H/H 9.2/28.4 IS: MAG OX 400MG GT TID D5 NS IVF @ 100ML/HR CEFEPIME IV Q12HR ICU STATUS DCP: SEEKING PLACEMENT
--- NOTE | 2018-11-21 17:17 | Pulmonolgy Critical Care Note ---
Critical Care - Asmt/Plan Problems: (1) Hypoxemia (2) Elevated d-dimer Assessment & Plan: S/P neg duplex and CT-A (3) Dehydration (4) Sepsis (5) Episode of generalized weakness (6) UTI (urinary tract infection) (7) ARF (acute renal failure) (8) Pneumonia (9) PEG (percutaneous endoscopic gastrostomy) status Assessment/Plan: Optimize pulmonary hygiene/mobilize as tolerated Titrate down FiO2 to keep SaO2 > 90% Cefepime per ID, F/U Cx's CXR Monitor volumes and renal function, mIVF Aspiration precautions Start GT feeds DVT Px: Hep SQ Monitor MS, F/U neuro recs and w/u, unable to do MRI FC Critical Care - Objective Last 24 Hour Vital Signs Date Time Temp Pulse Resp B/P (MAP) Pulse Ox O2 Delivery O2 Flow Rate FiO2 11/21/18 15:00 84 12 123/62 (82) 96 11/21/18 14:00 83 13 111/59 (76) 98 11/21/18 13:00 99.0 82 11 111/54 (73) 98 11/21/18 12:00 83 11 108/62 (77) 100 11/21/18 12:00 83 11/21/18 11:00 82 11 117/63 (81) 100 11/21/18 10:00 86 17 117/54 (75) 100 11/21/18 09:00 Nasal Cannula 3.0 11/21/18 09:00 86 20 113/52 (72) 100 11/21/18 08:00 85 11/21/18 08:00 98.7 85 13 116/57 (76) 100 11/21/18 07:15 84 14 106/54 (71) 100 11/21/18 07:00 84 15 114/64 (81) 100 11/21/18 06:30 84 14 109/57 (74) 100 11/21/18 06:15 82 16 106/58 (74) 99 11/21/18 06:00 86 19 96/41 (59) 93 11/21/18 05:45 82 18 122/65 (84) 98 11/21/18 05:30 81 14 112/58 (76) 99 11/21/18 05:15 81 16 113/61 (78) 100 11/21/18 05:00 81 12 116/61 (79) 100 11/21/18 04:45 78 12 113/59 (77) 100 11/21/18 04:30 79 11 102/54 (70) 100 11/21/18 04:00 98.0 80 12 104/56 (72) 100 11/21/18 04:00 Nasal Cannula 3.0 11/21/18 03:45 78 12 106/61 (76) 100 11/21/18 03:30 79 11 102/57 (72) 100 11/21/18 03:00 79 11 100/54 (69) 100 11/21/18 02:30 79 11 101/53 (69) 100 11/21/18 02:00 80 10 100/55 (70) 100 11/21/18 01:30 81 13 100/52 (68) 100 11/21/18 01:10 Nasal Cannula 3.0 11/21/18 01:00 81 12 94/47 (63) 100 11/21/18 00:45 84 12 92/47 (62) 99 11/21/18 00:30 83 20 100 11/21/18 00:15 80 13 115/53 (73) 100 11/21/18 00:00 97.8 81 13 118/54 (75) 100 11/20/18 23:50 82 12 109/57 (74) 99 11/20/18 23:45 83 14 102/58 (73) 100 11/20/18 23:30 84 14 108/55 (72) 99 11/20/18 23:15 84 12 107/55 (72) 100 11/20/18 23:00 83 11 103/59 (74) 100 11/20/18 22:45 82 12 101/51 (68) 100 11/20/18 22:30 97.7 82 11 94/51 (65) 100 11/20/18 21:00 Nasal Cannula 3.0 11/20/18 20:20 Non-Rebreather 15.0 100 11/20/18 20:20 100 Non-Rebreather 15.0 100 Status: awake Condition: improving HEENT: atraumatic, normocephalic Lungs: rhonchi Heart: HR/BP stable Abdomen: soft, non-tender, active bowel sounds, feeding tube Extremities: no C/C/E Accucheck: 81 Blood Sugars: BS controlled Critical Care - Subjective ROS Limited/Unobtainable: Yes ICU Day: 2 Intubation Day: N/A Interval Events: S/P PEG CT AP with BIB infiltrates Low BP despite IVF Transferred to ICU, improved without pressors Cefepime started by ID Was on 15L now on 3L WCt inc Condition: stable IV Access: central EKG Rhythm: Sinus Rhythm FI02: 100 Sputum Amount: None Tube Feeding Amount: 30 I&O: Intake and Output 11/20/18 11/21/18 19:00 07:00 Intake Total 650 ml 800 ml Output Total 100 ml 335 ml Balance 550 ml 465 ml IV Total 650 ml 800 ml Output Urine Total 100 ml 335 ml # Bowel Movements 2 Subjective: Denies F/C/CP/SOB/cough/wheezing/F/C Labs: Laboratory Tests Test 11/21/18 05:00 11/21/18 06:00 White Blood Count 13.8 K/UL (4.8-10.8) #H Red Blood Count 3.19 M/UL (4.20-5.40) L Hemoglobin 9.2 G/DL (12.0-16.0) L Hematocrit 28.4 % (37.0-47.0) L Mean Corpuscular Volume 89 FL (80-99) Mean Corpuscular Hemoglobin 28.9 PG (27.0-31.0) Mean Corpuscular Hemoglobin Concent 32.5 G/DL (32.0-36.0) Red Cell Distribution Width 13.1 % (11.6-14.8) Platelet Count 380 K/UL (150-450) Mean Platelet Volume 4.3 FL (6.5-10.1) L Neutrophils (%) (Auto) 82.5 % (45.0-75.0) H Lymphocytes (%) (Auto) 8.7 % (20.0-45.0) L Monocytes (%) (Auto) 4.8 % (1.0-10.0) Eosinophils (%) (Auto) 3.7 % (0.0-3.0) H Basophils (%) (Auto) 0.3 % (0.0-2.0) Sodium Level 139 MMOL/L (136-145) Potassium Level 3.8 MMOL/L (3.5-5.1) Chloride Level 106 MMOL/L (98-107) Carbon Dioxide Level 27 MMOL/L (21-32) Anion Gap 6 mmol/L (5-15) Blood Urea Nitrogen 13 mg/dL (7-18) Creatinine 1.1 MG/DL (0.55-1.30) Estimat Glomerular Filtration Rate 49.3 mL/min (>60) Glucose Level 87 MG/DL (74-106) Calcium Level 8.0 MG/DL (8.5-10.1) L Stool Occult Blood Negative (NEGATIVE) Ahmet Mallory MD Nov 21, 2018 17:17
[2018-11-21] MEDS ORDERED: Magnesium Oxide 400mg tab PEG SCH (18:00)
[2018-11-21] MEDS: Venlafaxine HCl 37.5mg Tab GT SCH (18:00)
--- NOTE | 2018-11-21 19:09 | General Progress Note ---
Assessment/Plan Assessment/Plan Assessment - OBS - dysphagia - anemia - UTI - s/p PEG - Hypotension Recommendations - Elevate HOB - monitor vital signs - follow labs - abx - Pepcid - Miralax Subjective Allergies: Coded Allergies: PENICILLINS (Verified Allergy, Unknown, 11/08/18) Subjective in TU now tolerating TF GT in good position per CT Objective Last 24 Hour Vital Signs Date Time Temp Pulse Resp B/P (MAP) Pulse Ox O2 Delivery O2 Flow Rate FiO2 11/21/18 16:00 85 11/21/18 15:00 84 12 123/62 (82) 96 11/21/18 14:00 83 13 111/59 (76) 98 11/21/18 13:00 99.0 82 11 111/54 (73) 98 11/21/18 12:00 83 11 108/62 (77) 100 11/21/18 12:00 83 11/21/18 11:00 82 11 117/63 (81) 100 11/21/18 10:00 86 17 117/54 (75) 100 11/21/18 09:00 Nasal Cannula 3.0 11/21/18 09:00 86 20 113/52 (72) 100 11/21/18 08:00 85 11/21/18 08:00 98.7 85 13 116/57 (76) 100 11/21/18 07:15 84 14 106/54 (71) 100 11/21/18 07:00 84 15 114/64 (81) 100 11/21/18 06:30 84 14 109/57 (74) 100 11/21/18 06:15 82 16 106/58 (74) 99 11/21/18 06:00 86 19 96/41 (59) 93 11/21/18 05:45 82 18 122/65 (84) 98 11/21/18 05:30 81 14 112/58 (76) 99 11/21/18 05:15 81 16 113/61 (78) 100 11/21/18 05:00 81 12 116/61 (79) 100 11/21/18 04:45 78 12 113/59 (77) 100 11/21/18 04:30 79 11 102/54 (70) 100 11/21/18 04:00 98.0 80 12 104/56 (72) 100 11/21/18 04:00 Nasal Cannula 3.0 11/21/18 03:45 78 12 106/61 (76) 100 11/21/18 03:30 79 11 102/57 (72) 100 11/21/18 03:00 79 11 100/54 (69) 100 11/21/18 02:30 79 11 101/53 (69) 100 11/21/18 02:00 80 10 100/55 (70) 100 11/21/18 01:30 81 13 100/52 (68) 100 11/21/18 01:10 Nasal Cannula 3.0 11/21/18 01:00 81 12 94/47 (63) 100 11/21/18 00:45 84 12 92/47 (62) 99 11/21/18 00:30 83 20 100 11/21/18 00:15 80 13 115/53 (73) 100 11/21/18 00:00 97.8 81 13 118/54 (75) 100 11/20/18 23:50 82 12 109/57 (74) 99 11/20/18 23:45 83 14 102/58 (73) 100 11/20/18 23:30 84 14 108/55 (72) 99 11/20/18 23:15 84 12 107/55 (72) 100 11/20/18 23:00 83 11 103/59 (74) 100 11/20/18 22:45 82 12 101/51 (68) 100 11/20/18 22:30 97.7 82 11 94/51 (65) 100 11/20/18 21:00 Nasal Cannula 3.0 11/20/18 20:20 Non-Rebreather 15.0 100 11/20/18 20:20 100 Non-Rebreather 15.0 100 Intake and Output 11/20/18 11/21/18 18:59 06:59 Intake Total 650 ml 700 ml Output Total 100 ml 305 ml Balance 550 ml 395 ml IV Total 650 ml 700 ml Output Urine Total 100 ml 305 ml # Bowel Movements 2 Laboratory Tests 11/21/18 05:00: White Blood Count 13.8#H, Red Blood Count 3.19L, Hemoglobin 9.2L, Hematocrit 28.4L, Mean Corpuscular Volume 89, Mean Corpuscular Hemoglobin 28.9, Mean Corpuscular Hemoglobin Concent 32.5, Red Cell Distribution Width 13.1, Platelet Count 380, Mean Platelet Volume 4.3L, Neutrophils (%) (Auto) 82.5H, Lymphocytes (%) (Auto) 8.7L, Monocytes (%) (Auto) 4.8, Eosinophils (%) (Auto) 3.7H, Basophils (%) (Auto) 0.3, Sodium Level 139, Potassium Level 3.8, Chloride Level 106, Carbon Dioxide Level 27, Anion Gap 6, Blood Urea Nitrogen 13, Creatinine 1.1, Estimat Glomerular Filtration Rate 49.3, Glucose Level 87, Calcium Level 8.0L 11/21/18 06:00: Stool Occult Blood Negative Height (Feet): 5 Height (Inches): 6.00 Weight (Pounds): 180 Objective Elderly WW NCAT supple CTA RR Soft NT ND, (+) PEG no edema, contracted OBS Darryl Hood MD Nov 21, 2018 19:09
--- NOTE | 2018-11-21 19:40 | NUR ---
NURSE NOTES: Received Pt is resting on the bed and no sign of acute distress noted. On O2 3L via nasal cannula and SaO2 97% noted. On G-tube feeding tolerated well. No residual noted. Dressing is clean and dry on wound area. Rt. IJ site dressing is clean and dry but no blood return noted. No sign of pain at this time. Placed fall precaution. Will continue to care plan.
[2018-11-21] MEDS ORDERED: Dyna-Hex 2% Top Sol 2oz TOPIC SCH ×2 (20:00)
[2018-11-21] MEDS: Dyna-Hex 2% Top Sol 2oz TOPIC SCH (20:04)
--- NOTE | 2018-11-21 20:06 | NUR ---
NURSE NOTES: Patient is awake not oriented, non verbal has right side tlc but only blue port is flushable AND draws blood. Skin id very red severe dermatitis and patient contracted in uncomfortable situation.
--- NOTE | 2018-11-21 20:13 | Cardiology Progress Note ---
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 need stress does steroids for nwo should help echo ekg will follow full note dicated Objective Last 24 Hour Vital Signs Date Time Temp Pulse Resp B/P (MAP) Pulse Ox O2 Delivery O2 Flow Rate FiO2 11/21/18 20:00 98.1 90 16 100/55 (70) 98 11/21/18 16:00 85 11/21/18 15:00 84 12 123/62 (82) 96 11/21/18 14:00 83 13 111/59 (76) 98 11/21/18 13:00 99.0 82 11 111/54 (73) 98 11/21/18 12:00 83 11 108/62 (77) 100 11/21/18 12:00 83 11/21/18 11:00 82 11 117/63 (81) 100 11/21/18 10:00 86 17 117/54 (75) 100 11/21/18 09:00 Nasal Cannula 3.0 11/21/18 09:00 86 20 113/52 (72) 100 11/21/18 08:00 85 11/21/18 08:00 98.7 85 13 116/57 (76) 100 11/21/18 07:15 84 14 106/54 (71) 100 11/21/18 07:00 84 15 114/64 (81) 100 11/21/18 06:30 84 14 109/57 (74) 100 11/21/18 06:15 82 16 106/58 (74) 99 11/21/18 06:00 86 19 96/41 (59) 93 11/21/18 05:45 82 18 122/65 (84) 98 11/21/18 05:30 81 14 112/58 (76) 99 11/21/18 05:15 81 16 113/61 (78) 100 11/21/18 05:00 81 12 116/61 (79) 100 11/21/18 04:45 78 12 113/59 (77) 100 11/21/18 04:30 79 11 102/54 (70) 100 11/21/18 04:00 98.0 80 12 104/56 (72) 100 11/21/18 04:00 Nasal Cannula 3.0 11/21/18 03:45 78 12 106/61 (76) 100 11/21/18 03:30 79 11 102/57 (72) 100 11/21/18 03:00 79 11 100/54 (69) 100 11/21/18 02:30 79 11 101/53 (69) 100 11/21/18 02:00 80 10 100/55 (70) 100 11/21/18 01:30 81 13 100/52 (68) 100 11/21/18 01:10 Nasal Cannula 3.0 11/21/18 01:00 81 12 94/47 (63) 100 11/21/18 00:45 84 12 92/47 (62) 99 11/21/18 00:30 83 20 100 11/21/18 00:15 80 13 115/53 (73) 100 11/21/18 00:00 97.8 81 13 118/54 (75) 100 11/20/18 23:50 82 12 109/57 (74) 99 11/20/18 23:45 83 14 102/58 (73) 100 11/20/18 23:30 84 14 108/55 (72) 99 11/20/18 23:15 84 12 107/55 (72) 100 11/20/18 23:00 83 11 103/59 (74) 100 11/20/18 22:45 82 12 101/51 (68) 100 11/20/18 22:30 97.7 82 11 94/51 (65) 100 11/20/18 21:00 Nasal Cannula 3.0 11/20/18 20:20 Non-Rebreather 15.0 100 11/20/18 20:20 100 Non-Rebreather 15.0 100 Intake and Output 11/20/18 11/21/18 18:59 06:59 Intake Total 650 ml 700 ml Output Total 100 ml 305 ml Balance 550 ml 395 ml IV Total 650 ml 700 ml Output Urine Total 100 ml 305 ml # Bowel Movements 2 Laboratory Tests Test 11/21/18 05:00 11/21/18 06:00 White Blood Count 13.8 K/UL (4.8-10.8) #H Red Blood Count 3.19 M/UL (4.20-5.40) L Hemoglobin 9.2 G/DL (12.0-16.0) L Hematocrit 28.4 % (37.0-47.0) L Mean Corpuscular Volume 89 FL (80-99) Mean Corpuscular Hemoglobin 28.9 PG (27.0-31.0) Mean Corpuscular Hemoglobin Concent 32.5 G/DL (32.0-36.0) Red Cell Distribution Width 13.1 % (11.6-14.8) Platelet Count 380 K/UL (150-450) Mean Platelet Volume 4.3 FL (6.5-10.1) L Neutrophils (%) (Auto) 82.5 % (45.0-75.0) H Lymphocytes (%) (Auto) 8.7 % (20.0-45.0) L Monocytes (%) (Auto) 4.8 % (1.0-10.0) Eosinophils (%) (Auto) 3.7 % (0.0-3.0) H Basophils (%) (Auto) 0.3 % (0.0-2.0) Sodium Level 139 MMOL/L (136-145) Potassium Level 3.8 MMOL/L (3.5-5.1) Chloride Level 106 MMOL/L (98-107) Carbon Dioxide Level 27 MMOL/L (21-32) Anion Gap 6 mmol/L (5-15) Blood Urea Nitrogen 13 mg/dL (7-18) Creatinine 1.1 MG/DL (0.55-1.30) Estimat Glomerular Filtration Rate 49.3 mL/min (>60) Glucose Level 87 MG/DL (74-106) Calcium Level 8.0 MG/DL (8.5-10.1) L Stool Occult Blood Negative (NEGATIVE) Jesu Alejandra MD Nov 21, 2018 20:13
[2018-11-21] MEDS: levETIRAcetam 500mg/NS100ml 100 ML IVPB SCH (20:39)
[2018-11-21] MEDS: Heparin 5000 units/ml inj SUBQ SCH (20:43)
--- NOTE | 2018-11-21 21:35 | NUR ---
HAND-OFF: Report given to MEGHAN Sher. Pt is sleeping on the bed and no sign of acute distress noted.
--- NOTE | 2018-11-21 21:37 | NUR ---
NURSE NOTES: Received report from MEGHAN Chiu. Pt is resting in bed. In no acute distress. No s/s of pain or discomfort. Bed in lowest position, call light within reach. Will continue plan of care.
--- NOTE | 2018-11-21 22:15 | Consultation ---
DATE OF CONSULTATION: 11/21/2018 CARDIOLOGY CONSULTATION CONSULTING PHYSICIAN: Jesu Alejandra M.D. REFERRING PHYSICIAN: Ilir Rios M.D. REASON FOR REFERRAL: Intermittent hypotension. HISTORY OF PRESENT ILLNESS: This is an elderly female who has been admitted to the hospital for the past 13 days under direction of Dr. Ilir Rios. I was asked to see the patient because of having supposedly recurrent episodes of hypertension. She is really unable to provide any meaningful history whatsoever information is obtained from review of the patient's chart. She has had a G-tube placed recently and she had some elevated D-dimers, which apparently negative venous duplex study. CT pulmonary angiography was documented. She knows that her blood pressure readings down to 90s and this consultation requested. 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 She also has bronchiectasis, hypoglobulinemia, meningoencephalitis, multiple rib fractures, sinusitis, ulcerative colitis, and Viki granulomatosis. ALLERGIES: The patient reportedly is allergic to penicillin. SOCIAL HISTORY: She is apparently resident of a convalescent facility most recently. Smoking history is really not known based on the information available even from the chart. REVIEW OF SYSTEMS: Unable to obtain. PHYSICAL EXAMINATION: GENERAL: Shows an elderly female, is awake and alert responsive, but really noncommunicative of any sort. She is contracted, very difficult to examine. LUNGS: Appear to be clear to auscultation. CARDIAC: Regular rate and rhythm. No heaves or thrills. ABDOMEN: Soft and nontender. Positive bowel sounds. EXTREMITIES: There is no clubbing or cyanosis. The legs are contracted and there seems to be edema on the lower extremities bilaterally. NEUROLOGICAL: She is awake, alert, responsive, and in no apparent respiratory distress. LABORATORY AND DIAGNOSTIC DATA: White count 13.2, hemoglobin 9.2, and platelet count 380,000. Blood gases shows pH of 7.46, pCO2 29, pO2 88, and bicarbonate of 23. Sodium is 139, potassium 3.8, chloride 106, bicarbonate 27, BUN 13, creatinine 1.1, and glucose of 87. Calcium is 8.0. INR is 1 and PTT of 36 from yesterday. Microbiology, blood cultures have been negative. Imaging has been performed. Venous duplex study of the lower extremities show no evidence of deep venous thrombosis in the femoral popliteal and tibial veins. Telemetry data seems to show some sinus rhythm. No really significant ST-T wave abnormalities. An old EKG is really not found in the chart at this time. ASSESSMENT AND PLAN: 1. Hypotension. 2. Brevard's disease. 3. History of status post G-tube placement. 4. 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 5. History of bronchiectasis. 6. Normal pressure hydrocephalus, CSF fluid leak. 7. History of hypothyroidism. 8. History of ulcerative colitis. 9. History of Viki granulomatosis per [facility] records. Dr. Rios, this patient was seen in cardiac consultation. If the patient does have the series of information from [facility] as indicated is Brevard's disease and should probably on some cortisol. I am looking through her medications. I do not see cortisol as being one of them. I will proceed with administration of some for the time being and eventually she will need to be treated for her Brennan's disease, which should help with her diabetes and blood pressure control long-term. EKG will be ordered as a matter of routine. She has not had an echocardiogram here, which I will proceed to order as well. Jesu Alejandra M.D. DR: GWEN JOB#: [id number] CC:
[2018-11-21] MEDS: Hydrocortisone 100mg Inj IV SCH (22:25)
[2018-11-22] VITALS: BP 129/73
[2018-11-22] MEDS: Cefepime HCl 1 GM in D5W 55 ML IVPB SCH ×2 (01:22→14:40)
[2018-11-22] MEDS: D5NS 1,000 ML IV SCH ×3 (01:23→22:41)
[2018-11-22] MEDS ORDERED: Cefepime HCl 1 GM in D5W 55 ML IVPB SCH (02:00)
[2018-11-22 04:00] VITALS: BP 130/63
[2018-11-22] MEDS: Hydrocortisone 100mg Inj IV SCH ×3 (05:13→22:36)
--- NOTE | 2018-11-22 07:56 | NUR ---
HAND-OFF: Report given to MEGHAN Vargas.
[2018-11-22 08:00] VITALS: BP 138/77
--- NOTE | 2018-11-22 08:00 | NUR ---
NURSE NOTES: received pt in the bed, awake, nonverbal, vital signs stable, no co pain, no SOB, contracted, skin warm and dry to touch, tolerate GT feeding well,abdomen soft, bed in low position, HOB elevated.
[2018-11-22] MEDS ORDERED: OLANZapine 2.5mg tab GT SCH (09:00)
[2018-11-22] MEDS ORDERED: Memantine 5 MG TAB PEG SCH (09:00)
[2018-11-22] MEDS ORDERED: Thiamine 100mg tab GT SCH (09:00)
[2018-11-22] MEDS: Venlafaxine HCl 37.5mg Tab GT SCH ×2 (09:19→17:43)
[2018-11-22] MEDS: Magnesium Oxide 400mg tab PEG SCH ×3 (09:20→17:43)
[2018-11-22] MEDS: Memantine 5 MG TAB PEG SCH (09:20)
[2018-11-22] MEDS: Thiamine 100mg tab GT SCH (09:20)
[2018-11-22] MEDS: OLANZapine 2.5mg tab GT SCH (09:20)
[2018-11-22] MEDS: levETIRAcetam 500mg/NS100ml 100 ML IVPB SCH ×2 (09:21→20:14)
[2018-11-22] MEDS: Heparin 5000 units/ml inj SUBQ SCH ×2 (09:22→20:16)
[2018-11-22] MEDS ORDERED: Miralax 17gm pkt GT PRN ×2 (10:30)
--- NOTE | 2018-11-22 10:37 | Pulmonology Progress Note ---
Assessment/Plan Problems: (1) Elevated d-dimer (2) Hypoxemia (3) Dehydration (4) ARF (acute renal failure) (5) UTI (urinary tract infection) (6) Episode of generalized weakness (7) Sepsis (8) PEG (percutaneous endoscopic gastrostomy) status (9) Pearblossom disease Assessment/Plan CXR Optimize pulmonary hygiene/mobilize as tolerated PRN O2 Abx (CEFEPIME) per ID Monitor volumes and renal function, mIVF Aspiration precautions Started on HC by cards F/U TTE DVT Px: Hep SQ Monitor MS, F/U neuro recs and w/u, unable to do MRI GTF's FC Subjective Allergies: Coded Allergies: PENICILLINS (Verified Allergy, Unknown, 11/08/18) Subjective Transferred to tele Seen by cards, TTE pending, started on HC AFVSS O2 needs stable Not speaking, seiln TF's No distress, no cough, no SOB Objective Last 24 Hour Vital Signs Date Time Temp Pulse Resp B/P (MAP) Pulse Ox O2 Delivery O2 Flow Rate FiO2 11/22/18 08:45 75 11/22/18 08:00 Nasal Cannula 3.0 11/22/18 08:00 97.7 86 18 138/77 (97) 97 11/22/18 04:00 Nasal Cannula 3.0 11/22/18 04:00 96.4 85 20 130/63 (85) 98 11/22/18 04:00 79 11/22/18 00:00 Nasal Cannula 3.0 11/22/18 00:00 97.0 86 20 129/73 (91) 100 11/21/18 20:00 Nasal Cannula 3.0 11/21/18 20:00 98.1 90 16 100/55 (70) 98 11/21/18 20:00 72 11/21/18 16:00 85 11/21/18 15:00 84 12 123/62 (82) 96 11/21/18 14:00 83 13 111/59 (76) 98 11/21/18 13:00 99.0 82 11 111/54 (73) 98 11/21/18 12:00 83 11 108/62 (77) 100 11/21/18 12:00 83 11/21/18 11:00 82 11 117/63 (81) 100 Intake and Output 11/21/18 11/22/18 19:00 07:00 Intake Total 1370 ml 1635 ml Output Total 295 ml Balance 1075 ml 1635 ml Free Water 100 ml IV Total 1310 ml 1205 ml Tube Feeding 60 ml 330 ml Output Urine Total 295 ml # Voids 1 2 # Bowel Movements 2 1 General Appearance: no acute distress, cachetic, other - non-verbal HEENT: normocephalic, atraumatic, anicteric, mucous membranes moist Respiratory/Chest: chest wall non-tender, lungs clear, normal breath sounds, no respiratory distress Cardiovascular: normal peripheral pulses, normal rate, regular rhythm Abdomen: normal bowel sounds, soft, non tender, no organomegaly, non distended , no mass, other - GT Extremities: no cyanosis, no clubbing, no edema Laboratory Tests 11/22/18 06:00: Pro-B-Type Natriuretic Peptide 1013H, Cortisol AM Sample [Pending] Current Medications Medications (Trade) Dose Ordered Sig/Inocente Route PRN Reason Start Time Stop Time Status Last Admin Dose Admin Acetaminophen (Tylenol) 650 mg Q4H PRN GT Mild Pain/Temp > 100.5 11/21/18 18:30 12/20/18 14:29 Cefepime HCl 1 gm/ Dextrose 55 ml @ 110 mls/hr Q12H IVPB 11/22/18 02:00 11/28/18 13:59 11/22/18 01:22 Chlorhexidine Gluconate (Marga-Hex 2%) 1 applic DAILY@2000 TOPIC 11/21/18 20:00 12/11/18 19:59 11/21/18 20:04 Dextrose (Dextrose 50%) 25 ml Q30M PRN IV Hypoglycemia 11/21/18 17:00 12/08/18 15:46 Dextrose (Dextrose 50%) 50 ml Q30M PRN IV Hypoglycemia 11/21/18 17:00 12/08/18 17:29 Dextrose/Sodium Chloride 1,000 ml @ 100 mls/hr Q10H IV 11/21/18 16:30 12/20/18 15:59 11/22/18 01:23 Famotidine (Pepcid) 20 mg DAILY GT 11/22/18 09:00 12/20/18 10:59 11/22/18 09:20 Folic Acid (Folate) 1 mg DAILY PEG 11/22/18 09:00 12/20/18 10:59 11/22/18 09:19 Heparin Sodium (Porcine) (Heparin 5000 units/ml) 5,000 units EVERY 12 HOURS SUBQ 11/21/18 21:00 12/08/18 20:59 11/22/18 09:22 Hydrocortisone (Solu-CORTEF) 50 mg EVERY 8 HOURS IV 11/21/18 22:00 12/21/18 21:59 11/22/18 05:13 Levetiracetam 100 ml @ 400 mls/hr Q12HR IVPB 11/21/18 21:00 12/15/18 20:59 11/22/18 09:21 Levothyroxine Sodium (Synthroid) 75 mcg ACBREAKFAST GT 11/22/18 06:30 12/10/18 06:29 11/22/18 05:31 Magnesium Oxide (Mag-Ox 400mg) 400 mg THREE TIMES A DAY PEG 11/21/18 18:00 12/14/18 08:59 11/22/18 09:20 Memantine (Namenda) 5 mg DAILY PEG 11/22/18 09:00 12/20/18 10:59 11/22/18 09:20 Olanzapine (ZyPREXA) 2.5 mg DAILY GT 11/22/18 09:00 12/20/18 10:59 11/22/18 09:20 Polyethylene Glycol (Miralax) 17 gm DAILYPRN PRN GT Constipation 11/22/18 10:30 12/09/18 10:59 Thiamine HCl (Vitamin B1) 100 mg DAILY GT 11/22/18 09:00 12/20/18 10:59 11/22/18 09:20 Venlafaxine HCl (Effexor) 75 mg TWICE A DAY GT 11/21/18 18:00 12/20/18 17:59 11/22/18 09:19 Ahmet Mallory MD Nov 22, 2018 10:37
--- NOTE | 2018-11-22 11:21 | General Progress Note ---
Assessment/Plan Assessment/Plan Assessment - OBS - dysphagia - anemia - UTI - s/p PEG - Hypotension Recommendations - Elevate HOB - monitor vital signs - follow labs - abx - Pepcid - Miralax Subjective ROS Limited/Unobtainable: No Allergies: Coded Allergies: PENICILLINS (Verified Allergy, Unknown, 11/08/18) Objective Last 24 Hour Vital Signs Date Time Temp Pulse Resp B/P (MAP) Pulse Ox O2 Delivery O2 Flow Rate FiO2 11/22/18 08:45 75 11/22/18 08:00 Nasal Cannula 3.0 11/22/18 08:00 97.7 86 18 138/77 (97) 97 11/22/18 04:00 Nasal Cannula 3.0 11/22/18 04:00 96.4 85 20 130/63 (85) 98 11/22/18 04:00 79 11/22/18 00:00 Nasal Cannula 3.0 11/22/18 00:00 97.0 86 20 129/73 (91) 100 11/21/18 20:00 Nasal Cannula 3.0 11/21/18 20:00 98.1 90 16 100/55 (70) 98 11/21/18 20:00 72 11/21/18 16:00 85 11/21/18 15:00 84 12 123/62 (82) 96 11/21/18 14:00 83 13 111/59 (76) 98 11/21/18 13:00 99.0 82 11 111/54 (73) 98 11/21/18 12:00 83 11 108/62 (77) 100 11/21/18 12:00 83 Intake and Output 11/21/18 11/22/18 19:00 07:00 Intake Total 1370 ml 1635 ml Output Total 295 ml Balance 1075 ml 1635 ml Free Water 100 ml IV Total 1310 ml 1205 ml Tube Feeding 60 ml 330 ml Output Urine Total 295 ml # Voids 1 2 # Bowel Movements 2 1 Laboratory Tests 11/22/18 06:00: Pro-B-Type Natriuretic Peptide 1013H, Cortisol AM Sample [Pending] Height (Feet): 5 Height (Inches): 6.00 Weight (Pounds): 184 General Appearance: no apparent distress EENT: normal ENT inspection Neck: supple Cardiovascular: normal rate Respiratory/Chest: decreased breath sounds Abdomen: normal bowel sounds, non tender, soft Extremities: non-tender Rober Rucker MD Nov 22, 2018 11:21
--- NOTE | 2018-11-22 11:41 | Infectious Diseases Prog Note ---
Assessment/Plan Assessment/Plan antibiotics : cefepime A 1. Urinary tract infection. 2. MRSA pneumonia. 3. Breast cancer 4. leucocytosis P 1. continue cefepime 2. start iv vancomycin 3. will follow up cultures Subjective ROS Limited/Unobtainable: Yes Allergies: Coded Allergies: PENICILLINS (Verified Allergy, Unknown, 11/08/18) Objective Vital Signs Last 24 Hour Vital Signs Date Time Temp Pulse Resp B/P (MAP) Pulse Ox O2 Delivery O2 Flow Rate FiO2 11/22/18 08:45 75 11/22/18 08:00 Nasal Cannula 3.0 11/22/18 08:00 97.7 86 18 138/77 (97) 97 11/22/18 04:00 Nasal Cannula 3.0 11/22/18 04:00 96.4 85 20 130/63 (85) 98 11/22/18 04:00 79 11/22/18 00:00 Nasal Cannula 3.0 11/22/18 00:00 97.0 86 20 129/73 (91) 100 11/21/18 20:00 Nasal Cannula 3.0 11/21/18 20:00 98.1 90 16 100/55 (70) 98 11/21/18 20:00 72 11/21/18 16:00 85 11/21/18 15:00 84 12 123/62 (82) 96 11/21/18 14:00 83 13 111/59 (76) 98 11/21/18 13:00 99.0 82 11 111/54 (73) 98 11/21/18 12:00 83 11 108/62 (77) 100 11/21/18 12:00 83 Height (Feet): 5 Height (Inches): 6.00 Weight (Pounds): 184 Respiratory/Chest: lungs clear Cardiovascular: normal rate, regular rhythm, no gallop/murmur Abdomen: soft, non tender, other - GT Extremities: other - + edema, right IJ catheter Laboratory Tests Test 11/22/18 06:00 Pro-B-Type Natriuretic Peptide 1013 pg/mL (0-125) H Cortisol AM Sample Pending Current Medications Medications (Trade) Dose Ordered Sig/Inocente Route PRN Reason Start Time Stop Time Status Last Admin Dose Admin Acetaminophen (Tylenol) 650 mg Q4H PRN GT Mild Pain/Temp > 100.5 11/21/18 18:30 12/20/18 14:29 Cefepime HCl 1 gm/ Dextrose 55 ml @ 110 mls/hr Q12H IVPB 11/22/18 02:00 11/28/18 13:59 11/22/18 01:22 Chlorhexidine Gluconate (Marga-Hex 2%) 1 applic DAILY@2000 TOPIC 11/21/18 20:00 12/11/18 19:59 11/21/18 20:04 Dextrose (Dextrose 50%) 25 ml Q30M PRN IV Hypoglycemia 11/21/18 17:00 12/08/18 15:46 Dextrose (Dextrose 50%) 50 ml Q30M PRN IV Hypoglycemia 11/21/18 17:00 12/08/18 17:29 Dextrose/Sodium Chloride 1,000 ml @ 100 mls/hr Q10H IV 11/21/18 16:30 12/20/18 15:59 11/22/18 01:23 Famotidine (Pepcid) 20 mg DAILY GT 11/22/18 09:00 12/20/18 10:59 11/22/18 09:20 Folic Acid (Folate) 1 mg DAILY PEG 11/22/18 09:00 12/20/18 10:59 11/22/18 09:19 Heparin Sodium (Porcine) (Heparin 5000 units/ml) 5,000 units EVERY 12 HOURS SUBQ 11/21/18 21:00 12/08/18 20:59 11/22/18 09:22 Hydrocortisone (Solu-CORTEF) 50 mg EVERY 8 HOURS IV 11/21/18 22:00 12/21/18 21:59 11/22/18 05:13 Levetiracetam 100 ml @ 400 mls/hr Q12HR IVPB 11/21/18 21:00 12/15/18 20:59 11/22/18 09:21 Levothyroxine Sodium (Synthroid) 75 mcg ACBREAKFAST GT 11/22/18 06:30 12/10/18 06:29 11/22/18 05:31 Magnesium Oxide (Mag-Ox 400mg) 400 mg THREE TIMES A DAY PEG 11/21/18 18:00 12/14/18 08:59 11/22/18 09:20 Memantine (Namenda) 5 mg DAILY PEG 11/22/18 09:00 12/20/18 10:59 11/22/18 09:20 Olanzapine (ZyPREXA) 2.5 mg DAILY GT 11/22/18 09:00 12/20/18 10:59 11/22/18 09:20 Polyethylene Glycol (Miralax) 17 gm DAILYPRN PRN GT Constipation 11/22/18 10:30 12/09/18 10:59 Thiamine HCl (Vitamin B1) 100 mg DAILY GT 11/22/18 09:00 12/20/18 10:59 11/22/18 09:20 Venlafaxine HCl (Effexor) 75 mg TWICE A DAY GT 11/21/18 18:00 12/20/18 17:59 11/22/18 09:19 Marcial Haque MD Nov 22, 2018 11:41
[2018-11-22 12:00] VITALS: BP 126/76
--- NOTE | 2018-11-22 12:30 | NUR ---
NURSE NOTES: vital signs stable, respiration regular, tolerate feeding well, bed bath given, continue monitoring.
[2018-11-22] MEDS ORDERED: Vancomycin 1250mg/D5W 250ml IVPB SCH (13:00)
--- NOTE | 2018-11-22 14:30 | Neurology Progress Note ---
Interim History Interim History Interim History Ms. Aquino feels "better." She can be aroused with vocal stimuli. When aroused she is able to maintain arousal and respond during the entire visit. Her BPs have been in the 120s and 130s systolic. She is still aphasic and some of her words can be understood. However she does a lot of mumbling and what she is saying cannot be understood. She is able to follow a simple commands much better. Review of Systems Neuro Review of Systems Unable to obtain. Objective Physical Exam Last Vital Signs Date Time Temp Pulse Resp B/P (MAP) Pulse Ox O2 Delivery O2 Flow Rate FiO2 11/22/18 12:00 Nasal Cannula 3.0 11/22/18 12:00 97.6 84 18 126/76 (93) 96 11/20/18 20:20 100 Laboratory Tests Test 11/22/18 06:00 Pro-B-Type Natriuretic Peptide 1013 pg/mL (0-125) H Cortisol AM Sample Pending Neurologic Exam Objective PHYSICAL EXAMINATION: GENERAL: She is a well-developed, relatively well-nourished lady, lying in bed, in no acute distress. HEAD: Normocephalic and atraumatic. EENT: Examination benign. NECK: No neck rigidity was observed. NEUROLOGIC EXAMINATION: MENTAL STATUS EXAMINATION: She could be aroused with vocal stimuli. When aroused she is able to maintain arousal and respond during the entire visit. She was still aphasic and some of her words could be understood. However she did a lot of mumbling and what she was saying could not be understood. She was able to follow a simple commands much better. SPEECH: Her dysarthria was better. LANGUAGE: She was able to comprehend simple commands and express herself better , but not normally. CRANIAL NERVE EXAMINATION: II: She blinked to threat on both sides. III, IV & : External ocular movements were present on oculocephalic maneuvers. The pupils were 3 mm in diameter, equal, round, regular, and reactive sluggishly to light. V & VII: The corneal reflexes were equally brisk and she had no facial asymmetry. VIII: She did respond to sounds and had no nystagmus. IX-X: The gag reflex was not tested. XI: The sternocleidomastoids and trapezii functioned minimally. XII: The tongue was in the midline without any fasciculations or atrophy. MOTOR SYSTEM: The tone was increased in all four extremities with a significant degree of spasticity. Examination of muscle mass revealed bilateral knee and ankle cord contractures. Examination of power was impossible to perform on individual muscle groups. She however moved all four extremities on command. 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 SENSORY EXAMINATION: She responded appropriately to deep pain. She was unable to cooperate for other sensory modalities. REFLEXES: 2++ and bilaterally symmetrical at the biceps, triceps, brachioradialis, and knees, 0 at both ankles. The plantar responses were flexor bilaterally. COORDINATION, STANCE & GAIT: Could not be tested. Impression/Recommendations Diagnostic Impression 1. Ms. Stacy Aquino is a 68-year-old lady of unknown handedness, who does have a past history of anxiety, depression, breast cancer, and Alzheimer's disease. She was hospitalized on 11/08/2018 for increased weakness and change in behavior. She was discovered to have urinary tract infection, dehydration, and hypotension all of which have been treated, but she continues to have an altered mental state, which her family feels is worse than her baseline. 2. She feels "better." She can be aroused with vocal stimuli. When aroused she is able to maintain arousal and respond during the entire visit. Her BPs have been in the 120s and 130s systolic. She is still aphasic and some of her words can be understood. However she does a lot of mumbling and what she is saying cannot be understood. She is able to follow a simple commands much better. 3. On neurological examination, at this time, she can be aroused with vocal stimuli. When aroused she is able to maintain arousal and respond during the entire visit. She is still aphasic and some of her words can be understood. However she does a lot of mumbling and what she is saying cannot be understood. She is able to follow a simple commands much better. Her dysarthria is better. She is able to comprehend simple commands and express herself better, but not normally. She is significantly less encephalopathic. She does not demonstrate any focal or lateralizing neurological findings. She is generally weak, has bilateral ankle cord contractures and exhibits spasticity. 4. Laboratory data obtained thus far have revealed that she is anemic with a hemoglobin of 9.0 G. Her blood gases revealed that her pCO2 was down to 31.8 and her pO2 was 103.2. Her chemistry panel on admission revealed her BUN was elevated to 20 and creatinine was elevated at 1.6. Her BNP was elevated to 577, her albumin was low at 2.9, her TSH was low at 0.086. The urinalysis on admission revealed 3+ leukocyte esterase, too numerous to count white blood cells, but 0 red blood cells per high power field. 5. Further laboratory tests have revealed a low T3 at 0.8 and a low T4 at 0.68. The B12 is normal but the folate is low at 7.2. 6. The CT of the brain done on 11/12/18 revealed atrophy and hydrocephalus ex- vacuo. 7. The EEG done on 11/14/18 revealed a moderately severe metabolic encephalopathy. In addition T3 and T4 sharp discharges were seen which could be indicative of either brain irritability or inter-ictal discharges. 8. A brain MRI could not be done as she could not be positioned in the scanner due to her contractures. 9. The patient's history, neurological examination and imaging are most compatible with an advanced dementia with a superimposed encephalopathy most probably related to her recent urinary tract infection, hypotension, and fluid and electrolyte imbalance. 10. The episode of hypotension on 11/13/18 could have worsened the encephalopathy. 11. She had her last hypotensive episode on 11/20/18. 12. There is a question as to whether she has adrenal insufficency. Recommendations 1. Continue present management. 2. Try to keep BP > 110 at all times. 3. Treatment of hypothyroidism. 4. Folic acid 1 mg PO daily. 5. Continue Keppra 500 q 12 H IV. 6. Treatment of adrenal insufficiency. 7. Observe. Harley Reeves M.D., M.S.P.H. Harley Reeves MD Nov 22, 2018 14:30
--- NOTE | 2018-11-22 14:37 | General Progress Note ---
Assessment/Plan Problem List: (1) UTI (urinary tract infection) ICD Codes: N39.0 - Urinary tract infection, site not specified SNOMED: 98254432 (2) Sepsis ICD Codes: A41.9 - Sepsis, unspecified organism SNOMED: 34855729 (3) ARF (acute renal failure) Assessment & Plan: better ICD Codes: N17.9 - Acute kidney failure, unspecified SNOMED: 65123106 (4) Encephalopathy acute ICD Codes: G93.40 - Encephalopathy, unspecified SNOMED: 99981776, 863870961 Assessment/Plan IV hydrocortisone Abxs TF follow labs Discussed with Dr Alejandra and Dr Reeves Endocrine consult Subjective Allergies: Coded Allergies: PENICILLINS (Verified Allergy, Unknown, 11/08/18) Subjective awake and alert today Objective Last 24 Hour Vital Signs Date Time Temp Pulse Resp B/P (MAP) Pulse Ox O2 Delivery O2 Flow Rate FiO2 11/22/18 12:00 Nasal Cannula 3.0 11/22/18 12:00 97.6 84 18 126/76 (93) 96 11/22/18 12:00 75 11/22/18 08:45 75 11/22/18 08:00 Nasal Cannula 3.0 11/22/18 08:00 97.7 86 18 138/77 (97) 97 11/22/18 04:00 Nasal Cannula 3.0 11/22/18 04:00 96.4 85 20 130/63 (85) 98 11/22/18 04:00 79 11/22/18 00:00 Nasal Cannula 3.0 11/22/18 00:00 97.0 86 20 129/73 (91) 100 11/21/18 20:00 Nasal Cannula 3.0 11/21/18 20:00 98.1 90 16 100/55 (70) 98 11/21/18 20:00 72 11/21/18 16:00 85 11/21/18 15:00 84 12 123/62 (82) 96 Intake and Output 11/21/18 11/22/18 19:00 07:00 Intake Total 1370 ml 1765 ml Output Total 295 ml Balance 1075 ml 1765 ml Free Water 100 ml IV Total 1310 ml 1305 ml Tube Feeding 60 ml 360 ml Output Urine Total 295 ml # Voids 1 2 # Bowel Movements 2 1 Laboratory Tests 11/22/18 06:00: Pro-B-Type Natriuretic Peptide 1013H, Cortisol AM Sample [Pending] Height (Feet): 5 Height (Inches): 6.00 Weight (Pounds): 184 Cardiovascular: normal rate Respiratory/Chest: lungs clear Edema: 2+ Generalized Ilir Rios MD Nov 22, 2018 14:37
--- NOTE | 2018-11-22 15:48 | Cardiology Report ---
APPROVED REPORT EXAM: Two-dimensional and M-mode echocardiogram with Doppler and color Doppler. INDICATION Congestive Heart Failure M-Mode DIMENSIONS IVSd1.2 (0.7-1.1cm)Left Atrium (MM)3.2 (1.6-4.0cm) LVDd3.5 (3.5-5.6cm)Aortic Root3.0 (2.0-3.7cm) PWd1.0 (0.7-1.1cm)Aortic Cusp Exc.1.6 (1.5-2.0cm) LVDs1.7 (2.5-4.0cm) PWs1.5 cm Normal left ventricular chamber size, systolic function and wall motion. Left ventricular ejection fraction estimated to be 55 %. Mild left ventricular hypertrophy. Anterior Echo-free space, may be due to pericardial fat or effusion. All other cardiac chamber sizes are within normal limits. Mild focal aortic valve sclerosis with adequate cusp excursion. Mildly thickened mitral valve leaflets with normal excursion. Mild mitral annulus and aortic root calcification. Pulmonic valve not well visualized. Normal tricuspid valve structure. IVC dilated at 3.1 cm without physiological collapse, estimated RAP is 20 mmHg. A color flow and spectral Doppler study was performed and revealed: No aortic insufficiency. No mitral regurgitation. Mitral diastolic velocities suggest mild left ventricular diastolic dysfunction (Grade I). Mild tricuspid regurgitation. Tricuspid systolic velocities suggests peak right ventricular systolic pressure of 43 mmHg, consistent with mild pulmonary hypertension. No pulmonic regurgitation present.
--- NOTE | 2018-11-22 15:49 | Diagnostic Imaging Report ---
Indication: Dyspnea Comparison: 11/17/2018 A single view chest radiograph was obtained. Findings: Right jugular line and PICC line are stable. Mild cardiomegaly is stable. Basilar atelectasis demonstrated bilaterally. Lung volumes remain low. IMPRESSION: No significant change
[2018-11-22 16:00] VITALS: BP 109/66
--- NOTE | 2018-11-22 19:08 | NUR ---
HAND-OFF: Report given to AYAH CHRISTIANSON.
--- NOTE | 2018-11-22 19:10 | NUR ---
NURSE NOTES: Report received from MEGHAN Vargas. Observed pt lying on bed, awake, non-verbal, open eyes. No signs of distress noted. SR with patient monitor. On NC 3L with no signs of SOB. GT site intact and patent, running Osmolite 1.2 at 30cc/hr. IV site on R IJ, intact and running D5NS 100cc/hr. Bed in the lowest position. Side rails up x2. Call light within reach. Will continue to monitor.
[2018-11-22 20:00] VITALS: BP 136/60
[2018-11-22] MEDS: Dyna-Hex 2% Top Sol 2oz TOPIC SCH (20:14)
--- NOTE | 2018-11-22 21:41 | Cardiology Progress Note ---
Assessment/Plan Assessment/Plan her BP is more stable on steroids Subjective Subjective the patient is non verbal, she opens her eyes but does not communicate Objective Last 24 Hour Vital Signs Date Time Temp Pulse Resp B/P (MAP) Pulse Ox O2 Delivery O2 Flow Rate FiO2 11/22/18 20:00 97.3 88 12 136/60 (85) 96 11/22/18 16:00 Nasal Cannula 3.0 11/22/18 16:00 97.3 80 20 109/66 (80) 96 11/22/18 16:00 80 11/22/18 12:00 Nasal Cannula 3.0 11/22/18 12:00 97.6 84 18 126/76 (93) 96 11/22/18 12:00 75 11/22/18 08:45 75 11/22/18 08:00 Nasal Cannula 3.0 11/22/18 08:00 97.7 86 18 138/77 (97) 97 11/22/18 04:00 Nasal Cannula 3.0 11/22/18 04:00 96.4 85 20 130/63 (85) 98 11/22/18 04:00 79 11/22/18 00:00 Nasal Cannula 3.0 11/22/18 00:00 97.0 86 20 129/73 (91) 100 General Appearance: lethargic EENT: PERRL/EOMI Neck: limited range of motion Rhythm: NSR Cardiovascular: normal rate Respiratory/Chest: decreased breath sounds Abdomen: non tender Extremities: other - contracted Neurologic: aphasia Intake and Output 11/21/18 11/22/18 19:00 07:00 Intake Total 1370 ml 1765 ml Output Total 295 ml Balance 1075 ml 1765 ml Free Water 100 ml IV Total 1310 ml 1305 ml Tube Feeding 60 ml 360 ml Output Urine Total 295 ml # Voids 1 2 # Bowel Movements 2 1 Laboratory Tests Test 11/22/18 06:00 Pro-B-Type Natriuretic Peptide 1013 pg/mL (0-125) H Cortisol AM Sample Pending Imelda Sutton MD Nov 22, 2018 21:41
[2018-11-22] MEDS ORDERED: NS 275ml ONE (22:45)
[2018-11-22] MEDS ORDERED: Tubing IV Secondary IV ONE (22:45)
[2018-11-23] VITALS: BP 109/63
[2018-11-23] MEDS: Vancomycin 750mg/NS 250ml IVPB SCH ×2 (00:42→13:46)
[2018-11-23] MEDS: Cefepime HCl 1 GM in D5W 55 ML IVPB SCH ×2 (02:16→14:02)
--- NOTE | 2018-11-23 03:00 | NUR ---
NURSE NOTES: Observed pt lying on the bed, awake. noticed pt mumbling herself and few words can be understood, but does not follow command. No signs of distress noted. Will continue to monitor.
[2018-11-23 04:00] VITALS: BP 121/64
[2018-11-23] MEDS: Hydrocortisone 100mg Inj IV SCH ×3 (06:23→21:05)
--- NOTE | 2018-11-23 07:01 | General Progress Note ---
Assessment/Plan Assessment/Plan Assessment - OBS - dysphagia - anemia - UTI - s/p PEG - Hypotension Recommendations - Elevate HOB - monitor vital signs - follow labs - abx - Pepcid - Miralax Subjective ROS Limited/Unobtainable: No Allergies: Coded Allergies: PENICILLINS (Verified Allergy, Unknown, 11/08/18) Objective Last 24 Hour Vital Signs Date Time Temp Pulse Resp B/P (MAP) Pulse Ox O2 Delivery O2 Flow Rate FiO2 11/23/18 04:00 Nasal Cannula 3.0 11/23/18 04:00 88 11/23/18 04:00 97.4 85 12 121/64 (83) 96 11/23/18 00:00 97.5 88 12 109/63 (78) 96 11/23/18 00:00 Nasal Cannula 3.0 11/23/18 00:00 84 11/22/18 20:00 83 11/22/18 20:00 Nasal Cannula 3.0 11/22/18 20:00 97.3 88 12 136/60 (85) 96 11/22/18 16:00 Nasal Cannula 3.0 11/22/18 16:00 97.3 80 20 109/66 (80) 96 11/22/18 16:00 80 11/22/18 12:00 Nasal Cannula 3.0 11/22/18 12:00 97.6 84 18 126/76 (93) 96 11/22/18 12:00 75 11/22/18 08:45 75 11/22/18 08:00 Nasal Cannula 3.0 11/22/18 08:00 97.7 86 18 138/77 (97) 97 Intake and Output 11/22/18 11/23/18 19:00 07:00 Intake Total 1665 ml 1755 ml Output Total 850 ml Balance 1665 ml 905 ml Free Water 150 ml 150 ml IV Total 1155 ml 1305 ml Tube Feeding 360 ml 300 ml Output Urine Total 850 ml # Voids 3 # Bowel Movements 2 Height (Feet): 5 Height (Inches): 6.00 Weight (Pounds): 184 General Appearance: no apparent distress EENT: normal ENT inspection Neck: supple Cardiovascular: normal rate Respiratory/Chest: decreased breath sounds Abdomen: normal bowel sounds, non tender, soft Extremities: non-tender Rober Rucker MD Nov 23, 2018 07:01
--- NOTE | 2018-11-23 07:05 | NUR ---
NURSE NOTES: Received patient from MEGHAN Rowe. Patient VS stable at this time with no sign of acute distress. Patient mumbles and says some words at this time. Patient's speech is nonsensical at times. Patient smiling and laughing at this time. Patient does not appear to be in distress. Patient is severely contracted of neck, bilateral upper and lower extremities. Attempted to straighten neck, but patient called out in pain so I stopped. Pillow placed more securely under patient's head at this time. Patient is on 3L NC at this time with stable saturation of 99% at this time. Patient has G tube newly inserted on 11/20 that is running Osmolite 1.2 at 30cc/hr with flush of 200cc Q8H. Patent has a purewick that is patent and draining at this time. Patient has perineal redness, heal redness, and sacral redness at this time. Optifoam placed for protection. Patient has generalized swelling. Patient has R IJ TLC thatis patent and asymptomatic and running D5 0.9% NS at 100cc/hr at this time. Patient bed in low position with bed alarm on and call light in reach at this time. Patient's is asking to speak to the doctor at this time. Will ask Doctor Gabriel to call him when he comes in today.
--- NOTE | 2018-11-23 07:10 | NUR ---
HAND-OFF: Report given to MEGHAN River. No acute distress noted.
[2018-11-23 08:00] VITALS: BP_SYST 102; BP_SYST 130; BP_DIAS 62; BP_DIAS 65
[2018-11-23] MEDS: Thiamine 100mg tab GT SCH (08:34)
[2018-11-23] MEDS: OLANZapine 2.5mg tab GT SCH (08:34)
[2018-11-23] MEDS: Venlafaxine HCl 37.5mg Tab GT SCH ×2 (08:34→17:42)
[2018-11-23] MEDS: Memantine 5 MG TAB PEG SCH (08:34)
[2018-11-23] MEDS: Magnesium Oxide 400mg tab PEG SCH ×3 (08:34→17:42)
[2018-11-23] MEDS: D5NS 1,000 ML IV SCH (08:35)
[2018-11-23] MEDS: levETIRAcetam 500mg/NS100ml 100 ML IVPB SCH ×2 (08:35→20:55)
[2018-11-23] MEDS: Heparin 5000 units/ml inj SUBQ SCH ×2 (08:48→20:56)
[2018-11-23 10:05] LABS: HEMATOCRIT 25.2 % (37.0-47.0); HEMOGLOBIN 8.1 G/DL (12.0-16.0); MEAN CORPUSCULAR VOLUME 88 FL (80-99); PLATELET COUNT 444 K/UL (150-450); RED BLOOD COUNT 2.84 M/UL (4.20-5.40); RED CELL DISTRIBUTION WIDTH 13.5 % (11.6-14.8); WHITE BLOOD COUNT 13.7 K/UL (4.8-10.8)
[2018-11-23 10:14] LABS: ANION GAP 8 mmol/L (5-15); BLOOD UREA NITROGEN 11 mg/dL (7-18); CARBON DIOXIDE 26 MMOL/L (21-32); CHLORIDE 111 MMOL/L (98-107); CREATININE 0.9 MG/DL (0.55-1.30); POTASSIUM 3.6 MMOL/L (3.5-5.1); SODIUM 145 MMOL/L (136-145)
--- NOTE | 2018-11-23 10:34 | Infectious Diseases Prog Note ---
Assessment/Plan Assessment/Plan A 1. Sepsis 2. Atelectasis/ pneumonia. 3. 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 Acute renal failure improved 6. Alzheimer dementia 7. Gastrostomy status P 1. Continue IV Cefepime & Vancomycin Subjective ROS Limited/Unobtainable: Yes Constitutional: Reports: other - doing better, transferred from ICU to [facility] Allergies: Coded Allergies: PENICILLINS (Verified Allergy, Unknown, 11/08/18) Objective Vital Signs Last 24 Hour Vital Signs Date Time Temp Pulse Resp B/P (MAP) Pulse Ox O2 Delivery O2 Flow Rate FiO2 11/23/18 08:00 97.2 93 18 130/62 (84) 97 11/23/18 07:58 86 11/23/18 07:50 Nasal Cannula 3.0 11/23/18 04:00 Nasal Cannula 3.0 11/23/18 04:00 88 11/23/18 04:00 97.4 85 12 121/64 (83) 96 11/23/18 00:00 97.5 88 12 109/63 (78) 96 11/23/18 00:00 Nasal Cannula 3.0 11/23/18 00:00 84 11/22/18 20:00 83 11/22/18 20:00 Nasal Cannula 3.0 11/22/18 20:00 97.3 88 12 136/60 (85) 96 11/22/18 16:00 Nasal Cannula 3.0 11/22/18 16:00 97.3 80 20 109/66 (80) 96 11/22/18 16:00 80 11/22/18 12:00 Nasal Cannula 3.0 11/22/18 12:00 97.6 84 18 126/76 (93) 96 11/22/18 12:00 75 Height (Feet): 5 Height (Inches): 6.00 Weight (Pounds): 185 General Appearance: no acute distress HEENT: mucous membranes moist Respiratory/Chest: lungs clear Cardiovascular: normal rate Abdomen: soft, non tender, other - GT feeding Neurologic/Psychiatric: unresponsiveness Laboratory Tests Test 11/23/18 09:52 White Blood Count 13.7 K/UL (4.8-10.8) H Red Blood Count 2.84 M/UL (4.20-5.40) L Hemoglobin 8.1 G/DL (12.0-16.0) L Hematocrit 25.2 % (37.0-47.0) L Mean Corpuscular Volume 88 FL (80-99) Mean Corpuscular Hemoglobin 28.6 PG (27.0-31.0) Mean Corpuscular Hemoglobin Concent 32.3 G/DL (32.0-36.0) Red Cell Distribution Width 13.5 % (11.6-14.8) Platelet Count 444 K/UL (150-450) Mean Platelet Volume 4.8 FL (6.5-10.1) L Neutrophils (%) (Auto) % (45.0-75.0) Lymphocytes (%) (Auto) % (20.0-45.0) Monocytes (%) (Auto) % (1.0-10.0) Eosinophils (%) (Auto) % (0.0-3.0) Basophils (%) (Auto) % (0.0-2.0) Neutrophils % (Manual) Pending Lymphocytes % (Manual) Pending Platelet Estimate Pending Platelet Morphology Pending Sodium Level 145 MMOL/L (136-145) Potassium Level 3.6 MMOL/L (3.5-5.1) Chloride Level 111 MMOL/L (98-107) H Carbon Dioxide Level 26 MMOL/L (21-32) Anion Gap 8 mmol/L (5-15) Blood Urea Nitrogen 11 mg/dL (7-18) Creatinine 0.9 MG/DL (0.55-1.30) Estimat Glomerular Filtration Rate > 60 mL/min (>60) Glucose Level 107 MG/DL (74-106) H Calcium Level 8.0 MG/DL (8.5-10.1) L Current Medications Medications (Trade) Dose Ordered Sig/Inocente Route PRN Reason Start Time Stop Time Status Last Admin Dose Admin Acetaminophen (Tylenol) 650 mg Q4H PRN GT Mild Pain/Temp > 100.5 11/21/18 18:30 12/20/18 14:29 Cefepime HCl 1 gm/ Dextrose 55 ml @ 110 mls/hr Q12H IVPB 11/22/18 02:00 11/28/18 13:59 11/23/18 02:16 Chlorhexidine Gluconate (Marga-Hex 2%) 1 applic DAILY@1999 TOPIC 11/21/18 20:00 12/11/18 19:59 11/22/18 20:14 Dextrose (Dextrose 50%) 25 ml Q30M PRN IV Hypoglycemia 11/21/18 17:00 12/08/18 15:46 Dextrose (Dextrose 50%) 50 ml Q30M PRN IV Hypoglycemia 11/21/18 17:00 12/08/18 17:29 Dextrose/Sodium Chloride 1,000 ml @ 100 mls/hr Q10H IV 11/21/18 16:30 12/20/18 15:59 11/23/18 08:35 Famotidine (Pepcid) 20 mg DAILY GT 11/22/18 09:00 12/20/18 10:59 11/23/18 08:34 Folic Acid (Folate) 1 mg DAILY PEG 11/22/18 09:00 12/20/18 10:59 11/23/18 08:34 Heparin Sodium (Porcine) (Heparin 5000 units/ml) 5,000 units EVERY 12 HOURS SUBQ 11/21/18 21:00 12/08/18 20:59 11/23/18 08:48 Hydrocortisone (Solu-CORTEF) 50 mg EVERY 8 HOURS IV 11/21/18 22:00 12/21/18 21:59 11/23/18 06:23 Levetiracetam 100 ml @ 400 mls/hr Q12HR IVPB 11/21/18 21:00 12/15/18 20:59 11/23/18 08:35 Levothyroxine Sodium (Synthroid) 75 mcg ACBREAKFAST GT 11/22/18 06:30 12/10/18 06:29 11/23/18 06:23 Magnesium Oxide (Mag-Ox 400mg) 400 mg THREE TIMES A DAY PEG 11/21/18 18:00 12/14/18 08:59 11/23/18 08:34 Memantine (Namenda) 5 mg DAILY PEG 11/22/18 09:00 12/20/18 10:59 11/23/18 08:34 Olanzapine (ZyPREXA) 2.5 mg DAILY GT 11/22/18 09:00 12/20/18 10:59 11/23/18 08:34 Polyethylene Glycol (Miralax) 17 gm DAILYPRN PRN GT Constipation 11/22/18 10:30 12/09/18 10:59 Thiamine HCl (Vitamin B1) 100 mg DAILY GT 11/22/18 09:00 12/20/18 10:59 11/23/18 08:34 Vancomycin HCl (Vanco rx to dose) 1 ea DAILY PRN MISC Per rx protocol 11/22/18 11:45 12/22/18 11:44 Vancomycin/Sodium Chloride 250 ml @ 166.667 mls/hr Q12H IVPB 11/23/18 01:00 11/28/18 00:59 11/23/18 00:42 Venlafaxine HCl (Effexor) 75 mg TWICE A DAY GT 11/21/18 18:00 12/20/18 17:59 11/23/18 08:34 Jimy Rios MD Nov 23, 2018 10:34
[2018-11-23] MEDS ORDERED: Tubing IV Secondary IV ONE (11:09)
[2018-11-23] MEDS ORDERED: NS 275ml ONE (11:09)
[2018-11-23] MEDS ORDERED: D5NS 1000ml IV ONE (11:09)
--- NOTE | 2018-11-23 11:20 | Pulmonology Progress Note ---
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 Assessment/Plan Optimize pulmonary hygiene/mobilize as tolerated PRN O2 Abx (CEFEPIME&VANCO) per ID Monitor volumes and renal function, mIVF Aspiration precautions Titrate HC F/U TTE DVT Px: Hep SQ Monitor MS, F/U neuro recs and w/u, unable to do MRI GTF's FC Subjective Allergies: Coded Allergies: PENICILLINS (Verified Allergy, Unknown, 11/08/18) Subjective ROSANGELA, CXR stable, Vanco added for MRSA in sputum AFVSS O2 needs stable Not speaking, selin TF's No distress, no cough, no SOB Objective Last 24 Hour Vital Signs Date Time Temp Pulse Resp B/P (MAP) Pulse Ox O2 Delivery O2 Flow Rate FiO2 11/23/18 08:00 97.2 93 18 130/62 (84) 97 11/23/18 07:58 86 11/23/18 07:50 Nasal Cannula 3.0 11/23/18 04:00 Nasal Cannula 3.0 11/23/18 04:00 88 11/23/18 04:00 97.4 85 12 121/64 (83) 96 11/23/18 00:00 97.5 88 12 109/63 (78) 96 11/23/18 00:00 Nasal Cannula 3.0 11/23/18 00:00 84 11/22/18 20:00 83 11/22/18 20:00 Nasal Cannula 3.0 11/22/18 20:00 97.3 88 12 136/60 (85) 96 11/22/18 16:00 Nasal Cannula 3.0 11/22/18 16:00 97.3 80 20 109/66 (80) 96 11/22/18 16:00 80 11/22/18 12:00 Nasal Cannula 3.0 11/22/18 12:00 97.6 84 18 126/76 (93) 96 11/22/18 12:00 75 Intake and Output 11/22/18 11/23/18 19:00 07:00 Intake Total 1665 ml 2055 ml Output Total 850 ml Balance 1665 ml 1205 ml Free Water 150 ml 150 ml IV Total 1155 ml 1605 ml Tube Feeding 360 ml 300 ml Output Urine Total 850 ml # Voids 3 # Bowel Movements 2 General Appearance: no acute distress, cachetic HEENT: normocephalic, atraumatic, anicteric, mucous membranes moist Respiratory/Chest: rhonchi Cardiovascular: normal peripheral pulses, normal rate, regular rhythm Abdomen: normal bowel sounds, soft, non tender, no organomegaly, non distended , no mass, other - GT Extremities: no cyanosis, no clubbing, other - 1-2 + edema Laboratory Tests 11/23/18 09:52: White Blood Count 13.7H, Red Blood Count 2.84L, Hemoglobin 8.1L, Hematocrit 25.2L, Mean Corpuscular Volume 88, Mean Corpuscular Hemoglobin 28.6, Mean Corpuscular Hemoglobin Concent 32.3, Red Cell Distribution Width 13.5, Platelet Count 444, Mean Platelet Volume 4.8L, Neutrophils (%) (Auto) , Lymphocytes (%) ( Auto) , Monocytes (%) (Auto) , Eosinophils (%) (Auto) , Basophils (%) (Auto) , Differential Total Cells Counted 100, Neutrophils % (Manual) 85H, Lymphocytes % (Manual) 11L, Monocytes % (Manual) 3, Eosinophils % (Manual) 0, Basophils % ( Manual) 1, Band Neutrophils 0, Platelet Estimate Adequate, Platelet Morphology Normal, Hypochromasia 1+, Sodium Level 145, Potassium Level 3.6, Chloride Level 111H, Carbon Dioxide Level 26, Anion Gap 8, Blood Urea Nitrogen 11, Creatinine 0.9, Estimat Glomerular Filtration Rate > 60, Glucose Level 107H, Calcium Level 8.0L Current Medications Medications (Trade) Dose Ordered Sig/Inocente Route PRN Reason Start Time Stop Time Status Last Admin Dose Admin Acetaminophen (Tylenol) 650 mg Q4H PRN GT Mild Pain/Temp > 100.5 11/21/18 18:30 12/20/18 14:29 Cefepime HCl 1 gm/ Dextrose 55 ml @ 110 mls/hr Q12H IVPB 11/22/18 02:00 11/28/18 13:59 11/23/18 02:16 Chlorhexidine Gluconate (Marga-Hex 2%) 1 applic DAILY@2000 TOPIC 11/21/18 20:00 12/11/18 19:59 11/22/18 20:14 Dextrose (Dextrose 50%) 25 ml Q30M PRN IV Hypoglycemia 11/21/18 17:00 12/08/18 15:46 Dextrose (Dextrose 50%) 50 ml Q30M PRN IV Hypoglycemia 11/21/18 17:00 12/08/18 17:29 Dextrose/Sodium Chloride 1,000 ml @ 100 mls/hr Q10H IV 11/21/18 16:30 12/20/18 15:59 11/23/18 08:35 Famotidine (Pepcid) 20 mg DAILY GT 11/22/18 09:00 12/20/18 10:59 11/23/18 08:34 Folic Acid (Folate) 1 mg DAILY PEG 11/22/18 09:00 12/20/18 10:59 11/23/18 08:34 Heparin Sodium (Porcine) (Heparin 5000 units/ml) 5,000 units EVERY 12 HOURS SUBQ 11/21/18 21:00 12/08/18 20:59 11/23/18 08:48 Hydrocortisone (Solu-CORTEF) 50 mg EVERY 8 HOURS IV 11/21/18 22:00 12/21/18 21:59 11/23/18 06:23 Levetiracetam 100 ml @ 400 mls/hr Q12HR IVPB 11/21/18 21:00 12/15/18 20:59 11/23/18 08:35 Levothyroxine Sodium (Synthroid) 75 mcg ACBREAKFAST GT 11/22/18 06:30 12/10/18 06:29 11/23/18 06:23 Magnesium Oxide (Mag-Ox 400mg) 400 mg THREE TIMES A DAY PEG 11/21/18 18:00 12/14/18 08:59 11/23/18 08:34 Memantine (Namenda) 5 mg DAILY PEG 11/22/18 09:00 12/20/18 10:59 11/23/18 08:34 Olanzapine (ZyPREXA) 2.5 mg DAILY GT 11/22/18 09:00 12/20/18 10:59 11/23/18 08:34 Polyethylene Glycol (Miralax) 17 gm DAILYPRN PRN GT Constipation 11/22/18 10:30 12/09/18 10:59 Thiamine HCl (Vitamin B1) 100 mg DAILY GT 11/22/18 09:00 12/20/18 10:59 11/23/18 08:34 Vancomycin HCl (Vanco rx to dose) 1 ea DAILY PRN MISC Per rx protocol 11/22/18 11:45 12/22/18 11:44 Vancomycin/Sodium Chloride 250 ml @ 166.667 mls/hr Q12H IVPB 11/23/18 01:00 11/28/18 00:59 11/23/18 00:42 Venlafaxine HCl (Effexor) 75 mg TWICE A DAY GT 11/21/18 18:00 12/20/18 17:59 11/23/18 08:34 Ahmet Mallory MD Nov 23, 2018 11:20
[2018-11-23 12:00] VITALS: BP 127/76
[2018-11-23 12:09] LABS: HEMATOCRIT 25.6 % (37.0-47.0); HEMOGLOBIN 8.3 G/DL (12.0-16.0); MEAN CORPUSCULAR VOLUME 89 FL (80-99); PLATELET COUNT 395 K/UL (150-450); RED BLOOD COUNT 2.86 M/UL (4.20-5.40); RED CELL DISTRIBUTION WIDTH 13.8 % (11.6-14.8); WHITE BLOOD COUNT 13.8 K/UL (4.8-10.8)
--- NOTE | 2018-11-23 12:38 | General Progress Note ---
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 SNOMED: 613797765 (3) Sepsis ICD Codes: A41.9 - Sepsis, unspecified organism SNOMED: 66000252 (4) Episode of generalized weakness ICD Codes: R53.1 - Weakness SNOMED: 28246063 (5) UTI (urinary tract infection) ICD Codes: N39.0 - Urinary tract infection, site not specified SNOMED: 69661595 (6) ARF (acute renal failure) ICD Codes: N17.9 - Acute kidney failure, unspecified SNOMED: 77921447 (7) Encephalopathy acute ICD Codes: G93.40 - Encephalopathy, unspecified SNOMED: 91832079, 982030302 (8) Pneumonia ICD Codes: J18.9 - Pneumonia, unspecified organism SNOMED: 951734858 Assessment/Plan reduce IVHC to 25 mg every 8 hours repeat thyroid function continue Levothyroxine 75 mcg daily Subjective ROS Limited/Unobtainable: Yes Allergies: Coded Allergies: PENICILLINS (Verified Allergy, Unknown, 11/08/18) Subjective patient is known to me from multiple previous admissions to [facility] as well as office visits she has known hx of hypothyroidism as well as adrenal insufficiency on replacement as OP Objective Last 24 Hour Vital Signs Date Time Temp Pulse Resp B/P (MAP) Pulse Ox O2 Delivery O2 Flow Rate FiO2 11/23/18 12:00 Nasal Cannula 3.0 11/23/18 12:00 96.1 87 16 127/76 (93) 96 11/23/18 08:00 97.2 93 18 130/62 (84) 97 11/23/18 07:58 86 11/23/18 07:50 Nasal Cannula 3.0 11/23/18 04:00 Nasal Cannula 3.0 11/23/18 04:00 88 11/23/18 04:00 97.4 85 12 121/64 (83) 96 11/23/18 00:00 97.5 88 12 109/63 (78) 96 11/23/18 00:00 Nasal Cannula 3.0 11/23/18 00:00 84 11/22/18 20:00 83 11/22/18 20:00 Nasal Cannula 3.0 11/22/18 20:00 97.3 88 12 136/60 (85) 96 11/22/18 16:00 Nasal Cannula 3.0 11/22/18 16:00 97.3 80 20 109/66 (80) 96 11/22/18 16:00 80 Intake and Output 11/22/18 11/23/18 19:00 07:00 Intake Total 1665 ml 2055 ml Output Total 850 ml Balance 1665 ml 1205 ml Free Water 150 ml 150 ml IV Total 1155 ml 1605 ml Tube Feeding 360 ml 300 ml Output Urine Total 850 ml # Voids 3 # Bowel Movements 2 Laboratory Tests 11/23/18 09:52: White Blood Count 13.7H, Red Blood Count 2.84L, Hemoglobin 8.1L, Hematocrit 25.2L, Mean Corpuscular Volume 88, Mean Corpuscular Hemoglobin 28.6, Mean Corpuscular Hemoglobin Concent 32.3, Red Cell Distribution Width 13.5, Platelet Count 444, Mean Platelet Volume 4.8L, Neutrophils (%) (Auto) , Lymphocytes (%) ( Auto) , Monocytes (%) (Auto) , Eosinophils (%) (Auto) , Basophils (%) (Auto) , Differential Total Cells Counted 100, Neutrophils % (Manual) 85H, Lymphocytes % (Manual) 11L, Monocytes % (Manual) 3, Eosinophils % (Manual) 0, Basophils % ( Manual) 1, Band Neutrophils 0, Platelet Estimate Adequate, Platelet Morphology Normal, Hypochromasia 1+, Sodium Level 145, Potassium Level 3.6, Chloride Level 111H, Carbon Dioxide Level 26, Anion Gap 8, Blood Urea Nitrogen 11, Creatinine 0.9, Estimat Glomerular Filtration Rate > 60, Glucose Level 107H, Calcium Level 8.0L 11/23/18 11:15: White Blood Count 13.8H, Red Blood Count 2.86L, Hemoglobin 8.3L, Hematocrit 25.6L, Mean Corpuscular Volume 89, Mean Corpuscular Hemoglobin 28.9, Mean Corpuscular Hemoglobin Concent 32.3, Red Cell Distribution Width 13.8, Platelet Count 395, Mean Platelet Volume 4.7L, Neutrophils (%) (Auto) , Lymphocytes (%) ( Auto) , Monocytes (%) (Auto) , Eosinophils (%) (Auto) , Basophils (%) (Auto) , Neutrophils % (Manual) [Pending], Lymphocytes % (Manual) [Pending], Platelet Estimate [Pending], Platelet Morphology [Pending] Height (Feet): 5 Height (Inches): 6.00 Weight (Pounds): 185 General Appearance: no apparent distress Neck: normal alignment Cardiovascular: normal rate Respiratory/Chest: decreased breath sounds Abdomen: normal bowel sounds, other - PEG Edema: 1+ Arm (L), 1+ Arm (R), 1+ Leg (L), 1+ Leg (R), 1+ Pedal (L), 1+ Pedal ( R), 1+ Generalized Objective Current Medications Medications (Trade) Dose Ordered Sig/Inocente Route PRN Reason Start Time Stop Time Status Last Admin Dose Admin Acetaminophen (Tylenol) 650 mg Q4H PRN GT Mild Pain/Temp > 100.5 11/21/18 18:30 12/20/18 14:29 Cefepime HCl 1 gm/ Dextrose 55 ml @ 110 mls/hr Q12H IVPB 11/22/18 02:00 11/28/18 13:59 11/23/18 02:16 Chlorhexidine Gluconate (Marga-Hex 2%) 1 applic DAILY@2000 TOPIC 11/21/18 20:00 12/11/18 19:59 11/22/18 20:14 Dextrose (Dextrose 50%) 25 ml Q30M PRN IV Hypoglycemia 11/21/18 17:00 12/08/18 15:46 Dextrose (Dextrose 50%) 50 ml Q30M PRN IV Hypoglycemia 11/21/18 17:00 12/08/18 17:29 Dextrose/Sodium Chloride 1,000 ml @ 100 mls/hr Q10H IV 11/21/18 16:30 12/20/18 15:59 11/23/18 08:35 Famotidine (Pepcid) 20 mg DAILY GT 11/22/18 09:00 12/20/18 10:59 11/23/18 08:34 Folic Acid (Folate) 1 mg DAILY PEG 11/22/18 09:00 12/20/18 10:59 11/23/18 08:34 Heparin Sodium (Porcine) (Heparin 5000 units/ml) 5,000 units EVERY 12 HOURS SUBQ 11/21/18 21:00 12/08/18 20:59 11/23/18 08:48 Hydrocortisone (Solu-CORTEF) 50 mg EVERY 8 HOURS IV 11/21/18 22:00 12/21/18 21:59 11/23/18 06:23 Levetiracetam 100 ml @ 400 mls/hr Q12HR IVPB 11/21/18 21:00 12/15/18 20:59 11/23/18 08:35 Levothyroxine Sodium (Synthroid) 75 mcg ACBREAKFAST GT 11/22/18 06:30 12/10/18 06:29 11/23/18 06:23 Magnesium Oxide (Mag-Ox 400mg) 400 mg THREE TIMES A DAY PEG 11/21/18 18:00 12/14/18 08:59 11/23/18 08:34 Memantine (Namenda) 5 mg DAILY PEG 11/22/18 09:00 12/20/18 10:59 11/23/18 08:34 Olanzapine (ZyPREXA) 2.5 mg DAILY GT 11/22/18 09:00 12/20/18 10:59 11/23/18 08:34 Polyethylene Glycol (Miralax) 17 gm DAILYPRN PRN GT Constipation 11/22/18 10:30 12/09/18 10:59 Thiamine HCl (Vitamin B1) 100 mg DAILY GT 11/22/18 09:00 12/20/18 10:59 11/23/18 08:34 Vancomycin HCl (Vanco rx to dose) 1 ea DAILY PRN MISC Per rx protocol 11/22/18 11:45 12/22/18 11:44 Vancomycin/Sodium Chloride 250 ml @ 166.667 mls/hr Q12H IVPB 11/23/18 01:00 11/28/18 00:59 11/23/18 00:42 Venlafaxine HCl (Effexor) 75 mg TWICE A DAY GT 11/21/18 18:00 12/20/18 17:59 11/23/18 08:34 Item Value Date Time Bedside Blood Glucose 138 mg/dl H 11/23/18 0600 Bedside Blood Glucose 122 mg/dl H 11/23/18 0000 Ken Turner MD Nov 23, 2018 12:38
--- NOTE | 2018-11-23 14:12 | Neurology Progress Note ---
Interim History Interim History Interim History Ms. Aquino feels "better." She was awake when I walked into her room. She was able to produce automatic speech, but when a conversation was started she was severely aphasic. Her BPs have been in the 120s and 130s systolic. She did a lot of mumbling and what she is saying could not be understood. She was able to follow a simple commands much better. She was curled up in a position. Review of Systems Neuro Review of Systems Unable to obtain. Objective Physical Exam Last Vital Signs Date Time Temp Pulse Resp B/P (MAP) Pulse Ox O2 Delivery O2 Flow Rate FiO2 11/23/18 12:00 69 11/23/18 12:00 Nasal Cannula 3.0 11/23/18 12:00 96.1 16 127/76 (93) 96 11/20/18 20:20 100 Laboratory Tests Test 11/23/18 09:52 11/23/18 11:15 White Blood Count 13.7 K/UL (4.8-10.8) H 13.8 K/UL (4.8-10.8) H Red Blood Count 2.84 M/UL (4.20-5.40) L 2.86 M/UL (4.20-5.40) L Hemoglobin 8.1 G/DL (12.0-16.0) L 8.3 G/DL (12.0-16.0) L Hematocrit 25.2 % (37.0-47.0) L 25.6 % (37.0-47.0) L Mean Corpuscular Volume 88 FL (80-99) 89 FL (80-99) Mean Corpuscular Hemoglobin 28.6 PG (27.0-31.0) 28.9 PG (27.0-31.0) Mean Corpuscular Hemoglobin Concent 32.3 G/DL (32.0-36.0) 32.3 G/DL (32.0-36.0) Red Cell Distribution Width 13.5 % (11.6-14.8) 13.8 % (11.6-14.8) Platelet Count 444 K/UL (150-450) 395 K/UL (150-450) Mean Platelet Volume 4.8 FL (6.5-10.1) L 4.7 FL (6.5-10.1) L Neutrophils (%) (Auto) % (45.0-75.0) % (45.0-75.0) Lymphocytes (%) (Auto) % (20.0-45.0) % (20.0-45.0) Monocytes (%) (Auto) % (1.0-10.0) % (1.0-10.0) Eosinophils (%) (Auto) % (0.0-3.0) % (0.0-3.0) Basophils (%) (Auto) % (0.0-2.0) % (0.0-2.0) Differential Total Cells Counted 100 100 Neutrophils % (Manual) 85 % (45-75) H 86 % (45-75) H Lymphocytes % (Manual) 11 % (20-45) L 4 % (20-45) L Monocytes % (Manual) 3 % (1-10) 6 % (1-10) Eosinophils % (Manual) 0 % (0-3) 0 % (0-3) Basophils % (Manual) 1 % (0-2) 0 % (0-2) Band Neutrophils 0 % (0-8) 4 % (0-8) Platelet Estimate Adequate Adequate Platelet Morphology Normal Normal Hypochromasia 1+ 1+ Sodium Level 145 MMOL/L (136-145) Potassium Level 3.6 MMOL/L (3.5-5.1) Chloride Level 111 MMOL/L (98-107) H Carbon Dioxide Level 26 MMOL/L (21-32) Anion Gap 8 mmol/L (5-15) Blood Urea Nitrogen 11 mg/dL (7-18) Creatinine 0.9 MG/DL (0.55-1.30) Estimat Glomerular Filtration Rate > 60 mL/min (>60) Glucose Level 107 MG/DL (74-106) H Calcium Level 8.0 MG/DL (8.5-10.1) L Thyroid Stimulating Hormone (TSH) 0.080 uiU/mL (0.358-3.740) Free Thyroxine 0.80 NG/DL (0.76-1.46) Free Triiodothyronine 0.8 pg/mL (2.3-4.2) L Anisocytosis 1+ Neurologic Exam Objective PHYSICAL EXAMINATION: GENERAL: She is a well-developed, relatively well-nourished lady, lying in bed, in no acute distress. HEAD: Normocephalic and atraumatic. EENT: Examination benign. NECK: No neck rigidity was observed. NEUROLOGIC EXAMINATION: MENTAL STATUS EXAMINATION: She was awake and alert. She was severely aphasic but some of her words could be understood. She did a lot of mumbling and what she was saying could not be understood. She was able to follow a simple commands much better. SPEECH: Her dysarthria was better. LANGUAGE: She was able to comprehend simple commands and express herself better , but not normally. CRANIAL NERVE EXAMINATION: II: She blinked to threat on both sides. III, IV & : External ocular movements were present on oculocephalic maneuvers. The pupils were 3 mm in diameter, equal, round, regular, and reactive sluggishly to light. V & VII: The corneal reflexes were equally brisk and she had no facial asymmetry. VIII: She did respond to sounds and had no nystagmus. IX-X: The gag reflex was not tested. XI: The sternocleidomastoids and trapezii functioned minimally. XII: The tongue was in the midline without any fasciculations or atrophy. MOTOR SYSTEM: The tone was increased in all four extremities with a significant degree of spasticity and gegenhalten. Examination of muscle mass revealed bilateral knee and ankle cord contractures. Examination of power was impossible to perform on individual muscle groups. She however moved all four extremities on command. She also gave me good hand floorperson. SENSORY EXAMINATION: She responded appropriately to deep pain. She was unable to cooperate for other sensory modalities. REFLEXES: 2++ and bilaterally symmetrical at the biceps, triceps, brachioradialis, and knees, 0 at both ankles. The plantar responses were flexor bilaterally. COORDINATION, STANCE & GAIT: Could not be tested. Impression/Recommendations Diagnostic Impression 1. Ms. Stacy Aquino is a 68-year-old lady of unknown handedness, who does have a past history of anxiety, depression, breast cancer, and Alzheimer's disease. She was hospitalized on 11/08/2018 for increased weakness and change in behavior. She was discovered to have urinary tract infection, dehydration, and hypotension all of which have been treated, but she continues to have an altered mental state, which her family feels is worse than her baseline. 2. She feels "better." She was awake when I walked into her room. She was able to produce automatic speech, but when a conversation was started she was severely aphasic. Her BPs have been in the 120s and 130s systolic. She did a lot of mumbling and what she is saying could not be understood. She was able to follow a simple commands much better. She was curled up in a position. 3. On neurological examination, at this time, sheis awake and alert. She is severely aphasic but some of her words can be understood. However she does a lot of mumbling and what she is saying cannot be understood. She is able to follow a simple commands much better. Her dysarthria is better. She is able to comprehend simple commands and express herself better, but not normally. She is significantly less encephalopathic. She does not demonstrate any focal or lateralizing neurological findings. She is generally weak, has bilateral ankle cord contractures and exhibits spasticity. 4. Laboratory data obtained thus far have revealed that she is anemic with a hemoglobin of 9.0 G. Her blood gases revealed that her pCO2 was down to 31.8 and her pO2 was 103.2. Her chemistry panel on admission revealed her BUN was elevated to 20 and creatinine was elevated at 1.6. Her BNP was elevated to 577, her albumin was low at 2.9, her TSH was low at 0.086. The urinalysis on admission revealed 3+ leukocyte esterase, too numerous to count white blood cells, but 0 red blood cells per high power field. 5. Further laboratory tests have revealed a low T3 at 0.8 and a low T4 at 0.68. The B12 is normal but the folate is low at 7.2. 6. The CT of the brain done on 11/12/18 revealed atrophy and hydrocephalus ex- vacuo. 7. The EEG done on 11/14/18 revealed a moderately severe metabolic encephalopathy. In addition T3 and T4 sharp discharges were seen which could be indicative of either brain irritability or inter-ictal discharges. 8. A brain MRI could not be done as she could not be positioned in the scanner due to her contractures. 9. The patient's history, neurological examination and imaging are most compatible with an advanced dementia with a superimposed encephalopathy most probably related to her recent urinary tract infection, hypotension, and fluid and electrolyte imbalance. 10. The episode of hypotension on 11/13/18 could have worsened the encephalopathy. 11. She had her last hypotensive episode on 11/20/18. 12. There is a question as to whether she has adrenal insufficency. Recommendations 1. Continue present management. 2. Try to keep BP > 110 at all times. 3. Treatment of hypothyroidism. 4. Folic acid 1 mg PO daily. 5. Continue Keppra 500 q 12 H IV. 6. Treatment of adrenal insufficiency. 7. Observe. Harley Reeves M.D., M.S.P.H. Harley Reeves MD Nov 23, 2018 14:12
--- NOTE | 2018-11-23 15:18 | General Progress Note ---
Assessment/Plan Problem List: (1) UTI (urinary tract infection) ICD Codes: N39.0 - Urinary tract infection, site not specified SNOMED: 21794738 (2) Sepsis ICD Codes: A41.9 - Sepsis, unspecified organism SNOMED: 19275118 (3) ARF (acute renal failure) Assessment & Plan: better ICD Codes: N17.9 - Acute kidney failure, unspecified SNOMED: 38117947 (4) Encephalopathy acute ICD Codes: G93.40 - Encephalopathy, unspecified SNOMED: 35429972, 698310263 Assessment/Plan IV hydrocortisone Abxs TF follow labs Endocrine consult appreciated Subjective Allergies: Coded Allergies: PENICILLINS (Verified Allergy, Unknown, 11/08/18) Subjective awake and alert a few words only Objective Last 24 Hour Vital Signs Date Time Temp Pulse Resp B/P (MAP) Pulse Ox O2 Delivery O2 Flow Rate FiO2 11/23/18 12:00 69 11/23/18 12:00 Nasal Cannula 3.0 11/23/18 12:00 96.1 87 16 127/76 (93) 96 11/23/18 08:00 97.2 93 18 130/62 (84) 97 11/23/18 07:58 86 11/23/18 07:50 Nasal Cannula 3.0 11/23/18 04:00 Nasal Cannula 3.0 11/23/18 04:00 88 11/23/18 04:00 97.4 85 12 121/64 (83) 96 11/23/18 00:00 97.5 88 12 109/63 (78) 96 11/23/18 00:00 Nasal Cannula 3.0 11/23/18 00:00 84 11/22/18 20:00 83 11/22/18 20:00 Nasal Cannula 3.0 11/22/18 20:00 97.3 88 12 136/60 (85) 96 11/22/18 16:00 Nasal Cannula 3.0 11/22/18 16:00 97.3 80 20 109/66 (80) 96 11/22/18 16:00 80 Intake and Output 11/22/18 11/23/18 19:00 07:00 Intake Total 1665 ml 2055 ml Output Total 850 ml Balance 1665 ml 1205 ml Free Water 150 ml 150 ml IV Total 1155 ml 1605 ml Tube Feeding 360 ml 300 ml Output Urine Total 850 ml # Voids 3 # Bowel Movements 2 Laboratory Tests 11/23/18 09:52: White Blood Count 13.7H, Red Blood Count 2.84L, Hemoglobin 8.1L, Hematocrit 25.2L, Mean Corpuscular Volume 88, Mean Corpuscular Hemoglobin 28.6, Mean Corpuscular Hemoglobin Concent 32.3, Red Cell Distribution Width 13.5, Platelet Count 444, Mean Platelet Volume 4.8L, Neutrophils (%) (Auto) , Lymphocytes (%) ( Auto) , Monocytes (%) (Auto) , Eosinophils (%) (Auto) , Basophils (%) (Auto) , Differential Total Cells Counted 100, Neutrophils % (Manual) 85H, Lymphocytes % (Manual) 11L, Monocytes % (Manual) 3, Eosinophils % (Manual) 0, Basophils % ( Manual) 1, Band Neutrophils 0, Platelet Estimate Adequate, Platelet Morphology Normal, Hypochromasia 1+, Sodium Level 145, Potassium Level 3.6, Chloride Level 111H, Carbon Dioxide Level 26, Anion Gap 8, Blood Urea Nitrogen 11, Creatinine 0.9, Estimat Glomerular Filtration Rate > 60, Glucose Level 107H, Calcium Level 8.0L, Thyroid Stimulating Hormone (TSH) 0.080L, Free Thyroxine 0.80, Free Triiodothyronine 0.8L 11/23/18 11:15: White Blood Count 13.8H, Red Blood Count 2.86L, Hemoglobin 8.3L, Hematocrit 25.6L, Mean Corpuscular Volume 89, Mean Corpuscular Hemoglobin 28.9, Mean Corpuscular Hemoglobin Concent 32.3, Red Cell Distribution Width 13.8, Platelet Count 395, Mean Platelet Volume 4.7L, Neutrophils (%) (Auto) , Lymphocytes (%) ( Auto) , Monocytes (%) (Auto) , Eosinophils (%) (Auto) , Basophils (%) (Auto) , Differential Total Cells Counted 100, Neutrophils % (Manual) 86H, Lymphocytes % (Manual) 4L, Monocytes % (Manual) 6, Eosinophils % (Manual) 0, Basophils % ( Manual) 0, Band Neutrophils 4, Platelet Estimate Adequate, Platelet Morphology Normal, Hypochromasia 1+, Anisocytosis 1+ Height (Feet): 5 Height (Inches): 6.00 Weight (Pounds): 185 Cardiovascular: normal rate Respiratory/Chest: lungs clear Edema: 1+ Generalized Ilir Rios MD Nov 23, 2018 15:18
[2018-11-23 16:00] VITALS: BP 143/85
--- NOTE | 2018-11-23 19:20 | NUR ---
NURSE NOTES: Received report from Kourtney Bowles RN. Pt is resting in the bed w/o distress in 3L NC. Pt is NV. Safety measure are applied with bed alarm on, bed in lowest position, side rails up x3, and breaks are engaged. Call light and side table are w/in reach. Will follow plans of care.
--- NOTE | 2018-11-23 19:45 | NUR ---
HAND-OFF: Report given to MEGHAN Price. Patient VS stable with no sign of acute distress at this time.
[2018-11-23 20:00] VITALS: BP 129/77
--- NOTE | 2018-11-23 20:03 | Cardiology Progress Note ---
Assessment/Plan Assessment/Plan her BP is more stable on steroids Subjective Subjective the patient is non verbal, she opens her eyes but does not communicate Objective Last 24 Hour Vital Signs Date Time Temp Pulse Resp B/P (MAP) Pulse Ox O2 Delivery O2 Flow Rate FiO2 11/23/18 16:00 97.7 96 12 143/85 (104) 96 11/23/18 16:00 Nasal Cannula 3.0 11/23/18 15:50 89 11/23/18 12:00 69 11/23/18 12:00 Nasal Cannula 3.0 11/23/18 12:00 96.1 87 16 127/76 (93) 96 11/23/18 08:00 97.2 93 18 130/62 (84) 97 11/23/18 07:58 86 11/23/18 07:50 Nasal Cannula 3.0 11/23/18 04:00 Nasal Cannula 3.0 11/23/18 04:00 88 11/23/18 04:00 97.4 85 12 121/64 (83) 96 11/23/18 00:00 97.5 88 12 109/63 (78) 96 11/23/18 00:00 Nasal Cannula 3.0 11/23/18 00:00 84 General Appearance: other - contracted and non verbal EENT: PERRL/EOMI Neck: no JVD Rhythm: NSR Cardiovascular: normal rate Respiratory/Chest: decreased breath sounds Abdomen: soft Extremities: severe edema, other - contracture Neurologic: aphasia Intake and Output 11/22/18 11/23/18 19:00 07:00 Intake Total 1665 ml 2055 ml Output Total 850 ml Balance 1665 ml 1205 ml Free Water 150 ml 150 ml IV Total 1155 ml 1605 ml Tube Feeding 360 ml 300 ml Output Urine Total 850 ml # Voids 3 # Bowel Movements 2 Laboratory Tests Test 11/23/18 09:52 11/23/18 11:15 White Blood Count 13.7 K/UL (4.8-10.8) H 13.8 K/UL (4.8-10.8) H Red Blood Count 2.84 M/UL (4.20-5.40) L 2.86 M/UL (4.20-5.40) L Hemoglobin 8.1 G/DL (12.0-16.0) L 8.3 G/DL (12.0-16.0) L Hematocrit 25.2 % (37.0-47.0) L 25.6 % (37.0-47.0) L Mean Corpuscular Volume 88 FL (80-99) 89 FL (80-99) Mean Corpuscular Hemoglobin 28.6 PG (27.0-31.0) 28.9 PG (27.0-31.0) Mean Corpuscular Hemoglobin Concent 32.3 G/DL (32.0-36.0) 32.3 G/DL (32.0-36.0) Red Cell Distribution Width 13.5 % (11.6-14.8) 13.8 % (11.6-14.8) Platelet Count 444 K/UL (150-450) 395 K/UL (150-450) Mean Platelet Volume 4.8 FL (6.5-10.1) L 4.7 FL (6.5-10.1) L Neutrophils (%) (Auto) % (45.0-75.0) % (45.0-75.0) Lymphocytes (%) (Auto) % (20.0-45.0) % (20.0-45.0) Monocytes (%) (Auto) % (1.0-10.0) % (1.0-10.0) Eosinophils (%) (Auto) % (0.0-3.0) % (0.0-3.0) Basophils (%) (Auto) % (0.0-2.0) % (0.0-2.0) Differential Total Cells Counted 100 100 Neutrophils % (Manual) 85 % (45-75) H 86 % (45-75) H Lymphocytes % (Manual) 11 % (20-45) L 4 % (20-45) L Monocytes % (Manual) 3 % (1-10) 6 % (1-10) Eosinophils % (Manual) 0 % (0-3) 0 % (0-3) Basophils % (Manual) 1 % (0-2) 0 % (0-2) Band Neutrophils 0 % (0-8) 4 % (0-8) Platelet Estimate Adequate Adequate Platelet Morphology Normal Normal Hypochromasia 1+ 1+ Sodium Level 145 MMOL/L (136-145) Potassium Level 3.6 MMOL/L (3.5-5.1) Chloride Level 111 MMOL/L (98-107) H Carbon Dioxide Level 26 MMOL/L (21-32) Anion Gap 8 mmol/L (5-15) Blood Urea Nitrogen 11 mg/dL (7-18) Creatinine 0.9 MG/DL (0.55-1.30) Estimat Glomerular Filtration Rate > 60 mL/min (>60) Glucose Level 107 MG/DL (74-106) H Calcium Level 8.0 MG/DL (8.5-10.1) L Thyroid Stimulating Hormone (TSH) 0.080 uiU/mL (0.358-3.740) Free Thyroxine 0.80 NG/DL (0.76-1.46) Free Triiodothyronine 0.8 pg/mL (2.3-4.2) L Anisocytosis 1+ Imelda Sutton MD Nov 23, 2018 20:03
[2018-11-23] MEDS: Dyna-Hex 2% Top Sol 2oz TOPIC SCH (20:55)
[2018-11-24] VITALS: BP 139/88
[2018-11-24] MEDS: Vancomycin 750mg/NS 250ml IVPB SCH (01:33)
[2018-11-24] MEDS: Cefepime HCl 1 GM in D5W 55 ML IVPB SCH ×2 (03:37→14:13)
[2018-11-24 04:00] VITALS: BP 148/85
[2018-11-24 05:41] LABS: HEMATOCRIT 23.1 % (37.0-47.0); HEMOGLOBIN 7.5 G/DL (12.0-16.0); MEAN CORPUSCULAR VOLUME 89 FL (80-99); PLATELET COUNT 258 K/UL (150-450); RED BLOOD COUNT 2.59 M/UL (4.20-5.40); RED CELL DISTRIBUTION WIDTH 13.7 % (11.6-14.8); WHITE BLOOD COUNT 8.9 K/UL (4.8-10.8)
[2018-11-24 05:43] LABS: ANION GAP 7 mmol/L (5-15); BLOOD UREA NITROGEN 12 mg/dL (7-18); CALCIUM 7.7 MG/DL (8.5-10.1); CARBON DIOXIDE 26 MMOL/L (21-32); CHLORIDE 111 MMOL/L (98-107); CREATININE 0.9 MG/DL (0.55-1.30); POTASSIUM 3.3 MMOL/L (3.5-5.1); SODIUM 144 MMOL/L (136-145)
[2018-11-24] MEDS: Hydrocortisone 100mg Inj IV SCH ×3 (06:26→17:33)
[2018-11-24] MEDS ORDERED: Acetaminophen 650mg/20.3ml GT PRN (07:00)
--- NOTE | 2018-11-24 07:00 | NUR ---
TRANSFER TO FLOOR: Patient transferred to , per Terrell Rios. Report given to Terrell Ramirez RN. Belongings and medications given to pt and RN. Family and or S/O informed of transfer.
--- NOTE | 2018-11-24 07:05 | General Progress Note ---
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 SNOMED: 777714154 (3) Sepsis ICD Codes: A41.9 - Sepsis, unspecified organism SNOMED: 85246558 (4) Episode of generalized weakness ICD Codes: R53.1 - Weakness SNOMED: 64882655 (5) UTI (urinary tract infection) ICD Codes: N39.0 - Urinary tract infection, site not specified SNOMED: 90079573 (6) ARF (acute renal failure) ICD Codes: N17.9 - Acute kidney failure, unspecified SNOMED: 98502040 (7) Encephalopathy acute ICD Codes: G93.40 - Encephalopathy, unspecified SNOMED: 91734706, 104800291 (8) Pneumonia ICD Codes: J18.9 - Pneumonia, unspecified organism SNOMED: 046438129 Assessment/Plan BP improved and stable - reduce IVHC to 25 mg every 12 hours keep Levothyroxine at 75 mcg daily Subjective ROS Limited/Unobtainable: Yes Allergies: Coded Allergies: PENICILLINS (Verified Allergy, Unknown, 11/08/18) Subjective events noted Objective Last 24 Hour Vital Signs Date Time Temp Pulse Resp B/P (MAP) Pulse Ox O2 Delivery O2 Flow Rate FiO2 11/24/18 04:00 83 11/24/18 04:00 Nasal Cannula 3.0 11/24/18 04:00 97.5 91 14 148/85 (106) 96 11/24/18 00:00 Nasal Cannula 3.0 11/24/18 00:00 97.9 93 14 139/88 (105) 97 11/24/18 00:00 90 11/23/18 20:00 Nasal Cannula 3.0 11/23/18 20:00 85 11/23/18 20:00 97.9 93 12 129/77 (94) 96 11/23/18 16:00 97.7 96 12 143/85 (104) 96 11/23/18 16:00 Nasal Cannula 3.0 11/23/18 15:50 89 11/23/18 12:00 69 11/23/18 12:00 Nasal Cannula 3.0 11/23/18 12:00 96.1 87 16 127/76 (93) 96 11/23/18 08:00 97.2 93 18 130/62 (84) 97 11/23/18 07:58 86 11/23/18 07:50 Nasal Cannula 3.0 Intake and Output 11/23/18 11/24/18 18:59 06:59 Intake Total 1705.000 ml 705.000 ml Output Total 600 ml Balance 1705.000 ml 105.000 ml Free Water 400 ml IV Total 1005.000 ml 405.000 ml Tube Feeding 300 ml 300 ml Output Urine Total 600 ml # Voids 1 # Bowel Movements 1 1 Laboratory Tests 11/23/18 09:52: White Blood Count 13.7H, Red Blood Count 2.84L, Hemoglobin 8.1L, Hematocrit 25.2L, Mean Corpuscular Volume 88, Mean Corpuscular Hemoglobin 28.6, Mean Corpuscular Hemoglobin Concent 32.3, Red Cell Distribution Width 13.5, Platelet Count 444, Mean Platelet Volume 4.8L, Neutrophils (%) (Auto) , Lymphocytes (%) ( Auto) , Monocytes (%) (Auto) , Eosinophils (%) (Auto) , Basophils (%) (Auto) , Differential Total Cells Counted 100, Neutrophils % (Manual) 85H, Lymphocytes % (Manual) 11L, Monocytes % (Manual) 3, Eosinophils % (Manual) 0, Basophils % ( Manual) 1, Band Neutrophils 0, Platelet Estimate Adequate, Platelet Morphology Normal, Hypochromasia 1+, Sodium Level 145, Potassium Level 3.6, Chloride Level 111H, Carbon Dioxide Level 26, Anion Gap 8, Blood Urea Nitrogen 11, Creatinine 0.9, Estimat Glomerular Filtration Rate > 60, Glucose Level 107H, Calcium Level 8.0L, Thyroid Stimulating Hormone (TSH) 0.080L, Free Thyroxine 0.80, Free Triiodothyronine 0.8L 11/23/18 11:15: White Blood Count 13.8H, Red Blood Count 2.86L, Hemoglobin 8.3L, Hematocrit 25.6L, Mean Corpuscular Volume 89, Mean Corpuscular Hemoglobin 28.9, Mean Corpuscular Hemoglobin Concent 32.3, Red Cell Distribution Width 13.8, Platelet Count 395, Mean Platelet Volume 4.7L, Neutrophils (%) (Auto) , Lymphocytes (%) ( Auto) , Monocytes (%) (Auto) , Eosinophils (%) (Auto) , Basophils (%) (Auto) , Differential Total Cells Counted 100, Neutrophils % (Manual) 86H, Lymphocytes % (Manual) 4L, Monocytes % (Manual) 6, Eosinophils % (Manual) 0, Basophils % ( Manual) 0, Band Neutrophils 4, Platelet Estimate Adequate, Platelet Morphology Normal, Hypochromasia 1+, Anisocytosis 1+ 11/24/18 00:10: Vancomycin Level Trough 16.8H 11/24/18 03:30: White Blood Count 8.9, Red Blood Count 2.59L, Hemoglobin 7.5L, Hematocrit 23.1L , Mean Corpuscular Volume 89, Mean Corpuscular Hemoglobin 28.9, Mean Corpuscular Hemoglobin Concent 32.4, Red Cell Distribution Width 13.7, Platelet Count 258, Mean Platelet Volume 4.4L, Neutrophils (%) (Auto) , Lymphocytes (%) ( Auto) , Monocytes (%) (Auto) , Eosinophils (%) (Auto) , Basophils (%) (Auto) , Neutrophils % (Manual) [Pending], Lymphocytes % (Manual) [Pending], Platelet Estimate [Pending], Platelet Morphology [Pending], Sodium Level 144, Potassium Level 3.3L, Chloride Level 111H, Carbon Dioxide Level 26, Anion Gap 7, Blood Urea Nitrogen 12, Creatinine 0.9, Estimat Glomerular Filtration Rate > 60, Glucose Level 112H, Calcium Level 7.7L Height (Feet): 5 Height (Inches): 6.00 Weight (Pounds): 185 General Appearance: no apparent distress Neck: normal alignment Cardiovascular: normal rate Respiratory/Chest: decreased breath sounds Abdomen: normal bowel sounds, other - PEG Pelvis: normal external exam Edema: 1+ Arm (L), 1+ Arm (R), 1+ Leg (L), 1+ Leg (R), 1+ Pedal (L), 1+ Pedal ( R), 1+ Generalized Objective Current Medications Medications (Trade) Dose Ordered Sig/Inocente Route PRN Reason Start Time Stop Time Status Last Admin Dose Admin Acetaminophen (Tylenol) 650 mg Q4H PRN GT Mild Pain/Temp > 100.5 11/24/18 10:30 12/20/18 14:29 UNV Cefepime HCl 1 gm/ Dextrose 55 ml @ 110 mls/hr Q12H IVPB 11/24/18 14:00 11/28/18 13:59 UNV Chlorhexidine Gluconate (Marga-Hex 2%) 1 applic DAILY@2000 TOPIC 11/24/18 20:00 12/11/18 19:59 UNV Dextrose (Dextrose 50%) 25 ml Q30M PRN IV Hypoglycemia 11/24/18 07:00 12/08/18 15:46 UNV Dextrose (Dextrose 50%) 50 ml Q30M PRN IV Hypoglycemia 11/24/18 07:00 12/08/18 17:29 UNV Famotidine (Pepcid) 20 mg DAILY GT 11/24/18 09:00 12/20/18 10:59 UNV Folic Acid (Folate) 1 mg DAILY PEG 11/24/18 09:00 12/20/18 10:59 UNV Heparin Sodium (Porcine) (Heparin 5000 units/ml) 5,000 units EVERY 12 HOURS SUBQ 11/24/18 09:00 12/08/18 20:59 UNV Hydrocortisone (Solu-CORTEF) 25 mg EVERY 8 HOURS IV 11/24/18 14:00 12/21/18 21:59 UNV Levetiracetam 100 ml @ 400 mls/hr Q12HR IVPB 11/24/18 09:00 12/15/18 20:59 UNV Levothyroxine Sodium (Synthroid) 75 mcg ACBREAKFAST GT 11/25/18 06:30 12/10/18 06:29 UNV Magnesium Oxide (Mag-Ox 400mg) 400 mg THREE TIMES A DAY PEG 11/24/18 09:00 12/14/18 08:59 UNV Memantine (Namenda) 5 mg DAILY PEG 11/24/18 09:00 12/20/18 10:59 UNV Olanzapine (ZyPREXA) 2.5 mg DAILY GT 11/24/18 09:00 12/20/18 10:59 UNV Polyethylene Glycol (Miralax) 17 gm DAILYPRN PRN GT Constipation 11/24/18 10:30 12/09/18 10:59 UNV Thiamine HCl (Vitamin B1) 100 mg DAILY GT 11/24/18 09:00 12/20/18 10:59 UNV Vancomycin HCl (Vanco rx to dose) 1 ea DAILY PRN MISC Per rx protocol 11/24/18 09:00 12/22/18 11:44 UNV Vancomycin/Sodium Chloride 250 ml @ 166.667 mls/hr Q12H IVPB 11/24/18 13:00 11/28/18 00:59 UNV Venlafaxine HCl (Effexor) 75 mg TWICE A DAY GT 11/24/18 09:00 12/20/18 17:59 UNV Ken Turner MD Nov 24, 2018 07:05
[2018-11-24 07:12] LABS: BASOPHILS % (AUTO) 0.2 % (0.0-2.0); HEMATOCRIT 24.7 % (37.0-47.0); HEMOGLOBIN 8.2 G/DL (12.0-16.0); LYMPHOCYTES % (AUTO) 8.7 % (20.0-45.0); MEAN CORPUSCULAR VOLUME 88 FL (80-99); MONOCYTES % (AUTO) 6.7 % (1.0-10.0); NEUTROPHILS % (AUTO) 84.4 % (45.0-75.0); PLATELET COUNT 453 K/UL (150-450); RED BLOOD COUNT 2.82 M/UL (4.20-5.40); RED CELL DISTRIBUTION WIDTH 13.8 % (11.6-14.8); WHITE BLOOD COUNT 11.4 K/UL (4.8-10.8)
--- NOTE | 2018-11-24 07:40 | NUR ---
NURSE NOTES: Received transfer from [facility]. Pt is sitting up in bed, resting comfortably with no distress noted. Bed is in lowest position, side rails up X2, and call light is within reach. Will continue to monitor.
--- NOTE | 2018-11-24 07:44 | NUR ---
NURSE NOTES: Per night nurse, pts blood was redrawn and resent to lab to determine if H&H is correct.
[2018-11-24 08:00] VITALS: BP 124/68
--- NOTE | 2018-11-24 08:11 | NUR ---
CASE MANAGEMENT:REVIEW 11/24/18 SI: SEPSIS. ENCEPHALOPATHY. ACUTE RENAL PEG PLACED 11/20/18 97.5 83 14 148/85 96% ON 3L/NC WBC+11.7 H/H-8.2/24.7 K-3.3 IS: IV CEFEPIME Q12 IV VANCOMYCIN Q12 IV KEPPRA Q12 IV SOLUCORTEF BID : FROM ICU TO TELEMETRY PLAN: SNF PLACEMENT
[2018-11-24] MEDS: Venlafaxine HCl 37.5mg Tab GT SCH ×2 (09:06→17:33)
[2018-11-24] MEDS: Magnesium Oxide 400mg tab PEG SCH ×3 (09:06→17:33)
[2018-11-24] MEDS: levETIRAcetam 500mg/NS100ml 100 ML IVPB SCH ×2 (09:06→20:24)
[2018-11-24] MEDS: Memantine 5 MG TAB PEG SCH (09:07)
[2018-11-24] MEDS: OLANZapine 2.5mg tab GT SCH (09:07)
[2018-11-24] MEDS: Heparin 5000 units/ml inj SUBQ SCH ×2 (09:10→20:26)
[2018-11-24] MEDS: Thiamine 100mg tab GT SCH (09:33)
--- NOTE | 2018-11-24 09:37 | NUR ---
NURSE NOTES: Accidently dropped one of patients medications on the floor. Wasted medication on the pyxis and removed a new med.
[2018-11-24] MEDS ORDERED: Miralax 17gm pkt GT PRN (10:30)
--- NOTE | 2018-11-24 11:24 | NUR ---
NURSE NOTES: patient is sitting up in bed. No distress noted at this time. Will continue to monitor.
[2018-11-24 12:00] VITALS: BP 140/86
--- NOTE | 2018-11-24 13:12 | Pulmonology Progress Note ---
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 Assessment/Plan Optimize pulmonary hygiene/mobilize as tolerated PRN O2 Abx (CEFEPIME&VANCO) per ID Monitor volumes and renal function Aspiration precautions Titrate HC per ENDO F/U repeat TTE DVT Px: Hep SQ Monitor MS, F/U neuro recs and w/u, unable to do MRI GTF's FC Subjective Allergies: Coded Allergies: PENICILLINS (Verified Allergy, Unknown, 11/08/18) Subjective ROSANGELA, TTF AFVSS O2 needs stable Not speaking, selin TF's No distress, no cough, no SOB Objective Last 24 Hour Vital Signs Date Time Temp Pulse Resp B/P (MAP) Pulse Ox O2 Delivery O2 Flow Rate FiO2 11/24/18 12:00 97.8 93 16 140/86 (104) 92 11/24/18 09:00 Nasal Cannula 3.0 11/24/18 08:00 77 11/24/18 08:00 97.3 93 20 124/68 (86) 96 11/24/18 04:00 83 11/24/18 04:00 Nasal Cannula 3.0 11/24/18 04:00 97.5 91 14 148/85 (106) 96 11/24/18 00:00 Nasal Cannula 3.0 11/24/18 00:00 97.9 93 14 139/88 (105) 97 11/24/18 00:00 90 11/23/18 20:00 Nasal Cannula 3.0 11/23/18 20:00 85 11/23/18 20:00 97.9 93 12 129/77 (94) 96 11/23/18 16:00 97.7 96 12 143/85 (104) 96 11/23/18 16:00 Nasal Cannula 3.0 11/23/18 15:50 89 Intake and Output 11/23/18 11/24/18 19:00 07:00 Intake Total 1635.000 ml 675.000 ml Output Total 200 ml 400 ml Balance 1435.000 ml 275.000 ml Free Water 400 ml IV Total 905.000 ml 405.000 ml Tube Feeding 330 ml 270 ml Output Urine Total 200 ml 400 ml # Voids 1 # Bowel Movements 1 1 General Appearance: no acute distress, cachetic HEENT: normocephalic, atraumatic, anicteric, mucous membranes moist Respiratory/Chest: chest wall non-tender, lungs clear, normal breath sounds, no respiratory distress, no accessory muscle use Cardiovascular: normal peripheral pulses, normal rate, regular rhythm Abdomen: normal bowel sounds, soft, non tender, no organomegaly, non distended , no mass, other - GT Extremities: no cyanosis, no clubbing, other - 1+ edema Laboratory Tests 11/24/18 00:10: Vancomycin Level Trough 16.8H 11/24/18 03:30: White Blood Count 8.9, Red Blood Count 2.59L, Hemoglobin 7.5L, Hematocrit 23.1L , Mean Corpuscular Volume 89, Mean Corpuscular Hemoglobin 28.9, Mean Corpuscular Hemoglobin Concent 32.4, Red Cell Distribution Width 13.7, Platelet Count 258, Mean Platelet Volume 4.4L, Neutrophils (%) (Auto) , Lymphocytes (%) ( Auto) , Monocytes (%) (Auto) , Eosinophils (%) (Auto) , Basophils (%) (Auto) , Differential Total Cells Counted 100, Neutrophils % (Manual) 80H, Lymphocytes % (Manual) 12L, Monocytes % (Manual) 4, Eosinophils % (Manual) 0, Basophils % ( Manual) 0, Band Neutrophils 4, Platelet Estimate Adequate, Platelet Morphology Normal, Hypochromasia 1+, Sodium Level 144, Potassium Level 3.3L, Chloride Level 111H, Carbon Dioxide Level 26, Anion Gap 7, Blood Urea Nitrogen 12, Creatinine 0.9, Estimat Glomerular Filtration Rate > 60, Glucose Level 112H, Calcium Level 7.7L 11/24/18 06:50: White Blood Count 11.4H, Red Blood Count 2.82L, Hemoglobin 8.2L, Hematocrit 24.7L, Mean Corpuscular Volume 88, Mean Corpuscular Hemoglobin 29.2, Mean Corpuscular Hemoglobin Concent 33.3, Red Cell Distribution Width 13.8, Platelet Count 453#H, Mean Platelet Volume 4.7L, Neutrophils (%) (Auto) 84.4H, Lymphocytes (%) (Auto) 8.7L, Monocytes (%) (Auto) 6.7, Eosinophils (%) (Auto) 0.0, Basophils (%) (Auto) 0.2 Current Medications Medications (Trade) Dose Ordered Sig/Inocente Route PRN Reason Start Time Stop Time Status Last Admin Dose Admin Acetaminophen (Tylenol) 650 mg Q4H PRN GT Mild Pain/Temp > 100.5 11/24/18 07:00 12/20/18 06:59 Cefepime HCl 1 gm/ Dextrose 55 ml @ 110 mls/hr Q12H IVPB 11/24/18 14:00 11/28/18 13:59 Chlorhexidine Gluconate (Marga-Hex 2%) 1 applic DAILY@2000 TOPIC 11/24/18 20:00 12/11/18 19:59 Dextrose (Dextrose 50%) 25 ml Q30M PRN IV Hypoglycemia 11/24/18 07:00 12/08/18 15:46 Dextrose (Dextrose 50%) 50 ml Q30M PRN IV Hypoglycemia 11/24/18 07:00 12/08/18 17:29 Famotidine (Pepcid) 20 mg DAILY GT 11/24/18 09:00 12/20/18 10:59 11/24/18 09:11 Folic Acid (Folate) 1 mg DAILY PEG 11/24/18 09:00 12/20/18 10:59 11/24/18 09:06 Heparin Sodium (Porcine) (Heparin 5000 units/ml) 5,000 units EVERY 12 HOURS SUBQ 11/24/18 09:00 12/08/18 20:59 11/24/18 09:10 Hydrocortisone (Solu-CORTEF) 25 mg BID IV 11/24/18 09:00 12/21/18 21:59 11/24/18 09:07 Levetiracetam 100 ml @ 400 mls/hr Q12HR IVPB 11/24/18 09:00 12/15/18 20:59 11/24/18 09:06 Levothyroxine Sodium (Synthroid) 75 mcg ACBREAKFAST GT 11/25/18 06:30 12/10/18 06:29 Magnesium Oxide (Mag-Ox 400mg) 400 mg THREE TIMES A DAY PEG 11/24/18 09:00 12/14/18 08:59 11/24/18 12:20 Memantine (Namenda) 5 mg DAILY PEG 11/24/18 09:00 12/20/18 10:59 11/24/18 09:07 Olanzapine (ZyPREXA) 2.5 mg DAILY GT 11/24/18 09:00 12/20/18 10:59 11/24/18 09:07 Polyethylene Glycol (Miralax) 17 gm DAILYPRN PRN GT Constipation 11/24/18 10:30 12/09/18 10:59 Thiamine HCl (Vitamin B1) 100 mg DAILY GT 11/24/18 09:00 12/20/18 10:59 11/24/18 09:33 Vancomycin HCl (Vanco rx to dose) 1 ea DAILY PRN MISC Per rx protocol 11/24/18 09:00 12/22/18 11:44 Vancomycin/Sodium Chloride 250 ml @ 166.667 mls/hr Q12H IVPB 11/24/18 13:00 11/28/18 00:59 Venlafaxine HCl (Effexor) 75 mg TWICE A DAY GT 11/24/18 09:00 12/20/18 17:59 11/24/18 09:06 Ahmet Mallory MD Nov 24, 2018 13:12
--- NOTE | 2018-11-24 13:15 | Infectious Diseases Prog Note ---
Assessment/Plan Assessment/Plan A 1. Sepsis 2. Atelectasis/ pneumonia. 3. 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 Acute renal failure improved 6. Alzheimer dementia 7. Gastrostomy status P 1. Continue IV Cefepime & Vancomycin Subjective ROS Limited/Unobtainable: Yes Allergies: Coded Allergies: PENICILLINS (Verified Allergy, Unknown, 11/08/18) Objective Vital Signs Last 24 Hour Vital Signs Date Time Temp Pulse Resp B/P (MAP) Pulse Ox O2 Delivery O2 Flow Rate FiO2 11/24/18 12:00 97.8 93 16 140/86 (104) 92 11/24/18 09:00 Nasal Cannula 3.0 11/24/18 08:00 77 11/24/18 08:00 97.3 93 20 124/68 (86) 96 11/24/18 04:00 83 11/24/18 04:00 Nasal Cannula 3.0 11/24/18 04:00 97.5 91 14 148/85 (106) 96 11/24/18 00:00 Nasal Cannula 3.0 11/24/18 00:00 97.9 93 14 139/88 (105) 97 11/24/18 00:00 90 11/23/18 20:00 Nasal Cannula 3.0 11/23/18 20:00 85 11/23/18 20:00 97.9 93 12 129/77 (94) 96 11/23/18 16:00 97.7 96 12 143/85 (104) 96 11/23/18 16:00 Nasal Cannula 3.0 11/23/18 15:50 89 Height (Feet): 5 Height (Inches): 6.00 Weight (Pounds): 185 HEENT: mucous membranes moist Respiratory/Chest: lungs clear Cardiovascular: normal rate Abdomen: soft, non tender Extremities: no edema Neurologic/Psychiatric: aphasia Laboratory Tests Test 11/24/18 00:10 11/24/18 03:30 11/24/18 06:50 Vancomycin Level Trough 16.8 ug/mL (5.0-12.0) H White Blood Count 8.9 K/UL (4.8-10.8) 11.4 K/UL (4.8-10.8) H Red Blood Count 2.59 M/UL (4.20-5.40) L 2.82 M/UL (4.20-5.40) L Hemoglobin 7.5 G/DL (12.0-16.0) L 8.2 G/DL (12.0-16.0) L Hematocrit 23.1 % (37.0-47.0) L 24.7 % (37.0-47.0) L Mean Corpuscular Volume 89 FL (80-99) 88 FL (80-99) Mean Corpuscular Hemoglobin 28.9 PG (27.0-31.0) 29.2 PG (27.0-31.0) Mean Corpuscular Hemoglobin Concent 32.4 G/DL (32.0-36.0) 33.3 G/DL (32.0-36.0) Red Cell Distribution Width 13.7 % (11.6-14.8) 13.8 % (11.6-14.8) Platelet Count 258 K/UL (150-450) 453 K/UL (150-450) #H Mean Platelet Volume 4.4 FL (6.5-10.1) L 4.7 FL (6.5-10.1) L Neutrophils (%) (Auto) % (45.0-75.0) 84.4 % (45.0-75.0) H Lymphocytes (%) (Auto) % (20.0-45.0) 8.7 % (20.0-45.0) L Monocytes (%) (Auto) % (1.0-10.0) 6.7 % (1.0-10.0) Eosinophils (%) (Auto) % (0.0-3.0) 0.0 % (0.0-3.0) Basophils (%) (Auto) % (0.0-2.0) 0.2 % (0.0-2.0) Differential Total Cells Counted 100 Neutrophils % (Manual) 80 % (45-75) H Lymphocytes % (Manual) 12 % (20-45) L Monocytes % (Manual) 4 % (1-10) Eosinophils % (Manual) 0 % (0-3) Basophils % (Manual) 0 % (0-2) Band Neutrophils 4 % (0-8) Platelet Estimate Adequate Platelet Morphology Normal Hypochromasia 1+ Sodium Level 144 MMOL/L (136-145) Potassium Level 3.3 MMOL/L (3.5-5.1) L Chloride Level 111 MMOL/L (98-107) H Carbon Dioxide Level 26 MMOL/L (21-32) Anion Gap 7 mmol/L (5-15) Blood Urea Nitrogen 12 mg/dL (7-18) Creatinine 0.9 MG/DL (0.55-1.30) Estimat Glomerular Filtration Rate > 60 mL/min (>60) Glucose Level 112 MG/DL (74-106) H Calcium Level 7.7 MG/DL (8.5-10.1) L Current Medications Medications (Trade) Dose Ordered Sig/Inocente Route PRN Reason Start Time Stop Time Status Last Admin Dose Admin Acetaminophen (Tylenol) 650 mg Q4H PRN GT Mild Pain/Temp > 100.5 11/24/18 07:00 12/20/18 06:59 Cefepime HCl 1 gm/ Dextrose 55 ml @ 110 mls/hr Q12H IVPB 11/24/18 14:00 11/28/18 13:59 Chlorhexidine Gluconate (Marga-Hex 2%) 1 applic DAILY@2000 TOPIC 11/24/18 20:00 12/11/18 19:59 Dextrose (Dextrose 50%) 25 ml Q30M PRN IV Hypoglycemia 11/24/18 07:00 12/08/18 15:46 Dextrose (Dextrose 50%) 50 ml Q30M PRN IV Hypoglycemia 11/24/18 07:00 12/08/18 17:29 Famotidine (Pepcid) 20 mg DAILY GT 11/24/18 09:00 12/20/18 10:59 11/24/18 09:11 Folic Acid (Folate) 1 mg DAILY PEG 11/24/18 09:00 12/20/18 10:59 11/24/18 09:06 Heparin Sodium (Porcine) (Heparin 5000 units/ml) 5,000 units EVERY 12 HOURS SUBQ 11/24/18 09:00 12/08/18 20:59 11/24/18 09:10 Hydrocortisone (Solu-CORTEF) 25 mg BID IV 11/24/18 09:00 12/21/18 21:59 11/24/18 09:07 Levetiracetam 100 ml @ 400 mls/hr Q12HR IVPB 11/24/18 09:00 12/15/18 20:59 11/24/18 09:06 Levothyroxine Sodium (Synthroid) 75 mcg ACBREAKFAST GT 11/25/18 06:30 12/10/18 06:29 Magnesium Oxide (Mag-Ox 400mg) 400 mg THREE TIMES A DAY PEG 11/24/18 09:00 12/14/18 08:59 11/24/18 12:20 Memantine (Namenda) 5 mg DAILY PEG 11/24/18 09:00 12/20/18 10:59 11/24/18 09:07 Olanzapine (ZyPREXA) 2.5 mg DAILY GT 11/24/18 09:00 12/20/18 10:59 11/24/18 09:07 Polyethylene Glycol (Miralax) 17 gm DAILYPRN PRN GT Constipation 11/24/18 10:30 12/09/18 10:59 Thiamine HCl (Vitamin B1) 100 mg DAILY GT 11/24/18 09:00 12/20/18 10:59 11/24/18 09:33 Vancomycin HCl (Vanco rx to dose) 1 ea DAILY PRN MISC Per rx protocol 11/24/18 09:00 12/22/18 11:44 Vancomycin/Sodium Chloride 250 ml @ 166.667 mls/hr Q12H IVPB 11/24/18 13:00 11/28/18 00:59 Venlafaxine HCl (Effexor) 75 mg TWICE A DAY GT 11/24/18 09:00 12/20/18 17:59 11/24/18 09:06 Jimy Rios MD Nov 24, 2018 13:15
[2018-11-24] MEDS: Vancomycin 750mg/NS 250ml 250 ML IVPB SCH (13:48)
[2018-11-24] MEDS ORDERED: Hydrocortisone 100mg Inj IV SCH (14:00)
--- NOTE | 2018-11-24 14:08 | General Progress Note ---
Assessment/Plan Problem List: (1) UTI (urinary tract infection) ICD Codes: N39.0 - Urinary tract infection, site not specified SNOMED: 97295662 (2) Sepsis ICD Codes: A41.9 - Sepsis, unspecified organism SNOMED: 03607961 (3) ARF (acute renal failure) Assessment & Plan: better ICD Codes: N17.9 - Acute kidney failure, unspecified SNOMED: 09269403 (4) Encephalopathy acute ICD Codes: G93.40 - Encephalopathy, unspecified SNOMED: 92467142, 607501566 Assessment/Plan IV hydrocortisone Abxs follow labs Subjective Allergies: Coded Allergies: PENICILLINS (Verified Allergy, Unknown, 11/08/18) Subjective awake and alert a few words only Objective Last 24 Hour Vital Signs Date Time Temp Pulse Resp B/P (MAP) Pulse Ox O2 Delivery O2 Flow Rate FiO2 11/24/18 12:00 97.8 93 16 140/86 (104) 92 11/24/18 09:00 Nasal Cannula 3.0 11/24/18 08:00 77 11/24/18 08:00 97.3 93 20 124/68 (86) 96 11/24/18 04:00 83 11/24/18 04:00 Nasal Cannula 3.0 11/24/18 04:00 97.5 91 14 148/85 (106) 96 11/24/18 00:00 Nasal Cannula 3.0 11/24/18 00:00 97.9 93 14 139/88 (105) 97 11/24/18 00:00 90 11/23/18 20:00 Nasal Cannula 3.0 11/23/18 20:00 85 11/23/18 20:00 97.9 93 12 129/77 (94) 96 11/23/18 16:00 97.7 96 12 143/85 (104) 96 11/23/18 16:00 Nasal Cannula 3.0 11/23/18 15:50 89 Intake and Output 11/23/18 11/24/18 19:00 07:00 Intake Total 1635.000 ml 675.000 ml Output Total 200 ml 400 ml Balance 1435.000 ml 275.000 ml Free Water 400 ml IV Total 905.000 ml 405.000 ml Tube Feeding 330 ml 270 ml Output Urine Total 200 ml 400 ml # Voids 1 # Bowel Movements 1 1 Laboratory Tests 11/24/18 00:10: Vancomycin Level Trough 16.8H 11/24/18 03:30: White Blood Count 8.9, Red Blood Count 2.59L, Hemoglobin 7.5L, Hematocrit 23.1L , Mean Corpuscular Volume 89, Mean Corpuscular Hemoglobin 28.9, Mean Corpuscular Hemoglobin Concent 32.4, Red Cell Distribution Width 13.7, Platelet Count 258, Mean Platelet Volume 4.4L, Neutrophils (%) (Auto) , Lymphocytes (%) ( Auto) , Monocytes (%) (Auto) , Eosinophils (%) (Auto) , Basophils (%) (Auto) , Differential Total Cells Counted 100, Neutrophils % (Manual) 80H, Lymphocytes % (Manual) 12L, Monocytes % (Manual) 4, Eosinophils % (Manual) 0, Basophils % ( Manual) 0, Band Neutrophils 4, Platelet Estimate Adequate, Platelet Morphology Normal, Hypochromasia 1+, Sodium Level 144, Potassium Level 3.3L, Chloride Level 111H, Carbon Dioxide Level 26, Anion Gap 7, Blood Urea Nitrogen 12, Creatinine 0.9, Estimat Glomerular Filtration Rate > 60, Glucose Level 112H, Calcium Level 7.7L 11/24/18 06:50: White Blood Count 11.4H, Red Blood Count 2.82L, Hemoglobin 8.2L, Hematocrit 24.7L, Mean Corpuscular Volume 88, Mean Corpuscular Hemoglobin 29.2, Mean Corpuscular Hemoglobin Concent 33.3, Red Cell Distribution Width 13.8, Platelet Count 453#H, Mean Platelet Volume 4.7L, Neutrophils (%) (Auto) 84.4H, Lymphocytes (%) (Auto) 8.7L, Monocytes (%) (Auto) 6.7, Eosinophils (%) (Auto) 0.0, Basophils (%) (Auto) 0.2 Height (Feet): 5 Height (Inches): 6.00 Weight (Pounds): 185 Cardiovascular: normal rate Respiratory/Chest: lungs clear Edema: 2+ Generalized Ilir Rios MD Nov 24, 2018 14:08
--- NOTE | 2018-11-24 15:58 | Neurology Progress Note ---
Interim History Interim History Interim History Ms. Aquino feels "better." She was awake and more alert. She was able to produce automatic speech, but when a conversation was started she was severely aphasic. Her BPs have been in the 120s and 140s systolic. She did a lot of mumbling and what she was saying could not be understood. She was able to follow a simple commands. She was curled up in a position. Review of Systems Neuro Review of Systems Unable to obtain. Objective Physical Exam Last Vital Signs Date Time Temp Pulse Resp B/P (MAP) Pulse Ox O2 Delivery O2 Flow Rate FiO2 11/24/18 12:00 82 11/24/18 12:00 97.8 16 140/86 (104) 92 11/24/18 09:00 Nasal Cannula 3.0 11/20/18 20:20 100 Laboratory Tests Test 11/24/18 00:10 11/24/18 03:30 11/24/18 06:50 Vancomycin Level Trough 16.8 ug/mL (5.0-12.0) H White Blood Count 8.9 K/UL (4.8-10.8) 11.4 K/UL (4.8-10.8) H Red Blood Count 2.59 M/UL (4.20-5.40) L 2.82 M/UL (4.20-5.40) L Hemoglobin 7.5 G/DL (12.0-16.0) L 8.2 G/DL (12.0-16.0) L Hematocrit 23.1 % (37.0-47.0) L 24.7 % (37.0-47.0) L Mean Corpuscular Volume 89 FL (80-99) 88 FL (80-99) Mean Corpuscular Hemoglobin 28.9 PG (27.0-31.0) 29.2 PG (27.0-31.0) Mean Corpuscular Hemoglobin Concent 32.4 G/DL (32.0-36.0) 33.3 G/DL (32.0-36.0) Red Cell Distribution Width 13.7 % (11.6-14.8) 13.8 % (11.6-14.8) Platelet Count 258 K/UL (150-450) 453 K/UL (150-450) #H Mean Platelet Volume 4.4 FL (6.5-10.1) L 4.7 FL (6.5-10.1) L Neutrophils (%) (Auto) % (45.0-75.0) 84.4 % (45.0-75.0) H Lymphocytes (%) (Auto) % (20.0-45.0) 8.7 % (20.0-45.0) L Monocytes (%) (Auto) % (1.0-10.0) 6.7 % (1.0-10.0) Eosinophils (%) (Auto) % (0.0-3.0) 0.0 % (0.0-3.0) Basophils (%) (Auto) % (0.0-2.0) 0.2 % (0.0-2.0) Differential Total Cells Counted 100 Neutrophils % (Manual) 80 % (45-75) H Lymphocytes % (Manual) 12 % (20-45) L Monocytes % (Manual) 4 % (1-10) Eosinophils % (Manual) 0 % (0-3) Basophils % (Manual) 0 % (0-2) Band Neutrophils 4 % (0-8) Platelet Estimate Adequate Platelet Morphology Normal Hypochromasia 1+ Sodium Level 144 MMOL/L (136-145) Potassium Level 3.3 MMOL/L (3.5-5.1) L Chloride Level 111 MMOL/L (98-107) H Carbon Dioxide Level 26 MMOL/L (21-32) Anion Gap 7 mmol/L (5-15) Blood Urea Nitrogen 12 mg/dL (7-18) Creatinine 0.9 MG/DL (0.55-1.30) Estimat Glomerular Filtration Rate > 60 mL/min (>60) Glucose Level 112 MG/DL (74-106) H Calcium Level 7.7 MG/DL (8.5-10.1) L Neurologic Exam Objective PHYSICAL EXAMINATION: GENERAL: She is a well-developed, relatively well-nourished lady, lying in bed, in no acute distress. HEAD: Normocephalic and atraumatic. EENT: Examination benign. NECK: No neck rigidity was observed. NEUROLOGIC EXAMINATION: MENTAL STATUS EXAMINATION: She was awake and alert. She was severely aphasic but some of her words could be understood. She did a lot of mumbling and what she was saying could not be understood. She was able to follow a simple commands much better. SPEECH: Her dysarthria was better. LANGUAGE: She was able to comprehend simple commands and express herself better , but not normally. CRANIAL NERVE EXAMINATION: II: She blinked to threat on both sides. III, IV & : External ocular movements were present on oculocephalic maneuvers. The pupils were 3 mm in diameter, equal, round, regular, and reactive sluggishly to light. V & VII: The corneal reflexes were equally brisk and she had no facial asymmetry. VIII: She did respond to sounds and had no nystagmus. IX-X: The gag reflex was not tested. XI: The sternocleidomastoids and trapezii functioned minimally. XII: The tongue was in the midline without any fasciculations or atrophy. MOTOR SYSTEM: The tone was increased in all four extremities with a significant degree of spasticity and gegenhalten. Examination of muscle mass revealed bilateral knee and ankle cord contractures. Examination of power was impossible to perform on individual muscle groups. She however moved all four extremities on command. She also gave me good hand mold stamper. SENSORY EXAMINATION: She responded appropriately to deep pain. She was unable to cooperate for other sensory modalities. REFLEXES: 2++ and bilaterally symmetrical at the biceps, triceps, brachioradialis, and knees, 0 at both ankles. The plantar responses were flexor bilaterally. COORDINATION, STANCE & GAIT: Could not be tested. Impression/Recommendations Diagnostic Impression 1. Ms. Stacy Aquino is a 68-year-old lady of unknown handedness, who does have a past history of anxiety, depression, breast cancer, and Alzheimer's disease. She was hospitalized on 11/08/2018 for increased weakness and change in behavior. She was discovered to have urinary tract infection, dehydration, and hypotension all of which have been treated, but she continues to have an altered mental state, which her family feels is worse than her baseline. 2. She feels "better." She was awake and more alert. She was able to produce automatic speech, but when a conversation was started she was severely aphasic. Her BPs have been in the 120s and 140s systolic. She did a lot of mumbling and what she was saying could not be understood. She was able to follow a simple commands. She was curled up in a position. 3. On neurological examination, at this time, she is awake and alert. She is severely aphasic but some of her words can be understood. However she does a lot of mumbling and what she is saying cannot be understood. She is able to follow a simple commands much better. Her dysarthria is better. She is able to comprehend simple commands and express herself better, but not normally. She is significantly less encephalopathic. She does not demonstrate any focal or lateralizing neurological findings. She is generally weak, has bilateral ankle cord contractures and exhibits spasticity. 4. Laboratory data obtained thus far have revealed that she is anemic with a hemoglobin of 9.0 G. Her blood gases revealed that her pCO2 was down to 31.8 and her pO2 was 103.2. Her chemistry panel on admission revealed her BUN was elevated to 20 and creatinine was elevated at 1.6. Her BNP was elevated to 577, her albumin was low at 2.9, her TSH was low at 0.086. The urinalysis on admission revealed 3+ leukocyte esterase, too numerous to count white blood cells, but 0 red blood cells per high power field. 5. Further laboratory tests have revealed a low T3 at 0.8 and a low T4 at 0.68. The B12 is normal but the folate is low at 7.2. 6. The CT of the brain done on 11/12/18 revealed atrophy and hydrocephalus ex- vacuo. 7. The EEG done on 11/14/18 revealed a moderately severe metabolic encephalopathy. In addition T3 and T4 sharp discharges were seen which could be indicative of either brain irritability or inter-ictal discharges. 8. A brain MRI could not be done as she could not be positioned in the scanner due to her contractures. 9. The patient's history, neurological examination and imaging are most compatible with an advanced dementia with a superimposed encephalopathy most probably related to her recent urinary tract infection, hypotension, and fluid and electrolyte imbalance. 10. The episode of hypotension on 11/13/18 could have worsened the encephalopathy. 11. She had her last hypotensive episode on 11/20/18. 12. There is a question as to whether she has adrenal insufficency. Recommendations 1. Continue present management. 2. Try to keep BP > 110 at all times. 3. Treatment of hypothyroidism. 4. Folic acid 1 mg PO daily. 5. Continue Keppra 500 q 12 H IV. 6. Treatment of adrenal insufficiency. 7. Observe. Harley Reeves M.D., M.S.P.H. Harley Reeves MD Nov 24, 2018 15:57
[2018-11-24 16:00] VITALS: BP 148/85
--- NOTE | 2018-11-24 19:55 | NUR ---
HAND-OFF: Report given to MEGHAN Garcia. Plan of care endorsed.
--- NOTE | 2018-11-24 19:56 | NUR ---
NURSE NOTES: Received report from Terrell Ramirez RN. Patient in bed asleep with HOB elevated at 30-45' for aspiration precaution d/t GTF. No S/S of acute pain at this time; kept patient clean, dry, and comfortable at all times. Patient is AO x1-2 with minimal verbalization noted. IV line intact and patent on right IJ (3 lumen) and is receiving prescribed ABX treatment as ordered. Safety, and aspiration precaution in place; siderails up x3, call light within reach, bed in lowest position, brakes and alarm on at all times. On GTF and is tolerating well with no A/R noted. Needs and wants anticipated and attended, will continue plan of care and monitor for any changes in condition noted
[2018-11-24 20:00] VITALS: BP 139/75
[2018-11-24] MEDS: Dyna-Hex 2% Top Sol 2oz TOPIC SCH (20:25)
--- NOTE | 2018-11-24 22:14 | General Progress Note ---
Assessment/Plan Assessment/Plan Assessment - OBS - dysphagia - anemia - UTI - s/p PEG - Hypotension Recommendations - Elevate HOB - monitor vital signs - follow labs - advance TF to goal - abx - Pepcid - Miralax Subjective Allergies: Coded Allergies: PENICILLINS (Verified Allergy, Unknown, 11/08/18) All Systems: reviewed and negative except above Subjective in Tele now tolerating TF GT in good position more awake d/w RN re goal TF Objective Last 24 Hour Vital Signs Date Time Temp Pulse Resp B/P (MAP) Pulse Ox O2 Delivery O2 Flow Rate FiO2 11/24/18 16:00 98.5 94 20 148/85 (106) 92 11/24/18 16:00 84 11/24/18 12:00 82 11/24/18 12:00 97.8 93 16 140/86 (104) 92 11/24/18 09:00 Nasal Cannula 3.0 11/24/18 08:00 77 11/24/18 08:00 97.3 93 20 124/68 (86) 96 11/24/18 04:00 83 11/24/18 04:00 Nasal Cannula 3.0 11/24/18 04:00 97.5 91 14 148/85 (106) 96 11/24/18 00:00 Nasal Cannula 3.0 11/24/18 00:00 97.9 93 14 139/88 (105) 97 11/24/18 00:00 90 Intake and Output 11/23/18 11/24/18 19:00 07:00 Intake Total 1635.000 ml 675.000 ml Output Total 200 ml 400 ml Balance 1435.000 ml 275.000 ml Free Water 400 ml IV Total 905.000 ml 405.000 ml Tube Feeding 330 ml 270 ml Output Urine Total 200 ml 400 ml # Voids 1 # Bowel Movements 1 1 Laboratory Tests 11/24/18 00:10: Vancomycin Level Trough 16.8H 11/24/18 03:30: White Blood Count 8.9, Red Blood Count 2.59L, Hemoglobin 7.5L, Hematocrit 23.1L , Mean Corpuscular Volume 89, Mean Corpuscular Hemoglobin 28.9, Mean Corpuscular Hemoglobin Concent 32.4, Red Cell Distribution Width 13.7, Platelet Count 258, Mean Platelet Volume 4.4L, Neutrophils (%) (Auto) , Lymphocytes (%) ( Auto) , Monocytes (%) (Auto) , Eosinophils (%) (Auto) , Basophils (%) (Auto) , Differential Total Cells Counted 100, Neutrophils % (Manual) 80H, Lymphocytes % (Manual) 12L, Monocytes % (Manual) 4, Eosinophils % (Manual) 0, Basophils % ( Manual) 0, Band Neutrophils 4, Platelet Estimate Adequate, Platelet Morphology Normal, Hypochromasia 1+, Sodium Level 144, Potassium Level 3.3L, Chloride Level 111H, Carbon Dioxide Level 26, Anion Gap 7, Blood Urea Nitrogen 12, Creatinine 0.9, Estimat Glomerular Filtration Rate > 60, Glucose Level 112H, Calcium Level 7.7L 11/24/18 06:50: White Blood Count 11.4H, Red Blood Count 2.82L, Hemoglobin 8.2L, Hematocrit 24.7L, Mean Corpuscular Volume 88, Mean Corpuscular Hemoglobin 29.2, Mean Corpuscular Hemoglobin Concent 33.3, Red Cell Distribution Width 13.8, Platelet Count 453#H, Mean Platelet Volume 4.7L, Neutrophils (%) (Auto) 84.4H, Lymphocytes (%) (Auto) 8.7L, Monocytes (%) (Auto) 6.7, Eosinophils (%) (Auto) 0.0, Basophils (%) (Auto) 0.2 Height (Feet): 5 Height (Inches): 6.00 Weight (Pounds): 185 Objective Elderly WW NCAT supple CTA RR Soft NT ND, (+) PEG no edema, contracted OBS Darryl Hood MD Nov 24, 2018 22:14
[2018-11-25] VITALS: BP 118/68
[2018-11-25] MEDS: Vancomycin 750mg/NS 250ml 250 ML IVPB SCH ×3 (01:32→13:23)
[2018-11-25] MEDS: Cefepime HCl 1 GM in D5W 55 ML IVPB SCH ×2 (03:01→13:51)
--- NOTE | 2018-11-25 03:30 | NUR ---
NURSE NOTES: Patient in bed asleep with no S/S of acute pain or distress at this time, will continue plan of care and monitor for any changes noted
[2018-11-25 04:00] VITALS: BP 130/77
--- NOTE | 2018-11-25 07:00 | General Progress Note ---
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 SNOMED: 031534264 (3) Sepsis ICD Codes: A41.9 - Sepsis, unspecified organism SNOMED: 66497406 (4) Episode of generalized weakness ICD Codes: R53.1 - Weakness SNOMED: 12798066 (5) UTI (urinary tract infection) ICD Codes: N39.0 - Urinary tract infection, site not specified SNOMED: 26629416 (6) ARF (acute renal failure) ICD Codes: N17.9 - Acute kidney failure, unspecified SNOMED: 01813477 (7) Encephalopathy acute ICD Codes: G93.40 - Encephalopathy, unspecified SNOMED: 80121266, 042091639 (8) Pneumonia ICD Codes: J18.9 - Pneumonia, unspecified organism SNOMED: 940765942 Assessment/Plan BPis stable - reduce IVHC to 20 mg every 12 hours keep Levothyroxine at 75 mcg daily Subjective ROS Limited/Unobtainable: Yes Allergies: Coded Allergies: PENICILLINS (Verified Allergy, Unknown, 11/08/18) Subjective events noted Objective Last 24 Hour Vital Signs Date Time Temp Pulse Resp B/P (MAP) Pulse Ox O2 Delivery O2 Flow Rate FiO2 11/25/18 04:00 79 11/25/18 04:00 97.1 88 21 130/77 (94) 95 11/25/18 00:00 93 11/25/18 00:00 98.5 89 21 118/68 (85) 93 11/24/18 21:00 Nasal Cannula 3.0 11/24/18 20:00 98.3 90 21 139/75 (96) 94 11/24/18 20:00 88 11/24/18 16:00 98.5 94 20 148/85 (106) 92 11/24/18 16:00 84 11/24/18 12:00 82 11/24/18 12:00 97.8 93 16 140/86 (104) 92 11/24/18 09:00 Nasal Cannula 3.0 11/24/18 08:00 77 11/24/18 08:00 97.3 93 20 124/68 (86) 96 Intake and Output 11/24/18 11/25/18 18:59 06:59 Intake Total 535 ml Balance 535 ml Free Water 120 ml Tube Feeding 415 ml # Voids 100 Height (Feet): 5 Height (Inches): 6.00 Weight (Pounds): 185 General Appearance: no apparent distress Neck: normal alignment Cardiovascular: normal rate Respiratory/Chest: decreased breath sounds Abdomen: other - PEG Objective Current Medications Medications (Trade) Dose Ordered Sig/Inocente Route PRN Reason Start Time Stop Time Status Last Admin Dose Admin Acetaminophen (Tylenol) 650 mg Q4H PRN GT Mild Pain/Temp > 100.5 11/24/18 07:00 12/20/18 06:59 Cefepime HCl 1 gm/ Dextrose 55 ml @ 110 mls/hr Q12H IVPB 11/24/18 14:00 11/28/18 13:59 11/25/18 03:01 Chlorhexidine Gluconate (Marga-Hex 2%) 1 applic DAILY@2000 TOPIC 11/24/18 20:00 12/11/18 19:59 11/24/18 20:25 Dextrose (Dextrose 50%) 25 ml Q30M PRN IV Hypoglycemia 11/24/18 07:00 12/08/18 15:46 Dextrose (Dextrose 50%) 50 ml Q30M PRN IV Hypoglycemia 11/24/18 07:00 12/08/18 17:29 Famotidine (Pepcid) 20 mg DAILY GT 11/24/18 09:00 12/20/18 10:59 11/24/18 09:11 Folic Acid (Folate) 1 mg DAILY PEG 11/24/18 09:00 12/20/18 10:59 11/24/18 09:06 Heparin Sodium (Porcine) (Heparin 5000 units/ml) 5,000 units EVERY 12 HOURS SUBQ 11/24/18 09:00 12/08/18 20:59 11/24/18 20:26 Hydrocortisone (Solu-CORTEF) 25 mg BID IV 11/24/18 09:00 12/21/18 21:59 11/24/18 17:33 Levetiracetam 100 ml @ 400 mls/hr Q12HR IVPB 11/24/18 09:00 12/15/18 20:59 11/24/18 20:24 Levothyroxine Sodium (Synthroid) 75 mcg ACBREAKFAST GT 11/25/18 06:30 1/23/19 06:29 11/25/18 06:16 Magnesium Oxide (Mag-Ox 400mg) 400 mg THREE TIMES A DAY PEG 11/24/18 09:00 12/14/18 08:59 11/24/18 17:33 Memantine (Namenda) 5 mg DAILY PEG 11/24/18 09:00 12/20/18 10:59 11/24/18 09:07 Olanzapine (ZyPREXA) 2.5 mg DAILY GT 11/24/18 09:00 12/20/18 10:59 11/24/18 09:07 Polyethylene Glycol (Miralax) 17 gm DAILYPRN PRN GT Constipation 11/24/18 10:30 12/09/18 10:59 Thiamine HCl (Vitamin B1) 100 mg DAILY GT 11/24/18 09:00 12/20/18 10:59 11/24/18 09:33 Vancomycin HCl (Vanco rx to dose) 1 ea DAILY PRN MISC Per rx protocol 11/24/18 09:00 12/22/18 11:44 Vancomycin/Sodium Chloride 250 ml @ 166.667 mls/hr Q12H IVPB 11/24/18 13:00 11/28/18 00:59 11/25/18 01:32 Venlafaxine HCl (Effexor) 75 mg TWICE A DAY GT 11/24/18 09:00 12/20/18 17:59 11/24/18 17:33 Ken Turner MD Nov 25, 2018 07:00
--- NOTE | 2018-11-25 07:10 | NUR ---
HAND-OFF: Report given to Terrell Ramirez RN. Patient in bed in stable condition, endorsed plan of care.
--- NOTE | 2018-11-25 07:12 | NUR ---
NURSE NOTES: Received report from MEGHAN Garcia. Pt is sitting up in bed. No distress noted. Bed is in lowest position, side rails up X2, and call light is within reach. Will continue to monitor.
[2018-11-25 08:07] VITALS: BP 145/75
[2018-11-25] MEDS: Thiamine 100mg tab GT SCH (09:14)
[2018-11-25] MEDS: Magnesium Oxide 400mg tab PEG SCH ×3 (09:14→17:39)
[2018-11-25] MEDS: Hydrocortisone 100mg Inj IV SCH ×2 (09:14→17:38)
[2018-11-25] MEDS: Venlafaxine HCl 37.5mg Tab GT SCH ×2 (09:14→17:38)
[2018-11-25] MEDS: Memantine 5 MG TAB PEG SCH (09:14)
[2018-11-25] MEDS: levETIRAcetam 500mg/NS100ml 100 ML IVPB SCH ×2 (09:15→20:44)
[2018-11-25] MEDS: OLANZapine 2.5mg tab GT SCH (09:15)
[2018-11-25] MEDS: Heparin 5000 units/ml inj SUBQ SCH ×2 (09:18→20:44)
--- NOTE | 2018-11-25 11:52 | Cardiology Progress Note ---
Assessment/Plan Assessment/Plan 1. Hypotension. 2. Penfield's disease. 3. History of G-tube placement. 4. 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 5. History of bronchiectasis. 6. Normal pressure hydrocephalus, CSF fluid leak. 7. History of hypothyroidism. 8. History of ulcerative colitis. 9. History of Viki granulomatosis per [facility] records. bp much improved since steroid started echo ef 55% tele likelyu sinsu with tremor artifact ekg noted left leg look more swollen will order repeat venous duplex iv abx Subjective ROS Limited/Unobtainable: Yes Objective Last 24 Hour Vital Signs Date Time Temp Pulse Resp B/P (MAP) Pulse Ox O2 Delivery O2 Flow Rate FiO2 11/25/18 09:00 Nasal Cannula 3.0 11/25/18 08:07 97.7 87 18 145/75 (98) 96 11/25/18 08:00 83 11/25/18 04:00 79 11/25/18 04:00 97.1 88 21 130/77 (94) 95 11/25/18 00:00 93 11/25/18 00:00 98.5 89 21 118/68 (85) 93 11/24/18 21:00 Nasal Cannula 3.0 11/24/18 20:00 98.3 90 21 139/75 (96) 94 11/24/18 20:00 88 11/24/18 16:00 98.5 94 20 148/85 (106) 92 11/24/18 16:00 84 11/24/18 12:00 82 11/24/18 12:00 97.8 93 16 140/86 (104) 92 General Appearance: no apparent distress, alert Neck: supple Cardiovascular: normal rate Respiratory/Chest: lungs clear Abdomen: non tender, soft Extremities: moderate edema - left leg Intake and Output 11/24/18 11/25/18 19:00 07:00 Intake Total 575 ml 560 ml Balance 575 ml 560 ml Free Water 120 ml Tube Feeding 455 ml 560 ml # Voids 100 3 Jesu Alejandra MD Nov 25, 2018 11:52
[2018-11-25 12:05] VITALS: BP 138/87
--- NOTE | 2018-11-25 13:24 | NUR ---
NURSE NOTES: Received call from pharmacy asking to hold vanco for dose adjustment. Undid the previously scanned medication. I did not administer med.
--- NOTE | 2018-11-25 13:37 | Infectious Diseases Prog Note ---
Assessment/Plan Assessment/Plan A 1. Sepsis 2. Atelectasis/ pneumonia. 3. 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 Acute renal failure improved 6. Alzheimer dementia 7. Gastrostomy status P 1. Continue IV Cefepime & Vancomycin Subjective ROS Limited/Unobtainable: Yes Constitutional: Reports: no symptoms Allergies: Coded Allergies: PENICILLINS (Verified Allergy, Unknown, 11/08/18) Objective Vital Signs Last 24 Hour Vital Signs Date Time Temp Pulse Resp B/P (MAP) Pulse Ox O2 Delivery O2 Flow Rate FiO2 11/25/18 12:05 97.7 85 18 138/87 (104) 95 11/25/18 12:00 85 11/25/18 09:00 Nasal Cannula 3.0 11/25/18 08:07 97.7 87 18 145/75 (98) 96 11/25/18 08:00 83 11/25/18 04:00 79 11/25/18 04:00 97.1 88 21 130/77 (94) 95 11/25/18 00:00 93 11/25/18 00:00 98.5 89 21 118/68 (85) 93 11/24/18 21:00 Nasal Cannula 3.0 11/24/18 20:00 98.3 90 21 139/75 (96) 94 11/24/18 20:00 88 11/24/18 16:00 98.5 94 20 148/85 (106) 92 11/24/18 16:00 84 Height (Feet): 5 Height (Inches): 6.00 Weight (Pounds): 184 General Appearance: no acute distress HEENT: mucous membranes moist Respiratory/Chest: lungs clear Cardiovascular: normal rate, other - RIJ line Abdomen: soft, non tender, other - GT feeding Extremities: no edema Neurologic/Psychiatric: aphasia Laboratory Tests Test 11/25/18 12:30 Vancomycin Level Trough 21.5 ug/mL (5.0-12.0) H Current Medications Medications (Trade) Dose Ordered Sig/Inocente Route PRN Reason Start Time Stop Time Status Last Admin Dose Admin Acetaminophen (Tylenol) 650 mg Q4H PRN GT Mild Pain/Temp > 100.5 11/24/18 07:00 12/20/18 06:59 Cefepime HCl 1 gm/ Dextrose 55 ml @ 110 mls/hr Q12H IVPB 11/24/18 14:00 11/28/18 13:59 11/25/18 03:01 Chlorhexidine Gluconate (Marga-Hex 2%) 1 applic DAILY@2000 TOPIC 11/24/18 20:00 12/11/18 19:59 11/24/18 20:25 Dextrose (Dextrose 50%) 25 ml Q30M PRN IV Hypoglycemia 11/24/18 07:00 12/08/18 15:46 Dextrose (Dextrose 50%) 50 ml Q30M PRN IV Hypoglycemia 11/24/18 07:00 12/08/18 17:29 Famotidine (Pepcid) 20 mg DAILY GT 11/24/18 09:00 12/20/18 10:59 11/25/18 09:14 Folic Acid (Folate) 1 mg DAILY PEG 11/24/18 09:00 12/20/18 10:59 11/25/18 09:14 Heparin Sodium (Porcine) (Heparin 5000 units/ml) 5,000 units EVERY 12 HOURS SUBQ 11/24/18 09:00 12/08/18 20:59 11/25/18 09:18 Hydrocortisone (Solu-CORTEF) 20 mg BID IV 11/25/18 09:00 12/21/18 21:59 11/25/18 09:14 Levetiracetam 100 ml @ 400 mls/hr Q12HR IVPB 11/24/18 09:00 12/15/18 20:59 11/25/18 09:15 Levothyroxine Sodium (Synthroid) 75 mcg ACBREAKFAST GT 11/25/18 06:30 12/10/18 06:29 11/25/18 06:16 Magnesium Oxide (Mag-Ox 400mg) 400 mg THREE TIMES A DAY PEG 11/24/18 09:00 12/14/18 08:59 11/25/18 13:18 Memantine (Namenda) 5 mg DAILY PEG 11/24/18 09:00 12/20/18 10:59 11/25/18 09:14 Olanzapine (ZyPREXA) 2.5 mg DAILY GT 11/24/18 09:00 12/20/18 10:59 11/25/18 09:15 Polyethylene Glycol (Miralax) 17 gm DAILYPRN PRN GT Constipation 11/24/18 10:30 12/09/18 10:59 Potassium Chloride (K-Dur) 40 meq ONCE ONCE GT 11/25/18 13:45 11/25/18 13:46 UNV Thiamine HCl (Vitamin B1) 100 mg DAILY GT 11/24/18 09:00 12/20/18 10:59 11/25/18 09:14 Vancomycin HCl (Vanco rx to dose) 1 ea DAILY PRN MISC Per rx protocol 11/24/18 09:00 12/22/18 11:44 Vancomycin HCl/ Dextrose 250 ml @ 166.667 mls/hr Q24H IVPB 11/25/18 17:00 11/30/18 16:59 Venlafaxine HCl (Effexor) 75 mg TWICE A DAY GT 11/24/18 09:00 12/20/18 17:59 11/25/18 09:14 Jimy Rios MD Nov 25, 2018 13:37
--- NOTE | 2018-11-25 14:06 | General Progress Note ---
Assessment/Plan Problem List: (1) UTI (urinary tract infection) ICD Codes: N39.0 - Urinary tract infection, site not specified SNOMED: 99956544 (2) Sepsis ICD Codes: A41.9 - Sepsis, unspecified organism SNOMED: 12231583 (3) ARF (acute renal failure) Assessment & Plan: better ICD Codes: N17.9 - Acute kidney failure, unspecified SNOMED: 86673282 (4) Encephalopathy acute ICD Codes: G93.40 - Encephalopathy, unspecified SNOMED: 14548841, 316938750 Assessment/Plan IV hydrocortisone Abxs follow labs Dc planning Discussed with RN Subjective Allergies: Coded Allergies: PENICILLINS (Verified Allergy, Unknown, 11/08/18) Subjective awake and alert a few words only Objective Last 24 Hour Vital Signs Date Time Temp Pulse Resp B/P (MAP) Pulse Ox O2 Delivery O2 Flow Rate FiO2 11/25/18 12:05 97.7 85 18 138/87 (104) 95 11/25/18 12:00 85 11/25/18 09:00 Nasal Cannula 3.0 11/25/18 08:07 97.7 87 18 145/75 (98) 96 11/25/18 08:00 83 11/25/18 04:00 79 11/25/18 04:00 97.1 88 21 130/77 (94) 95 11/25/18 00:00 93 11/25/18 00:00 98.5 89 21 118/68 (85) 93 11/24/18 21:00 Nasal Cannula 3.0 11/24/18 20:00 98.3 90 21 139/75 (96) 94 11/24/18 20:00 88 11/24/18 16:00 98.5 94 20 148/85 (106) 92 11/24/18 16:00 84 Intake and Output 11/24/18 11/25/18 19:00 07:00 Intake Total 575 ml 560 ml Balance 575 ml 560 ml Free Water 120 ml Tube Feeding 455 ml 560 ml # Voids 100 3 Laboratory Tests 11/25/18 12:30: Vancomycin Level Trough 21.5H Height (Feet): 5 Height (Inches): 6.00 Weight (Pounds): 184 Cardiovascular: normal rate Respiratory/Chest: lungs clear Edema: 3+ Generalized Ilir Rios MD Nov 25, 2018 14:06
--- NOTE | 2018-11-25 14:26 | NUR ---
NURSE NOTES: Received call from the selling manager recommending an increase to pts feeding to 60cc/hr for 22 hours to meet the patients caloric goal. Will notify MD of recommendation.
--- NOTE | 2018-11-25 14:28 | NUR ---
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 2) Altered nutrition related lab values r/t clinical status as evidenced by low K (3.3). CURRENT TF: Osmolite 1.2 @45ml/hr x22 hrs ENTERAL NUTRITION RECOMMENDATIONS: Osmolite 1.2 @60ml /hr x22 hrs to provide 1320ml, 1584 kcal, 73g prot, 1082ml free H2O - REC TF INCREASE TO BETTER MEET EST NEEDS - Advance as tolerated 10ml every 4-6 hrs to goal. - Flush per MD. HOB over 30 degrees - HOLD TF 1 hr before and after synthroid meds ADDITIONAL RECOMMENDATIONS: 1) Check lytes daily/ replete as needed 2) RE-calibrate bed scale for accurate CBW 3) TF recs as above 4) TWIN BID FOR SKIN INTEGRITY 5) Monitor for hypoglycemia. . .
--- NOTE | 2018-11-25 15:30 | NUR ---
NURSE NOTES: Per margarito Brooks for feeding goal to be 60cc/hr.
--- NOTE | 2018-11-25 15:45 | Pulmonology Progress Note ---
Assessment/Plan Problems: (1) Elevated d-dimer (2) Hypoxemia (3) Dehydration (4) ARF (acute renal failure) (5) UTI (urinary tract infection) (6) Episode of generalized weakness (7) Sepsis (8) PEG (percutaneous endoscopic gastrostomy) status (9) [place] disease Assessment/Plan Optimize pulmonary hygiene/mobilize as tolerated PRN O2 Abx (CEFEPIME&VANCO) per ID Monitor volumes and renal function Aspiration precautions Titrate HC per ENDO F/U repeat TTE DVT Px: Hep SQ Monitor MS, F/U neuro recs and w/u, unable to do MRI GTF's FC Subjective Allergies: Coded Allergies: PENICILLINS (Verified Allergy, Unknown, 11/08/18) Subjective ROSANGELA, TTF AFVSS O2 needs stable Not speaking, selin TF's More alert today No distress, no cough, no SOB Objective Last 24 Hour Vital Signs Date Time Temp Pulse Resp B/P (MAP) Pulse Ox O2 Delivery O2 Flow Rate FiO2 11/25/18 12:05 97.7 85 18 138/87 (104) 95 11/25/18 12:00 85 11/25/18 09:00 Nasal Cannula 3.0 11/25/18 08:07 97.7 87 18 145/75 (98) 96 11/25/18 08:00 83 11/25/18 04:00 79 11/25/18 04:00 97.1 88 21 130/77 (94) 95 11/25/18 00:00 93 11/25/18 00:00 98.5 89 21 118/68 (85) 93 11/24/18 21:00 Nasal Cannula 3.0 11/24/18 20:00 98.3 90 21 139/75 (96) 94 11/24/18 20:00 88 11/24/18 16:00 98.5 94 20 148/85 (106) 92 11/24/18 16:00 84 Intake and Output 11/24/18 11/25/18 19:00 07:00 Intake Total 575 ml 560 ml Balance 575 ml 560 ml Free Water 120 ml Tube Feeding 455 ml 560 ml # Voids 100 3 General Appearance: no acute distress, cachetic HEENT: normocephalic, atraumatic, anicteric, mucous membranes moist Respiratory/Chest: chest wall non-tender, lungs clear, normal breath sounds, no respiratory distress, no accessory muscle use Cardiovascular: normal peripheral pulses, normal rate, regular rhythm Abdomen: normal bowel sounds, soft, non tender, no organomegaly, non distended , other - GT Extremities: no cyanosis, no clubbing, no edema Laboratory Tests 11/25/18 12:30: Vancomycin Level Trough 21.5H Current Medications Medications (Trade) Dose Ordered Sig/Inocente Route PRN Reason Start Time Stop Time Status Last Admin Dose Admin Acetaminophen (Tylenol) 650 mg Q4H PRN GT Mild Pain/Temp > 100.5 11/24/18 07:00 12/20/18 06:59 Cefepime HCl 1 gm/ Dextrose 55 ml @ 110 mls/hr Q12H IVPB 11/24/18 14:00 11/28/18 13:59 11/25/18 13:51 Chlorhexidine Gluconate (Marga-Hex 2%) 1 applic DAILY@2000 TOPIC 11/24/18 20:00 12/11/18 19:59 11/24/18 20:25 Dextrose (Dextrose 50%) 25 ml Q30M PRN IV Hypoglycemia 11/24/18 07:00 12/08/18 15:46 Dextrose (Dextrose 50%) 50 ml Q30M PRN IV Hypoglycemia 11/24/18 07:00 12/08/18 17:29 Famotidine (Pepcid) 20 mg DAILY GT 11/24/18 09:00 12/20/18 10:59 11/25/18 09:14 Folic Acid (Folate) 1 mg DAILY PEG 11/24/18 09:00 12/20/18 10:59 11/25/18 09:14 Heparin Sodium (Porcine) (Heparin 5000 units/ml) 5,000 units EVERY 12 HOURS SUBQ 11/24/18 09:00 12/08/18 20:59 11/25/18 09:18 Hydrocortisone (Solu-CORTEF) 20 mg BID IV 11/25/18 09:00 12/21/18 21:59 11/25/18 09:14 Levetiracetam 100 ml @ 400 mls/hr Q12HR IVPB 11/24/18 09:00 12/15/18 20:59 11/25/18 09:15 Levothyroxine Sodium (Synthroid) 75 mcg ACBREAKFAST GT 11/25/18 06:30 12/10/18 06:29 11/25/18 06:16 Magnesium Oxide (Mag-Ox 400mg) 400 mg THREE TIMES A DAY PEG 11/24/18 09:00 12/14/18 08:59 11/25/18 13:18 Memantine (Namenda) 5 mg DAILY PEG 11/24/18 09:00 12/20/18 10:59 11/25/18 09:14 Olanzapine (ZyPREXA) 2.5 mg DAILY GT 11/24/18 09:00 12/20/18 10:59 11/25/18 09:15 Polyethylene Glycol (Miralax) 17 gm DAILYPRN PRN GT Constipation 11/24/18 10:30 12/09/18 10:59 Thiamine HCl (Vitamin B1) 100 mg DAILY GT 11/24/18 09:00 12/20/18 10:59 11/25/18 09:14 Vancomycin HCl (Vanco rx to dose) 1 ea DAILY PRN MISC Per rx protocol 11/24/18 09:00 12/22/18 11:44 Vancomycin HCl/ Dextrose 250 ml @ 166.667 mls/hr Q24H IVPB 11/25/18 17:00 11/30/18 16:59 Venlafaxine HCl (Effexor) 75 mg TWICE A DAY GT 11/24/18 09:00 12/20/18 17:59 11/25/18 09:14 Ahmet Mallory MD Nov 25, 2018 15:45
[2018-11-25 16:08] VITALS: BP 131/72
[2018-11-25] MEDS: Vancomycin 1250mg/D5W 250ml IVPB SCH (17:39)
--- NOTE | 2018-11-25 19:21 | NUR ---
HAND-OFF: Report given to MEGHAN Aguirre. Plan of care endorsed.
--- NOTE | 2018-11-25 19:51 | Neurology Progress Note ---
Interim History Interim History Interim History Ms. Aquino is unable to tell me how she feels. She is awake but less alert. She is able to produce automatic speech, but when a conversation is started she is severely aphasic. Her BPs have been in the 130s and 140s systolic. She does a lot of mumbling but what she is saying cannot be understood. She is able to follow a simple commands. She is lying with her neck flexed forward and the legs in a flexed position. Review of Systems Neuro Review of Systems Unable to obtain. Objective Physical Exam Last Vital Signs Date Time Temp Pulse Resp B/P (MAP) Pulse Ox O2 Delivery O2 Flow Rate FiO2 11/25/18 16:08 97.9 83 18 131/72 (91) 94 11/25/18 09:00 Nasal Cannula 3.0 11/20/18 20:20 100 Laboratory Tests Test 11/25/18 12:30 Vancomycin Level Trough 21.5 ug/mL (5.0-12.0) H Neurologic Exam Objective PHYSICAL EXAMINATION: GENERAL: She is a well-developed, relatively well-nourished lady, lying in bed, in no acute distress. HEAD: Normocephalic and atraumatic. EENT: Examination benign. NECK: No neck rigidity was observed. NEUROLOGIC EXAMINATION: MENTAL STATUS EXAMINATION: She was awake but not alert. She was severely aphasic but some of her words could be understood. She did a lot of mumbling and what she was saying could not be understood. She was able to follow a simple commands. SPEECH: She had a dysarthria. LANGUAGE: She was able to comprehend simple commands and express herself but not normally. CRANIAL NERVE EXAMINATION: II: She blinked to threat on both sides. III, IV & : External ocular movements were present on oculocephalic maneuvers. The pupils were 3 mm in diameter, equal, round, regular, and reactive sluggishly to light. V & VII: The corneal reflexes were equally brisk and she had no facial asymmetry. VIII: She did respond to sounds and had no nystagmus. IX-X: The gag reflex was not tested. XI: The sternocleidomastoids and trapezii functioned minimally. XII: The tongue was in the midline without any fasciculations or atrophy. MOTOR SYSTEM: The tone was increased in all four extremities with a significant degree of spasticity and gegenhalten. Examination of muscle mass revealed bilateral knee and ankle cord contractures. Examination of power was impossible to perform on individual muscle groups. She however moved all four extremities on command. 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 SENSORY EXAMINATION: She responded appropriately to deep pain. She was unable to cooperate for other sensory modalities. REFLEXES: 2++ and bilaterally symmetrical at the biceps, triceps, brachioradialis, and knees, 0 at both ankles. The plantar responses were flexor bilaterally. COORDINATION, STANCE & GAIT: Could not be tested. Impression/Recommendations Diagnostic Impression 1. Ms. Stacy Aquino is a 68-year-old lady of unknown handedness, who does have a past history of anxiety, depression, breast cancer, and Alzheimer's disease. She was hospitalized on 11/08/2018 for increased weakness and change in behavior. She was discovered to have urinary tract infection, dehydration, and hypotension all of which have been treated, but she continues to have an altered mental state, which her family feels is worse than her baseline. 2. She is unable to tell me how she feels. She is awake but less alert. She is able to produce automatic speech, but when a conversation is started she is severely aphasic. Her BPs have been in the 130s and 140s systolic. She does a lot of mumbling but what she is saying cannot be understood. She is able to follow a simple commands. She is lying with her neck flexed forward and the legs in a flexed position. 3. On neurological examination, at this time, she is awake but not alert. She is severely aphasic but some of her words can be understood. However she does a lot of mumbling and what she is saying cannot be understood. She is able to follow a simple commands. She has a dysarthria. She is able to comprehend simple commands and express herself but not normally. She continues to be encephalopathic. She does not demonstrate any focal or lateralizing neurological findings. She is generally weak, has bilateral ankle cord contractures and exhibits spasticity. 4. Laboratory data obtained thus far have revealed that she is anemic with a hemoglobin of 9.0 G. Her blood gases revealed that her pCO2 was down to 31.8 and her pO2 was 103.2. Her chemistry panel on admission revealed her BUN was elevated to 20 and creatinine was elevated at 1.6. Her BNP was elevated to 577, her albumin was low at 2.9, her TSH was low at 0.086. The urinalysis on admission revealed 3+ leukocyte esterase, too numerous to count white blood cells, but 0 red blood cells per high power field. 5. Further laboratory tests have revealed a low T3 at 0.8 and a low T4 at 0.68. The B12 is normal but the folate is low at 7.2. 6. The CT of the brain done on 11/12/18 revealed atrophy and hydrocephalus ex- vacuo. 7. The EEG done on 11/14/18 revealed a moderately severe metabolic encephalopathy. In addition T3 and T4 sharp discharges were seen which could be indicative of either brain irritability or inter-ictal discharges. 8. A brain MRI could not be done as she could not be positioned in the scanner due to her contractures. 9. The patient's history, neurological examination and imaging are most compatible with an advanced dementia with a superimposed encephalopathy most probably related to her recent urinary tract infection, hypotension, and fluid and electrolyte imbalance. 10. The episode of hypotension on 11/13/18 could have worsened the encephalopathy. 11. She had her last hypotensive episode on 11/20/18. 12. There is a question as to whether she has adrenal insufficency. Recommendations 1. Continue present management. 2. Try to keep BP > 110 at all times. 3. Treatment of hypothyroidism. 4. Folic acid 1 mg PO daily. 5. Continue Keppra 500 q 12 H IV. 6. Treatment of adrenal insufficiency. 7. Observe. Harley Reeves M.D., M.S.P.H. Harley Reeves MD Nov 25, 2018 19:51
[2018-11-25 20:00] VITALS: BP 155/87
[2018-11-25] MEDS: Dyna-Hex 2% Top Sol 2oz TOPIC SCH (20:44)
--- NOTE | 2018-11-25 23:14 | General Progress Note ---
Assessment/Plan Assessment/Plan Assessment - OBS - dysphagia - anemia - UTI - s/p PEG - Hypotension - resolved Recommendations - Elevate HOB - monitor vital signs - follow labs - TF - abx - Pepcid - Miralax Subjective Allergies: Coded Allergies: PENICILLINS (Verified Allergy, Unknown, 11/08/18) Subjective tolerating TF GT in good position awake no new issues per RN Objective Last 24 Hour Vital Signs Date Time Temp Pulse Resp B/P (MAP) Pulse Ox O2 Delivery O2 Flow Rate FiO2 11/25/18 20:00 98.1 84 24 155/87 (109) 99 11/25/18 16:08 97.9 83 18 131/72 (91) 94 11/25/18 16:00 89 11/25/18 12:05 97.7 85 18 138/87 (104) 95 11/25/18 12:00 85 11/25/18 09:00 Nasal Cannula 3.0 11/25/18 08:07 97.7 87 18 145/75 (98) 96 11/25/18 08:00 83 11/25/18 04:00 79 11/25/18 04:00 97.1 88 21 130/77 (94) 95 11/25/18 00:00 93 11/25/18 00:00 98.5 89 21 118/68 (85) 93 Intake and Output 11/24/18 11/25/18 19:00 07:00 Intake Total 575 ml 560 ml Balance 575 ml 560 ml Free Water 120 ml Tube Feeding 455 ml 560 ml # Voids 100 3 Laboratory Tests 11/25/18 12:30: Vancomycin Level Trough 21.5H Height (Feet): 5 Height (Inches): 6.00 Weight (Pounds): 184 Objective Elderly WW NCAT supple CTA RR Soft NT ND, (+) PEG no edema, contracted OBS Darryl Hood MD Nov 25, 2018 23:14
[2018-11-26] VITALS: BP 143/88
[2018-11-26] MEDS: Cefepime HCl 1 GM in D5W 55 ML IVPB SCH ×2 (02:17→13:26)
[2018-11-26 04:00] VITALS: BP 147/86
[2018-11-26 07:01] LABS: BASOPHILS % (AUTO) 0.6 % (0.0-2.0); EOSINOPHILS % (AUTO) 2.9 % (0.0-3.0); HEMATOCRIT 27.2 % (37.0-47.0); HEMOGLOBIN 8.7 G/DL (12.0-16.0); LYMPHOCYTES % (AUTO) 15.4 % (20.0-45.0); MEAN CORPUSCULAR VOLUME 89 FL (80-99); MONOCYTES % (AUTO) 10.8 % (1.0-10.0); NEUTROPHILS % (AUTO) 70.4 % (45.0-75.0); PLATELET COUNT 500 K/UL (150-450); RED BLOOD COUNT 3.07 M/UL (4.20-5.40); RED CELL DISTRIBUTION WIDTH 13.4 % (11.6-14.8); WHITE BLOOD COUNT 11.1 K/UL (4.8-10.8)
--- NOTE | 2018-11-26 07:05 | NUR ---
HAND-OFF: Report given to MEGHAN Malloy. Pt is in stable condition; plan of care endorsed.
[2018-11-26 07:27] LABS: ANION GAP 7 mmol/L (5-15); BLOOD UREA NITROGEN 17 mg/dL (7-18); CARBON DIOXIDE 29 MMOL/L (21-32); CHLORIDE 108 MMOL/L (98-107); CREATININE 0.9 MG/DL (0.55-1.30); POTASSIUM 3.2 MMOL/L (3.5-5.1); SODIUM 144 MMOL/L (136-145)
--- NOTE | 2018-11-26 07:38 | NUR ---
NURSE NOTES: Received report from MEGHAN Aguirre. Pt is resting in bed. No distress noted. bed is in lowest position, side rails up X2, and call light is within reach. Will continue to monitor.
[2018-11-26 08:00] VITALS: BP 144/83
[2018-11-26] MEDS: Magnesium Oxide 400mg tab PEG SCH ×3 (09:19→17:16)
[2018-11-26] MEDS: Memantine 5 MG TAB PEG SCH (09:19)
[2018-11-26] MEDS: levETIRAcetam 500mg/NS100ml 100 ML IVPB SCH ×2 (09:19→20:18)
[2018-11-26] MEDS: OLANZapine 2.5mg tab GT SCH (09:19)
[2018-11-26] MEDS: Thiamine 100mg tab GT SCH (09:19)
[2018-11-26] MEDS: Hydrocortisone 100mg Inj IV SCH ×2 (09:19→17:16)
[2018-11-26] MEDS: Venlafaxine HCl 37.5mg Tab GT SCH ×2 (09:24→17:16)
[2018-11-26] MEDS: Heparin 5000 units/ml inj SUBQ SCH ×2 (09:24→20:19)
--- NOTE | 2018-11-26 11:58 | Infectious Diseases Prog Note ---
Assessment/Plan Assessment/Plan A 1. Sepsis 2. Atelectasis/ pneumonia. 3. 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 Acute renal failure improved 6. Alzheimer dementia 7. Gastrostomy status P 1. Continue IV Cefepime & Vancomycin in hospital 2. At time of discharge remove central line Subjective ROS Limited/Unobtainable: Yes Allergies: Coded Allergies: PENICILLINS (Verified Allergy, Unknown, 11/08/18) Objective Vital Signs Last 24 Hour Vital Signs Date Time Temp Pulse Resp B/P (MAP) Pulse Ox O2 Delivery O2 Flow Rate FiO2 11/26/18 09:00 Nasal Cannula 3.0 11/26/18 08:00 98.2 89 20 144/83 (103) 96 11/26/18 08:00 78 11/26/18 04:00 85 11/26/18 04:00 97.9 89 24 147/86 (106) 97 11/26/18 00:00 97.7 86 24 143/88 (106) 95 11/26/18 00:00 77 11/25/18 21:00 Nasal Cannula 3.0 11/25/18 20:00 84 11/25/18 20:00 98.1 84 24 155/87 (109) 99 11/25/18 16:08 97.9 83 18 131/72 (91) 94 11/25/18 16:00 89 11/25/18 12:05 97.7 85 18 138/87 (104) 95 11/25/18 12:00 85 Height (Feet): 5 Height (Inches): 6.00 Weight (Pounds): 187 General Appearance: no acute distress HEENT: mucous membranes moist Respiratory/Chest: lungs clear Cardiovascular: normal rate, other - RIJ central line Abdomen: soft, non tender, other - GT feeding Extremities: no edema Neurologic/Psychiatric: aphasia, other - opens eyes Laboratory Tests Test 11/25/18 12:30 11/26/18 06:30 Vancomycin Level Trough 21.5 ug/mL (5.0-12.0) H White Blood Count 11.1 K/UL (4.8-10.8) H Red Blood Count 3.07 M/UL (4.20-5.40) L Hemoglobin 8.7 G/DL (12.0-16.0) L Hematocrit 27.2 % (37.0-47.0) L Mean Corpuscular Volume 89 FL (80-99) Mean Corpuscular Hemoglobin 28.4 PG (27.0-31.0) Mean Corpuscular Hemoglobin Concent 32.1 G/DL (32.0-36.0) Red Cell Distribution Width 13.4 % (11.6-14.8) Platelet Count 500 K/UL (150-450) H Mean Platelet Volume 4.7 FL (6.5-10.1) L Neutrophils (%) (Auto) 70.4 % (45.0-75.0) Lymphocytes (%) (Auto) 15.4 % (20.0-45.0) L Monocytes (%) (Auto) 10.8 % (1.0-10.0) H Eosinophils (%) (Auto) 2.9 % (0.0-3.0) Basophils (%) (Auto) 0.6 % (0.0-2.0) Sodium Level 144 MMOL/L (136-145) Potassium Level 3.2 MMOL/L (3.5-5.1) L Chloride Level 108 MMOL/L (98-107) H Carbon Dioxide Level 29 MMOL/L (21-32) Anion Gap 7 mmol/L (5-15) Blood Urea Nitrogen 17 mg/dL (7-18) Creatinine 0.9 MG/DL (0.55-1.30) Estimat Glomerular Filtration Rate > 60 mL/min (>60) Glucose Level 86 MG/DL (74-106) Calcium Level 8.0 MG/DL (8.5-10.1) L Magnesium Level 1.8 MG/DL (1.8-2.4) Current Medications Medications (Trade) Dose Ordered Sig/Inocente Route PRN Reason Start Time Stop Time Status Last Admin Dose Admin Acetaminophen (Tylenol) 650 mg Q4H PRN GT Mild Pain/Temp > 100.5 11/24/18 07:00 12/20/18 06:59 Cefepime HCl 1 gm/ Dextrose 55 ml @ 110 mls/hr Q12H IVPB 11/24/18 14:00 11/28/18 13:59 11/26/18 02:17 Chlorhexidine Gluconate (Marga-Hex 2%) 1 applic DAILY@1999 TOPIC 11/24/18 20:00 12/11/18 19:59 11/25/18 20:44 Dextrose (Dextrose 50%) 25 ml Q30M PRN IV Hypoglycemia 11/24/18 07:00 12/08/18 15:46 Dextrose (Dextrose 50%) 50 ml Q30M PRN IV Hypoglycemia 11/24/18 07:00 12/08/18 17:29 Famotidine (Pepcid) 20 mg DAILY GT 11/24/18 09:00 12/20/18 10:59 11/26/18 09:19 Folic Acid (Folate) 1 mg DAILY PEG 11/24/18 09:00 12/20/18 10:59 11/26/18 09:19 Heparin Sodium (Porcine) (Heparin 5000 units/ml) 5,000 units EVERY 12 HOURS SUBQ 11/24/18 09:00 12/08/18 20:59 11/26/18 09:24 Hydrocortisone (Solu-CORTEF) 20 mg BID IV 11/25/18 09:00 12/21/18 21:59 11/26/18 09:19 Levetiracetam 100 ml @ 400 mls/hr Q12HR IVPB 11/24/18 09:00 12/15/18 20:59 11/26/18 09:19 Levothyroxine Sodium (Synthroid) 75 mcg ACBREAKFAST GT 11/25/18 06:30 12/10/18 06:29 11/26/18 06:02 Magnesium Oxide (Mag-Ox 400mg) 400 mg THREE TIMES A DAY PEG 11/24/18 09:00 12/14/18 08:59 11/26/18 09:19 Memantine (Namenda) 5 mg DAILY PEG 11/24/18 09:00 12/20/18 10:59 11/26/18 09:19 Olanzapine (ZyPREXA) 2.5 mg DAILY GT 11/24/18 09:00 12/20/18 10:59 11/26/18 09:19 Polyethylene Glycol (Miralax) 17 gm DAILYPRN PRN GT Constipation 11/24/18 10:30 12/09/18 10:59 Thiamine HCl (Vitamin B1) 100 mg DAILY GT 11/24/18 09:00 12/20/18 10:59 11/26/18 09:19 Vancomycin HCl (Vanco rx to dose) 1 ea DAILY PRN MISC Per rx protocol 11/24/18 09:00 12/22/18 11:44 Vancomycin HCl/ Dextrose 250 ml @ 166.667 mls/hr Q24H IVPB 11/25/18 17:00 11/30/18 16:59 11/25/18 17:39 Venlafaxine HCl (Effexor) 75 mg TWICE A DAY GT 11/24/18 09:00 12/20/18 17:59 11/26/18 09:24 Jimy Rios MD Nov 26, 2018 11:58
[2018-11-26 12:00] VITALS: BP 126/69
--- NOTE | 2018-11-26 12:41 | Diagnostic Imaging Report ---
APPROVED REPORT CPT Code: 78322 Present Symptoms Comments: Swelling LEFT LEG: Venous imaging reveals a patent deep venous system. There is no evidence of thrombus within the femoral, popliteal or tibial segments. The greater saphenous vein is also within normal limits. Doppler indicates normal spontaneous flow within these segments.
--- NOTE | 2018-11-26 13:26 | NUR ---
DISCHARGE PLANNING PATIENT HAS BEEN REFERRED TO: [facility] P:[phone] F:[phone]
--- NOTE | 2018-11-26 13:30 | Pulmonology Progress Note ---
Assessment/Plan Problems: (1) Elevated d-dimer (2) Hypoxemia (3) Dehydration (4) ARF (acute renal failure) (5) UTI (urinary tract infection) (6) Episode of generalized weakness (7) Sepsis (8) PEG (percutaneous endoscopic gastrostomy) status (9) Mercer disease Assessment/Plan Optimize pulmonary hygiene/mobilize as tolerated PRN O2 Abx (CEFEPIME&VANCO) per ID Monitor volumes and renal function Aspiration precautions Titrate HC per ENDO F/U repeat TTE DVT Px: Hep SQ Monitor MS, F/U neuro recs and w/u, unable to do MRI GTF's FC Subjective Allergies: Coded Allergies: PENICILLINS (Verified Allergy, Unknown, 11/08/18) Subjective ROSANGELA AFVSS O2 needs stable Not speaking, selin TF's More alert today No distress, no cough, no SOB Objective Last 24 Hour Vital Signs Date Time Temp Pulse Resp B/P (MAP) Pulse Ox O2 Delivery O2 Flow Rate FiO2 11/26/18 12:00 98.5 89 20 126/69 (88) 98 11/26/18 09:00 Nasal Cannula 3.0 11/26/18 08:00 98.2 89 20 144/83 (103) 96 11/26/18 08:00 78 11/26/18 04:00 85 11/26/18 04:00 97.9 89 24 147/86 (106) 97 11/26/18 00:00 97.7 86 24 143/88 (106) 95 11/26/18 00:00 77 11/25/18 21:00 Nasal Cannula 3.0 11/25/18 20:00 84 11/25/18 20:00 98.1 84 24 155/87 (109) 99 11/25/18 16:08 97.9 83 18 131/72 (91) 94 11/25/18 16:00 89 Intake and Output 11/25/18 11/26/18 18:59 06:59 Intake Total 750 ml 600 ml Output Total 400 ml 1000 ml Balance 350 ml -400 ml Free Water 150 ml Tube Feeding 600 ml 600 ml Output Urine Total 400 ml 1000 ml # Voids 1 General Appearance: no acute distress, cachetic HEENT: normocephalic, atraumatic, anicteric, mucous membranes moist Respiratory/Chest: chest wall non-tender, rhonchi Cardiovascular: normal peripheral pulses, normal rate, regular rhythm Abdomen: normal bowel sounds, soft, non tender, no organomegaly, non distended , no mass, other - GT Extremities: no cyanosis, no clubbing, no edema Laboratory Tests 11/26/18 06:30: White Blood Count 11.1H, Red Blood Count 3.07L, Hemoglobin 8.7L, Hematocrit 27.2L, Mean Corpuscular Volume 89, Mean Corpuscular Hemoglobin 28.4, Mean Corpuscular Hemoglobin Concent 32.1, Red Cell Distribution Width 13.4, Platelet Count 500H, Mean Platelet Volume 4.7L, Neutrophils (%) (Auto) 70.4, Lymphocytes (%) (Auto) 15.4L, Monocytes (%) (Auto) 10.8H, Eosinophils (%) (Auto) 2.9, Basophils (%) (Auto) 0.6, Sodium Level 144, Potassium Level 3.2L, Chloride Level 108H, Carbon Dioxide Level 29, Anion Gap 7, Blood Urea Nitrogen 17, Creatinine 0.9, Estimat Glomerular Filtration Rate > 60, Glucose Level 86, Calcium Level 8.0L, Magnesium Level 1.8 Current Medications Medications (Trade) Dose Ordered Sig/Inocente Route PRN Reason Start Time Stop Time Status Last Admin Dose Admin Acetaminophen (Tylenol) 650 mg Q4H PRN GT Mild Pain/Temp > 100.5 11/24/18 07:00 12/20/18 06:59 Cefepime HCl 1 gm/ Dextrose 55 ml @ 110 mls/hr Q12H IVPB 11/24/18 14:00 11/28/18 13:59 11/26/18 13:26 Chlorhexidine Gluconate (Marga-Hex 2%) 1 applic DAILY@2000 TOPIC 11/24/18 20:00 12/11/18 19:59 11/25/18 20:44 Dextrose (Dextrose 50%) 25 ml Q30M PRN IV Hypoglycemia 11/24/18 07:00 12/08/18 15:46 Dextrose (Dextrose 50%) 50 ml Q30M PRN IV Hypoglycemia 11/24/18 07:00 12/08/18 17:29 Famotidine (Pepcid) 20 mg DAILY GT 11/24/18 09:00 12/20/18 10:59 11/26/18 09:19 Folic Acid (Folate) 1 mg DAILY PEG 11/24/18 09:00 12/20/18 10:59 11/26/18 09:19 Heparin Sodium (Porcine) (Heparin 5000 units/ml) 5,000 units EVERY 12 HOURS SUBQ 11/24/18 09:00 12/08/18 20:59 11/26/18 09:24 Hydrocortisone (Solu-CORTEF) 20 mg BID IV 11/25/18 09:00 12/21/18 21:59 11/26/18 09:19 Levetiracetam 100 ml @ 400 mls/hr Q12HR IVPB 11/24/18 09:00 12/15/18 20:59 11/26/18 09:19 Levothyroxine Sodium (Synthroid) 75 mcg ACBREAKFAST GT 11/25/18 06:30 12/10/18 06:29 11/26/18 06:02 Magnesium Oxide (Mag-Ox 400mg) 400 mg THREE TIMES A DAY PEG 11/24/18 09:00 12/14/18 08:59 11/26/18 13:26 Memantine (Namenda) 5 mg DAILY PEG 11/24/18 09:00 12/20/18 10:59 11/26/18 09:19 Olanzapine (ZyPREXA) 2.5 mg DAILY GT 11/24/18 09:00 12/20/18 10:59 11/26/18 09:19 Polyethylene Glycol (Miralax) 17 gm DAILYPRN PRN GT Constipation 11/24/18 10:30 12/09/18 10:59 Thiamine HCl (Vitamin B1) 100 mg DAILY GT 11/24/18 09:00 12/20/18 10:59 11/26/18 09:19 Vancomycin HCl (Vanco rx to dose) 1 ea DAILY PRN MISC Per rx protocol 11/24/18 09:00 12/22/18 11:44 Vancomycin HCl/ Dextrose 250 ml @ 166.667 mls/hr Q24H IVPB 11/25/18 17:00 11/30/18 16:59 11/25/18 17:39 Venlafaxine HCl (Effexor) 75 mg TWICE A DAY GT 11/24/18 09:00 12/20/18 17:59 11/26/18 09:24 Ahmet Mallory MD Nov 26, 2018 13:30
--- NOTE | 2018-11-26 14:34 | NUR ---
DISCHARGE PLANNED PATIENT HAS BEEN REFERRED TO: [facility] P:[phone] F:[phone]
--- NOTE | 2018-11-26 14:55 | General Progress Note ---
Assessment/Plan Problem List: (1) UTI (urinary tract infection) ICD Codes: N39.0 - Urinary tract infection, site not specified SNOMED: 05331262 (2) Sepsis ICD Codes: A41.9 - Sepsis, unspecified organism SNOMED: 05100513 (3) ARF (acute renal failure) Assessment & Plan: better ICD Codes: N17.9 - Acute kidney failure, unspecified SNOMED: 05824553 (4) Encephalopathy acute ICD Codes: G93.40 - Encephalopathy, unspecified SNOMED: 18571559, 646508832 (5) Hypokalemia ICD Codes: E87.6 - Hypokalemia SNOMED: 70883994 (6) Anemia Assessment & Plan: better ICD Codes: D64.9 - Anemia, unspecified SNOMED: 754561004 (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 SNOMED: 652829099 Assessment/Plan IV hydrocortisone Abxs follow labs Dc planning Discussed with railroad purchasing agent to floor replete K Subjective Allergies: Coded Allergies: PENICILLINS (Verified Allergy, Unknown, 11/08/18) Subjective awake and alert a few words only Objective Last 24 Hour Vital Signs Date Time Temp Pulse Resp B/P (MAP) Pulse Ox O2 Delivery O2 Flow Rate FiO2 11/26/18 12:00 83 11/26/18 12:00 98.5 89 20 126/69 (88) 98 11/26/18 09:00 Nasal Cannula 3.0 11/26/18 08:00 98.2 89 20 144/83 (103) 96 11/26/18 08:00 78 11/26/18 04:00 85 11/26/18 04:00 97.9 89 24 147/86 (106) 97 11/26/18 00:00 97.7 86 24 143/88 (106) 95 11/26/18 00:00 77 11/25/18 21:00 Nasal Cannula 3.0 11/25/18 20:00 84 11/25/18 20:00 98.1 84 24 155/87 (109) 99 11/25/18 16:08 97.9 83 18 131/72 (91) 94 11/25/18 16:00 89 Intake and Output 11/25/18 11/26/18 19:00 07:00 Intake Total 660 ml 600 ml Output Total 400 ml 1000 ml Balance 260 ml -400 ml Free Water 150 ml Tube Feeding 510 ml 600 ml Output Urine Total 400 ml 1000 ml # Voids 1 Laboratory Tests 11/26/18 06:30: White Blood Count 11.1H, Red Blood Count 3.07L, Hemoglobin 8.7L, Hematocrit 27.2L, Mean Corpuscular Volume 89, Mean Corpuscular Hemoglobin 28.4, Mean Corpuscular Hemoglobin Concent 32.1, Red Cell Distribution Width 13.4, Platelet Count 500H, Mean Platelet Volume 4.7L, Neutrophils (%) (Auto) 70.4, Lymphocytes (%) (Auto) 15.4L, Monocytes (%) (Auto) 10.8H, Eosinophils (%) (Auto) 2.9, Basophils (%) (Auto) 0.6, Sodium Level 144, Potassium Level 3.2L, Chloride Level 108H, Carbon Dioxide Level 29, Anion Gap 7, Blood Urea Nitrogen 17, Creatinine 0.9, Estimat Glomerular Filtration Rate > 60, Glucose Level 86, Calcium Level 8.0L, Magnesium Level 1.8 Height (Feet): 5 Height (Inches): 6.00 Weight (Pounds): 187 Cardiovascular: normal rate Respiratory/Chest: lungs clear Edema: 2+ Generalized Ilir Rios MD Nov 26, 2018 14:55
--- NOTE | 2018-11-26 14:59 | NUR ---
CASE MANAGEMENT NOTES SPOKE TO PATIENT SPOUSE AND HE HAS CONFIRM THAT HE DOES NOT WANT HIS TO GO TO [facility] OR [facility]. HIS CHOICE FOR SNF IS [facility]. Addendum: 11/26/18 at 1538 by DANIEL ALCARAZ, RN ICU RN ICU SPOKE WITH KELLEY AT [facility] ~ SHE CAN ACCEPT TOMORROW PROVIDING PATIENT HAS HAD FLU SHOT SPOKE WITH DR Emiliano CALDWELL WHO SAID MRSA AND VRE ARE COLONIZED MESSAGE LETF FOR DR Cristina CALDWELL REGARDING SNF PLACEMENT AND 'S REQUEST
[2018-11-26 16:00] VITALS: BP 126/73
--- NOTE | 2018-11-26 16:28 | NUR ---
NURSE NOTES: Received report from MEGHAN Mckenna. Patient is alert and oriented X 1 and in stable condition. No acute distress/SOB noted. Will continue plan of care.
[2018-11-26] MEDS: Vancomycin 1250mg/D5W 250ml IVPB SCH (17:16)
--- NOTE | 2018-11-26 19:21 | General Progress Note ---
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 SNOMED: 135929087 (3) Sepsis ICD Codes: A41.9 - Sepsis, unspecified organism SNOMED: 55341543 (4) Episode of generalized weakness ICD Codes: R53.1 - Weakness SNOMED: 09937598 (5) UTI (urinary tract infection) ICD Codes: N39.0 - Urinary tract infection, site not specified SNOMED: 85984682 (6) ARF (acute renal failure) ICD Codes: N17.9 - Acute kidney failure, unspecified SNOMED: 39754320 (7) Encephalopathy acute ICD Codes: G93.40 - Encephalopathy, unspecified SNOMED: 76390256, 320289950 (8) Pneumonia ICD Codes: J18.9 - Pneumonia, unspecified organism SNOMED: 664614506 Assessment/Plan continue IVHC 20 mg every 12 hours keep Levothyroxine at 75 mcg daily Subjective ROS Limited/Unobtainable: Yes Allergies: Coded Allergies: PENICILLINS (Verified Allergy, Unknown, 11/08/18) Subjective events noted Objective Last 24 Hour Vital Signs Date Time Temp Pulse Resp B/P (MAP) Pulse Ox O2 Delivery O2 Flow Rate FiO2 11/26/18 16:00 98.8 86 21 126/73 (90) 96 11/26/18 16:00 81 11/26/18 12:00 83 11/26/18 12:00 98.5 89 20 126/69 (88) 98 11/26/18 09:00 Nasal Cannula 3.0 11/26/18 08:00 98.2 89 20 144/83 (103) 96 11/26/18 08:00 78 11/26/18 04:00 85 11/26/18 04:00 97.9 89 24 147/86 (106) 97 11/26/18 00:00 97.7 86 24 143/88 (106) 95 11/26/18 00:00 77 11/25/18 21:00 Nasal Cannula 3.0 11/25/18 20:00 84 11/25/18 20:00 98.1 84 24 155/87 (109) 99 Intake and Output 11/25/18 11/26/18 19:00 07:00 Intake Total 660 ml 600 ml Output Total 400 ml 1000 ml Balance 260 ml -400 ml Free Water 150 ml Tube Feeding 510 ml 600 ml Output Urine Total 400 ml 1000 ml # Voids 1 Laboratory Tests 11/26/18 06:30: White Blood Count 11.1H, Red Blood Count 3.07L, Hemoglobin 8.7L, Hematocrit 27.2L, Mean Corpuscular Volume 89, Mean Corpuscular Hemoglobin 28.4, Mean Corpuscular Hemoglobin Concent 32.1, Red Cell Distribution Width 13.4, Platelet Count 500H, Mean Platelet Volume 4.7L, Neutrophils (%) (Auto) 70.4, Lymphocytes (%) (Auto) 15.4L, Monocytes (%) (Auto) 10.8H, Eosinophils (%) (Auto) 2.9, Basophils (%) (Auto) 0.6, Sodium Level 144, Potassium Level 3.2L, Chloride Level 108H, Carbon Dioxide Level 29, Anion Gap 7, Blood Urea Nitrogen 17, Creatinine 0.9, Estimat Glomerular Filtration Rate > 60, Glucose Level 86, Calcium Level 8.0L, Magnesium Level 1.8 Height (Feet): 5 Height (Inches): 6.00 Weight (Pounds): 187 General Appearance: no apparent distress Neck: normal alignment Cardiovascular: normal rate Respiratory/Chest: decreased breath sounds Abdomen: other - PEG Pelvis: normal external exam Objective Current Medications Medications (Trade) Dose Ordered Sig/Inocente Route PRN Reason Start Time Stop Time Status Last Admin Dose Admin Acetaminophen (Tylenol) 650 mg Q4H PRN GT Mild Pain/Temp > 100.5 11/24/18 07:00 12/20/18 06:59 Cefepime HCl 1 gm/ Dextrose 55 ml @ 110 mls/hr Q12H IVPB 11/24/18 14:00 11/28/18 13:59 11/26/18 13:26 Chlorhexidine Gluconate (Marga-Hex 2%) 1 applic DAILY@2000 TOPIC 11/24/18 20:00 12/11/18 19:59 11/25/18 20:44 Dextrose (Dextrose 50%) 25 ml Q30M PRN IV Hypoglycemia 11/24/18 07:00 12/08/18 15:46 Dextrose (Dextrose 50%) 50 ml Q30M PRN IV Hypoglycemia 11/24/18 07:00 12/08/18 17:29 Famotidine (Pepcid) 20 mg DAILY GT 11/24/18 09:00 12/20/18 10:59 11/26/18 09:19 Folic Acid (Folate) 1 mg DAILY PEG 11/24/18 09:00 12/20/18 10:59 11/26/18 09:19 Heparin Sodium (Porcine) (Heparin 5000 units/ml) 5,000 units EVERY 12 HOURS SUBQ 11/24/18 09:00 12/08/18 20:59 11/26/18 09:24 Hydrocortisone (Solu-CORTEF) 20 mg BID IV 11/25/18 09:00 12/21/18 21:59 11/26/18 17:16 Levetiracetam 100 ml @ 400 mls/hr Q12HR IVPB 11/24/18 09:00 12/15/18 20:59 11/26/18 09:19 Levothyroxine Sodium (Synthroid) 75 mcg ACBREAKFAST GT 11/25/18 06:30 12/10/18 06:29 11/26/18 06:02 Magnesium Oxide (Mag-Ox 400mg) 400 mg THREE TIMES A DAY PEG 11/24/18 09:00 12/14/18 08:59 11/26/18 17:16 Memantine (Namenda) 5 mg DAILY PEG 11/24/18 09:00 12/20/18 10:59 11/26/18 09:19 Olanzapine (ZyPREXA) 2.5 mg DAILY GT 11/24/18 09:00 12/20/18 10:59 11/26/18 09:19 Polyethylene Glycol (Miralax) 17 gm DAILYPRN PRN GT Constipation 11/24/18 10:30 12/09/18 10:59 Potassium Chloride (K-Dur) 40 meq DAILY GT 11/26/18 14:30 12/26/18 14:29 11/26/18 15:36 Thiamine HCl (Vitamin B1) 100 mg DAILY GT 11/24/18 09:00 12/20/18 10:59 11/26/18 09:19 Vancomycin HCl (Vanco rx to dose) 1 ea DAILY PRN MISC Per rx protocol 11/24/18 09:00 12/22/18 11:44 Vancomycin HCl/ Dextrose 250 ml @ 166.667 mls/hr Q24H IVPB 11/25/18 17:00 11/30/18 16:59 11/26/18 17:16 Venlafaxine HCl (Effexor) 75 mg TWICE A DAY GT 11/24/18 09:00 12/20/18 17:59 11/26/18 17:16 Ken Turner MD Nov 26, 2018 19:21
--- NOTE | 2018-11-26 19:25 | Neurology Progress Note ---
Interim History Interim History Interim History Ms. Aquino feels "better." She is awake and more alert. She is able to produce automatic speech, but when a conversation is started she is severely aphasic. Her BPs have been in the 120s and 140s systolic. Most of what she is saying cannot be understood as she is significantly aphasic. She is able to follow simple commands better. She is lying with her neck flexed forward and the legs in a flexed position. Review of Systems Neuro Review of Systems Unable to obtain. Objective Physical Exam Last Vital Signs Date Time Temp Pulse Resp B/P (MAP) Pulse Ox O2 Delivery O2 Flow Rate FiO2 11/26/18 16:00 98.8 86 21 126/73 (90) 96 11/26/18 09:00 Nasal Cannula 3.0 11/20/18 20:20 100 Laboratory Tests Test 11/26/18 06:30 White Blood Count 11.1 K/UL (4.8-10.8) H Red Blood Count 3.07 M/UL (4.20-5.40) L Hemoglobin 8.7 G/DL (12.0-16.0) L Hematocrit 27.2 % (37.0-47.0) L Mean Corpuscular Volume 89 FL (80-99) Mean Corpuscular Hemoglobin 28.4 PG (27.0-31.0) Mean Corpuscular Hemoglobin Concent 32.1 G/DL (32.0-36.0) Red Cell Distribution Width 13.4 % (11.6-14.8) Platelet Count 500 K/UL (150-450) H Mean Platelet Volume 4.7 FL (6.5-10.1) L Neutrophils (%) (Auto) 70.4 % (45.0-75.0) Lymphocytes (%) (Auto) 15.4 % (20.0-45.0) L Monocytes (%) (Auto) 10.8 % (1.0-10.0) H Eosinophils (%) (Auto) 2.9 % (0.0-3.0) Basophils (%) (Auto) 0.6 % (0.0-2.0) Sodium Level 144 MMOL/L (136-145) Potassium Level 3.2 MMOL/L (3.5-5.1) L Chloride Level 108 MMOL/L (98-107) H Carbon Dioxide Level 29 MMOL/L (21-32) Anion Gap 7 mmol/L (5-15) Blood Urea Nitrogen 17 mg/dL (7-18) Creatinine 0.9 MG/DL (0.55-1.30) Estimat Glomerular Filtration Rate > 60 mL/min (>60) Glucose Level 86 MG/DL (74-106) Calcium Level 8.0 MG/DL (8.5-10.1) L Magnesium Level 1.8 MG/DL (1.8-2.4) Neurologic Exam Objective PHYSICAL EXAMINATION: GENERAL: She is a well-developed, relatively well-nourished lady, lying in bed, in no acute distress. HEAD: Normocephalic and atraumatic. EENT: Examination benign. NECK: No neck rigidity was observed. NEUROLOGIC EXAMINATION: MENTAL STATUS EXAMINATION: She was awake and more alert. She was severely aphasic but some of her words could be understood. She did a lot of mumbling and what she was saying could not be understood. She was able to follow a simple commands. SPEECH: She had a dysarthria. LANGUAGE: She was able to comprehend simple commands and express herself but not normally. CRANIAL NERVE EXAMINATION: II: She blinked to threat on both sides. III, IV & : External ocular movements were present on oculocephalic maneuvers. The pupils were 3 mm in diameter, equal, round, regular, and reactive sluggishly to light. V & VII: The corneal reflexes were equally brisk and she had no facial asymmetry. VIII: She did respond to sounds and had no nystagmus. IX-X: The gag reflex was not tested. XI: The sternocleidomastoids and trapezii functioned minimally. XII: The tongue was in the midline without any fasciculations or atrophy. MOTOR SYSTEM: The tone was increased in all four extremities with a significant degree of spasticity and gegenhalten. Examination of muscle mass revealed bilateral knee and ankle cord contractures. Examination of power was impossible to perform on individual muscle groups. She however moved all four extremities on command. She also gave me good hand quality assistant. SENSORY EXAMINATION: She responded appropriately to deep pain. She was unable to cooperate for other sensory modalities. REFLEXES: 2++ and bilaterally symmetrical at the biceps, triceps, brachioradialis, and knees, 0 at both ankles. The plantar responses were flexor bilaterally. COORDINATION, STANCE & GAIT: Could not be tested. Impression/Recommendations Diagnostic Impression 1. Ms. Stacy Aquino is a 68-year-old lady of unknown handedness, who does have a past history of anxiety, depression, breast cancer, and Alzheimer's disease. She was hospitalized on 11/08/2018 for increased weakness and change in behavior. She was discovered to have urinary tract infection, dehydration, and hypotension all of which have been treated, but she continues to have an altered mental state, which her family feels is worse than her baseline. 2. She feels "better." She is awake and more alert. She is able to produce automatic speech, but when a conversation is started she is severely aphasic. Her BPs have been in the 120s and 140s systolic. Most of what she is saying cannot be understood as she is significantly aphasic. She is able to follow simple commands better. She is lying with her neck flexed forward and the legs in a flexed position. 3. On neurological examination, at this time, she is awake and more alert. She is severely aphasic but some of her words can be understood. However she does a lot of mumbling and what she is saying cannot be understood. She is able to follow a simple commands. She has a dysarthria. She is able to comprehend simple commands and express herself but not normally. She continues to be encephalopathic. She does not demonstrate any focal or lateralizing neurological findings. She is generally weak, has bilateral ankle cord contractures and exhibits spasticity. 4. Laboratory data obtained thus far have revealed that she is anemic with a hemoglobin of 9.0 G. Her blood gases revealed that her pCO2 was down to 31.8 and her pO2 was 103.2. Her chemistry panel on admission revealed her BUN was elevated to 20 and creatinine was elevated at 1.6. Her BNP was elevated to 577, her albumin was low at 2.9, her TSH was low at 0.086. The urinalysis on admission revealed 3+ leukocyte esterase, too numerous to count white blood cells, but 0 red blood cells per high power field. 5. Further laboratory tests have revealed a low T3 at 0.8 and a low T4 at 0.68. The B12 is normal but the folate is low at 7.2. 6. The CT of the brain done on 11/12/18 revealed atrophy and hydrocephalus ex- vacuo. 7. The EEG done on 11/14/18 revealed a moderately severe metabolic encephalopathy. In addition T3 and T4 sharp discharges were seen which could be indicative of either brain irritability or inter-ictal discharges. 8. A brain MRI could not be done as she could not be positioned in the scanner due to her contractures. 9. The patient's history, neurological examination and imaging are most compatible with an advanced dementia with a superimposed encephalopathy most probably related to her recent urinary tract infection, hypotension, and fluid and electrolyte imbalance. 10. The episode of hypotension on 11/13/18 could have worsened the encephalopathy. 11. She had her last hypotensive episode on 11/20/18. 12. There is a question as to whether she has adrenal insufficency. Recommendations 1. Continue present management. 2. Try to keep BP > 110 at all times. 3. Treatment of hypothyroidism. 4. Folic acid 1 mg PO daily. 5. Continue Keppra 500 q 12 H IV. 6. Treatment of adrenal insufficiency. 7. Observe. Harley Reeves M.D., M.S.P.H. Harley Reeves MD Nov 26, 2018 19:25
--- NOTE | 2018-11-26 19:30 | NUR ---
HAND-OFF: Report given to MEGHAN Aguirre. Patient is in stable condition. Endorsed plan of care.
--- NOTE | 2018-11-26 19:31 | NUR ---
NURSE NOTES: Report received from MEGHAN Murrell. Pt is lying comfortably in semi-fowlers. A+Ox1, and shows no signs pain and SOB. Pt shows no signs of distress. IJ triple lumen is patent, intact, and saline locked. Respirations are even and unlabored on 2 L NC. G-tube is in place, patent, and running feeding at prescribed rate. Bed is at lowest position, brakes engaged, siderails x2, bed alarm on, and call light within reach. Pt is in stable condition at this time; will continue to monitor.
--- NOTE | 2018-11-26 19:54 | Cardiology Progress Note ---
Assessment/Plan Assessment/Plan 1. Hypotension. 2. [place]'s disease. 3. History of G-tube placement. 4. 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 5. History of bronchiectasis. 6. Normal pressure hydrocephalus, CSF fluid leak. 7. History of hypothyroidism. 8. History of ulcerative colitis. 9. [facility] bp much improved since steroid started echo ef 55% tele likely sinus with tremor artifact ekg noted left leg duplex neg iv abx Subjective ROS Limited/Unobtainable: Yes Objective Last 24 Hour Vital Signs Date Time Temp Pulse Resp B/P (MAP) Pulse Ox O2 Delivery O2 Flow Rate FiO2 11/26/18 16:00 98.8 86 21 126/73 (90) 96 11/26/18 16:00 81 11/26/18 12:00 83 11/26/18 12:00 98.5 89 20 126/69 (88) 98 11/26/18 09:00 Nasal Cannula 3.0 11/26/18 08:00 98.2 89 20 144/83 (103) 96 11/26/18 08:00 78 11/26/18 04:00 85 11/26/18 04:00 97.9 89 24 147/86 (106) 97 11/26/18 00:00 97.7 86 24 143/88 (106) 95 11/26/18 00:00 77 11/25/18 21:00 Nasal Cannula 3.0 11/25/18 20:00 84 11/25/18 20:00 98.1 84 24 155/87 (109) 99 General Appearance: no apparent distress Cardiovascular: normal rate Respiratory/Chest: lungs clear Abdomen: normal bowel sounds, non tender, soft Extremities: trace edema Intake and Output 11/25/18 11/26/18 19:00 07:00 Intake Total 660 ml 600 ml Output Total 400 ml 1000 ml Balance 260 ml -400 ml Free Water 150 ml Tube Feeding 510 ml 600 ml Output Urine Total 400 ml 1000 ml # Voids 1 Laboratory Tests Test 11/26/18 06:30 White Blood Count 11.1 K/UL (4.8-10.8) H Red Blood Count 3.07 M/UL (4.20-5.40) L Hemoglobin 8.7 G/DL (12.0-16.0) L Hematocrit 27.2 % (37.0-47.0) L Mean Corpuscular Volume 89 FL (80-99) Mean Corpuscular Hemoglobin 28.4 PG (27.0-31.0) Mean Corpuscular Hemoglobin Concent 32.1 G/DL (32.0-36.0) Red Cell Distribution Width 13.4 % (11.6-14.8) Platelet Count 500 K/UL (150-450) H Mean Platelet Volume 4.7 FL (6.5-10.1) L Neutrophils (%) (Auto) 70.4 % (45.0-75.0) Lymphocytes (%) (Auto) 15.4 % (20.0-45.0) L Monocytes (%) (Auto) 10.8 % (1.0-10.0) H Eosinophils (%) (Auto) 2.9 % (0.0-3.0) Basophils (%) (Auto) 0.6 % (0.0-2.0) Sodium Level 144 MMOL/L (136-145) Potassium Level 3.2 MMOL/L (3.5-5.1) L Chloride Level 108 MMOL/L (98-107) H Carbon Dioxide Level 29 MMOL/L (21-32) Anion Gap 7 mmol/L (5-15) Blood Urea Nitrogen 17 mg/dL (7-18) Creatinine 0.9 MG/DL (0.55-1.30) Estimat Glomerular Filtration Rate > 60 mL/min (>60) Glucose Level 86 MG/DL (74-106) Calcium Level 8.0 MG/DL (8.5-10.1) L Magnesium Level 1.8 MG/DL (1.8-2.4) Jesu Alejandra MD Nov 26, 2018 19:54
[2018-11-26 20:00] VITALS: BP 132/84
[2018-11-26] MEDS: Dyna-Hex 2% Top Sol 2oz TOPIC SCH (20:18)
[2018-11-27] VITALS: BP 134/77
[2018-11-27] MEDS: Cefepime HCl 1 GM in D5W 55 ML IVPB SCH (01:08)
[2018-11-27 04:00] VITALS: BP 128/82
--- NOTE | 2018-11-27 07:03 | NUR ---
HAND-OFF: Report given to MEGHAN Murrell. Pt is in stable condition; plan of care endorsed.
--- NOTE | 2018-11-27 07:10 | NUR ---
NURSE NOTES: Received report from MEGHAN Aguirre. Patient is in stable condition. No acute distress/SOB noted. Will continue plan of care.
[2018-11-27 08:00] VITALS: BP 147/78
[2018-11-27 08:23] LABS: ANION GAP 6 mmol/L (5-15); BLOOD UREA NITROGEN 17 mg/dL (7-18); CALCIUM 7.8 MG/DL (8.5-10.1); CARBON DIOXIDE 31 MMOL/L (21-32); CHLORIDE 107 MMOL/L (98-107); CREATININE 0.9 MG/DL (0.55-1.30); POTASSIUM 3.5 MMOL/L (3.5-5.1); SODIUM 144 MMOL/L (136-145)
[2018-11-27] MEDS: Magnesium Oxide 400mg tab PEG SCH ×2 (09:02→12:43)
[2018-11-27] MEDS: Thiamine 100mg tab GT SCH (09:02)
[2018-11-27] MEDS: Heparin 5000 units/ml inj SUBQ SCH (09:02)
[2018-11-27] MEDS: Venlafaxine HCl 37.5mg Tab GT SCH (09:02)
[2018-11-27] MEDS: OLANZapine 2.5mg tab GT SCH (09:03)
[2018-11-27] MEDS: Memantine 5 MG TAB PEG SCH (09:03)
[2018-11-27] MEDS: Hydrocortisone 100mg Inj IV SCH (09:03)
[2018-11-27] MEDS: levETIRAcetam 500mg/NS100ml 100 ML IVPB SCH (09:12)
--- NOTE | 2018-11-27 10:25 | Infectious Diseases Prog Note ---
Assessment/Plan Assessment/Plan A 1. Sepsis resolved 2. Atelectasis/ pneumonia. treated 3. 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 Acute renal failure improved 6. Alzheimer dementia 7. Gastrostomy status P 1. discontinue IV Cefepime & Vancomycin 2. At time of discharge remove central line Subjective ROS Limited/Unobtainable: Yes Constitutional: Reports: other - afebrile Allergies: Coded Allergies: PENICILLINS (Verified Allergy, Unknown, 11/08/18) Objective Vital Signs Last 24 Hour Vital Signs Date Time Temp Pulse Resp B/P (MAP) Pulse Ox O2 Delivery O2 Flow Rate FiO2 11/27/18 09:00 Nasal Cannula 3.0 11/27/18 08:00 97.1 80 20 147/78 (101) 97 11/27/18 08:00 80 11/27/18 04:00 97.4 79 18 128/82 (97) 97 11/27/18 04:00 79 11/27/18 00:00 79 11/27/18 00:00 97.9 79 18 134/77 (96) 95 11/26/18 21:00 Nasal Cannula 3.0 11/26/18 20:00 72 11/26/18 20:00 97.5 83 18 132/84 (100) 96 11/26/18 16:00 98.8 86 21 126/73 (90) 96 11/26/18 16:00 81 11/26/18 12:00 83 11/26/18 12:00 98.5 89 20 126/69 (88) 98 Height (Feet): 5 Height (Inches): 6.00 Weight (Pounds): 187 General Appearance: no acute distress HEENT: mucous membranes moist Respiratory/Chest: lungs clear Cardiovascular: normal rate Abdomen: soft, non tender, other - GT feeding Extremities: no edema Neurologic/Psychiatric: alert, responsive Laboratory Tests Test 11/27/18 06:20 Sodium Level 144 MMOL/L (136-145) Potassium Level 3.5 MMOL/L (3.5-5.1) Chloride Level 107 MMOL/L (98-107) Carbon Dioxide Level 31 MMOL/L (21-32) Anion Gap 6 mmol/L (5-15) Blood Urea Nitrogen 17 mg/dL (7-18) Creatinine 0.9 MG/DL (0.55-1.30) Estimat Glomerular Filtration Rate > 60 mL/min (>60) Glucose Level 87 MG/DL (74-106) Calcium Level 7.8 MG/DL (8.5-10.1) L Magnesium Level 1.8 MG/DL (1.8-2.4) Current Medications Medications (Trade) Dose Ordered Sig/Inocente Route PRN Reason Start Time Stop Time Status Last Admin Dose Admin Acetaminophen (Tylenol) 650 mg Q4H PRN GT Mild Pain/Temp > 100.5 11/24/18 07:00 12/20/18 06:59 Cefepime HCl 1 gm/ Dextrose 55 ml @ 110 mls/hr Q12H IVPB 11/24/18 14:00 11/28/18 13:59 11/27/18 01:08 Chlorhexidine Gluconate (Marga-Hex 2%) 1 applic DAILY@2000 TOPIC 11/24/18 20:00 12/11/18 19:59 11/26/18 20:18 Dextrose (Dextrose 50%) 25 ml Q30M PRN IV Hypoglycemia 11/24/18 07:00 12/08/18 15:46 Dextrose (Dextrose 50%) 50 ml Q30M PRN IV Hypoglycemia 11/24/18 07:00 12/08/18 17:29 Famotidine (Pepcid) 20 mg DAILY GT 11/24/18 09:00 12/20/18 10:59 11/27/18 09:02 Folic Acid (Folate) 1 mg DAILY PEG 11/24/18 09:00 12/20/18 10:59 11/27/18 09:02 Heparin Sodium (Porcine) (Heparin 5000 units/ml) 5,000 units EVERY 12 HOURS SUBQ 11/24/18 09:00 12/08/18 20:59 11/27/18 09:02 Hydrocortisone (Solu-CORTEF) 20 mg BID IV 11/25/18 09:00 12/21/18 21:59 11/27/18 09:03 Influenza Virus Vacc Trival Recomb (Flu Vac High-Dose for Pts 65 Years and Older) 0.5 ml ONCE ONCE IM 11/27/18 11:00 11/27/18 11:01 Levetiracetam 100 ml @ 400 mls/hr Q12HR IVPB 11/24/18 09:00 12/15/18 20:59 11/27/18 09:12 Levothyroxine Sodium (Synthroid) 75 mcg ACBREAKFAST GT 11/25/18 06:30 12/10/18 06:29 11/27/18 05:26 Magnesium Oxide (Mag-Ox 400mg) 400 mg THREE TIMES A DAY PEG 11/24/18 09:00 12/14/18 08:59 11/27/18 09:02 Memantine (Namenda) 5 mg DAILY PEG 11/24/18 09:00 12/20/18 10:59 11/27/18 09:03 Olanzapine (ZyPREXA) 2.5 mg DAILY GT 11/24/18 09:00 12/20/18 10:59 11/27/18 09:03 Polyethylene Glycol (Miralax) 17 gm DAILYPRN PRN GT Constipation 11/24/18 10:30 12/09/18 10:59 Potassium Chloride (K-Dur) 40 meq DAILY GT 11/26/18 14:30 12/26/18 14:29 11/27/18 09:03 Thiamine HCl (Vitamin B1) 100 mg DAILY GT 11/24/18 09:00 12/20/18 10:59 11/27/18 09:02 Vancomycin HCl (Vanco rx to dose) 1 ea DAILY PRN MISC Per rx protocol 11/24/18 09:00 12/22/18 11:44 Vancomycin HCl/ Dextrose 250 ml @ 166.667 mls/hr Q24H IVPB 11/25/18 17:00 11/30/18 16:59 11/26/18 17:16 Venlafaxine HCl (Effexor) 75 mg TWICE A DAY GT 11/24/18 09:00 12/20/18 17:59 11/27/18 09:02 Jimy Rios MD Nov 27, 2018 10:25
[2018-11-27] MEDS ORDERED: Flu Vaccine High-Dose for Pts 65 Years and Older IM ONE (11:00)
[2018-11-27 12:00] VITALS: BP 122/84
[2018-11-27] MEDS ORDERED: HEPARIN SO5000 UNIT2 SUBQ (12:00)
[2018-11-27] MEDS ORDERED: LEVOTHYROXINE75 MCG GT (12:00)
[2018-11-27] MEDS ORDERED: EFFEXOR37.5 MG GT (12:00)
[2018-11-27] MEDS ORDERED: FAMOTIDINE20 MG GT (12:00)
[2018-11-27] MEDS ORDERED: OLANZAPINE2.5 MG GT (12:00)
[2018-11-27] MEDS ORDERED: MAG-OX 400400 MG PEG (12:00)
--- NOTE | 2018-11-27 12:02 | General Progress Note ---
Assessment/Plan Problem List: (1) UTI (urinary tract infection) ICD Codes: N39.0 - Urinary tract infection, site not specified SNOMED: 95988916 (2) Sepsis ICD Codes: A41.9 - Sepsis, unspecified organism SNOMED: 09861408 (3) ARF (acute renal failure) Assessment & Plan: better ICD Codes: N17.9 - Acute kidney failure, unspecified SNOMED: 77452904 (4) Encephalopathy acute ICD Codes: G93.40 - Encephalopathy, unspecified SNOMED: 44246781, 483434948 (5) Hypokalemia ICD Codes: E87.6 - Hypokalemia SNOMED: 40210389 (6) Anemia Assessment & Plan: better ICD Codes: D64.9 - Anemia, unspecified SNOMED: 069805608 (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 SNOMED: 315973846 Assessment/Plan DC abxs DC to SNF Subjective Allergies: Coded Allergies: PENICILLINS (Verified Allergy, Unknown, 11/08/18) Subjective all noted Objective Last 24 Hour Vital Signs Date Time Temp Pulse Resp B/P (MAP) Pulse Ox O2 Delivery O2 Flow Rate FiO2 11/27/18 09:00 Nasal Cannula 3.0 11/27/18 08:00 97.1 80 20 147/78 (101) 97 11/27/18 08:00 80 11/27/18 04:00 97.4 79 18 128/82 (97) 97 11/27/18 04:00 79 11/27/18 00:00 79 11/27/18 00:00 97.9 79 18 134/77 (96) 95 11/26/18 21:00 Nasal Cannula 3.0 11/26/18 20:00 72 11/26/18 20:00 97.5 83 18 132/84 (100) 96 11/26/18 16:00 98.8 86 21 126/73 (90) 96 11/26/18 16:00 81 Intake and Output 11/26/18 11/27/18 19:00 07:00 Intake Total 720 ml Output Total 700 ml Balance -700 ml 720 ml Tube Feeding 720 ml Output Urine Total 700 ml # Voids 2 Laboratory Tests 11/27/18 06:20: Sodium Level 144, Potassium Level 3.5, Chloride Level 107, Carbon Dioxide Level 31, Anion Gap 6, Blood Urea Nitrogen 17, Creatinine 0.9, Estimat Glomerular Filtration Rate > 60, Glucose Level 87, Calcium Level 7.8L, Magnesium Level 1.8 Height (Feet): 5 Height (Inches): 6.00 Weight (Pounds): 187 Ilir Rios MD Nov 27, 2018 12:02
[2018-11-27] MEDS ORDERED: CORTEF10 MG GT ×2 (12:15)
--- NOTE | 2018-11-27 12:54 | NUR ---
DISCHARGE PLANNED PATIENT WILL DISCHARGE TO [facility] ROOM [address] SKILLED T: [phone] FOR NURSE TO NURSE REPORT [facility] HAS BEEN ARRANGED FOR [address] [employer] ENGINEER MANAGING JEWELER SPOKE WITH PATIENT'S AND HE IS IN AGREEMENT WITH DISCHARGE PLAN
--- NOTE | 2018-11-27 13:48 | NUR ---
NURSE NOTES: Discharge report given to MEGHAN Sanchez at [facility].
--- NOTE | 2018-11-27 14:44 | Pulmonology Progress Note ---
Assessment/Plan Problems: (1) Elevated d-dimer (2) Hypoxemia (3) Dehydration (4) ARF (acute renal failure) (5) UTI (urinary tract infection) (6) Episode of generalized weakness (7) Sepsis (8) PEG (percutaneous endoscopic gastrostomy) status (9) Zachary disease Assessment/Plan Optimize pulmonary hygiene/mobilize as tolerated PRN O2 Observe off Abx per ID Monitor volumes and renal function Aspiration precautions DVT Px: Hep SQ GTF's FC Dispo planning to SNF Subjective Allergies: Coded Allergies: PENICILLINS (Verified Allergy, Unknown, 11/08/18) Subjective ROSANGELA AFVSS O2 needs stable Not speaking, selin TF's MS waxes and wanes No distress, no cough, no SOB Objective Last 24 Hour Vital Signs Date Time Temp Pulse Resp B/P (MAP) Pulse Ox O2 Delivery O2 Flow Rate FiO2 11/27/18 12:00 98.8 90 20 122/84 (97) 94 11/27/18 12:00 89 11/27/18 09:00 Nasal Cannula 3.0 11/27/18 08:05 96 Nasal Cannula 3.0 32 11/27/18 08:05 Nasal Cannula 3.0 32 11/27/18 08:00 97.1 80 20 147/78 (101) 97 11/27/18 08:00 80 11/27/18 04:00 97.4 79 18 128/82 (97) 97 11/27/18 04:00 79 11/27/18 00:00 79 11/27/18 00:00 97.9 79 18 134/77 (96) 95 11/26/18 21:00 Nasal Cannula 3.0 11/26/18 20:00 72 11/26/18 20:00 97.5 83 18 132/84 (100) 96 11/26/18 16:00 98.8 86 21 126/73 (90) 96 11/26/18 16:00 81 Intake and Output 11/26/18 11/27/18 18:59 06:59 Intake Total 720 ml Output Total 700 ml Balance -700 ml 720 ml Tube Feeding 720 ml Output Urine Total 700 ml # Voids 2 General Appearance: no acute distress, cachetic HEENT: normocephalic, atraumatic, anicteric, mucous membranes moist Respiratory/Chest: chest wall non-tender, lungs clear, normal breath sounds, no respiratory distress, no accessory muscle use Cardiovascular: normal peripheral pulses, normal rate, regular rhythm Abdomen: normal bowel sounds, soft, non tender, no organomegaly, non distended , no mass, other - GT Extremities: no cyanosis, no clubbing, no edema Laboratory Tests 11/27/18 06:20: Sodium Level 144, Potassium Level 3.5, Chloride Level 107, Carbon Dioxide Level 31, Anion Gap 6, Blood Urea Nitrogen 17, Creatinine 0.9, Estimat Glomerular Filtration Rate > 60, Glucose Level 87, Calcium Level 7.8L, Magnesium Level 1.8 Current Medications Medications (Trade) Dose Ordered Sig/Inocente Route PRN Reason Start Time Stop Time Status Last Admin Dose Admin Acetaminophen (Tylenol) 650 mg Q4H PRN GT Mild Pain/Temp > 100.5 11/24/18 07:00 12/20/18 06:59 Chlorhexidine Gluconate (Marga-Hex 2%) 1 applic DAILY@2000 TOPIC 11/24/18 20:00 12/11/18 19:59 11/26/18 20:18 Dextrose (Dextrose 50%) 25 ml Q30M PRN IV Hypoglycemia 11/24/18 07:00 12/08/18 15:46 Dextrose (Dextrose 50%) 50 ml Q30M PRN IV Hypoglycemia 11/24/18 07:00 12/08/18 17:29 Famotidine (Pepcid) 20 mg DAILY GT 11/24/18 09:00 12/20/18 10:59 11/27/18 09:02 Folic Acid (Folate) 1 mg DAILY PEG 11/24/18 09:00 12/20/18 10:59 11/27/18 09:02 Heparin Sodium (Porcine) (Heparin 5000 units/ml) 5,000 units EVERY 12 HOURS SUBQ 11/24/18 09:00 12/08/18 20:59 11/27/18 09:02 Hydrocortisone (Cortef) 5 mg QHS GT 11/27/18 21:00 12/27/18 20:59 Hydrocortisone (Cortef) 10 mg DAILY GT 11/28/18 09:00 12/28/18 08:59 Levetiracetam 100 ml @ 400 mls/hr Q12HR IVPB 11/24/18 09:00 12/15/18 20:59 11/27/18 09:12 Levothyroxine Sodium (Synthroid) 75 mcg ACBREAKFAST GT 11/25/18 06:30 12/10/18 06:29 11/27/18 05:26 Magnesium Oxide (Mag-Ox 400mg) 400 mg THREE TIMES A DAY PEG 11/24/18 09:00 12/14/18 08:59 11/27/18 12:43 Memantine (Namenda) 5 mg DAILY PEG 11/24/18 09:00 12/20/18 10:59 11/27/18 09:03 Olanzapine (ZyPREXA) 2.5 mg DAILY GT 11/24/18 09:00 12/20/18 10:59 11/27/18 09:03 Polyethylene Glycol (Miralax) 17 gm DAILYPRN PRN GT Constipation 11/24/18 10:30 12/09/18 10:59 Potassium Chloride (K-Dur) 40 meq DAILY GT 11/26/18 14:30 12/26/18 14:29 11/27/18 09:03 Thiamine HCl (Vitamin B1) 100 mg DAILY GT 11/24/18 09:00 12/20/18 10:59 11/27/18 09:02 Venlafaxine HCl (Effexor) 75 mg TWICE A DAY GT 11/24/18 09:00 12/20/18 17:59 11/27/18 09:02 Ahmet Mallory MD Nov 27, 2018 14:44
[2018-11-27] MEDS ORDERED: NS 275ml ONE (14:58)
--- NOTE | 2018-11-27 15:02 | NUR ---
NURSE NOTES: Provided ADL's and removed teletypesetter monitor and right IJ central line. Clean, no bleeding noted on right IJ site. Awaiting for ambulance to pick-up.
--- NOTE | 2018-11-27 16:25 | NUR ---
NURSE NOTES: Patient discharged with 2 internal salesperson via gurney and all belongings given to internal salesperson. No acute distress/SOB noted.
--- NOTE | 2018-11-27 21:36 | General Progress Note ---
Assessment/Plan Assessment/Plan Assessment - OBS - dysphagia - anemia - UTI - s/p PEG - Hypotension - resolved Recommendations - Elevate HOB - monitor vital signs - follow labs - TF - abx - Pepcid - Miralax - d/c planning - Subjective Allergies: Coded Allergies: PENICILLINS (Verified Allergy, Unknown, 11/08/18) Subjective tolerating TF GT in good position awake no new issues per RN Objective Last 24 Hour Vital Signs Date Time Temp Pulse Resp B/P (MAP) Pulse Ox O2 Delivery O2 Flow Rate FiO2 11/27/18 12:00 98.8 90 20 122/84 (97) 94 11/27/18 12:00 89 11/27/18 09:00 Nasal Cannula 3.0 11/27/18 08:05 96 Nasal Cannula 3.0 32 11/27/18 08:05 Nasal Cannula 3.0 32 11/27/18 08:00 97.1 80 20 147/78 (101) 97 11/27/18 08:00 80 11/27/18 04:00 97.4 79 18 128/82 (97) 97 11/27/18 04:00 79 11/27/18 00:00 79 11/27/18 00:00 97.9 79 18 134/77 (96) 95 Intake and Output 11/26/18 11/27/18 19:00 07:00 Intake Total 720 ml Output Total 700 ml Balance -700 ml 720 ml Tube Feeding 720 ml Output Urine Total 700 ml # Voids 2 Laboratory Tests 11/27/18 06:20: Sodium Level 144, Potassium Level 3.5, Chloride Level 107, Carbon Dioxide Level 31, Anion Gap 6, Blood Urea Nitrogen 17, Creatinine 0.9, Estimat Glomerular Filtration Rate > 60, Glucose Level 87, Calcium Level 7.8L, Magnesium Level 1.8 Height (Feet): 5 Height (Inches): 6.00 Weight (Pounds): 187 Objective Elderly WW NCAT supple CTA RR Soft NT ND, (+) PEG no edema, contracted OBS Darryl Hood MD Nov 27, 2018 21:36
--- NOTE | 2018-11-28 16:54 | Discharge Summary ---
Discharge Summary Discharge Summary _ DATE OF ADMISSION: November 08, 2018 DATE OF DISCHARGE: November 27, 2018 DISCHARGED BY: Dr. Ilir Rios CONSULTANTS: Dr. Ahmet Turner [facility] COURSE: Patient is an 88-year-old female, who is a resident of shelter facility. Patient was feeling weak. Paramedics were called. Patient was brought to the emergency room. She was diagnosed with a urinary tract infection and was somewhat hypotensive and her blood pressure 90-100 systolic. She has history of Alzheimer's disease and was unable to provide any history. On evaluation at the ED, blood work did not show any leukocytosis, hemoglobin was 11, hematocrit 35. Creatinine 1.6, BUN 20. Urinalysis showed 3+ leukocyte esterase, too many to count WBC, negative nitrite. Chest x-ray showed mild consolidation in medial lung base. She was admitted for evaluation of generalized weakness and pneumonia. ID was consulted. She was given IV vancomycin and cefepime. She continued to be hypotensive. She was transferred to ICU. A central line was inserted to the right IJ. Urine culture did not isolate any growth. Blood culture with no growth. Vancomycin was discontinued. Hypoxemia resolved. D-dimer was elevated. CT chest with CTA was negative for acute PE or other acute thoracic vascular pathology.. Venous duplex of the lower extremity was negative for DVT. Patient was transferred out of ICU. Family was concerned about patient's mental status. Neurologist was consulted. Patient was evaluated for encephalopathy. CT of the brain done on 11/12/2018 revealed atrophy and hydrocephalus ex vacuo. EEG done on 11/14/2018 revealed moderately severe metabolic encephalopathy. In addition there were T3 and T4 sharp discharges seen which could be indicative of either brain irritability or interictal discharges. She was given Keppra 500 mg IV every 12 hours. She was given folic acid. She had an episode of hypotension on 11/13/2018 that could have worsened the encephalopathy. An MRI of the brain was ordered but could not be done as patient could not be positioned in the scanner due to her contractures. She was eventually transferred to the floor. Patient continued to be minimally aroused. She is mumbling but unable to understand. On 11/20/2018, she underwent upper GI endoscopy as well as gastrostomy tube placement. Patient has some mild erosive gastritis. She was eventually started on G-tube feedings the following day. She had an episode of hypotension and was transferred back to [facility]. Patient had intermittent hypotension. Information Technology Analyst was consulted. [facility] from [facility] were reviewed and indicated Mcdonald's disease. She was a started on steroids. An echocardiogram done showed ejection fraction of 55%. Blood pressure improved since steroid was started. Apple Turner was also consulted. Thyroid function was checked. She was given levothyroxine. Blood pressure stable and IV hydrocortisone dose was adjusted. Blood pressure stabilized. Patient completed antibiotic treatment. Patient was discharged to [facility]. FINAL DIAGNOSES: Sepsis Pneumonia/atelectasis Acute toxic metabolic encephalopathy Hypoxemia Elevated d-dimer Dehydration Acute renal failure Dysphagia status post PEG tube placement on 11/20/2018 Mcdonald's disease Hypokalemia Anemia Urinary tract infection Hypothyroidism Reported history of hypogammaglobulinemia Normal pressure hydrocephalus History of Viki granulomatosis History of ulcerative colitis Low folate level Alzheimer's dementia DISPOSITION: Patient was discharged to a SNF. DISCHARGE MEDICATIONS: Refer to Discharge Medication List. I have been assigned to dictate discharge summary on this account, and I was not involved in the patient's management. Cora Turpin NP Nov 28, 2018 16:54
== END 2018-11-27 16:25 | DRG 871 ==
LOC: EDBD 13:06 → EMR 13:30 → 2W 14:31 → EDBEDREQ 15:54 → SDU 11-09 17:52 → ICU 11-09 18:56 → 2W 11-11 15:45 → 4E 11-15 10:34 → ICU 11-20 22:25 → 2W 11-21 15:15 → 2E 11-24 06:58
PROC: 05HM33Z Insertion of Infusion Device into Right Internal Jugular Vein, Percutaneous Approach (ICD-10-PCS; principal; 2018-11-09)
PROC: 0DH63UZ Insertion of Feeding Device into Stomach, Percutaneous Approach (ICD-10-PCS; 2018-11-20 08:38)
PROC: 0DB78ZX Excision of Stomach, Pylorus, Via Natural or Artificial Opening Endoscopic, Diagnostic (ICD-10-PCS; 2018-11-20 08:38)
DX: A41.9 Sepsis, unspecified organism (principal); R65.21 Severe sepsis with septic shock; J15.212 Pneumonia due to Methicillin resistant Staphylococcus aureus; G93.41 Metabolic encephalopathy; N39.0 Urinary tract infection, site not specified; N17.9 Acute kidney failure, unspecified; E27.1 Primary adrenocortical insufficiency; G91.2 (Idiopathic) normal pressure hydrocephalus; J98.11 Atelectasis; G30.9 Alzheimer's disease, unspecified; F02.80 Dementia in other diseases classified elsewhere, unspecified severity, without behavioral disturbance, psychotic disturbance, mood disturbance, and anxiety; Z85.3 Personal history of malignant neoplasm of breast; F41.9 Anxiety disorder, unspecified; F32.9 Major depressive disorder, single episode, unspecified; R13.10 Dysphagia, unspecified; K29.70 Gastritis, unspecified, without bleeding; E87.6 Hypokalemia; E86.0 Dehydration; R09.02 Hypoxemia
CPT/HCPCS: 36415; 36600; 51702; 70450; 71045; 71275; 74018; 74150; 80048; 80053; 80202; 81003; 82140; 82270; 82306; 82533; 82550; 82553; 82607; 82746; 82803; 82962; 83036; 83605; 83690; 83735; 83880; 84100; 84439; 84443; 84481; 84484; 85007; 85025; 85379; 85610; 85651; 85730; 86592; 87040; 87070; 87081; 87086; 87181; 87205; 93005; 93306; 93970; 93971; 94003; 94150; 94760; 95819; 96361; 96365; 99285; J8499